=== PATIENT | female | born 1980 | race Caucasian/White ===

== ENCOUNTER 2020-04-13 10:08 | Emergency (ER) | payer OTHER, SELFPAY ==
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
--- NOTE | ~2020-04-13 | XR_ITS ---
EXAMINATION: XR knee LT min 4V DATE: 04/13/2020 11:52 INDICATION: Left knee pain TECHNIQUE: Four views of the left knee were obtained. COMPARISON: None. FINDINGS: Alignment is normal. No fracture or osteochondral lesion. Joint spaces are normal with no e rosions. No joint effusion/synovitis. Soft tissues are unremarkable. IMPRESSION: 1. No acute osseous abnormality. Reviewed, dictated and finalized at location A.
--- NOTE | ~2020-04-13 | XR_ITS ---
EXAMINATION: XR ankle RT min 3V INDICATION: Right ankle pain TECHNIQUE: Four views of the right ankle are obtained. COMPARISON: None available FINDINGS: There is no fracture, dislocation, or subluxation. The bones, soft tissues, and joint space s are normal. IMPRESSION: 1. No acute osseous abnormality. Reviewed, dictated and finalized at location A.
[2020-04-13 09:53] VITALS: BP 124/87; PULSE 96; RESP 20; TEMP 36.9; O2SAT 99
[2020-04-13 10:18] VITALS: PULSE 91; RESP 20; O2SAT 100
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
[2020-04-13 11:12] LABS: Hematocrit 44.1 % (37.0-47.0); Hemoglobin 14.1 g/dL (12.0-15.0); Mean Corpuscular Hemoglobin 28.3 pg (26-34); Mean Corpuscular Volume 88.6 fl (80-100); Mean Platelet Volume 9.4 fl (7.4-10.4); Platelet Count Result 418 k/mm3 (150-375); Red Blood Count 4.98 M/mm3 (4.2-5.4); Red Cell Distribution Width 14.6 % (11.5-14.5); White Blood Count 33.5 K/mm3 (4.5-10.0)
[2020-04-13 11:22] VITALS: TEMP 36.9
[2020-04-13 11:23] LABS: Blood Urea Nitrogen 8 mg/dL (7-17); Calcium 8.8 mg/dL (8.4-10.2); Carbon Dioxide 18 mmol/L (22-30); Chloride 110 mmol/L (98-107); Estimated CRCL calculation 71 ml/min; Estimated Glomerular Filt Rate > 60; Glucose 102 mg/dL (65-105); Sodium 139 mmol/L (137-145)
[2020-04-13 11:32] LABS: Partial Thromboplastin Time 21.3 SECONDS (22.3-36.8); Prothrombin Time 13.2 Seconds (11.1-14.7)
[2020-04-13 11:42] LABS: Lymphocytes Absolute Manual 2.34 K/mm3 (1.1-4.5); Monocytes Absolute Manual 2.01 K/mm3 (0.1-0.90); Monocytes Percent Manual 6 % (3-9); Neutrophils Percent Manual 87 % (46-73); Total Cells Counted 100
[2020-04-13] MEDS: KETOROLAC 30 MG/ML VIAL (*BKC) IV PUSH (12:09)
[2020-04-13 12:48] VITALS: TEMP 36.9
[2020-04-13 13:42] VITALS: BP 116/83; PULSE 85; RESP 18; O2SAT 99
== END 2020-04-13 13:44 | disposition home or self-care (01) ==
PROVIDERS: Physician Assistant; Emergency Provider General Practice; PCP Nurse Practitioner Family
DX: M25.571 Pain in right ankle and joints of right foot (principal); M25.562 Pain in left knee; R10.30 Lower abdominal pain, unspecified; F31.9 Bipolar disorder, unspecified; K76.0 Fatty (change of) liver, not elsewhere classified; I25.10 Atherosclerotic heart disease of native coronary artery without angina pectoris; V48.5XXA Car driver injured in noncollision transport accident in traffic accident, initial encounter
CPT/HCPCS: 36415; 71260; 73564; 73610; 74177; 80048; 81025; 85025; 85610; 85730; 96365; 96375; 99284; J0131; J1885; Q9967

== ENCOUNTER 2022-03-03 07:33 | Outpatient (CLI) | payer OTHER, SELFPAY ==
--- NOTE | 2022-03-03 07:55 | ECG_ITS ---
Measurements Intervals [place] Rate: 58 P: 61 ID: 165 QRS: 64 QRSD: 100 T: 40 QT: 453 QTc: 446 Interpretive Statements SINUS BRADYCARDIA NO PREVIOUS ECG AVAILABLE FOR COMPARISON Electronically Signed On 03-03-2022 22:09:58 CDT by Christina Mehta M.D.
[2022-03-03 09:05] LABS: Lithium 1.1 mmol/L (0.6-1.2)
== END 2022-03-03 07:34 | disposition home or self-care (01) ==
LOC: ANHSURGERY 07:39
PROVIDERS: Anesthesiology; PCP Nurse Practitioner Family; Visit Provider Obstetrics & Gynecology
DX: N92.1 Excessive and frequent menstruation with irregular cycle (principal); Z01.818 Encounter for other preprocedural examination
CPT/HCPCS: 36415; 80178; 93005

== ENCOUNTER 2022-03-05 01:58 | Day surgery (SDC) | payer OTHER, SELFPAY ==
[2022-03-01 17:42] VITALS: BMI 33.6
--- NOTE | 2022-03-01 17:46 | SUR.PREOP ---
Report to the Outpatient Waiting Room, entrance under the green pavilion located off [facility], at time ___1000____ on date _03/05/22 . OR Time: _1200 . - You and your visitor will be asked a series of questions to screen for COVID 19 for your protection. - Only one visitor is allowed at this time. - The patient visitor is requested to leave or wait in car when not with patient. - A mask is required within the hospital. Patients may have clear liquids (water, carbonated beverages, clear teas, apple juice) until 3 hours prior to surgery with a maximum of 20 ounces. - No food from midnight until time of surgery BEFORE 0900 AM - Infants may have breast milk until 4 hours before surgery, infant formula 6 hours prior to surgery. - Children will be allowed to drink immediately following surgery. If applicable, please bring a bottle or sippy cup to assist with drinking. Juice, water, soda, and popsicles are readily available. For infants on formula, please bring formula the day of surgery. Pacifiers are allowed. Take the following medications with a SIP of water the morning of surgery: LEVOTHYROXINE, LITHIUM, METOPROLOL, PAROXETINE Medications to discontinue per physician Date to take last dose Please no make-up, nail frisian, hairspray, perfume, deodorant, or body powder the day of surgery. No jewelry (including any body piercings) or valuables the day of surgery, leave them at home. Please take a shower or bath the night before, or the morning of, surgery with an antibacterial soap. Wear comfortable, loose fitting clothing. Children are encouraged to wear pajamas. - Jewelry must be removed prior to entering the operating room. Rings and piercings that are not removed may be cut off. - The hospital will not accept responsibility for valuables. - Please leave all valuables, including medications, at home the day of surgery. If you are going home after surgery, a licensed laundry route driver must drive you home. - NO public transportation without another adult. - We recommend that an adult stay with you for 24 hours following discharge. - We also recommend that you do not drive, make important decision, drink alcoholic beverages, or take any drugs that were not prescribed by your health care provider for at least 24 hours after your discharge time. For Pediatric surgeries, we recommend two adults accompany the child home (only one inside the building at this time). Follow any additional instructions given to you from your surgeon. If you or anyone in your household have experienced Covid symptoms in the past week, please notify your surgeon or the nurse liaison at the phone number below for possible testing. Telephone instructions given to _PATIENT and asked if any additional questions and then verbalized understanding. Patient advised to call surgeon office or pre surgery nurse liaison [phone] if any additional questions.
--- NOTE | 2022-03-04 12:04 | WPDANESEPPF ---
Anes - Initial Pre Proc Eval Procedure: Operation Date: 03/05/22 12:00 Proposed Procedures p Hysteroscopy Dilation and Curettage, Kalpana Endometrial Ablation, Bilateral Laparoscopic Salpingectomy, Excision of Left Vulvar Lesion - Soy Sales MD Date/Time: 03/04/22 12:04 Surgeon: Soy Sales MD Pre Op Diagnosis: Menorrhagia, Vulvar Lesion Patient Data Age: 41 Gender: F Height: 1.6 m Weight: 86.18 kg Allergies Allergy/AdvReac Type Severity Reaction Status Date / Time vancomycin Allergy Severe Anaphylaxis Verified 03/05/22 10:06 codeine Allergy Intermediate Rash Verified 03/05/22 10:06 Penicillins Allergy Intermediate Rash Verified 03/05/22 10:06 phenazopyridine Allergy Intermediate Nausea and Verified 03/05/22 10:06 Vomiting Home Medications Medication Instructions Recorded Confirmed Type lithium carbonate 600 mg capsule 900 mg PO DAILY 04/13/20 03/01/22 History lorazepam 1 mg tablet (Ativan) 0.25 mg PO DAILY 04/13/20 03/01/22 History levothyroxine 50 mcg capsule 50 mcg PO DAILY 12/28/21 03/01/22 History metoprolol succinate 25 mg 25 mg PO BID 12/28/21 03/01/22 History tablet,extended release 24 hr paroxetine HCl 40 mg tablet (Paxil) 40 mg PO DAILY 12/28/21 03/01/22 History Patient hx anesthesia problems: none Family hx anesthesia problems: none Results Review: All pre-operative results and documents have been reviewed as part of the pre-operative evaluation. [facility], [facility] Past Medical History Medical History Abnormal Pap smear of cervix 01-14-2020 Ascus hpv negative rpt pap in 1 year @ [facility] History of bipolar disorder History of breast implant removal 2018 Hypertension Hypothyroidism Menometrorrhagia Obesity Pilonidal abscess 1998 excision, has recurred, painful at times Sleep disorder Water retention Surgical History Surgical History H/O LEEP 2011 2017 x3 done in [place] H/O sinus surgery (~11/24/20) History of arthroscopy left hip History of breast augmentation 2013 History of breast lift 2018 History of laparoscopy 2015 endometriosis/7 cm on rt side History of sinus surgery 2000 cysts Family History Family History Father Depression Hypertension Family history of diabetes mellitus in first degree relative Family history of heart disease in male family member before age 55 Acute myocardial infarction Mother Depression Hypertension Family history of diabetes mellitus in first degree relative Family history of heart disease in male family member before age 55 Acute myocardial infarction Social History Social History Smoking status: Never smoker Alcohol intake: never Substance use: never Substance use type: does not use Living arrangements: alone Additional living arrangements comments: 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 Gender identity (if verbalized by the patient): Female Sexual Orientation (if Verbalized by the Patient): Straight or Heterosexual Anes - Eval Final PreProcedure Day of Procedure 03/04/22 12:04 Patient weight: obese Heart: regular rate and rhythm Lungs: clear to auscultation and normal air movement Airway: Mallampati scale class II Neurological: alert and oriented Last oral intake: >/= 8 hours ASA classification: III Emergent: no Anesthetic plan: proceed Anesthesia type and monitoring: general ETT Results Review: All pre-operative results and documents have been reviewed as part of the pre-operative evaluation. Informed Consent: The patient's anesthetic plan and its attendant risks and benefits were discussed with the patient/family/POA. Questions were solicited and answers provided to the satisfaction of the patient/family/POA.
[2022-03-05] VITALS (10 sets, daily range): BP systolic 117–155; BP diastolic 59–102; PULSE 59–113; RESP 14–20; TEMP 36.4–36.9; O2SAT 98–100
--- NOTE | 2022-03-05 08:27 | PM.IMHP ---
H&P: HPI History of Present Illness Date/Time: 03/05/22 08:27 41-year-old female 1 para 0010 presents for definitive therapy of irregular vaginal bleeding and heavy bleeding with clots. She has had multiple hormonal regimens to attempt to help with the bleeding but these have not helped in the past and currently is having 2-3 cycles per month each lasting 5-7 days with 3 days heavy clotting cramping and significant amount of discomfort and these problems are obviously affecting her activities of daily living. We have discussed multiple options and she desires to proceed with endometrial ablation. Also desires permanent sterilization in the form of bilateral salpingectomy and will proceed with this as well. 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 This has been itching burning and she desires removal. Chief Complaint: Menometrorrhagia Review of Systems Review of Systems: All systems reviewed & are unremarkable except as noted in HPI and below PMFSH Past Medical History Medical History Abnormal Pap smear of cervix 01-14-2020 Ascus hpv negative rpt pap in 1 year @ [facility] History of bipolar disorder History of breast implant removal 2018 Hypertension Hypothyroidism Menometrorrhagia Obesity Pilonidal abscess 1998 excision, has recurred, painful at times Sleep disorder Water retention Surgical History Surgical History H/O LEEP 2011 2017 x3 done in [place] H/O sinus surgery (~11/24/20) History of arthroscopy left hip History of breast augmentation 2014 History of breast lift 2018 History of laparoscopy 2015 endometriosis/7 cm on rt side History of sinus surgery 2000 cysts Family History Family History Father Depression Hypertension Family history of diabetes mellitus in first degree relative Family history of heart disease in male family member before age 55 Acute myocardial infarction Mother Depression Hypertension Family history of diabetes mellitus in first degree relative Family history of heart disease in male family member before age 55 Acute myocardial infarction Social History Social History Smoking status: Never smoker Alcohol intake: never Substance use: never Substance use type: does not use Living arrangements: alone Additional living arrangements comments: 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 Gender identity (if verbalized by the patient): Female Sexual Orientation (if Verbalized by the Patient): Straight or Heterosexual Meds Home Medications and Allergies Home Medications Medication Instructions Recorded Confirmed Type lithium carbonate 600 mg capsule 900 mg PO DAILY 04/13/20 03/01/22 History lorazepam 1 mg tablet (Ativan) 0.25 mg PO DAILY 04/13/20 03/01/22 History levothyroxine 50 mcg capsule 50 mcg PO DAILY 12/28/21 03/01/22 History metoprolol succinate 25 mg 25 mg PO BID 12/28/21 03/01/22 History tablet,extended release 24 hr paroxetine HCl 40 mg tablet (Paxil) 40 mg PO DAILY 12/28/21 03/01/22 History Allergies Allergy/AdvReac Type Severity Reaction Status Date / Time vancomycin Allergy Severe Anaphylaxis Verified 02/09/22 09:28 codeine Allergy Intermediate Rash Verified 02/09/22 09:28 Penicillins Allergy Intermediate Rash Verified 02/09/22 09:28 phenazopyridine Allergy Intermediate Nausea and Verified 02/18/22 14:49 Vomiting Exam Const: General: cooperative, healthy appearing and comfortable Resp: Effort & Inspection: normal respiratory effort Auscultation: clear to auscultation bilaterally Cardio: Rate: regular rate Rhythm: regular rhythm GI: Inspection: normal to inspection Auscultation: no
[2022-03-05] MEDS: LACTATED RINGERS 1,000 ML 30 ML IV CONT ×2 (10:30→13:03)
[2022-03-05] MEDS: KETOROLAC 15 MG/ML VIAL (*BKC) IV PUSH (10:37)
--- NOTE | 2022-03-05 11:14 | WPDHPUPDATE1 ---
History and Physical Update Update Date/Time: 03/05/22 11:14 History and Physical has been reviewed, including an updated exam of the patient. There are NO changes in the patient's condition. Risks, benefits, and alternatives have been discussed and questions answered. Patient agrees to proceed with procedure.
[2022-03-05] MEDS: ceFAZolin SODIUM 1 GM VIAL 2 GM IV PUSH (12:21)
--- NOTE | 2022-03-05 12:53 | P.OP_ITS ---
Procedure Note - Detailed Date of Procedure 03/05/22 Pre-op Diagnosis Menorrhagia, Vulvar Lesion, Undesired fertility Post-op Diagnosis Same Procedure Performed 1. Hysteroscopy with uterine curettings 2. Endometrial ablation 3. laparoscopic salpingectomy (bilateral) 4. Left vulvar lesion removal Surgeon Soy Sales MD Anesthesia General Findings 1. Endometrial cavity without abnormality 2. Laparoscopic exam revealed enlarged bulbous uterus with tubes ovaries without abnormality 3. 1cm left vulvar condyloma Description of Procedure Patient prepped and draped in usual manner for this procedure. Cervical cancer placed for uterine mobility. Abdominal trocar sites were marked and placed under direct visualization with findings as noted above. Using the Harmonic scalpel the mesial salpinx bilaterally was cauterized and cut and both tubes wer e removed. Gas was allowed to escape incisions are approximated using 0 Monocryl suture. Cervix was then dilated to allow the hysteroscope to place which revealed findings as noted above curettings were obtained Kalpana instrument was placed in the instrument was activated. The end of the procedure destruction of the cavity was noted. Left vulvar condylomas noted and incised around the edges and removed without difficulty. A deep suture of 2-0 chromic was used to approximate the deep tissue and a subcuticular layer as well to approximate the skin edges. Patient are procedure well sent recovery room in stable condition. Estimated Blood Loss 25 Drains No Packing No Pathology Yes Complications No immediate complications Condition Stable Disposition PACU [facility] Billing Surgery - Charge Forward: Surgery Billing
[2022-03-05] MEDS: ONDANSETRON INJ 4 MG/2 ML VIAL IV PUSH (13:18)
[2022-03-05] MEDS: SCOPOLAMINE 1.5 MG PATCH TRANSDERM (13:25)
[2022-03-05] MEDS: LORazepam (*CRX) 1 MG TABLET PO (13:50)
[2022-03-05] MEDS: fentaNYL CITRATE INJ (*CRX) 100 MCG/2 ML VIAL 25 MCG IV PUSH (14:17)
[2022-03-05] MEDS: oxyCODONE HCL (*CRX) 5 MG TAB IR PO (15:26)
== END 2022-03-05 15:30 | disposition home or self-care (01) ==
PROVIDERS: PCP Nurse Practitioner Family; Visit Provider Obstetrics & Gynecology
PROC: 0UDB8ZZ Extraction of Endometrium, Via Natural or Artificial Opening Endoscopic (ICD-10-PCS; CPT 58558; principal; 2022-03-05 12:00)
DX: Z30.2 Encounter for sterilization (principal); N90.89 Other specified noninflammatory disorders of vulva and perineum; E03.9 Hypothyroidism, unspecified; I10 Essential (primary) hypertension; G47.9 Sleep disorder, unspecified; E66.9 Obesity, unspecified; Z68.36 Body mass index [BMI] 36.0-36.9, adult; F31.9 Bipolar disorder, unspecified
CPT/HCPCS: 58661; 58563; 11200; 36415; 80178; 88302; 88305; 93005; A9270; J0690; J1100; J1885; J2250; J2405; J2704; J2710; J3010; J7120

== ENCOUNTER → 2022-06-03 08:55 | Outpatient (CLI) | payer OTHER, SELFPAY ==
--- NOTE | ~2022-06-03 | XR_ITS ---
EXAMINATION: XR chest 2V DATE: 06/03/2022 09:12 INDICATION: Chest pain TECHNIQUE: PA and lateral views of the chest are obtained. COMPARISON: None available FINDINGS: The lungs are free of acute opacities. No pleural effusion or pneumothorax. The cardiomedia stinal silhouette is normal. There is mild thoracic spondylosis. IMPRESSION: 1. No acute cardiopulmonary abnormality. Reviewed, dictated and finalized at location B.
== END ==
PROVIDERS: PCP Nurse Practitioner Family; Visit Provider Nurse Practitioner Family
DX: R07.89 Other chest pain (principal)
CPT/HCPCS: 71046

== ENCOUNTER 2022-06-24 07:53 | Emergency (ER) | payer OTHER, SELFPAY ==
[2022-06-24] VITALS (9 sets, daily range): BP systolic 154–171; BP diastolic 78–96; PULSE 57–66; RESP 17–22; TEMP 37.1; O2SAT 98–100
--- NOTE | ~2022-06-24 | XR_ITS ---
EXAMINATION: XR chest 2V DATE: 06/24/2022 09:03 INDICATION: Chest pressure. TECHNIQUE: Frontal and lateral views of the chest were obtained. COMPARISON: Chest 2 views 06/03/2022 FINDINGS: There is no pneumonia, pleural effusion, or pneumothorax. The heart size is normal. IMPRESSION: 1. No acute cardiopulmonary disease. Reviewed, dictated and finalized at location A.
--- NOTE | 2022-06-24 08:00 | ECG_ITS ---
Measurements Intervals [place] Rate: 0 P: NM: 0 QRS: QRSD: 0 T: QT: 0 QTc: 0 Interpretive Statements SINUS RHYTHM WITH SINUS ARRHYTHMIA BASELINE ARTIFACT- I, II, III, AVR, AVL, AVF BORDERLINE ECG COMPARED TO ECG 03/03/2022 08:09:36 HEART RATE HAS INCREASED Electronically Signed On 06-24-2022 13:26:57 CDT by Levi Reyes D.O.
--- NOTE | 2022-06-24 08:05 | ECG_ITS ---
Measurements Intervals [place] Rate: 57 P: 62 NM: 161 QRS: 66 QRSD: 100 T: 48 QT: 454 QTc: 446 Interpretive Statements SINUS BRADYCARDIA BASELINE ARTIFACT- I, III, AVR, AVL, AVF BORDERLINE ECG COMPARED TO ECG 03/03/2022 08:09:36 NO SIGNIFICANT CHANGES Electronically Signed On 06-24-2022 9:50:50 CDT by Levi Reyes D.O.
[2022-06-24 08:16] LABS: Basophils Absolute Auto 0.1 K/mm3 (0.0-0.1); Basophils Percent Auto 0.7 % (0.2-1.2); Eosinophils Absolute Auto 0.4 K/mm3 (0-0.3); Eosinophils Percent Auto 2.1 % (0-4.4); Hematocrit 40.2 % (37.0-47.0); Hemoglobin 13.2 g/dL (12.0-15.0); Immature Granulocyte Absolute 0.05 K/mm3 (0.00-0.031); Immature Granulocyte Percent A 0.3 % (0-0.5); Lymphocytes Absolute Auto 4.91 K/mm3 (0.9-3.2); Mean Corpuscular HGB Conc 32.8 g/dl (32-36); Mean Corpuscular Hemoglobin 29.3 pg (26-34); Mean Corpuscular Volume 89.1 fl (80-100); Monocytes Absolute Auto 1.1 K/mm3 (0.1-0.6); Monocytes Percent Auto 6.8 % (2.6-8.5); Neutrophils Absolute Auto 9.8 K/mm3 (1.3-6.7); Neutrophils Percent Auto 60.1 % (45.5-73.1); Platelet Count Result 435 k/mm3 (150-375); Red Blood Count 4.51 M/mm3 (4.2-5.4); White Blood Count 16.4 K/mm3 (4.5-10.0)
--- NOTE | 2022-06-24 08:18 | ED.CHESTPAIN ---
HPI - Chest Pain General Chief Complaint: Chest Pain Stated Complaint: [id number] Time Seen by Provider: 06/24/22 08:17 Source: patient Mode of arrival: ambulatory Limitations: no limitations History of Present Illness HPI narrative: 42 years old white female drove herself to the emergency room complaining of constant chest pressure, intermittent palpitation for the last 3 weeks. The pressure is constant like a band around the chest, was seen at family physician who told her that he have prolonged QT, referred to a chief lock tender operator who had extensive work-up including Holter monitor, blood work-up, and stress test. Patient does not have the results of the above tests yet. 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 Patient been on 1 mg of Ativan 3 times daily for years, did not take her Ativan this morning and declined to take Ativan in the emergency room. Related Data Home Medications Medication Instructions Recorded Confirmed lithium carbonate 600 mg capsule 900 mg PO DAILY 04/13/20 03/23/22 lorazepam 1 mg tablet (Ativan) 0.25 mg PO DAILY 04/13/20 03/23/22 levothyroxine 50 mcg capsule 50 mcg PO DAILY 12/28/21 03/23/22 metoprolol succinate 25 mg 25 mg PO BID 12/28/21 03/23/22 tablet,extended release 24 hr paroxetine HCl 40 mg tablet (Paxil) 40 mg PO DAILY 12/28/21 03/23/22 Allergies Allergy/AdvReac Type Severity Reaction Status Date / Time vancomycin Allergy Severe Anaphylaxis Verified 03/30/22 08:12 codeine Allergy Intermediate Rash Verified 03/30/22 08:12 Penicillins Allergy Intermediate Rash Verified 03/30/22 08:12 phenazopyridine Allergy Intermediate Nausea and Verified 03/30/22 08:12 Vomiting Review of Systems Review of Systems: All systems reviewed & are unremarkable except as noted in HPI and below PMFSH Past Medical History Medical History Abnormal Pap smear of cervix 01-14-2020 [facility] hpv negative rpt pap in 1 year @ [facility] History of bipolar disorder History of breast implant removal 2017 Hypertension Hypothyroidism Menometrorrhagia Obesity Pilonidal abscess 1998 excision, has recurred, painful at times Sleep disorder Water retention Surgical History Surgical History H/O LEEP 2012 2017 x3 done in [place] H/O sinus surgery (~11/24/20) H/O tubal ligation History of arthroscopy left hip History of breast augmentation 2014 History of breast lift 2018 History of hysteroscopy (03/05/22) Hscope D&C / Endometrial Ablation/ bilateral Laparoscopic salpingectomy / excision of vulvar lesion History of laparoscopy 2014 endometriosis/7 cm on rt side History of sinus surgery 2000 cysts Family History Family History Father Depression Hypertension Family history of diabetes mellitus in first degree relative Family history of heart disease in male family member before age 55 Acute myocardial infarction Mother Depression Hypertension Family history of diabetes mellitus in first degree relative Family history of heart disease in male family member before age 55 Acute myocardial infarction Social History Social History Smoking status: Never smoker Alcohol intake: never Substance use: never Substance use type: does not use Additional living arrangements comments: 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
[2022-06-24 08:27] LABS: Alanine Aminotransferase 31 U/L (6-35); Albumin Level 4.7 g/dL (3.5-5.1); Alkaline Phosphatase 51 U/L (38-126); Anion Gap 14 mmol/L (8-16); Aspartate Amino Transferase 32 U/L (14-36); Bilirubin,Total 0.7 mg/dL (0.2-1.3); Blood Urea Nitrogen 16 mg/dL (7-17); Carbon Dioxide 20 mmol/L (22-30); Chloride 104 mmol/L (98-107); Estimated CRCL calculation 68 ml/min; Estimated Glomerular Filt Rate > 60; Glucose 100 mg/dL (65-110); Lipase 242 U/L (23-300); Potassium 3.5 mmol/L (3.4-5.0); Sodium 138 mmol/L (137-145)
[2022-06-24 08:32] LABS: Prothrombin Time 13.1 Seconds (11.1-14.7)
[2022-06-24 08:41] LABS: Troponin I < 0.012 ng/mL (0.000-0.034)
[2022-06-24 08:46] LABS: Lithium 0.7 mmol/L (0.6-1.2)
[2022-06-24] MEDS: BELLADONNA ALK/PHENOB ELIX 10 ML, MAG HYDROX/ALUMINUM HYD/SIMETH 30 ML, LIDOCAINE HCL 2... PO (08:52)
[2022-06-24 08:56] LABS: D Dimer 0.32 ug/mL (<0.48)
--- NOTE | 2022-06-24 08:58 | PC.NURSE ---
Per KEIRA Hollingsworth, no aspirin needed.
[2022-06-24 09:00] LABS: NT Pro B Type Natriuretic Pept 90 pg/mL (5-100)
== END 2022-06-24 10:19 | disposition home or self-care (01) ==
PROVIDERS: Emergency Provider Emergency Medicine; PCP Nurse Practitioner Family
DX: R07.89 Other chest pain (principal); I10 Essential (primary) hypertension; E03.9 Hypothyroidism, unspecified; E66.9 Obesity, unspecified; Z68.35 Body mass index [BMI] 35.0-35.9, adult; F31.9 Bipolar disorder, unspecified; G47.9 Sleep disorder, unspecified; Z90.79 Acquired absence of other genital organ(s); R00.1 Bradycardia, unspecified
CPT/HCPCS: 36415; 71046; 80053; 80178; 83690; 83880; 84484; 85025; 85380; 85610; 85730; 93005; 99284; A9270

== ENCOUNTER 2022-12-10 07:43 | Outpatient (CLI) | payer OTHER, SELFPAY ==
[2022-12-10 08:39] LABS: Lithium 0.6 mmol/L (0.6-1.2)
== END 2022-12-10 07:44 | disposition home or self-care (01) ==
LOC: ANHSURGERY 07:47
PROVIDERS: Anesthesiology; PCP Nurse Practitioner Family; Visit Provider Obstetrics & Gynecology
DX: N92.1 Excessive and frequent menstruation with irregular cycle (principal); Z79.899 Other long term (current) drug therapy; Z01.818 Encounter for other preprocedural examination
CPT/HCPCS: 36415; 80178; 86850; 86900; 86901

== ENCOUNTER 2022-12-17 00:33 | Day surgery (SDC) | payer OTHER, SELFPAY ==
[2022-12-02 16:59] VITALS: BMI 37.0
--- NOTE | 2022-12-02 17:14 | PC.NURSE ---
Report to the Outpatient Waiting Room, entrance under the green pavilion located off [facility], at time 1000_ on date 12/17/22. Planned Procedure Time: 1300_. Time changes happen often and if your time is changed the preop area will call you the afternoon before. - You and your visitor will be asked to self-screen and do not enter if you have any COVID symptoms. - Only one visitor is requested with a max of two and NO children visitors are allowed at this time. - The patient visitor may be requested to leave or wait in car when not with patient due to distancing restrictions. - A mask is optional within the hospital at this time. Patients may have clear liquids (water, carbonated beverages, clear teas, apple juice) until 3 hours prior to surgery with a maximum of 20 ounces. - No food from midnight until time of surgery - Infants may have breast milk until 4 hours before surgery, infant formula 6 hours prior to surgery. - Children will be allowed to drink immediately following surgery. If applicable, please bring a bottle or sippy cup to assist with drinking. Juice, water, soda, and popsicles are readily available. For infants on formula, please bring formula the day of surgery. Pacifiers are allowed. Take the following medications with a SIP of water the morning of surgery: _levothyroxine, metoprolol, lorazepam, paxil_ DO NOT STOP ANY OF YOUR OTHER PRESCRIPTION MEDICATIONS PRIOR TO SURGERY ?EXCEPT THE FOLLOWING Medications to discontinue per physician _lisinopril(don't take morning of surgery) Date to take last dose Please no make-up, nail icelandic, hairspray, perfume, deodorant, or body powder the day of surgery. No jewelry (including any body piercings) or valuables the day of surgery, leave them at home. Please take a shower or bath the night before, or the morning of, surgery with an antibacterial soap. Wear comfortable, loose fitting clothing. Children are encouraged to wear pajamas. - Jewelry must be removed prior to entering the operating room. Rings and piercings that are not removed may be cut off. - The hospital will not accept responsibility for valuables. - Please leave all valuables, including medications, at home the day of surgery. If you are going home after surgery, a licensed truck driver rubbish collector must drive you home. - NO public transportation without another adult if you receive anesthesia. - We recommend that an adult stay with you for 24 hours following discharge. - We also recommend that you do not drive, make important decision, drink alcoholic beverages, or take any drugs that were not prescribed by your health care provider for at least 24 hours after your discharge time. For Pediatric surgeries, we recommend two adults accompany the child home. Follow any additional instructions given to you from your surgeon. If you or anyone in your household have experienced Covid symptoms in the past week, please notify your surgeon or the nurse liaison at the phone number below for possible testing. Telephone instructions given to Hattie Alamo and asked if any additional questions and then verbalized understanding. Patient advised to call surgeon office or pre surgery nurse liaison [phone] if any additional questions.
[2022-12-17] VITALS (11 sets, daily range): BP systolic 100–142; BP diastolic 54–84; PULSE 58–91; RESP 16–20; TEMP 36.5–37.3; O2SAT 97–100
[2022-12-17] MEDS: ACETAMINOPHEN 500 MG TABLET 1000 MG PO (11:43)
[2022-12-17] MEDS: LACTATED RINGERS 1,000 ML 30 ML IV CONT ×2 (12:00→14:44)
--- NOTE | 2022-12-17 12:02 | PM.IMHP ---
H&P: HPI History of Present Illness Date/Time: 12/17/22 12:02 Chief Complaint: Heavy bleeding Narrative: 42 y/o with heavy, unpredictable, irregular, painful menses. She had an endometrial ablation and laparoscopic salpingectomies, but her menses have continued to worsen nonetheless. She desires definitive management with hysterectomy. She does not desire future childbearing. Review of Systems Review of Systems: All systems reviewed & are unremarkable except as noted in HPI and below PMFSH Past Medical History Medical History Abnormal Pap smear of cervix 01-14-2020 [facility] hpv negative rpt pap in 1 year @ [facility] History of bipolar disorder History of breast implant removal 2018 Hypertension Hypothyroidism Menometrorrhagia Obesity Pilonidal abscess 1998 excision, has recurred, painful at times Sleep disorder Water retention Surgical History Surgical History H/O LEEP 2011 2017 x3 done in [place] H/O sinus surgery (~11/24/20) H/O tubal ligation History of arthroscopy left hip History of breast augmentation 2014 History of breast lift 2018 History of hysteroscopy (03/05/22) Hscope D&C / Endometrial Ablation/ bilateral Laparoscopic salpingectomy / excision of vulvar lesion History of laparoscopy 2014 endometriosis/7 cm on rt side History of sinus surgery 2000 cysts Family History Family History Father Depression Hypertension Family history of diabetes mellitus in first degree relative Family history of heart disease in male family member before age 55 Acute myocardial infarction Mother Depression Hypertension Family history of diabetes mellitus in first degree relative Family history of heart disease in male family member before age 55 Acute myocardial infarction Social History Social History Smoking status: Never smoker Alcohol intake: never Substance use: never Substance use type: does not use Living arrangements: alone Additional living arrangements comments: 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 Gender identity (if verbalized by the patient): Female Sexual Orientation (if Verbalized by the Patient): Straight or Heterosexual Spiritual care concerns: No Meds Home Medications and Allergies Home Medications Medication Instructions Recorded Confirmed Type lithium carbonate 600 mg capsule 900 mg PO DAILY 04/13/20 12/17/22 History lorazepam 1 mg tablet (Ativan) 0.25 mg PO DAILY 04/13/20 12/17/22 History levothyroxine 50 mcg capsule 50 mcg PO DAILY 12/28/21 12/17/22 History metoprolol succinate 25 mg 25 mg PO BID 12/28/21 12/17/22 History tablet,extended release 24 hr paroxetine HCl 40 mg tablet (Paxil) 40 mg PO DAILY 12/28/21 12/17/22 History ibuprofen 800 mg tablet 800 mg PO TID PRN pain #30 tabs 03/05/22 12/17/22 Rx lisinopril 10 mg tablet 10 mg PO DAILY 12/02/22 12/17/22 History Allergies Allergy/AdvReac Type Severity Reaction Status Date / Time vancomycin Allergy Severe Anaphylaxis Verified 12/17/22 11:24 codeine Allergy Intermediate Rash Verified 12/17/22 11:24 Penicillins Allergy Intermediate Rash Verified 12/17/22 11:24 phenazopyridine Allergy Intermediate Nausea and Verified 12/17/22 11:24 Vomiting Vital Signs Vital Signs - 24 hr 12/17/22 11:37 Temperature 36.6 C Pulse Rate 58 L Respiratory Rate 16 Blood Pressure 116/72 Pulse Oximetry 100 Oxygen Delivery Room Air Exam Const: Orientation/consciousness: patient oriented x3 Other: Well-developed, well-nourished female in no acute distress. Neck: Thyroid: thyroid normal Lymphatic: no lymphadenopathy noted (in neck, axilla or inguinal nodes) Resp: Effort & Inspection: normal respiratory effo
[2022-12-17] MEDS: KETOROLAC 15 MG/ML VIAL (*BKC) IV PUSH (12:03)
--- NOTE | 2022-12-17 12:07 | WPDHPUPDATE1 ---
History and Physical Update Update Date/Time: 12/17/22 12:07 History and Physical has been reviewed, including an updated exam of the patient. There are NO changes in the patient's condition. Risks, benefits, and alternatives have been discussed and questions answered. Patient agrees to proceed with procedure.
--- NOTE | 2022-12-17 12:46 | WPDANESEPPF ---
Anes - Initial Pre Proc Eval Procedure: Operation Date: 12/17/22 13:00 Proposed Procedures p Robotic Assisted Total Vaginal Hysterectomy - Hiren Zarate MD Date/Time: 12/17/22 12:46 Surgeon: Hiren Zarate MD Pre Op Diagnosis: heavy irreg bleeding,failed ablation,pain Patient Data Age: 42 Gender: F Height: 1.6 m Weight: 89.7 kg Last Vital Signs Temp 36.6 C 12/17/22 11:37 Pulse 58 L 12/17/22 11:37 Resp 16 12/17/22 11:37 BP 116/72 12/17/22 11:37 Pulse Ox 100 12/17/22 11:37 O2 Del Method Room Air 12/17/22 11:37 Allergies Allergy/AdvReac Type Severity Reaction Status Date / Time vancomycin Allergy Severe Anaphylaxis Verified 12/17/22 11:24 codeine Allergy Intermediate Rash Verified 12/17/22 11:24 Penicillins Allergy Intermediate Rash Verified 12/17/22 11:24 phenazopyridine Allergy Intermediate Nausea and Verified 12/17/22 11:24 Vomiting Home Medications Medication Instructions Recorded Confirmed Type lithium carbonate 600 mg capsule 900 mg PO DAILY 04/13/20 12/17/22 History lorazepam 1 mg tablet (Ativan) 0.25 mg PO DAILY 04/13/20 12/17/22 History levothyroxine 50 mcg capsule 50 mcg PO DAILY 12/28/21 12/17/22 History metoprolol succinate 25 mg 25 mg PO BID 12/28/21 12/17/22 History tablet,extended release 24 hr paroxetine HCl 40 mg tablet (Paxil) 40 mg PO DAILY 12/28/21 12/17/22 History ibuprofen 800 mg tablet 800 mg PO TID PRN pain #30 tabs 03/05/22 12/17/22 Rx lisinopril 10 mg tablet 10 mg PO DAILY 12/02/22 12/17/22 History Patient hx anesthesia problems: none Family hx anesthesia problems: none Results Review: All pre-operative results and documents have been reviewed as part of the pre-operative evaluation. [facility] Past Medical History Medical History Abnormal Pap smear of cervix 01-14-2020 [facility] hpv negative rpt pap in 1 year @ [facility] History of bipolar disorder History of breast implant removal 2018 Hypertension Hypothyroidism Menometrorrhagia Obesity Pilonidal abscess 1998 excision, has recurred, painful at times Sleep disorder Water retention Surgical History Surgical History H/O LEEP 2012 2017 x3 done in [place] H/O sinus surgery (~11/24/20) H/O tubal ligation History of arthroscopy left hip History of breast augmentation 2014 History of breast lift 2018 History of hysteroscopy (03/05/22) Hscope D&C / Endometrial Ablation/ bilateral Laparoscopic salpingectomy / excision of vulvar lesion History of laparoscopy 2014 endometriosis/7 cm on rt side History of sinus surgery 1999 cysts Family History Family History Father Depression Hypertension Family history of diabetes mellitus in first degree relative Family history of heart disease in male family member before age 55 Acute myocardial infarction Mother Depression Hypertension Family history of diabetes mellitus in first degree relative Family history of heart disease in male family member before age 55 Acute myocardial infarction Social History Social History Smoking status: Never smoker Alcohol intake: never Substance use: never Substance use type: does not use Living arrangements: alone Additional living arrangements comments: 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
[2022-12-17] MEDS: ceFAZolin 2 GM/D5W 50 ML 2 GM/50 ML BAG IVPB (12:57)
--- NOTE | 2022-12-17 14:45 | W.PM.PROC2 ---
Procedure Note - Detailed Date of Procedure 12/17/22 Pre-op Diagnosis Menometrorrhagia Dysmenorrhea Post-op Diagnosis Same Procedure Performed Robotic assisted total vaginal hysterectomy Surgeon Hiren Zarate MD Anesthesia General Findings Adhesions in posterior cul-de-sac. Distal left Fallopian tube remnant noted. Right Fallopian tube surgically absent. Left ovary adherent to posterior cul-de-sac. Otherwise, the bilateral ovaries were unremarkable. Anterior cul-de-sac, bilateral round ligaments, and uterosacral ligaments wereunremarkable. Description of Procedure The patient was taken to the operating room where general endotracheal anesthesia was administered. She was prepared and draped in the usual sterile fashion in the dorsal lithotomy position. The bladder was drained with Nash catheter. The cervix was visualized and the anterior lip was grasped using a single-tooth tenaculum. The cervix was gently dilated using Hegar dilators. The DOMINGO 2 uterine manipulator was then placed and the tenaculum was removed. Gloves were changed and attention was turned to the abdomen. A supraumbilical skin incision was made with the scalpel. The Veress needle was advanced and pneumoperitoneum was administered using carbon dioxide gas. The bladeless trocar was then advanced. Intraperitoneal placement was confirmed using the laparoscope. Lateral ports and an assistant floor covering printer port were all placed using bladeless trocars under direct laparoscopic visualization. She was placed in Trendelenburg position and the patient cart was docked. I assumed the console. The ureters were visualized bilaterally. The round ligament on the right was divided. The uteroovarian ligament was divided. The broad ligament was divided, skeletonizing the uterine artery on the right. The bladder was reflected away. The left side was similarly dissected. The posterior cul-de-sac adhesions were able to be lysed via gentle blunt dissection, also freeing the left ovary. A remnant of the distal left Fallopian tube, including the fimbriated end, was excised and passed off the field. Colpotomy was performed circumferentially. The specimen was removed and passed off to be sent to pathology. The vaginal cuff was reapproximated using 0 Vicryl in interrupted [id number] fashion. The pelvis was irrigated copiously using warmed normal saline. Rigorous hemostasis was assured. HemaDerm was applied to the vaginal cuff. The pedicles were inspected once again. The ports were then withdrawn and the gas was allowed to escape. The skin incisions were reapproximated using 4 0 Monocryl in interrupted subcuticular fashion. Dermaflex was applied externally. Sponge, lap, needle and instrument counts were correct. The patient was awakened and taken to the recovery room in stable condition. I was present and scrubbed through the entire procedure. Implants None Estimated Blood Loss 50 Drains Yes (Nash) Packing No Pathology Yes (Uterus and cervix, distal left Fallopian tube remnant) Complications None Condition Stable Disposition PACU
--- NOTE | 2022-12-17 14:54 | PM.DS ---
DS: Admitting Diagnosis Discharge Date 12/18/22 Admitting Diagnosis Menometrorrhagia Dysmenorrhea DS: Discharge Diagnosis Discharge Diagnosis (1) Dysmenorrhea: Code(s): N94.6 - Dysmenorrhea, unspecified Status: Acute (2) Menometrorrhagia: Code(s): N92.1 - Excessive and frequent menstruation with irregular cycle Status: Acute DS: Summary Hospital Course Hospital Course: She was admitted on the date of scheduled surgery. She underwent robotic assisted TVH. Please see the operative note for details. Postoperatively, she did well and was able to go home on POD#1. DS: Data Data Completed and Pending Pending studies at discharge: Pending at discharge 12/17/22 14:21 Surgical [PTH] Routine Discharge Plan Discharge Patient Disposition: Home, Self-Care Discharge Instructions: Call or return if temperature above 100.4? F, increased abdominal pain, increased vaginal bleeding or any new problems. Nothing in vagina for 6 weeks. Stand Alone Forms: General Discharge Instructions Follow-up/Referrals: Hiren Zarate MD [Physician] - 2 Weeks Discharge Medications: New hydrocodone-acetaminophen 5-325 mg tablet 1 - 2 tablet PO Q6H PRN (Reason: pain) Qty: 30 0RF Continued paroxetine HCl [Paxil] 40 mg tablet 40 mg PO DAILY levothyroxine 50 mcg capsule 50 mcg PO DAILY metoprolol succinate 25 mg tablet extended release 24 hr 25 mg PO BID lithium carbonate 600 mg Capsule 900 mg PO DAILY lorazepam [Ativan] 1 mg Tablet 0.25 mg PO DAILY lisinopril 10 mg Tablet 10 mg PO DAILY ibuprofen 800 mg tablet 800 mg PO TID PRN (Reason: pain) Qty: 30 0RF
[2022-12-17] MEDS: fentaNYL CITRATE INJ (*CRX) 100 MCG/2 ML VIAL 25 MCG IV PUSH ×8 (14:56→15:57)
[2022-12-17] MEDS: DEXTROSE 5%/0.45% SOD CHL 1,000 ML 125 ML IV CONT (16:46)
[2022-12-17] MEDS: KETOROLAC 30 MG/ML VIAL (*BKC) IV PUSH ×2 (16:46→22:20)
[2022-12-17] MEDS: oxyCODONE/ACETAMINOPHEN (*CRX) 5-325 MG TABLET 1 TABLET PO ×2 (18:20→22:20)
[2022-12-17] MEDS: DOCUSATE SODIUM 100 MG CAPSULE PO (18:20)
[2022-12-17] MEDS: ENOXAPARIN 40 MG/0.4 ML SYRINGE SUB-Q (20:30)
[2022-12-18] MEDS: oxyCODONE/ACETAMINOPHEN (*CRX) 5-325 MG TABLET 1 TABLET PO ×2 (02:20→11:39)
[2022-12-18] MEDS: KETOROLAC 30 MG/ML VIAL (*BKC) IV PUSH (04:20)
[2022-12-18 04:25] VITALS: BP 106/64; PULSE 62; RESP 18; TEMP 36.9; O2SAT 97
[2022-12-18 05:05] LABS: Basophils Absolute Auto 0.1 K/mm3 (0.0-0.1); Basophils Percent Auto 0.3 % (0.2-1.2); Eosinophils Percent Auto 0.1 % (0-4.4); Hematocrit 34.8 % (37.0-47.0); Hemoglobin 11.4 g/dL (12.0-15.0); Immature Granulocyte Absolute 0.09 K/mm3 (0.00-0.031); Immature Granulocyte Percent A 0.5 % (0-0.5); Lymphocytes Absolute Auto 2.39 K/mm3 (0.9-3.2); Lymphocytes Percent Auto 13.8 % (18.3-44.2); Mean Corpuscular HGB Conc 32.8 g/dl (32-36); Mean Corpuscular Hemoglobin 29.1 pg (26-34); Mean Corpuscular Volume 88.8 fl (80-100); Mean Platelet Volume 10.1 fl (7.4-10.4); Monocytes Absolute Auto 1.3 K/mm3 (0.1-0.6); Monocytes Percent Auto 7.5 % (2.6-8.5); Neutrophils Absolute Auto 13.5 K/mm3 (1.3-6.7); Neutrophils Percent Auto 77.8 % (45.5-73.1); Platelet Count Result 347 k/mm3 (150-375); Red Blood Count 3.92 M/mm3 (4.2-5.4); Red Cell Distribution Width 14.1 % (11.5-14.5); White Blood Count 17.4 K/mm3 (4.5-10.0)
[2022-12-18 07:10] VITALS: BP 107/60; PULSE 60; RESP 16; TEMP 36.7; O2SAT 100
[2022-12-18] MEDS: DOCUSATE SODIUM 100 MG CAPSULE PO (09:56)
--- NOTE | 2022-12-18 10:41 | PM.GYNPNOP ---
IMAGERY [employer]TELL[employer] - A/P Assessment and plan (1) Dysmenorrhea: Code(s): N94.6 - Dysmenorrhea, unspecified Status: Acute Assessment and Plan: A: POD#1, s/p robotic assisted TVH, doing well. P: Home to f/u 2 weeks in office. (2) Menometrorrhagia: Code(s): N92.1 - Excessive and frequent menstruation with irregular cycle Status: Acute Postoperative Procedures: Procedures Operation Date: 12/17/22 13:00 Actual Procedure Side Surgeon p Robotic Assisted Total Vaginal Hysterectomy Not Applicable Hiren Zarate MD Postoperative day: 1 Time Spent With Patient Time with patient: less than 15 minutes [employer] [employer]LL[employer]- PN:Subj Post-Op Subjective Date/time seen: 12/18/22 10:41 Interval history: Pain OK. Tolerating diet. Voiding. Would like to go home. Exam Narrative: AVSS I/O OK ABD soft, nontender. Incisions c/d/i. EXT nontender [employer]TELL[employer] - PN: Obj Data Vital Signs Vital Signs: Vital Signs - 24 hr 12/17/22 11:37 12/17/22 14:44 12/17/22 15:00 Temperature 36.6 C 37.3 C Pulse Rate 58 L 79 90 Respiratory Rate 16 16 20 Blood Pressure 116/72 113/56 L 142/80 H Pulse Oximetry 100 98 100 Oxygen Delivery Room Air Simple Face Mask Simple Face Mask Oxygen Flow Rate 8 8 12/17/22 15:15 12/17/22 15:30 12/17/22 15:45 Temperature Pulse Rate 91 78 83 Respiratory Rate 20 16 16 Blood Pressure 123/63 106/67 108/84 Pulse Oximetry 97 100 100 Oxygen Delivery Room Air Nasal Cannula Nasal Cannula Oxygen Flow Rate 2 2 12/17/22 15:56 12/17/22 16:15 12/17/22 16:15 Temperature 36.5 C Pulse Rate 89 77 Respiratory Rate 18 16 16 Blood Pressure 102/65 100/54 L Pulse Oximetry 100 100 100 Oxygen Delivery Nasal Cannula Nasal Cannula Oxygen Flow Rate 2 2 12/17/22 16:50 12/17/22 19:10 12/17/22 20:30 Temperature Pulse Rate 71 Respiratory Rate Blood Pressure Pulse Oximetry 99 Oxygen Delivery Room Air Room Air Oxygen Flow Rate 12/17/22 20:30 12/17/22 23:30 12/17/22 23:30 Temperature 37.1 C 36.6 C Pulse Rate 71 70 Respiratory Rate 18 18 Blood Pressure 117/59 L 104/60 Pulse Oximetry 99 98 Oxygen Delivery Room Air Oxygen Flow Rate 12/18/22 04:25 12/18/22 04:25 12/18/22 07:10 Temperature 36.9 C Pulse Rate 62 Respiratory Rate 18 Blood Pressure 106/64 Pulse Oximetry 97 Oxygen Delivery Room Air Room Air Oxygen Flow Rate 12/18/22 07:10 Temperature 36.7 C Pulse Rate 60 Respiratory Rate 16 Blood Pressure 107/60 Pulse Oximetry 100 Oxygen Delivery Oxygen Flow Rate Intake/Output Intake/Output: Intake & Output 12/15/22 12/16/22 12/17/22 12/18/22 23:59 23:59 23:59 23:59 Intake Total 2050 2550 Output Total 950 1850 Balance 1100 700 Meds/Results Medications: Active Medications Generic Name Dose Route Start Last Admin Trade Name Freq PRN Reason Stop Dose Admin Docusate Sodium 100 mg 12/17/22 17:00 12/18/22 09:56 Docusate Sodium 100 Mg Capsule PO 100 mg BID SHALONDA Administration Enoxaparin Sodium 40 mg 12/17/22 21:00 12/17/22 20:30 Enoxaparin 40 Mg/0.4 Ml Syringe SUB-Q 40 mg DAILY@1700 [facility] Administration Dextrose/Sodium Chloride 1,000 mls @ 125 mls/hr 12/17/22 15:58 12/18/22 08:41 Dextrose 5% Sodium Chloride 0.45% IV CONT Not Given .Q8H SHALONDA Ibuprofen 600 mg 12/17/22 15:58 Ibuprofen 600 Mg Tablet PO Q6H PRN Cramping Ketorolac Tromethamine 30 mg 12/17/22 15:58 12/18/22 04:20 Ketorolac 30 Mg/Ml Vial (*Bkc) IV PUSH 12/22/22 15:57 30 mg Q6H PRN Administration Pain Rated 4-6 Levothyroxine Sodium 50 mcg 12/18/22 06:30 12/18/22 08:41 Levothyroxine Sodium 50 Mcg Tablet PO Not Given DAILY@0630 [facility] Lisinopril 10 mg 12/18/22 09:00 12/18/22 08:41 Lisinopril 10 Mg Tablet PO Not Given DAILY [facility] [place] Carbonate 900 mg 12/18/22 09:00 12/18/22 08:41 [place] Carbonate 300 Mg Capsule PO Not Given DAILY SHALONDA Lorazepam 0.25 mg 12/18/22
--- NOTE | 2022-12-18 11:41 | WPDANESPN ---
Anes - Prog Note Post-Op Date/Time: 12/18/22 11:41 Cardiovascular status: normal Respiratory status: normal Airway patency: baseline Mental status: baseline Post-Op hydration status: normal Vital Signs: Last Vital Signs Temp 98.1 F 12/18/22 07:10 Pulse 60 12/18/22 07:10 Resp 16 12/18/22 07:10 BP 107/60 12/18/22 07:10 Pulse Ox 100 12/18/22 07:10 O2 Del Method Room Air 12/18/22 07:10 O2 Flow Rate 2 12/17/22 16:15 Pain Score (VAS): 0 I/O: Intake & Output 12/17/22 12/18/22 12/18/22 23:59 07:59 15:59 Intake Total 1100 2400 150 Output Total 850 1600 250 Balance 250 800 -100 Laboratory Tests 12/18/22 04:23 12/18/22 04:23 WBC 17.4 H RBC 3.92 L Hgb 11.4 L Hct 34.8 L MCV 88.8 MCH 29.1 MCHC 32.8 RDW 14.1 Plt Count 347 MPV 10.1 Immature Gran % (Auto) 0.5 Neut % (Auto) 77.8 H Lymph % (Auto) 13.8 L [place] % (Auto) 7.5 Eos % (Auto) 0.1 Baso % (Auto) 0.3 Lymph # (Auto) 2.39 [place] # (Auto) 1.3 H Eos # (Auto) 0.0 Baso # (Auto) 0.1 Abs Immat Gran (auto) 0.09 H Absolute Neuts (auto) 13.5 H Absolute Nucleated RBC 0.0 Nucleated RBC % 0.0 Post-procedural complaints: none Patient Feedback: Patient satisfied with anesthetic care.
== END 2022-12-18 11:40 | disposition home or self-care (01) ==
LOC: ANHSURGERY 14:56 → ANHOB2 16:26
PROVIDERS: PCP Nurse Practitioner Family; Visit Provider Obstetrics & Gynecology
PROC: (CPT 58550; principal; 2022-12-17 13:00)
DX: N92.1 Excessive and frequent menstruation with irregular cycle (principal); N94.6 Dysmenorrhea, unspecified; N73.6 Female pelvic peritoneal adhesions (postinfective); N80.00 Endometriosis of the uterus, unspecified; D25.9 Leiomyoma of uterus, unspecified; N99.85 Post endometrial ablation syndrome; I10 Essential (primary) hypertension; E03.9 Hypothyroidism, unspecified; F31.9 Bipolar disorder, unspecified
CPT/HCPCS: 58550; S2900; 36415; 80178; 85025; 86850; 86900; 86901; 88307; 99199; A9270; J0690; J1100; J1170; J1650; J1885; J2250; J2405; J2704; J2710; J3010; J7030; J7120

== ENCOUNTER 2023-03-08 10:35 | Emergency (ER) | payer OTHER, SELFPAY ==
[2023-03-08 10:35] VITALS: BP 146/96; PULSE 77; RESP 14; TEMP 36.5; O2SAT 100
[2023-03-08 11:21] VITALS: O2SAT 100
[2023-03-08 11:22] VITALS: BP 138/100; O2SAT 100
[2023-03-08 11:34] LABS: Basophils Absolute Auto 0.1 K/mm3 (0.0-0.1); Eosinophils Absolute Auto 0.4 K/mm3 (0-0.3); Eosinophils Percent Auto 3.5 % (0-4.4); Hemoglobin 13.9 g/dL (12.0-15.0); Immature Granulocyte Absolute 0.03 K/mm3 (0.00-0.031); Immature Granulocyte Percent A 0.3 % (0-0.5); Lymphocytes Percent Auto 19.5 % (18.3-44.2); Mean Corpuscular HGB Conc 33.1 g/dl (32-36); Mean Corpuscular Hemoglobin 29.3 pg (26-34); Mean Corpuscular Volume 88.4 fl (80-100); Mean Platelet Volume 9.2 fl (7.4-10.4); Monocytes Absolute Auto 0.7 K/mm3 (0.1-0.6); Neutrophils Absolute Auto 7.9 K/mm3 (1.3-6.7); Neutrophils Percent Auto 69.7 % (45.5-73.1); Platelet Count Result 384 k/mm3 (150-375); Red Blood Count 4.75 M/mm3 (4.2-5.4); Red Cell Distribution Width 14.9 % (11.5-14.5); White Blood Count 11.3 K/mm3 (4.5-10.0)
[2023-03-08 11:46] LABS: Alanine Aminotransferase 51 U/L (6-35); Albumin Level 4.4 g/dL (3.5-5.1); Alkaline Phosphatase 54 U/L (38-126); Anion Gap 8 mmol/L (8-16); Aspartate Amino Transferase 59 U/L (14-36); Blood Urea Nitrogen 10 mg/dL (7-17); Calcium 9.1 mg/dL (8.4-10.2); Carbon Dioxide 24 mmol/L (22-30); Chloride 106 mmol/L (98-107); Estimated CRCL calculation 78 ml/min; Estimated Glomerular Filt Rate > 60; Glucose 90 mg/dL (65-110); Lipase 205 U/L (23-300); Potassium 4.6 mmol/L (3.4-5.0); Sodium 138 mmol/L (137-145)
[2023-03-08 11:47] LABS: Lactic Acid Reflex 1.6 mmol/L (0.7-2.0)
[2023-03-08 12:01] LABS: Appearance Urine Clear (Clear); Bilirubin Urine Negative (Negative); Blood Urine Negative (Negative); Color Urine Yellow (Yellow); Glucose Urine UA Negative (Negative); Ketones Urine Negative (Negative); Leukocyte Esterase Ur Negative LEU/UL (Negative); Nitrate Urine Negative (Negative); Protein Urine Negative (Negative); Specific Grav Ur 1.006 (1.001-1.035); Urobilinogen Urine 0.2 mg/dL (<2.0); pH Urine 7.5 (5.0-9.0)
[2023-03-08 12:11] LABS: Add Urine Microscopic? NO
--- NOTE | 2023-03-08 12:29 | ED.GENADULT ---
HPI - General Adult General Chief complaint: Fever Stated complaint: fever for 10 days, nausea Time Seen by Provider: 03/08/23 11:09 History of Present Illness HPI narrative: 42-year-old female presenting with nonspecific symptoms over the last week, including runny nose, sore throat, dry cough, nausea and vomiting. Tried some dgle-neh-stipwwj medications without much improvement. Had negative COVID test at urgent care yesterday. Related Data Home Medications Medication Instructions Recorded Confirmed lithium carbonate 600 mg capsule 900 mg PO DAILY 04/13/20 12/17/22 lorazepam 1 mg tablet (Ativan) 0.25 mg PO DAILY 04/13/20 12/17/22 levothyroxine 50 mcg capsule 50 mcg PO DAILY 12/28/21 12/17/22 metoprolol succinate 25 mg 25 mg PO BID 12/28/21 12/17/22 tablet,extended release 24 hr paroxetine HCl 40 mg tablet (Paxil) 40 mg PO DAILY 12/28/21 12/17/22 lisinopril 10 mg tablet 10 mg PO DAILY 12/02/22 12/17/22 Allergies Allergy/AdvReac Type Severity Reaction Status Date / Time vancomycin Allergy Severe Anaphylaxis Verified 03/08/23 11:43 acetaminophen [From [place]] Allergy Intermediate Rash Verified 03/08/23 11:43 codeine Allergy Intermediate Rash Verified 03/08/23 11:43 hydrocodone [From [place]] Allergy Intermediate Rash Verified 03/08/23 11:43 morphine Allergy Intermediate Rash Verified 03/08/23 11:43 Penicillins Allergy Intermediate Rash Verified 03/08/23 11:43 phenazopyridine Allergy Intermediate Nausea and Verified 03/08/23 11:43 Vomiting Review of Systems Review of Systems: CONST: Malaise HEENT: sore throat C/V: No chest pain RESP: Dry cough without shortness of breath GI: Reports nausea, vomiting : No dysuria. M/S: No joint pain. SKIN: No rash. NEURO: [No headache or focal numbness or weakness] PSYCH: [No depression] [facility] Past Medical History Medical History Abnormal Pap smear of cervix 01-14-2020 Ascus hpv negative rpt pap in 1 year @ [facility] History of bipolar disorder History of breast implant removal 2017 Hypertension Hypothyroidism Menometrorrhagia Obesity Pilonidal abscess 1998 excision, has recurred, painful at times Sleep disorder Water retention Surgical History Surgical History H/O LEEP 2011 2017 x3 done in [place] H/O sinus surgery (~11/24/20) H/O tubal ligation History of arthroscopy left hip History of breast augmentation 2014 History of breast lift 2018 History of hysteroscopy (03/05/22) Hscope D&C / Endometrial Ablation/ bilateral Laparoscopic salpingectomy / excision of vulvar lesion History of laparoscopy 2014 endometriosis/7 cm on rt side History of robot-assisted laparoscopic hysterectomy (12/17/22) Robotic assisted total vaginal hysterectomy / done by Dr. Zarate History of sinus surgery 1999 cysts Family History Family History Father Depression Hypertension Family history of diabetes mellitus in first degree relative Family history of heart disease in male family member before age 55 Acute myocardial infarction Mother Depression Hypertension Family history of diabetes mellitus in first degree relative Family history of heart disease in male family member before age 55 Acute myocardial infarction Social History Social History Smoking status: Never smoker Alcohol intake: never Substance use: never Substance use type: does not use Living arrangements: alone Additional living arrangements comments: 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
[2023-03-08] MEDS: FAMOTIDINE 20 MG/2 ML VIAL IV PUSH (12:39)
[2023-03-08] MEDS: ONDANSETRON INJ 4 MG/2 ML VIAL IV PUSH (12:39)
== END 2023-03-08 12:45 | disposition home or self-care (01) ==
PROVIDERS: Physician Assistant; Emergency Provider Emergency Medicine; PCP Nurse Practitioner Family
DX: B34.9 Viral infection, unspecified (principal); F31.9 Bipolar disorder, unspecified; I10 Essential (primary) hypertension; E03.9 Hypothyroidism, unspecified; E66.9 Obesity, unspecified; Z68.37 Body mass index [BMI] 37.0-37.9, adult; G47.9 Sleep disorder, unspecified; Z90.710 Acquired absence of both cervix and uterus
CPT/HCPCS: 36415; 80053; 81003; 83605; 83690; 85025; 96374; 96375; 99284; J2405

== ENCOUNTER 2023-03-24 08:48 | Outpatient (CLI) | payer OTHER, SELFPAY ==
--- NOTE | ~2023-03-24 | US_ITS ---
EXAMINATION: US abdomen limited DATE: 03/24/2023 09:52 INDICATION: Abnormal liver enzymes TECHNIQUE: Multiple grayscale and Doppler ultrasound images of the abdomen were obtained. COMPARISON: None available FINDINGS: Bowel gas obscures visualization of the pancreas. The visualized portions of the pancreas a re unremarkable. The liver demonstrates increased echogenicity, heterogenous echotexture, and decreas ed through transmission. No surface nodularity. Normal hepatopetal flow in the main portal vein. The gallbladder is normal with no abnormal wall thickening, pericholecystic fluid or stones. The normal c ommon bile duct measures 4 mm. There was no sonographic Tang sign. IMPRESSION: 1. Diffuse hepatic steatosis. Reviewed, dictated and finalized at location L.
== END 2023-03-24 08:49 | disposition home or self-care (01) ==
PROVIDERS: PCP Internal Medicine; Visit Provider Internal Medicine
DX: R74.01 Elevation of levels of liver transaminase levels (principal); K76.0 Fatty (change of) liver, not elsewhere classified
CPT/HCPCS: 76705

== ENCOUNTER 2023-04-25 00:55 | Day surgery (SDC) | payer BC, SELFPAY ==
[2023-04-14 15:34] VITALS: BMI 36.3
[2023-04-25 09:37] VITALS: BP 114/82; PULSE 77; RESP 18; TEMP 36.3; O2SAT 100; BMI 36.1
[2023-04-25] MEDS: LACTATED RINGERS 1,000 ML 150 ML IV CONT (09:58)
--- NOTE | 2023-04-25 10:30 | PM.HPGS ---
History of Present Illness History of Present Illness Consent: Risks, benefits, and alternatives have been discussed and questions answered. Patient agrees to proceed with procedure. Chief complaint: GERD Narrative: Natalie Alamo is a 42 year old female Referred for EGD. Patient states that she has had daytime heartburn that has persisted for several years. She also complains of nocturnal regurgitation. She has been on omeprazole 40mg p.o. daily for 2 years. This does not eliminate her daytime heartburn nor does it eliminate nocturnal regurgitation. Patient denies dysphagia or bleeding. Family history noncontributory. Patient referred for further evaluation by EGD. Review of Systems Review of Systems: Review of systems noncontributory. [facility] Past Medical History Medical History Abnormal Pap smear of cervix 01-14-2020 Ascus hpv negative rpt pap in 1 year @ [facility] History of bipolar disorder History of breast implant removal 2018 Hypertension Hypothyroidism Menometrorrhagia Obesity Pilonidal abscess 1998 excision, has recurred, painful at times Sleep disorder Water retention Surgical History Surgical History H/O LEEP 2012 2017 x3 done in [place] H/O sinus surgery (~11/24/20) H/O tubal ligation History of arthroscopy left hip History of breast augmentation 2014 History of breast lift 2018 History of hysteroscopy (03/05/22) Hscope D&C / Endometrial Ablation/ bilateral Laparoscopic salpingectomy / excision of vulvar lesion History of laparoscopy 2015 endometriosis/7 cm on rt side History of robot-assisted laparoscopic hysterectomy (12/17/22) Robotic assisted total vaginal hysterectomy / done by Dr. Zarate History of sinus surgery 1999 cysts Family History Family History Father Depression Hypertension Family history of diabetes mellitus in first degree relative Family history of heart disease in male family member before age 55 Acute myocardial infarction Mother Depression Hypertension Family history of diabetes mellitus in first degree relative Family history of heart disease in male family member before age 55 Acute myocardial infarction Social History Social History Smoking status: Never smoker Alcohol intake: never Substance use: never Substance use type: does not use Living arrangements: alone Additional living arrangements comments: 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 Gender identity (if verbalized by the patient): Female Sexual Orientation (if Verbalized by the Patient): Straight or Heterosexual Spiritual care concerns: No Meds Home Medications and Allergies Home Medications Medication Instructions Recorded Confirmed Type lithium carbonate 600 mg capsule 900 mg PO DAILY 04/13/20 04/14/23 History paroxetine HCl 40 mg tablet (Paxil) 40 mg PO DAILY 12/28/21 04/14/23 History lisinopril 10 mg tablet 10 mg PO DAILY 12/02/22 04/14/23 History famotidine 20 mg tablet 20 mg PO DAILY #30 tabs 03/08/23 04/14/23 Rx levothyroxine 75 mcg tablet 75 mcg PO DAILY 04/14/23 04/14/23 History lorazepam 0.5 mg tablet 0.5 mg PO TID PRN Anxiety 04/14/23 04/14/23 History Allergies Allergy/AdvReac Type Severity Reaction Status Date / Time vancomycin Allergy Severe Anaphylaxis Verified 03/08/23 11:43 acetaminophen [From [place]] Allergy Intermediate Rash Verified 03/08/23 11:43 codeine Allergy Intermediate Rash Verified 03/08/23 11:43 hydrocodone [From [place]] Allergy Intermediate Rash Verified 03/08/23 11:43 morphine Allergy Intermediate Rash Verified 03/08/23 11:43 Penicillins Allergy Intermediate Rash Verified 03/08/23 11:43 phenazopyridine Allergy Intermediate Nausea and Verified 03/08/23 11:43 Vomiting
--- NOTE | 2023-04-25 10:33 | WPDANESEPPF ---
Anes - Initial Pre Proc Eval Procedure: Operation Date: 04/25/23 11:00 Proposed Procedures p Esophagogastroduodenoscopy - Rm Wynn MD Date/Time: 04/25/23 10:33 Surgeon: Rm Wynn MD Pre Op Diagnosis: GERD Patient Data Age: 42 Gender: F Height: 1.6 m Weight: 92.5 kg Last Vital Signs Temp 97.3 F L 04/25/23 09:37 Pulse 77 04/25/23 09:37 Resp 18 04/25/23 09:37 BP 114/82 04/25/23 09:37 Pulse Ox 100 04/25/23 09:37 O2 Del Method Room Air 04/25/23 09:37 Allergies Allergy/AdvReac Type Severity Reaction Status Date / Time vancomycin Allergy Severe Anaphylaxis Verified 03/08/23 11:43 acetaminophen [From [place]] Allergy Intermediate Rash Verified 03/08/23 11:43 codeine Allergy Intermediate Rash Verified 03/08/23 11:43 hydrocodone [From [place]] Allergy Intermediate Rash Verified 03/08/23 11:43 morphine Allergy Intermediate Rash Verified 03/08/23 11:43 Penicillins Allergy Intermediate Rash Verified 03/08/23 11:43 phenazopyridine Allergy Intermediate Nausea and Verified 03/08/23 11:43 Vomiting Home Medications Medication Instructions Recorded Confirmed Type lithium carbonate 600 mg capsule 900 mg PO DAILY 04/13/20 04/14/23 History paroxetine HCl 40 mg tablet (Paxil) 40 mg PO DAILY 12/28/21 04/14/23 History lisinopril 10 mg tablet 10 mg PO DAILY 12/02/22 04/14/23 History famotidine 20 mg tablet 20 mg PO DAILY #30 tabs 03/08/23 04/14/23 Rx levothyroxine 75 mcg tablet 75 mcg PO DAILY 04/14/23 04/14/23 History lorazepam 0.5 mg tablet 0.5 mg PO TID PRN Anxiety 04/14/23 04/14/23 History Patient hx anesthesia problems: none Family hx anesthesia problems: none Results Review: All pre-operative results and documents have been reviewed as part of the pre-operative evaluation. [facility] Past Medical History Medical History Abnormal Pap smear of cervix 01-14-2020 Ascus hpv negative rpt pap in 1 year @ [facility] History of bipolar disorder History of breast implant removal 2018 Hypertension Hypothyroidism Menometrorrhagia Obesity Pilonidal abscess 1998 excision, has recurred, painful at times Sleep disorder Water retention Surgical History Surgical History H/O LEEP 2011 2017 x3 done in [place] H/O sinus surgery (~11/24/20) H/O tubal ligation History of arthroscopy left hip History of breast augmentation 2014 History of breast lift 2018 History of hysteroscopy (03/05/22) Hscope D&C / Endometrial Ablation/ bilateral Laparoscopic salpingectomy / excision of vulvar lesion History of laparoscopy 2014 endometriosis/7 cm on rt side History of robot-assisted laparoscopic hysterectomy (12/17/22) Robotic assisted total vaginal hysterectomy / done by Dr. Zarate History of sinus surgery 1999 cysts Family History Family History Father Depression Hypertension Family history of diabetes mellitus in first degree relative Family history of heart disease in male family member before age 55 Acute myocardial infarction Mother Depression Hypertension Family history of diabetes mellitus in first degree relative Family history of heart disease in male family member before age 55 Acute myocardial infarction Social History Social History Smoking status: Never smoker Alcohol intake: never Substance use: never Substance use type: does not use Living arrangements: alone Additional living arrangements comments: 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
[2023-04-25 11:30] VITALS: BP 152/99; PULSE 74; RESP 19; O2SAT 100
[2023-04-25 11:40] VITALS: BP 128/94; PULSE 74; RESP 21; O2SAT 99
[2023-04-25 11:50] VITALS: BP 153/94; PULSE 72; RESP 15; O2SAT 100
== END 2023-04-25 12:00 | disposition home or self-care (01) ==
PROVIDERS: PCP Nurse Practitioner Family; Visit Provider Internal Medicine Gastroenterology
PROC: 0DJ08ZZ Inspection of Upper Intestinal Tract, Via Natural or Artificial Opening Endoscopic (ICD-10-PCS; CPT 43235; principal; 2023-04-25 11:00)
DX: K21.9 Gastro-esophageal reflux disease without esophagitis (principal); I10 Essential (primary) hypertension; E03.9 Hypothyroidism, unspecified; F31.9 Bipolar disorder, unspecified; E66.9 Obesity, unspecified; Z68.36 Body mass index [BMI] 36.0-36.9, adult
CPT/HCPCS: 43239; 87081; J2704; J7120

== ENCOUNTER 2024-01-09 16:17 | Outpatient (CLI) | payer OTHER, SELFPAY ==
[2024-01-09 17:00] LABS: Basophils Absolute Auto 0.1 K/mm3 (0.0-0.1); Basophils Percent Auto 0.6 % (0.2-1.2); Eosinophils Absolute Auto 0.2 K/mm3 (0-0.3); Hematocrit 40.6 % (37.0-47.0); Hemoglobin 13.5 g/dL (12.0-15.0); Immature Granulocyte Absolute 0.04 K/mm3 (0.00-0.031); Immature Granulocyte Percent A 0.3 % (0-0.5); Lymphocytes Absolute Auto 4.09 K/mm3 (0.9-3.2); Lymphocytes Percent Auto 27.9 % (18.3-44.2); Mean Corpuscular HGB Conc 33.3 g/dl (32-36); Mean Corpuscular Hemoglobin 29.6 pg (26-34); Mean Platelet Volume 9.9 fl (7.4-10.4); Monocytes Absolute Auto 0.7 K/mm3 (0.1-0.6); Monocytes Percent Auto 4.4 % (2.6-8.5); Neutrophils Absolute Auto 9.6 K/mm3 (1.3-6.7); Neutrophils Percent Auto 65.8 % (45.5-73.1); Platelet Count Result 328 k/mm3 (150-375); Red Blood Count 4.56 M/mm3 (4.2-5.4); Red Cell Distribution Width 14.9 % (11.5-14.5); White Blood Count 14.7 K/mm3 (4.5-10.0)
[2024-01-09 17:14] LABS: Alanine Aminotransferase 18 U/L (6-35); Alkaline Phosphatase 45 U/L (38-126); Anion Gap 8 mmol/L (4-12); Aspartate Amino Transferase 16 U/L (14-36); Bilirubin,Total 0.9 mg/dL (0.2-1.3); Blood Urea Nitrogen 14 mg/dL (7-17); CRP < 0.5 mg/dL (<1.0); Calcium 9.2 mg/dL (8.4-10.2); Carbon Dioxide 21 mmol/L (22-30); Chloride 106 mmol/L (98-107); Estimated Glomerular Filt Rate > 60; Glucose 90 mg/dL (65-110); Potassium 3.7 mmol/L (3.4-5.0); Sodium 135 mmol/L (137-145)
[2024-01-09 18:42] LABS: Erythrocyte Sedimentation Rate 12 mm/hr (0-20)
[2024-01-10 21:59] LABS: HLA B27 NEGATIVE (NEGATIVE)
== END 2024-01-09 16:18 | disposition home or self-care (01) ==
PROVIDERS: PCP Nurse Practitioner Family
DX: L40.50 Arthropathic psoriasis, unspecified (principal)
CPT/HCPCS: 36415; 80053; 85025; 85652; 86140; 86480; 86812

== ENCOUNTER 2024-01-24 06:39 | Outpatient (CLI) | payer OTHER, SELFPAY ==
--- NOTE | ~2024-01-24 | MR_ITS ---
MRI of the left hip Clinical history: Pain Technique: Coronal T1-weighted, T2-weighted, and proton-density fat-sat images, and axial T1-weighted and proton-density fat-sat images were acquired through the pelvis. Coronal T2-weighted images and c oronal, axial, and sagittal proton-density fat-sat images were acquired through the left hip. Findings: There is no fracture or avascular necrosis of either hip. Bone marrow signals the proximal femora and pelvic bones are unremarkable. Bilateral hip joint spaces are preserved. There is mild spu rring at the superolateral acetabular regions bilaterally. Minimal left hip joint effusion present. N o significant right hip joint effusion. No definite left acetabular labral tear identified. Visualized musculature about the pelvis and left hip is unremarkable. No muscle atrophy or edema. The re is minimal left greater trochanteric bursitis. No other fluid collection or mass lesion seen. IMPRESSION: Minimal left greater trochanteric bursitis. Mild spurring at the superolateral acetabular margins bilaterally. Reviewed, dictated and finalized at location .
== END 2024-01-24 06:40 | disposition home or self-care (01) ==
PROVIDERS: PCP Nurse Practitioner Family; Visit Provider Nurse Practitioner Family
DX: M25.552 Pain in left hip (principal)
CPT/HCPCS: 73721

== ENCOUNTER 2024-02-28 08:02 | Emergency (ER) | payer OTHER, SELFPAY ==
[2024-02-28 08:08] VITALS: BP 159/101; PULSE 96; RESP 16; TEMP 36.8; O2SAT 100
[2024-02-28 09:03] LABS: Basophils Absolute Auto 0.1 K/mm3 (0.0-0.1); Basophils Percent Auto 1.4 % (0.2-1.2); Eosinophils Absolute Auto 0.1 K/mm3 (0-0.3); Hematocrit 47.3 % (37.0-47.0); Hemoglobin 15.8 g/dL (12.0-15.0); Immature Granulocyte Absolute 0.01 K/mm3 (0.00-0.031); Immature Granulocyte Percent A 0.2 % (0-0.5); Lymphocytes Absolute Auto 1.83 K/mm3 (0.9-3.2); Lymphocytes Percent Auto 28.5 % (18.3-44.2); Mean Corpuscular HGB Conc 33.4 g/dl (32-36); Mean Corpuscular Hemoglobin 29.9 pg (26-34); Mean Corpuscular Volume 89.6 fl (80-100); Mean Platelet Volume 9.6 fl (7.4-10.4); Monocytes Absolute Auto 0.5 K/mm3 (0.1-0.6); Monocytes Percent Auto 7.6 % (2.6-8.5); Neutrophils Absolute Auto 3.9 K/mm3 (1.3-6.7); Neutrophils Percent Auto 60.3 % (45.5-73.1); Platelet Count Result 356 k/mm3 (150-375); Red Blood Count 5.28 M/mm3 (4.2-5.4); Red Cell Distribution Width 14.4 % (11.5-14.5); White Blood Count 6.4 K/mm3 (4.5-10.0)
[2024-02-28 09:18] LABS: Alanine Aminotransferase 25 U/L (6-35); Albumin Level 4.6 g/dL (3.5-5.1); Alkaline Phosphatase 40 U/L (38-126); Anion Gap 8 mmol/L (4-12); Aspartate Amino Transferase 25 U/L (14-36); Bilirubin,Total 1.3 mg/dL (0.2-1.3); Blood Urea Nitrogen 15 mg/dL (7-17); CRP < 0.5 mg/dL (<1.0); Calcium 9.2 mg/dL (8.4-10.2); Carbon Dioxide 22 mmol/L (22-30); Chloride 108 mmol/L (98-107); Estimated CRCL calculation 78 ml/min; Estimated Glomerular Filt Rate > 60; Glucose 92 mg/dL (65-110); Potassium 4.3 mmol/L (3.4-5.0); Sodium 138 mmol/L (137-145)
[2024-02-28 09:32] LABS: Erythrocyte Sedimentation Rate 1 mm/hr (0-20)
--- NOTE | 2024-02-28 09:43 | ED.GENADULT ---
HPI - General Adult General Chief complaint: Unspecified Stated complaint: RA flare up Time Seen by Provider: 02/28/24 08:10 Source: patient Mode of arrival: ambulatory Limitations: no limitations History of Present Illness HPI narrative: 43-year-old with a history of rheumatoid arthritis, hypertension, anxiety and depression here with a complaint of facial rash for past 2 days and also has a rash on her upper extremities for past year or so. Patient states that she has seen a high frequency mill operator for the same and was advised to follow with the keyboarding clerk. She denies any exposure to sun. No history of fever or chills. She states that she feels terrible. Onset (ago): day(s) (2 ) Location: face Severity: moderate Quality: burning Pain Consistency: constant Relieving factors: none Exacerbating factors: none Associated symptoms: denies other symptoms Treatments prior to arrival: none Related Data Home Medications Medication Instructions Recorded Confirmed paroxetine HCl 40 mg tablet (Paxil) 40 mg PO DAILY 12/28/21 01/11/24 adalimumab 40 mg/0.8 mL See Rx Instructions subcut .COMPLEX 01/11/24 01/11/24 subcutaneous pen kit (Humira Pen) methotrexate (PF) 12.5 mg/0.25 mL 12.5 mg subcut WEEKLY 01/11/24 01/11/24 subcutaneous auto-injector trazodone 100 mg tablet 100 mg PO QHS PRN 01/11/24 01/11/24 folic acid 1 mg tablet 1 mg PO DAILY 02/03/24 gabapentin 400 mg capsule 300 mg PO BID 02/03/24 lorazepam 0.5 mg tablet 0.5 mg PO TID PRN 02/03/24 Allergies Allergy/AdvReac Type Severity Reaction Status Date / Time vancomycin Allergy Severe Anaphylaxis Verified 02/28/24 08:07 codeine Allergy Intermediate Rash Verified 02/28/24 08:07 hydrocodone [From [place]] Allergy Intermediate Rash Verified 02/28/24 08:07 morphine Allergy Intermediate Rash Verified 02/28/24 08:07 Penicillins Allergy Intermediate Rash Verified 02/28/24 08:07 phenazopyridine Allergy Intermediate Nausea and Verified 02/28/24 08:07 Vomiting Review of Systems Review of Systems: All systems reviewed & are unremarkable except as noted in HPI and below Constitutional: Constitutional: Reports no additional constitutional complaints Eyes: Eyes: Reports no additional eye complaints ENT: Reports system reviewed and no additional complaints, except as documented Cardiovascular: Cardiovascular: Reports no additional cardiovascular complaints Respiratory: Respiratory: Reports no additional respiratory complaints Genitourinary: Genitourinary: Reports no additional female genitourinary complaints COUNTS INCLUDE 234 BEDS AT [facility] Past Medical History Medical History Abnormal Pap smear of cervix 01-14-2020 Ascus hpv negative rpt pap in 1 year @ [facility] Anxiety Dry eye syndrome of both eyes History of bipolar disorder History of breast implant removal 2018 Hypertension Hypothyroidism Left hip pain Menometrorrhagia Obesity Pilonidal abscess 1998 excision, has recurred, painful at times Psoriatic arthritis Rheumatoid arthritis Sleep disorder Water retention Surgical History Surgical History H/O LEEP 2011 2017 x3 done in [place] H/O sinus surgery (~11/24/20) H/O tubal ligation History of arthroscopy (~2014) left hip History of breast augmentation 2014 History of breast lift 2018 History of hysteroscopy (03/05/22) Hscope D&C / Endometrial Ablation/ bilateral Laparoscopic salpingectomy / excision of vulvar lesion History of laparoscopy 2015 endometriosis/7 cm on rt side History of robot-assisted laparoscopic hysterectomy (12/17/22) Robotic assisted total vaginal hysterectomy / done by Dr. Zarate History of sinus surgery 1999 cysts Family History Family History Father Depression Hypertension Family history of diabetes mellitus in first degree relative Family history of heart disease in male family member be
== END 2024-02-28 10:09 | disposition home or self-care (01) ==
PROVIDERS: Emergency Provider Family Medicine; PCP Nurse Practitioner Family
DX: R21 Rash and other nonspecific skin eruption (principal); I10 Essential (primary) hypertension; E03.9 Hypothyroidism, unspecified; E66.9 Obesity, unspecified; Z68.38 Body mass index [BMI] 38.0-38.9, adult; M06.9 Rheumatoid arthritis, unspecified; L40.50 Arthropathic psoriasis, unspecified; G47.9 Sleep disorder, unspecified; F41.9 Anxiety disorder, unspecified; F31.9 Bipolar disorder, unspecified; Z90.710 Acquired absence of both cervix and uterus; Z79.899 Other long term (current) drug therapy
CPT/HCPCS: 36415; 80053; 85025; 85652; 86140; 99283

== ENCOUNTER 2024-03-02 09:49 | Outpatient (CLI) | payer OTHER, SELFPAY ==
[2024-03-02 11:29] LABS: Cholesterol 186 mg/dL (0-200); HDL Direct 45 mg/dL; Triglycerides 252 mg/dL (<150)
[2024-03-02 11:43] LABS: LDL Cholesterol Direct 104 mg/dL
[2024-03-02 12:12] LABS: Thyroid Stimulating Hormone 0.497 uIU/mL (0.465-4.680)
== END 2024-03-02 09:50 | disposition home or self-care (01) ==
PROVIDERS: PCP Nurse Practitioner Family; Visit Provider Nurse Practitioner Family
DX: Z13.220 Encounter for screening for lipoid disorders (principal); M25.552 Pain in left hip; F41.9 Anxiety disorder, unspecified
CPT/HCPCS: 36415; 80061; 84443

== ENCOUNTER 2024-03-13 03:24 | Observation (INO) | payer OTHER, SELFPAY ==
--- NOTE | ~2024-03-13 | MR_ITS ---
EXAMINATION: MR brain/brain stem wo/w con DATE: 03/13/2024 13:03 INDICATION: Headache. Unsteady gait. TECHNIQUE: Magnetic resonance imaging (MRI) of the brain and brainstem was performed without and with 20 mL MultiHance intravenous contrast. COMPARISON: Head CT 03/13/2024 FINDINGS: There is no intracranial hemorrhage, acute infarction, or abnormal intracranial mass lesion . The ventricles are normal in size. There is mild mucosal thickening in the paranasal sinuses. The o rbits are normal. The mastoid air cells are normal. IMPRESSION: 1. Normal brain. Reviewed, dictated and finalized at location E. IMPRESSION: 1. Normal brain.
--- NOTE | ~2024-03-13 | MR_ITS ---
EXAMINATION: MR thoracic spine wo/w con DATE: 03/13/2024 13:03 INDICATION: Bowel and bladder incontinence. Unsteady gait. TECHNIQUE: Magnetic resonance imaging (MRI) of the thoracic spine was performed without and with 20 m L MultiHance intravenous contrast. COMPARISON: None FINDINGS: There is 7 degrees levocurvature of thoracic spine. There is mild chronic anterior wedging of T7 and T8 vertebral bodies. There is mildly decreased disc height at T3-T4, T4-T5, T5-T6, and T8-T 9. At T8-T9, there is a left central extrusion with mild central canal stenosis. There is multilevel zieq-eq-mglqqhrv facet joint osteoarthritis. On the right, there is mild neural foraminal stenosis at T3-T4 and T4-T5. On the left, there is mild neural foraminal stenosis at T2-T3 and T4-T5. The spinal cord signal intensity is normal. The conus medullaris is at L1. IMPRESSION: 1. Mild thoracic spondylosis. Reviewed, dictated and finalized at location E.
--- NOTE | ~2024-03-13 | MR_ITS ---
EXAMINATION: MR cervical spine wo/w con DATE: 03/13/2024 13:03 INDICATION: Loss of bladder and bowel. Unsteady gait. TECHNIQUE: Magnetic resonance imaging (MRI) of the cervical spine was performed without and with 20 m L MultiHance intravenous contrast. COMPARISON: None FINDINGS: There is 9 degrees dextrocurvature of cervical spine. Vertebral body heights are normal. In tervertebral disc heights are normal. The spinal cord signal intensity is normal. The following disc levels are specifically discussed: C2-C3: The disc does not extend beyond the endplate margin. There is no uncovertebral joint osteoarth ritis. There is mild left facet joint osteoarthritis. There is no neural foraminal stenosis. There is no central canal stenosis. C3-C4: The disc does not extend beyond the endplate margin. There is no uncovertebral joint osteoarth ritis. There is moderate left facet joint osteoarthritis. There is mild left neural foraminal stenosi s. There is no central canal stenosis. C4-C5: The disc does not extend beyond the endplate margin. There is no uncovertebral joint osteoarth ritis. There is mild right and moderate left facet joint osteoarthritis. There is mild left neural fo raminal stenosis. There is no central canal stenosis. C5-C6: There is a central extrusion. There is no uncovertebral joint osteoarthritis. There is mild ri ght and severe left facet joint osteoarthritis. There is mild left neural foraminal stenosis. There i s mild central canal stenosis. C6-C7: There is a central protrusion. There is mild bilateral uncovertebral joint osteoarthritis. The re is mild bilateral facet joint osteoarthritis. There is no neural foraminal stenosis. There is no c entral canal stenosis. C7-T1: The disc does not extend beyond the endplate margin. There is no uncovertebral joint osteoarth ritis. There is mild right and severe left facet joint osteoarthritis. There is mild left neural fora clementine stenosis. There is no central canal stenosis. IMPRESSION: 1. Mild cervical spondylosis. Reviewed, dictated and finalized at location E.
--- NOTE | ~2024-03-13 | XR_ITS ---
EXAMINATION: XR chest 1V portable DATE: 03/13/2024 04:05 INDICATION: Chest pain. TECHNIQUE: A single frontal view of the chest was obtained. COMPARISON: Chest single views 11/17/2023 FINDINGS: There is no pneumonia, pleural effusion, or pneumothorax. The heart size is normal. IMPRESSION: 1. No acute cardiopulmonary disease. Reviewed, dictated and finalized at location E.
--- NOTE | ~2024-03-13 | CT_ITS ---
EXAMINATION: CT brain wo con DATE: 03/13/2024 04:23 INDICATION: Headache. TECHNIQUE: Computed tomography (CT) of the head was performed without intravenous contrast. The mA wa s adjusted according to patient size. Iterative reconstruction technique was employed. The dose-lengt h product was 605.33 mGy-cm. COMPARISON: Head CT 04/26/2016 FINDINGS: There is no intracranial hemorrhage, acute infarction, or abnormal intracranial mass lesion . The ventricles are normal in size. The orbits are normal. There is mild mucosal thickening in the p aranasal sinuses. There is thickening of the [place] of left maxillary sinus, consistent with chronic s inusitis. The mastoid air cells are normal. IMPRESSION: 1. Normal brain. 2. Chronic sinusitis. Reviewed, dictated and finalized at location E.
[2024-03-13 03:34] VITALS: BP 150/96; PULSE 92; RESP 18; TEMP 36.6; O2SAT 99
--- NOTE | 2024-03-13 03:39 | ECG_ITS ---
Test Date: 2024-03-13 03:55:56 Measurements Intervals [place] Rate: 83 P: 66 CA: 158 QRS: 54 QRSD: 100 T: 44 QT: 384 QTc: 451 Interpretive Statements SINUS RHYTHM POSSIBLE LEFT ATRIAL ENLARGEMENT [-0.1mV P WAVE IN V1/V2] INCOMPLETE RIGHT BUNDLE BRANCH BLOCK [90+ ms QRS DURATION, TERMINAL R IN V1/V2, 40+ ms S IN I/aVL/V4/V5/V6] No previous ECG available for comparison Electronically Signed On 03-13-2024 12:09:06 CDT by Antoinette Carbajal M.D.
[2024-03-13 03:42] VITALS: RESP 18; O2SAT 100
[2024-03-13] MEDS: SODIUM CHLORIDE 0.9% IV 1,000 ML 999 ML IV CONT (03:55)
[2024-03-13] MEDS: methylPREDNISolone SOD SUCC 125 MG VIAL IV PUSH (03:56)
[2024-03-13 04:02] LABS: Basophils Absolute Auto 0.2 K/mm3 (0.0-0.1); Basophils Percent Auto 0.7 % (0.2-1.2); Eosinophils Absolute Auto 0.4 K/mm3 (0-0.3); Eosinophils Percent Auto 1.8 % (0-4.4); Hematocrit 43.9 % (37.0-47.0); Hemoglobin 14.7 g/dL (12.0-15.0); Immature Granulocyte Absolute 0.14 K/mm3 (0.00-0.031); Immature Granulocyte Percent A 0.7 % (0-0.5); Lymphocytes Absolute Auto 5.41 K/mm3 (0.9-3.2); Lymphocytes Percent Auto 25.5 % (18.3-44.2); Mean Corpuscular HGB Conc 33.5 g/dl (32-36); Mean Corpuscular Hemoglobin 29.9 pg (26-34); Mean Corpuscular Volume 89.2 fl (80-100); Mean Platelet Volume 9.5 fl (7.4-10.4); Monocytes Absolute Auto 1.1 K/mm3 (0.1-0.6); Neutrophils Absolute Auto 14.1 K/mm3 (1.3-6.7); Neutrophils Percent Auto 66.3 % (45.5-73.1); Platelet Count Result 331 k/mm3 (150-375); Red Blood Count 4.92 M/mm3 (4.2-5.4); Red Cell Distribution Width 14.2 % (11.5-14.5); White Blood Count 21.2 K/mm3 (4.5-10.0)
[2024-03-13 04:12] LABS: Lactic Acid Reflex 1.7 mmol/L (0.7-2.0)
[2024-03-13 04:21] LABS: Hypochromasia 1+; Platelet Estimate Adequate (Adequate); Schistocytes None Seen; Stomatocytes 2+
[2024-03-13 04:24] LABS: Alanine Aminotransferase 25 U/L (6-35); Albumin Level 4.5 g/dL (3.5-5.1); Alkaline Phosphatase 41 U/L (38-126); Anion Gap 11 mmol/L (4-12); Aspartate Amino Transferase 20 U/L (14-36); Bilirubin,Total 1.2 mg/dL (0.2-1.3); Blood Urea Nitrogen 21 mg/dL (7-17); CRP < 0.5 mg/dL (<1.0); Calcium 9.1 mg/dL (8.4-10.2); Carbon Dioxide 24 mmol/L (22-30); Chloride 103 mmol/L (98-107); Estimated CRCL calculation 60 ml/min; Estimated Glomerular Filt Rate 49; Glucose 112 mg/dL (65-110); Magnesium 2.2 mg/dL (1.6-2.3); Potassium 3.4 mmol/L (3.4-5.0); Sodium 138 mmol/L (137-145); Troponin I < 0.012 ng/mL (0.000-0.034)
[2024-03-13 04:34] LABS: Erythrocyte Sedimentation Rate 6 mm/hr (0-20)
[2024-03-13] MEDS: HYDROmorphone HCL INJ (*CRX) 1 MG/ML SYR IV PUSH (04:55)
--- NOTE | 2024-03-13 05:19 | ED.GENADULT ---
HPI - General Adult General Chief complaint: Unspecified Stated complaint: photosensitivity, eye pain, nerve pain in neck Time Seen by Provider: 03/13/24 03:32 History of Present Illness HPI narrative: patient is a 43-year-old female who presents emergency department with chief complaint of not feeling well. Patient reports that she has small fiber neuropathy and reports that she has been having headache and progressive symptoms over the last several months patient states that she has noticed that she has been more unsteady in her gait reported that she has had pain in her right eye reports that she has seen Ophthalmology and has been on a prednisone taper and also is on gabapentin the patient reports that she has a bandlike tightness around her chest patient reports she has seen Dermatology because she has been developing a rash the patient reports she has been seen by dermatology and had a biopsy of the rash Related Data Home Medications Medication Instructions Recorded Confirmed paroxetine HCl 40 mg tablet (Paxil) 40 mg PO DAILY 12/28/21 01/11/24 adalimumab 40 mg/0.8 mL See Rx Instructions subcut .COMPLEX 01/11/24 01/11/24 subcutaneous pen kit (Humira Pen) methotrexate (PF) 12.5 mg/0.25 mL 12.5 mg subcut WEEKLY 01/11/24 01/11/24 subcutaneous auto-injector trazodone 100 mg tablet 100 mg PO QHS PRN 01/11/24 01/11/24 folic acid 1 mg tablet 1 mg PO DAILY 02/03/24 gabapentin 400 mg capsule 300 mg PO BID 02/03/24 lorazepam 0.5 mg tablet 0.5 mg PO TID PRN 02/03/24 Allergies Allergy/AdvReac Type Severity Reaction Status Date / Time vancomycin Allergy Severe Anaphylaxis Verified 03/13/24 03:46 codeine Allergy Intermediate Rash Verified 03/13/24 03:46 hydrocodone [From Spring] Allergy Intermediate Rash Verified 03/13/24 03:46 morphine Allergy Intermediate Rash Verified 03/13/24 03:46 Penicillins Allergy Intermediate Rash Verified 03/13/24 03:46 phenazopyridine Allergy Intermediate Nausea and Verified 03/13/24 03:46 Vomiting Review of Systems Review of Systems: A 10 system review of systems was completed on the patient and is negative except for what is stated in the HPI. Nursing and ancillary documentation was reviewed. [facility] Past Medical History Medical History Abnormal Pap smear of cervix 01-14-2020 Ascus hpv negative rpt pap in 1 year @ A/E Anxiety Dry eye syndrome of both eyes History of bipolar disorder History of breast implant removal 2018 Hypertension Hypothyroidism Left hip pain Menometrorrhagia Obesity Pilonidal abscess 1998 excision, has recurred, painful at times Psoriatic arthritis Rheumatoid arthritis Sleep disorder Water retention Surgical History Surgical History H/O LEEP 2012 2017 x3 done in [place] H/O sinus surgery (~11/24/20) H/O tubal ligation History of arthroscopy (~2014) left hip History of breast augmentation 2013 History of breast lift 2018 History of hysteroscopy (03/05/22) Hscope D&C / Endometrial Ablation/ bilateral Laparoscopic salpingectomy / excision of vulvar lesion History of laparoscopy 2014 endometriosis/7 cm on rt side History of robot-assisted laparoscopic hysterectomy (12/17/22) Robotic assisted total vaginal hysterectomy / done by Dr. Zarate History of sinus surgery 1999 cysts Family History Family History Father Depression Hypertension Family history of diabetes mellitus in first degree relative Family history of heart disease in male family member before age 55 Acute myocardial infarction Mother Depression Hypertension Family history of diabetes mellitus in first degree relative Family history of heart disease in male family member before age 55 Acute myocardial infarction Social History Social History Smoking st
[2024-03-13 05:33] LABS: Appearance Urine Cloudy (Clear); Bacteria Urine 3+ /hpf; Bilirubin Urine Negative (Negative); Blood Urine Negative (Negative); Color Urine Yellow (Yellow); Glucose Urine UA Negative (Negative); Ketones Urine Negative (Negative); Leukocyte Esterase Ur Negative LEU/UL (Negative); Need Manual Microscopic Reviewed; Nitrate Urine Negative (Negative); Non Pathogenic Casts 0-2; Protein Urine Negative (Negative); RBC Urine 21-50 /hpf (0-2); Specific Grav Ur 1.015 (1.001-1.035); Squamous Epithelial Cell Urine Many /hpf (Few); Urobilinogen Urine 0.2 mg/dL (<2.0)
[2024-03-13 05:42] LABS: Add Urine Microscopic? YES
[2024-03-13 08:26] VITALS: O2SAT 99
[2024-03-13 10:13] LABS: Troponin I < 0.012 ng/mL (0.000-0.034)
--- NOTE | 2024-03-13 10:48 | WPDNEURCNPN ---
Assessment and Plan Assessment and plan (1) Anxiety: Code(s): F41.9 - Anxiety disorder, unspecified Status: Acute Plan 1. History of neuropathy 2. Chronic arthritic pain and 3. Possibility of autoimmune disorder. Patient has been receiving multiple medications as outlined. MRI of the brain will be obtained and will discuss with her About the adjustment of the medication as at present she is on polypharmacy, she will benefit from the EMG and nerve conduction study which can be scheduled as an outpatient. at present she will need the edge just mint of the medication. Consult date: 03/13/24 HPI: Natalie Alamo is a 43 year old female admitted to the hospital through the emergency room for the complaints of not feeling well, In addition to the complaints of headache over the last several months along with the un steadiness on ambulation and pain in her right eye. She has been evaluated by the gasateria attendant and has been on prednisone tapering dosage along with the gabapentin. She complains of bandlike tightness around her chest. She has seen the professor of geography also for the developing rash for which she has undergone the biopsy as well. Her medications include paroxetine 40mg daily, methotrexate 12.5mg subQ weekly, trazodone 100mg HS p.r.n., gabapentin 3 400mg p.o. b.i.d., and lorazepam 0.5mg p.o. t.i.d. p.r.n. she is reportedly allergic to multiple medications including vancomycin codeine hydrocodone morphine penicillin. she carries the ongoing diagnosis of anxiety, dry eye syndrome, bipolar disorder, hypertension, hypothyroidism, rheumatoid arthritis, so writing arthritis, in addition to the bipolar disorder. she does not drink alcohol, she does not smoke, and on initial evaluation in the emergency room her vital signs were normal except blood pressure 150/96. CBC was Abnormal, the basic metabolic panel and routine lab studies were negative. initial chest x-ray was negative she had an MRI of the hip in December of this year which was with minimal left greater trochanteric bursitis and mild spurring at the superolateral acetabular margin bilaterally and she has undergone surgery for that problem. [facility] Past Medical History Medical History Abnormal Pap smear of cervix 01-14-2020 Ascus hpv negative rpt pap in 1 year @ A/E Anxiety Dry eye syndrome of both eyes History of bipolar disorder History of breast implant removal 2018 Hypertension Hypothyroidism Left hip pain Menometrorrhagia Obesity Pilonidal abscess 1998 excision, has recurred, painful at times Psoriatic arthritis Rheumatoid arthritis Sleep disorder Water retention Surgical History Surgical History H/O LEEP 2012 2017 x3 done in [place] H/O sinus surgery (~11/24/20) H/O tubal ligation History of arthroscopy (~2014) left hip History of breast augmentation 2014 History of breast lift 2018 History of hysteroscopy (03/05/22) Hscope D&C / Endometrial Ablation/ bilateral Laparoscopic salpingectomy / excision of vulvar lesion History of laparoscopy 2014 endometriosis/7 cm on rt side History of robot-assisted laparoscopic hysterectomy (12/17/22) Robotic assisted total vaginal hysterectomy / done by Dr. Zarate History of sinus surgery 1999 cysts Family History Family History Father Depression Hypertension Family history of diabetes mellitus in first degree relative Family history of heart disease in male family member before age 55 Acute myocardial infarction Mother Depression Hypertension Family history of diabetes mellitus in first degree relative Family history of heart disease in male family member before age 55 Acute myocardial infarction Social History Social History Smoking status: Never smoker Alcohol intake: n
[2024-03-13 11:02] VITALS: BMI 38.5
--- NOTE | 2024-03-13 12:06 | ADMGEN ---
This patient, Natalie Alamo, was admitted to 3 [facility] Surg Room 329-01. Patient oriented to hospital policies and general routines including ID bracelet, bed and alarms, visiting hours, pain management, procedures, bathroom and other care routines, personal items, smoking policy, room service/diet, and visiting hours. Information on how to activate the Rapid Response Team has been discussed. Patient is encouraged to report perceived risks to care and to ask questions if they do not understand what they are told or what they should do. Patient informed about MRI schedule and length of time probable due to multiple areas being scanned.
[2024-03-13 14:00] VITALS: BP 178/104; PULSE 103; RESP 18; TEMP 36.5; O2SAT 98
[2024-03-13] MEDS: methylPREDNISolone SOD SUCC 125 MG VIAL 80 MG IM (16:07)
--- NOTE | 2024-03-16 16:26 | PM.DS ---
DS: Admitting Diagnosis Discharge Date 03/13/24 Admitting Diagnosis unsteady gait, back pain DS: Discharge Diagnosis Discharge Diagnosis (1) Unsteady gait: Code(s): R26.81 - Unsteadiness on feet Status: Acute (2) Rheumatoid arthritis: Qualifiers: Rheumatoid arthritis location: multiple sites Rheumatoid factor presence: with rheumatoid factor Qualified Code(s): M05.79 - Rheumatoid arthritis with rheumatoid factor of multiple sites without organ or systems involvement Code(s): M06.9 - Rheumatoid arthritis, unspecified Status: Acute (3) Dry eye syndrome of both eyes: Code(s): H04.123 - Dry eye syndrome of bilateral lacrimal glands Status: Acute (4) Small fiber neuropathy: Code(s): G62.9 - Polyneuropathy, unspecified Status: Acute DS: Summary Hospital Course Hospital Course: 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 She reports a history of small fiber neuropathy, RA (off of biologics) for many months due to rash, rash over her arms which dermatology biopsied and results are pending and taking prednisone for, eye pain and dryness. ER visit noted hemodynamics stable, WBC 21.2 with no bands, EKG without acute ischemia, trop neg x2. slightly elevated creatinine at 1.2, ESR 6, contaminated UA. Pt admitted for further workup and seen by neurology. MRI brain demonstrated normal findings, MRI C and T spine demonstrated mild spondylosis. Pt seen in room 329 at which point she was agitated but alert and oriented x4. She refused further workup and wanted to leave, and reporting feeling much better after receiving solumedrol in the ED. Thus, she was quickly walked in the room and had no gait imbalance. An attempt to discuss risks were not successful, patient wanted to leave immediately and had good decision making capacity. She was amenable to neurology follow up, and one was provided with Dr. Caballero a local neurologist. Pt also advised to continue close follow up with PCP/derm/vest backer. Pt was full code. ----- MIPS. does not have heart failure. Time Spent with Patient Time attestation: Total time spent providing and/or coordinating discharge services: Exam Const: General: cooperative and no acute distress Resp: Effort & Inspection: normal respiratory effort Auscultation: clear to auscultation bilaterally Cardio: Rate: regular rate Rhythm: regular rhythm Heart sounds: S1 normal heart sound present and S2 normal heart sound present GI: GI Palp: No abdominal tenderness Auscultation: normal bowel sounds Discharge Plan Discharge Attending physician on discharge: Steff Alfaro Consulting providers: Leander Anderson; Antoinette Carbajal; Vickey Gracia V. Discharging Clinician: Steff Alfaro Patient Disposition: Home, Self-Care Activity: january show Diet: as tolerated Discharge Instructions: You were hospitalized for unsteady gait and pain. Your symptoms were relieved by solumedrol. Continue your home dose prednisone and follow up with your vest backer as we discussed. Vitamin b12 level is pending, follow up with PCP. Also, you have been referred to Dr. Caballero neurology for EMG and other evaluation of gait abnormality. Your MRI brain, and spine did not show acute findings. Patient Instructions: Antibiotic Form Stand Alone Forms: General Discharge Information Follow-up/Referrals: Lulu Pedersen APRN [Primary Care Provider] - Call for Appointment (follow up on autoimmune workup, vit b12 levels, and follow up with vest backer) Steph Caballero MD [Physician] - Call for Appointment (establish care for small fiber neuropathy, EMG, and other workup) Discharge Medications: Continued trazodone 100 mg tablet 100 mg PO QHS PRN (Reason: sleep) Patient Comments: Francesco
--- NOTE | 2024-04-09 07:41 | PM.SD2 ---
Same Day Admit/Disch: HPI History of Present Illness Chief complaint: unsteady gait,weakness,abnormal urinalysis Narrative: Ms. 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 She reports a history of small fiber neuropathy, RA (off of biologics) for many months due to rash, rash over her arms which dermatology biopsied and results are pending and taking prednisone for, eye pain and dryness. ER visit noted hemodynamics stable, WBC 21.2 with no bands, EKG without acute ischemia, trop neg x2. slightly elevated creatinine at 1.2, ESR 6, contaminated UA. Pt admitted for further workup and seen by neurology. MRI brain demonstrated normal findings, MRI C and T spine demonstrated mild spondylosis. Pt seen in room 329 at which point she was agitated but alert and oriented x4. She refused further workup and wanted to leave, and reporting feeling much better after receiving solumedrol in the ED. Thus, she was quickly walked in the room and had no gait imbalance. An attempt to discuss risks were not successful, patient wanted to leave immediately and had good decision making capacity. She was amenable to neurology follow up, and one was provided with Dr. Caballero a local neurologist. 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 Pt was full code. ON LICENSE OF [facility] Past Medical History Medical History Abnormal Pap smear of cervix 01-14-2020 Ascus hpv negative rpt pap in 1 year @ A/E Anxiety Dry eye syndrome of both eyes History of bipolar disorder History of breast implant removal 2017 Hypertension Hypothyroidism Left hip pain Menometrorrhagia Obesity Pilonidal abscess 1998 excision, has recurred, painful at times Psoriatic arthritis Rheumatoid arthritis Sleep disorder Water retention Surgical History Surgical History H/O LEEP 2011 2017 x3 done in [place] H/O sinus surgery (~11/24/20) H/O tubal ligation History of arthroscopy (~2014) left hip History of breast augmentation 2013 History of breast lift 2017 History of hysteroscopy (03/05/22) Hscope D&C / Endometrial Ablation/ bilateral Laparoscopic salpingectomy / excision of vulvar lesion History of laparoscopy 2014 endometriosis/7 cm on rt side History of robot-assisted laparoscopic hysterectomy (12/17/22) Robotic assisted total vaginal hysterectomy / done by Dr. Zarate History of sinus surgery 1999 cysts Family History Family History Father Depression Hypertension Family history of diabetes mellitus in first degree relative Family history of heart disease in male family member before age 55 Acute myocardial infarction Mother Depression Hypertension Family history of diabetes mellitus in first degree relative Family history of heart disease in male family member before age 55 Acute myocardial infarction Social History Social History Smoking status: Never smoker Alcohol intake: never Substance use: never Substance use type: does not use Do You Feel Safe in your Home?: Yes Lack of Transportation: No Lack of Food: Never True Current Housing: I Have Housing Concerned About Future Housing: No Difficulty Paying Gas/Electric Bills: No Difficulty Paying for Meds: No Currently Unemployed: No Education: Bachelor's Degree Difficulty w/ Childcare or Family Care: No Living arrangements: alone Additional living arrangements comments: 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
== END 2024-03-13 16:10 | disposition home or self-care (01) ==
LOC: ANHED 05:56 → ANH3MEDSUR 15:40
PROVIDERS: Admitting Provider Internal Medicine; Emergency Provider Emergency Medicine; PCP Nurse Practitioner Family; Visit Provider General Practice
DX: R26.81 Unsteadiness on feet (principal); R51.9 Headache, unspecified; R07.9 Chest pain, unspecified; M06.9 Rheumatoid arthritis, unspecified; H04.123 Dry eye syndrome of bilateral lacrimal glands; F41.9 Anxiety disorder, unspecified; I10 Essential (primary) hypertension; E03.9 Hypothyroidism, unspecified; E66.9 Obesity, unspecified; Z68.38 Body mass index [BMI] 38.0-38.9, adult; Z90.710 Acquired absence of both cervix and uterus; M54.9 Dorsalgia, unspecified
CPT/HCPCS: 36415; 70450; 70553; 71045; 72156; 72157; 80053; 81001; 82607; 83605; 83735; 84145; 84484; 85025; 85652; 86140; 87086; 87088; 93005; 96361; 96372; 96374; 96375; 97161; 97165; 99285; A9577; G0378; J1170; J2919; J7030

== ENCOUNTER 2024-04-10 11:25 | Outpatient (CLI) | payer OTHER, SELFPAY ==
[2024-04-10 13:15] LABS: Cholesterol 202 mg/dL (0-200); HDL Direct 41 mg/dL; Triglycerides 138 mg/dL (<150)
[2024-04-10 13:26] LABS: LDL Cholesterol Direct 128 mg/dL
[2024-04-10 16:55] LABS: Free T4 Free Thyroxine Reflex 1.32 ng/dL (0.78-2.19)
[2024-04-10 22:19] LABS: Total Triiodothyronine (T3) 1.12 NG/ML (0.97-1.69)
[2024-04-11 21:04] LABS: FSH 24.5 mIU/mL
[2024-04-12 05:58] LABS: LH 11.9 mIU/mL
[2024-04-12 20:23] LABS: Testosterone Total 25 ng/dL (2-45)
[2024-04-16 02:44] LABS: Estradiol, Ultrasensitive 146 pg/mL
== END 2024-04-10 11:26 | disposition home or self-care (01) ==
LOC: ANHGOSHLAB 11:26
PROVIDERS: PCP Nurse Practitioner Family; Visit Provider Nurse Practitioner Family
DX: E03.9 Hypothyroidism, unspecified (principal); F41.9 Anxiety disorder, unspecified; R53.83 Other fatigue; Z13.220 Encounter for screening for lipoid disorders
CPT/HCPCS: 36415; 80061; 82670; 83001; 83002; 84403; 84439; 84443; 84480

== ENCOUNTER 2024-04-19 08:01 | Outpatient (CLI) | payer OTHER, SELFPAY ==
[2024-04-19 19:47] LABS: Basophils Absolute Auto 0.1 K/mm3 (0.0-0.1); Basophils Percent Auto 0.7 % (0.2-1.2); Eosinophils Absolute Auto 0.1 K/mm3 (0-0.3); Eosinophils Percent Auto 1.2 % (0-4.4); Hematocrit 45.2 % (37.0-47.0); Hemoglobin 14.9 g/dL (12.0-15.0); Immature Granulocyte Absolute 0.05 K/mm3 (0.00-0.031); Immature Granulocyte Percent A 0.4 % (0-0.5); Lymphocytes Absolute Auto 2.91 K/mm3 (0.9-3.2); Mean Corpuscular Hemoglobin 30.1 pg (26-34); Mean Corpuscular Volume 91.3 fl (80-100); Mean Platelet Volume 10.3 fl (7.4-10.4); Monocytes Absolute Auto 0.9 K/mm3 (0.1-0.6); Monocytes Percent Auto 7.5 % (2.6-8.5); Neutrophils Percent Auto 66.2 % (45.5-73.1); Platelet Count Result 331 k/mm3 (150-375); Red Blood Count 4.95 M/mm3 (4.2-5.4); Red Cell Distribution Width 13.8 % (11.5-14.5); White Blood Count 12.1 K/mm3 (4.5-10.0)
[2024-04-19 20:06] LABS: Alanine Aminotransferase 15 U/L (6-35); Alkaline Phosphatase 38 U/L (38-126); Anion Gap 13 mmol/L (4-12); Aspartate Amino Transferase 22 U/L (14-36); Bilirubin,Total 0.9 mg/dL (0.2-1.3); Blood Urea Nitrogen 16 mg/dL (7-17); Carbon Dioxide 21 mmol/L (22-30); Chloride 104 mmol/L (98-107); Estimated Glomerular Filt Rate > 60; Glucose 114 mg/dL (65-110); Potassium 3.8 mmol/L (3.4-5.0); Sodium 138 mmol/L (137-145)
[2024-04-19 21:11] LABS: Folic Acid 13.7 ng/mL (2.76->20)
[2024-04-19 21:48] LABS: Hemoglobin A1C 5.2 % (<5.7)
[2024-04-21 17:38] LABS: Zinc 71 mcg/dL (60-130)
[2024-04-23 07:38] LABS: Methylmalonic Acid 451 nmol/L (55-335)
[2024-04-23 07:59] LABS: Vitamin B6 12.9 ng/mL (2.1-21.7)
[2024-04-23 12:03] LABS: Homocysteine 8.2 umol/L (<10.4)
[2024-04-23 19:33] LABS: Immunofixation, Serum Normal pattern.
[2024-05-09 15:49] LABS: Arsenic,Urine Results Below (<36); Cadmium,Random Urine 0.6 (<1.3); Creatinine,Random Urine 94 mg/dL (20-275); Lead,Urine Results Below (<10); Mercury, Random Urine Results Below (<5); Thallium, Urine 0.2 (<0.5)
== END 2024-04-19 08:02 | disposition home or self-care (01) ==
LOC: ANHGOSHLAB 08:03
PROVIDERS: PCP Nurse Practitioner Family; Visit Provider Student in an Organized Health Care Education/Training Program
DX: G62.9 Polyneuropathy, unspecified (principal); Z13.220 Encounter for screening for lipoid disorders
CPT/HCPCS: 36415; 80053; 82525; 82607; 82746; 83036; 83090; 83921; 84207; 84630; 85025; 86334; 86335

== ENCOUNTER 2024-05-20 10:59 | Observation (INO) | payer OTHER, SELFPAY ==
[2024-05-20] VITALS (23 sets, daily range): BP systolic 101–141; BP diastolic 57–109; PULSE 76–184; RESP 16–21; TEMP 36.5–36.6; O2SAT 98–100
--- NOTE | ~2024-05-20 | XR_ITS ---
EXAMINATION: XR chest 1V portable DATE: 05/20/2024 11:47 INDICATION: Tachycardia. TECHNIQUE: A single frontal view of the chest was obtained. COMPARISON: Chest single view 03/13/2024 FINDINGS: There is no pneumonia, pleural effusion, or pneumothorax. The heart size is normal. IMPRESSION: 1. No acute cardiopulmonary disease. Reviewed, dictated and finalized at location A.
--- NOTE | ~2024-05-20 | US_ITS ---
EXAMINATION: US venous doppler LE RT DATE: 05/20/2024 17:11 INDICATION: calf pain, new onset A fib . TECHNIQUE: Grayscale images without and with compression and Doppler images of the right lower extrem ity veins were obtained. COMPARISON: None FINDINGS: The right common femoral vein, profunda (deep) femoral vein, proximal greater saphenous, and proximal and mid femoral vein are patent. IMPRESSION: No evidence of deep venous thrombosis to the level of the right mid femoral vein. Patient could not t olerate further examination. Reviewed, dictated and finalized at location K. IMPRESSION: No evidence of deep venous thrombosis to the level of the right mid femoral vei n. Patient could not tolerate further examination.
--- NOTE | 2024-05-20 10:53 | ECG_ITS ---
Test Date: 2024-05-20 10:53:51 Measurements Intervals [place] Rate: 167 P: 0 ME: 0 QRS: 37 QRSD: 99 T: 35 QT: 280 QTc: 467 Interpretive Statements ATRIAL FIBRILLATION WITH RAPID VENTRICULAR RESPONSE NONSPECIFIC ST AND T-WAVE ABNORMALITY ABNORMAL ECG Compared to ECG 03/13/2024 03:55:56 ATRIAL FIBRILLATION RATE, V RATEREPLACES SINUS RHYTHM Electronically Signed On 05-22-2024 07:06:53 CDT by Deshawn Santiago M.D.
--- NOTE | 2024-05-20 11:14 | ED.ARRPALP ---
HPI - Arrhythmia/Palpitations General Chief Complaint: Arrhythmia/Palpitations Stated Complaint: elevated HR Time Seen by Provider: 05/20/24 11:01 History of Present Illness HPI narrative: This is a 44-year-old female with a past medical history of hypertension, hypothyroidism, rheumatoid arthritis. Today she presents via EMS for rapid heart rate. 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 She went home and suddenly had a rapid heartbeat sensation that lasted several hours. She took an aspirin 325 at home. She presents today with appears to be in atrial fibrillation with rapid ventricular response within regular heartbeat going between 140-180 on the monitor. No discernible P waves. Patient has no history of atrial fibrillation in the past. She was recently started on chlorthalidone and losartan 3 days ago for a titration of blood pressure medications. She was previously on other antihypertensive but were stopped previously. She has been complaining of bilateral calf cramping sensations that her intermittent for last few weeks. No history of DVT or PE to her knowledge. She states she has history of thyroid problems but has not been titrated on her levothyroxine recently. Denies any chance of . She was otherwise in her normal state of health denies any fever, chills, chest pain, shortness a breath no abdominal pain, back pain. Related Data Home Medications Medication Instructions Recorded Confirmed paroxetine HCl 40 mg tablet (Paxil) 40 mg PO DAILY 12/28/21 04/10/24 trazodone 100 mg tablet 100 mg PO QHS PRN sleep 01/11/24 04/10/24 lorazepam 0.5 mg tablet 1 mg PO DAILY 02/03/24 04/10/24 cetirizine 10 mg tablet (Zyrtec) 10 mg PO DAILY 03/13/24 04/10/24 Allergies Allergy/AdvReac Type Severity Reaction Status Date / Time vancomycin Allergy Severe Anaphylaxis Verified 05/20/24 11:15 codeine Allergy Intermediate Rash Verified 05/20/24 11:15 hydrocodone [From [place]] Allergy Intermediate Rash Verified 05/20/24 11:15 morphine Allergy Intermediate Rash Verified 05/20/24 11:15 Penicillins Allergy Intermediate Rash Verified 05/20/24 11:15 phenazopyridine AdvReac Intermediate Nausea and Verified 05/20/24 11:50 Vomiting Review of Systems Review of Systems: As reviewed above in HPI [facility] Past Medical History Medical History Abnormal Pap smear of cervix 01-14-2020 Ascus hpv negative rpt pap in 1 year @ A/E Anxiety Dry eye syndrome of both eyes History of bipolar disorder History of breast implant removal 2017 Hypertension Hypothyroidism Left hip pain Menometrorrhagia Obesity Pilonidal abscess 1998 excision, has recurred, painful at times Psoriatic arthritis Rheumatoid arthritis Sleep disorder Water retention Surgical History Surgical History H/O LEEP 2011 2017 x3 done in [place] H/O sinus surgery (~11/24/20) H/O tubal ligation History of arthroscopy (~2014) left hip History of breast augmentation 2014 History of breast lift 2018 History of hysteroscopy (03/05/22) Hscope D&C / Endometrial Ablation/ bilateral Laparoscopic salpingectomy / excision of vulvar lesion History of laparoscopy 2014 endometriosis/7 cm on rt side History of robot-assisted laparoscopic hysterectomy (12/17/22) Robotic assisted total vaginal hysterectomy / done by Dr. Zarate History of sinus surgery 1999 cysts Family History Family History Father Depression Hypertension Family history of diabetes mellitus in first degree relative Family history of heart disease in male family member before age 55 Acute myocardial infarction Cerebrovascular accident Mother Depression Hypertension Family history of diabetes mellitus in first degree relative Family history of
[2024-05-20] MEDS: dilTIAZem 100 MG/100 ML 100 MG/100 ML BAG IV CONT ×2 (11:18→18:45)
[2024-05-20] MEDS: dilTIAZem HCl INJ 25 MG/5 ML VIAL IV PUSH (11:18)
[2024-05-20] MEDS: LACTATED RINGERS 1,000 ML 999 ML IV CONT (11:19)
[2024-05-20 11:24] LABS: Basophils Absolute Auto 0.1 K/mm3 (0.0-0.1); Basophils Percent Auto 0.6 % (0.2-1.2); Eosinophils Absolute Auto 0.1 K/mm3 (0-0.3); Eosinophils Percent Auto 0.9 % (0-4.4); Hematocrit 46.8 % (37.0-47.0); Hemoglobin 16.1 g/dL (12.0-15.0); Immature Granulocyte Absolute 0.05 K/mm3 (0.00-0.031); Immature Granulocyte Percent A 0.3 % (0-0.5); Lymphocytes Absolute Auto 4.15 K/mm3 (0.9-3.2); Lymphocytes Percent Auto 27.1 % (18.3-44.2); Mean Corpuscular HGB Conc 34.4 g/dl (32-36); Mean Corpuscular Hemoglobin 29.5 pg (26-34); Mean Corpuscular Volume 85.9 fl (80-100); Mean Platelet Volume 9.5 fl (7.4-10.4); Monocytes Absolute Auto 1.5 K/mm3 (0.1-0.6); Monocytes Percent Auto 9.8 % (2.6-8.5); Neutrophils Absolute Auto 9.4 K/mm3 (1.3-6.7); Neutrophils Percent Auto 61.3 % (45.5-73.1); Platelet Count Result 430 k/mm3 (150-375); Red Blood Count 5.45 M/mm3 (4.2-5.4); Red Cell Distribution Width 13.2 % (11.5-14.5); White Blood Count 15.3 K/mm3 (4.5-10.0)
[2024-05-20 11:35] LABS: INR 0.9; Prothrombin Time 12.7 Seconds (11.1-14.7)
[2024-05-20 11:42] LABS: D Dimer < 0.22 ug/mL (<0.48)
[2024-05-20 11:47] LABS: Alanine Aminotransferase 26 U/L (6-35); Albumin Level 4.5 g/dL (3.5-5.1); Alkaline Phosphatase 45 U/L (38-126); Anion Gap 13 mmol/L (4-12); Aspartate Amino Transferase 31 U/L (14-36); Bilirubin,Total 1.8 mg/dL (0.2-1.3); Blood Urea Nitrogen 19 mg/dL (7-17); Calcium 9.2 mg/dL (8.4-10.2); Carbon Dioxide 29 mmol/L (22-30); Chloride 93 mmol/L (98-107); Creatine Kinase 75 U/L (30-135); Estimated CRCL calculation 65 ml/min; Estimated Glomerular Filt Rate 49; Glucose 112 mg/dL (65-110); Magnesium 2.1 mg/dL (1.6-2.3); Potassium 2.8 mmol/L (3.4-5.0); Sodium 135 mmol/L (137-145)
[2024-05-20 11:50] LABS: NT Pro B Type Natriuretic Pept < 20 pg/mL (19.9-100); Troponin I < 0.012 ng/mL (0.000-0.034)
[2024-05-20 11:55] LABS: Beta HCG Quantitative < 2.39 mIU/ML
[2024-05-20] MEDS: POTASSIUM CHLORIDE 20 MEQ PACKET (FOR LIQUID) 40 MEQ PO (12:00)
[2024-05-20] MEDS: MAGNESIUM SULF 2 GM/WATER 50ML 2 GM/50 ML BAG IVPB (12:01)
[2024-05-20] MEDS: POTASSIUM CHLORIDE INJ 40 MEQ in SODIUM CHLORIDE 0.9% IV 500 ML 130 MEQ IVPB (12:19)
[2024-05-20 14:33] LABS: Troponin I < 0.012 ng/mL (0.000-0.034)
--- NOTE | 2024-05-20 16:05 | PM.IMHP ---
H&P: HPI History of Present Illness Date/Time: 05/20/24 16:05 Chief Complaint: rapid heart rate Narrative: This is a 44-year-old female with a past medical history of anxiety, bipolar disorder, hypertension, hypothyroidism, rheumatoid arthritis, psoriatic arthritis, obesity who presented to the hospital with palpitations. patient states that she has been working long hours at work and has noticed some leg cramping over the last couple weeks. She was just recently seen by her primary care doctor who placed her on losartan and chlorthalidone for blood pressure control. Prior to the chlorthalidone she was on hydrochlorothiazide. She states she was working when she noticed palpitations. She went home and tried vasovagal maneuver and took aspirin 325 mg without any relief. She denied any fever, chills, nausea, vomiting, diarrhea, abdominal pain, chest pain, shortness a breath, lightheadedness, dizziness, headache. She presented for further workup. Workup in the hospital included a chest x-ray which was negative. Initial labs showed a white blood cell count of 15.3, hemoglobin 16.1, platelet count 430, sodium 135, chloride 93, potassium 2.8, anion gap 13, creatinine 1.2, EGFR 49, total bili 1.8, troponin negative x2, TSH 2.680. While in the ED she was found to be in AFib with RVR with a rate between 140-180 with no discernible P waves. Patient denies history of AFib in the past. She was just started on losartan and chlorthalidone 3 days ago for titration of blood pressure medication. She was given a loading dose of Cardizem and started on Cardizem infusion along with 2 g of magnesium and 80 mEq of potassium while in the ED. She also received 1 L of LR. Prior to getting over into the IMU she converted while in the ED back to normal sinus rhythm in the 80s to 90s. Review of Systems Review of Systems: All systems reviewed & are unremarkable except as noted in HPI and below Constitutional: Constitutional: Reports as per HPI and Reports no additional constitutional complaints Eyes: Eyes: Reports as per HPI and Reports no additional eye complaints ENT: Reports system reviewed and no additional complaints, except as documented and Reports as per HPI Cardiovascular: Cardiovascular: Reports as per HPI and Reports no additional cardiovascular complaints Respiratory: Respiratory: Reports as per HPI and Reports no additional respiratory complaints Gastrointestinal: Gastrointestinal: Reports as per HPI and Reports no additional gastrointestinal complaints Genitourinary: Genitourinary: Reports no additional female genitourinary complaints and Reports as per HPI Musculoskeletal: Musculoskeletal: Reports no additional musculoskeletal complaints and Reports as per HPI Integumentary/Breasts: Skin/Breast: Reports system reviewed and no additional complaints, except as docu and Reports as per HPI Neurologic: Reports system reviewed and no additional complaints, except as documented and Reports as per HPI Psychiatric: Psychiatric: Reports no additional psychiatric complaints and Reports as per HPI [facility] Past Medical History Medical History Abnormal Pap smear of cervix 01-14-2020 Ascus hpv negative rpt pap in 1 year @ A/E Anxiety Dry eye syndrome of both eyes History of bipolar disorder History of breast implant removal 2018 Hypertension Hypothyroidism Left hip pain Menometrorrhagia Obesity Pilonidal abscess 1998 excision, has recurred, painful at times Psoriatic arthritis Rheumatoid arthritis Sleep disorder Water retention Surgical History Surgical History H/O LEEP 2012 2017 x3 done in [place] H/O sinus surgery (~11/24/20) H/O tubal ligation History of arthroscopy (~2014) left hip History of breast augmentation 2014 History of breast lift 2018 History of hysteroscopy (03/05/22) Hscope D&C / Endometrial Ablatio
[2024-05-20 16:59] LABS: Magnesium 2.5 mg/dL (1.6-2.3); Potassium 3.5 mmol/L (3.4-5.0)
[2024-05-20] MEDS: ACETAMINOPHEN 325 MG TABLET 650 MG PO (20:42)
[2024-05-20] MEDS: APIXABAN 5 MG TABLET PO (20:43)
[2024-05-20] MEDS: GABAPENTIN 300 MG CAPSULE 900 MG PO (22:37)
[2024-05-20] MEDS: POTASSIUM CHLORIDE 20 MEQ ER TABLET 40 MEQ PO (22:37)
[2024-05-20] MEDS: traZODone HCL 50 MG TABLET 100 MG PO (22:37)
[2024-05-20] MEDS: AMITRIPTYLINE HCL 25 MG TABLET PO (22:37)
[2024-05-21] VITALS (14 sets, daily range): BP systolic 101–132; BP diastolic 67–92; PULSE 73–96; RESP 18–20; TEMP 35.6–36.8; O2SAT 98–100
--- NOTE | 2024-05-21 | ECHO_ITS ---
Patient Info Name: Natalie Alamo Age: 44 years : 1980 Gender: Female Ht: 67 in Wt: 229 lbs BSA: 2.26 m2 HR: 91 bpm BP: 130 / 92 mmHg Heart Rhythm: Sinus Rhythm Technical Quality: Fair Exam Date: 05/21/2024 9:41 AM Exam Location: Echo Lab Patient Status: Inpatient Admit Date: 05/20/2024 Staff Ordering Physician: Evelyn Sawant APRN Stock Transfer Clerk: Isaías Sandoval RDCS Attending Provider: Jhoan Webber MD Referring Physician: Savana SYED; Exam Type: CA echo dop color flow w con Study Info Indications I48.1 - Persistent atrial fibrillation Complete two-dimensional, color flow and Doppler transthoracic echocardiogram is performed with contrast to opacify the left ventricle and to improve the deliniation of the left ventricle endocardial borders. Contrast/Agitated Saline Contrast/Ag. Saline: Definity Amount: 2.00 ml Existing IV Access: Yes IV Access Condition: patent with no signs of infiltration Summary 1. Mild concentric left ventricular hypertrophy with normal systolic and diastolic function. 2. Trivial amount of tricuspid regurgitation, PA pressures appear to be normal. 3. Normal sinus rhythm. Left Ventricle Left ventricular chamber dimension is normal. Left ventricular systolic function is normal, estimated at 65-70%. There is mild concentric increased left ventricular wall thickness. The left ventricular diastolic function is normal. Right Ventricle Right ventricular chamber dimension is normal. Left Atria Left atrial chamber dimension is normal. Right Atria Right atrial chamber dimension is normal. Aortic Valve The aortic valve is normal. Pulmonic Valve The pulmonic valve is not well visualized. Mitral Valve The mitral valve has normal leaflets. Tricuspid Valve The tricuspid valve leaflets are not well visualized. There is trace tricuspid valve regurgitation. No pulmonary hypertension, estimated pulmonary arterial systolic pressure is Empty. Pericardium/Pleural The pericardium appears normal. Aorta The aortic root size at the sinus of Valsalva is normal. Left Ventricular Outflow Tract Name Value Normal LVOT 2D LVOT Diameter 1.89 cm LVOT Doppler LVOT Peak Gradient 6 mmHg LVOT Mean Gradient 3 mmHg LVOT VTI 22.29 cm LVOT VTI/AV VTI Ratio 0.71 LVOT Stroke Volume 62.30 ml LVOT CO 4.74 l/min LVOT CI 2.10 L/min/m2 Pulmonic Valve Name Value Normal PV Doppler PV Peak Gradient 3 mmHg Mitral Valve Name Value Normal MV Doppler
[2024-05-21 05:39] LABS: Basophils Absolute Auto 0.1 K/mm3 (0.0-0.1); Basophils Percent Auto 0.8 % (0.2-1.2); Eosinophils Absolute Auto 0.1 K/mm3 (0-0.3); Eosinophils Percent Auto 1.3 % (0-4.4); Hematocrit 45.8 % (37.0-47.0); Hemoglobin 15.8 g/dL (12.0-15.0); Immature Granulocyte Absolute 0.02 K/mm3 (0.00-0.031); Immature Granulocyte Percent A 0.2 % (0-0.5); Lymphocytes Absolute Auto 3.22 K/mm3 (0.9-3.2); Lymphocytes Percent Auto 31.4 % (18.3-44.2); Mean Corpuscular HGB Conc 34.5 g/dl (32-36); Mean Corpuscular Hemoglobin 30.2 pg (26-34); Mean Corpuscular Volume 87.4 fl (80-100); Mean Platelet Volume 9.7 fl (7.4-10.4); Monocytes Absolute Auto 1.2 K/mm3 (0.1-0.6); Monocytes Percent Auto 11.3 % (2.6-8.5); Neutrophils Absolute Auto 5.6 K/mm3 (1.3-6.7); Platelet Count Result 369 k/mm3 (150-375); Red Blood Count 5.24 M/mm3 (4.2-5.4); Red Cell Distribution Width 13.4 % (11.5-14.5); White Blood Count 10.2 K/mm3 (4.5-10.0)
[2024-05-21] MEDS: LEVOTHYROXINE SODIUM 75 MCG TABLET PO (05:45)
[2024-05-21] MEDS: dilTIAZem 100 MG/100 ML 100 MG/100 ML BAG IV CONT (05:46)
[2024-05-21 06:03] LABS: Alanine Aminotransferase 27 U/L (6-35); Albumin Level 4.3 g/dL (3.5-5.1); Alkaline Phosphatase 38 U/L (38-126); Anion Gap 11 mmol/L (4-12); Aspartate Amino Transferase 27 U/L (14-36); Bilirubin,Total 1.8 mg/dL (0.2-1.3); Blood Urea Nitrogen 11 mg/dL (7-17); Calcium 9.3 mg/dL (8.4-10.2); Carbon Dioxide 30 mmol/L (22-30); Chloride 99 mmol/L (98-107); Estimated CRCL calculation 77 ml/min; Estimated Glomerular Filt Rate 60; Glucose 96 mg/dL (65-110); Potassium 3.6 mmol/L (3.4-5.0); Sodium 140 mmol/L (137-145)
--- NOTE | 2024-05-21 07:16 | ECG_ITS ---
Test Date: 2024-05-21 10:35:00 Measurements Intervals [place] Rate: 85 P: 48 NH: 148 QRS: 36 QRSD: 110 T: 24 QT: 411 QTc: 490 Interpretive Statements SINUS RHYTHM SINUS RHYTHM REPLACES ATRIAL FIBRILLATION NORMAL EKG Compared to ECG 05/20/2024 10:53:51 Atrial fibrillation no longer present Electronically Signed On 05-22-2024 07:20:27 CDT by Deshawn Santiago M.D.
--- NOTE | 2024-05-21 09:05 | PM.CNCAR ---
Assessment and Plan Assessment and plan (1) Atrial fibrillation with rapid ventricular response: Code(s): I48.91 - Unspecified atrial fibrillation Status: Acute Plan this is a 44-year-old lady with hypertension, obesity and rheumatoid arthritis presenting with an episode of symptomatic atrial fibrillation yesterday. She is now back in sinus rhythm and is feeling better. Echocardiogram has been ordered for this morning but is yet to be performed. At this point I am going to stop her intravenous diltiazem infusion and start her on metoprolol. I would hope to be able to treat her hypertension beta-gustavo in place of her ARB and diuretic at this time. Her echocardiogram will be reviewed after it is performed. It does not appear that she is hyperthyroid based on lab data. She is clinically not hyperthyroid. Her chads Vasc score is 2 so she does not require systemic anticoagulation Deshawn Kraus MD [facility] History of Present Illness History of Present Illness Consult date/time: 05/21/24 09:05 Reason For Visit: afib RVR,Hypokalemia Narrative: this is a very pleasant 44-year-old lady I am seeing at the request of the hospitalist because of atrial fibrillation which prompted ER evaluation and hospital admission. The patient states she has never had any trouble with her heart in the past and in the last week or 2 has not been feeling well. Her blood pressure was somewhat elevated she was started last week on combination of losartan and chlorthalidone by her PCP. She says she has a history of hypertension and has been off and on medical treatment for a few years. She noted yesterday that she was tachycardic and took her pulse and it was quite rapid she. 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 It was noted that she was in atrial fib with rapid ventricular response with a heart rate in the 180 range. She was started on intravenous diltiazem in the emergency room and apparently either right after it started or even before she converted into sinus rhythm. She was admitted to the IMU for further evaluation and management. Other than the sense of her heart beating somewhat rapidly she has no complaints at this time she is in sinus rhythm with a heart rate of about 100. She has no other complaints or concerns she does have a the above-described history of hypertension also has a history of rheumatoid arthritis. She has not had any cardiac manifestations of her RA that she can recall. 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 She is a lifelong nonsmoker does not drink alcohol excessively or use caffeinated beverages excessively. She does have treated hypothyroidism is taking Synthroid her TSH is normal at 2.6. Review of Systems Constitutional: Constitutional: Reports no additional constitutional complaints Eyes: Eyes: Reports no additional eye complaints ENT: Reports system reviewed and no additional complaints, except as documented Cardiovascular: Cardiovascular: Reports as per HPI Respiratory: Respiratory: Reports no additional respiratory complaints Gastrointestinal: Gastrointestinal: Reports no additional gastrointestinal complaints Musculoskeletal: Musculoskeletal: Reports no additional musculoskeletal complaints Integumentary/Breasts: Skin/Breast: Reports system reviewed and no additional complaints, except as docu Neurologic: Reports system reviewed and no additional complaints, except as documented Endocrine: Endocrine: Reports no additional endocrine complaints Hematologic/Lymphatic: Hematologic/Lymphatic: Reports no additional hematologic/lymphatic complaints Allergic/Immunologic: Allergic/Immunologic: Reports no additional allergic/immunologic complaints [facility] Past Medical History Medical History (Reviewed 05/20/24 @ 21:33
[2024-05-21] MEDS: APIXABAN 5 MG TABLET PO (09:31)
[2024-05-21] MEDS: PARoxetine 20 MG TABLET 40 MG PO (09:31)
[2024-05-21] MEDS: GABAPENTIN 300 MG CAPSULE 900 MG PO (09:31)
[2024-05-21] MEDS: LORazepam (*CRX) 1 MG TABLET PO (09:31)
[2024-05-21] MEDS: METOPROLOL SUCCINATE EXT REL 50 MG TABCR PO (10:22)
[2024-05-21] MEDS: PERFLUTREN LIPID MICROSPHERES 1.5 ML VIAL DILUTED TO 10 ML TOTAL VOLUME IV PUSH (11:46)
--- NOTE | 2024-05-21 11:47 | IVDEFINITY ---
Prior to administration of IV Definity the patient was educated on the risks and benefits of the imaging enhancing agent including potential adverse side effects. The patient verbalized understanding. Allergies were verified. No exclusion criteria were identified and at least one of the following inclusion criteria were met: 1) physician request, 2) patient technically difficult to image (per the [place] [employer]chocardi[employer] guidelines of two or more segments not discernable within the apical view), or 3) questionable left ventricular function. ?
--- NOTE | 2024-05-21 14:57 | PM.DS ---
DS: Admitting Diagnosis Discharge Date 05/21/24 Admitting Diagnosis AFib with RVR DS: Discharge Diagnosis Discharge Diagnosis (1) Atrial fibrillation with rapid ventricular response: Code(s): I48.91 - Unspecified atrial fibrillation Status: Acute (2) Acute hypokalemia: Code(s): E87.6 - Hypokalemia Status: Acute (3) Rheumatoid arthritis: Qualifiers: Rheumatoid arthritis location: multiple sites Rheumatoid factor presence: with rheumatoid factor Qualified Code(s): M05.79 - Rheumatoid arthritis with rheumatoid factor of multiple sites without organ or systems involvement Code(s): M06.9 - Rheumatoid arthritis, unspecified Status: Chronic (4) Hypertension: Code(s): I10 - Essential (primary) hypertension Status: Chronic (5) Hypothyroidism: Code(s): E03.9 - Hypothyroidism, unspecified Status: Chronic DS: Summary Hospital Course Hospital Course: This is a 44-year-old female with a past medical history of anxiety, bipolar disorder, hypertension, hypothyroidism, rheumatoid arthritis, psoriatic arthritis, obesity who presented to the hospital with palpitations. patient states that she has been working long hours at work and has noticed some leg cramping over the last couple weeks. She was just recently seen by her primary care doctor who placed her on losartan and chlorthalidone for blood pressure control. Prior to the chlorthalidone she was on hydrochlorothiazide. She states she was working when she noticed palpitations. She went home and tried vasovagal maneuver and took aspirin 325 mg without any relief. She denied any fever, chills, nausea, vomiting, diarrhea, abdominal pain, chest pain, shortness a breath, lightheadedness, dizziness, headache. She presented for further workup. Workup in the hospital included a chest x-ray which was negative. Initial labs showed a white blood cell count of 15.3, hemoglobin 16.1, platelet count 430, sodium 135, chloride 93, potassium 2.8, anion gap 13, creatinine 1.2, EGFR 49, total bili 1.8, troponin negative x2, TSH 2.680. While in the ED she was found to be in AFib with RVR with a rate between 140-180 with no discernible P waves. Patient denies history of AFib in the past. She was just started on losartan and chlorthalidone 3 days ago for titration of blood pressure medication. She was given a loading dose of Cardizem and started on Cardizem infusion along with 2 g of magnesium and 80 mEq of potassium while in the ED. She also received 1 L of LR. Prior to getting over into the IMU she converted while in the ED back to normal sinus rhythm in the 80s to 90s. His been tapered off of the diltiazem drip and was started on metoprolol. Blood pressure was adequate with metoprolol alone. Will stop chlorthalidone and losartan at discharge and follow-up she has. Chads Vasc score is low and did not require any anticoagulation. Echo was done which was unremarkable. Cardiology is outpatient basis Time Spent with Patient Time attestation: Total time spent providing and/or coordinating discharge services: 35 mins Exam Narrative: General: In no acute distress, well nourished Head: atraumatic, no encephalopathy Eyes: EOMI, PERRLA, sclera clear ENT: moist mucous membranes, nasal passages clear Neck: supple, no JVD, no adenopathy, trachea midline Cardiac: Normal S1 and S2. she is back in a normal sinus rhythm on the monitor. No murmur, gallops or friction rubs, peripheral pulses intact. Respiratory: Lungs clear to auscultation, no adventitious lung sounds , currently on room air Gastrointestinal: soft, non-distended, non-tender, normoactive bowel sounds. : voiding without difficulty. Extremities: moves all extremities well, no edema, good ROM, strength 5/5 Skin: clean, dry, intact. No wounds or lesions. Neuro: Alert and oriented x4, cranial nerves intact, no neuro deficits. Psych: normal mood, normal affect, interactive DS: Andrew
== END 2024-05-21 15:51 | disposition home or self-care (01) ==
LOC: ANHED 13:53 → ANHIMU 17:17
PROVIDERS: Nurse Practitioner Acute Care; Admitting Provider Internal Medicine; Emergency Provider Student in an Organized Health Care Education/Training Program; PCP Nurse Practitioner Family; Visit Provider Internal Medicine
DX: I48.91 Unspecified atrial fibrillation (principal); E87.6 Hypokalemia; M79.661 Pain in right lower leg; I10 Essential (primary) hypertension; E03.9 Hypothyroidism, unspecified; F41.9 Anxiety disorder, unspecified; E66.9 Obesity, unspecified; Z68.34 Body mass index [BMI] 34.0-34.9, adult; M05.79 Rheumatoid arthritis with rheumatoid factor of multiple sites without organ or systems involvement
CPT/HCPCS: 36415; 71045; 80053; 82550; 83735; 83880; 84132; 84443; 84484; 84702; 85025; 85380; 85610; 85730; 93005; 93306; 93971; 96365; 96366; 96368; 96375; 96376; 99285; A9270; C8929; G0378; J3475; J3480; J7040; J7120; Q9957

== ENCOUNTER 2024-08-02 16:16 | Outpatient (CLI) | payer OTHER, SELFPAY ==
[2024-08-02 16:55] LABS: Anion Gap 8 mmol/L (4-12); Blood Urea Nitrogen 14 mg/dL (7-17); Calcium 9.1 mg/dL (8.4-10.2); Carbon Dioxide 27 mmol/L (22-30); Chloride 103 mmol/L (98-107); Estimated Glomerular Filt Rate > 60; Glucose 94 mg/dL (65-110); Potassium 3.6 mmol/L (3.4-5.0); Sodium 138 mmol/L (137-145)
== END 2024-08-02 16:17 | disposition home or self-care (01) ==
LOC: ANHLAB 16:21
PROVIDERS: PCP Nurse Practitioner Family; Visit Provider Nurse Practitioner Adult Health
DX: I10 Essential (primary) hypertension (principal)
CPT/HCPCS: 36415; 80048

== ENCOUNTER 2024-09-03 06:39 | Outpatient (CLI) | payer OTHER, SELFPAY ==
[2024-09-03 08:01] LABS: Basophils Absolute Auto 0.1 K/mm3 (0.0-0.1); Basophils Percent Auto 0.5 % (0.2-1.2); Eosinophils Absolute Auto 0.2 K/mm3 (0-0.3); Eosinophils Percent Auto 2.1 % (0-4.4); Hematocrit 38.3 % (37.0-47.0); Hemoglobin 12.9 g/dL (12.0-15.0); Immature Granulocyte Absolute 0.03 K/mm3 (0.00-0.031); Immature Granulocyte Percent A 0.3 % (0-0.5); Lymphocytes Absolute Auto 3.19 K/mm3 (0.9-3.2); Lymphocytes Percent Auto 27.7 % (18.3-44.2); Mean Corpuscular HGB Conc 33.7 g/dl (32-36); Mean Corpuscular Hemoglobin 29.6 pg (26-34); Mean Corpuscular Volume 87.8 fl (80-100); Mean Platelet Volume 10.2 fl (7.4-10.4); Monocytes Percent Auto 8.8 % (2.6-8.5); Neutrophils Percent Auto 60.6 % (45.5-73.1); Platelet Count Result 276 k/mm3 (150-375); Red Blood Count 4.36 M/mm3 (4.2-5.4); Red Cell Distribution Width 13.7 % (11.5-14.5); White Blood Count 11.5 K/mm3 (4.5-10.0)
[2024-09-11 11:34] LABS: PRA 0.14 ng/mL/h (0.25-5.82)
== END 2024-09-03 06:40 | disposition home or self-care (01) ==
LOC: ANHLAB 06:41
PROVIDERS: PCP Nurse Practitioner Family; Visit Provider Nurse Practitioner Adult Health
DX: T14.8XXA Other injury of unspecified body region, initial encounter (principal); I10 Essential (primary) hypertension; X58.XXXA Exposure to other specified factors, initial encounter
CPT/HCPCS: 36415; 82088; 82384; 83835; 84244; 85025

== ENCOUNTER 2024-09-04 10:24 | Outpatient (CLI) | payer OTHER, SELFPAY ==
[2024-09-10 05:54] LABS: Metanephrine, Total Urine 359 mcg/24 h (182-739); Metanephrine, Urine 73 mcg/24 h (58-203); Normetanephrine, Urine 286 mcg/24 h (88-649)
[2024-09-14 08:39] LABS: Reference Lab Test Name Creatine 24 Hr Ur
== END 2024-09-04 10:25 | disposition home or self-care (01) ==
PROVIDERS: PCP Nurse Practitioner Family; Visit Provider Nurse Practitioner Adult Health
DX: I10 Essential (primary) hypertension (principal)
CPT/HCPCS: 36415; 82384; 82540; 82570; 83835

== ENCOUNTER 2024-09-11 07:30 | Outpatient (CLI) | payer OTHER, SELFPAY ==
--- NOTE | ~2024-09-11 | CT_ITS ---
CT of the Abdomen and Pelvis: Indication: Hypertension, adrenal mass Technique: 2.5 mm axial scans were obtained through the abdomen and pelvis prior to and following fo llowing intravenous administration of 100 cc of Omnipaque 350. Dose reduction technique was used on t his scan by utilizing automated exposure control and iterative reconstruction technique. The dose-harley gth product (DLP) was 1949.87 mGy-cm. Findings: Scans through the lung bases are unremarkable. The liver, spleen, pancreas, gallbladder, adrenals and right kidney are within normal limits. Punctat e nonobstructing left renal stone noted. No evidence of aortic aneurysm. No lymphadenopathy. No bowel obstruction or bowel wall thickening. There is no evidence to suggest acute appendicitis. Images through the pelvis were performed. Urinary bladder unremarkable. Status post hysterectomy. 4.5 cm simple left ovarian cyst present. No ascites. Impression: Punctate nonobstructing left renal stone. 4.5 cm simple left ovarian cyst. Reviewed, dictated and finalized at location . COORDINATOR Impression: Punctate nonobstructing left renal stone. 4.5 cm simple left ovarian cyst.
[2024-09-11 07:58] LABS: Estimated Glomerular Filt Rate 60
== END 2024-09-11 07:31 | disposition home or self-care (01) ==
PROVIDERS: PCP Nurse Practitioner Family; Visit Provider Nurse Practitioner Adult Health
DX: I10 Essential (primary) hypertension (principal); E27.9 Disorder of adrenal gland, unspecified; N20.0 Calculus of kidney; N83.292 Other ovarian cyst, left side
CPT/HCPCS: 74178; Q9967

== ENCOUNTER 2024-11-27 10:41 | Outpatient (CLI) | payer OTHER, SELFPAY ==
[2024-11-27 11:00] LABS: Hematocrit 44.6 % (37.0-47.0); Hemoglobin 14.8 g/dL (12.0-15.0); Mean Corpuscular HGB Conc 33.2 g/dl (32-36); Mean Corpuscular Hemoglobin 29.3 pg (26-34); Mean Corpuscular Volume 88.3 fl (80-100); Mean Platelet Volume 9.9 fl (7.4-10.4); Platelet Count Result 292 k/mm3 (150-375); Red Blood Count 5.05 M/mm3 (4.2-5.4); Red Cell Distribution Width 13.7 % (11.5-14.5); White Blood Count 8.5 K/mm3 (4.5-10.0)
[2024-11-27 11:28] LABS: Anion Gap 9 mmol/L (4-12); Blood Urea Nitrogen 14 mg/dL (7-17); Calcium 8.8 mg/dL (8.4-10.2); Carbon Dioxide 24 mmol/L (22-30); Chloride 106 mmol/L (98-107); Estimated Glomerular Filt Rate > 60; Glucose 96 mg/dL (65-110); Phosphorus 3.4 mg/dL (2.5-4.5); Potassium 4.4 mmol/L (3.4-5.0); Sodium 139 mmol/L (137-145)
[2024-11-27 11:34] LABS: Parathyroid Intact 46.1 pg/mL (14.5-75.2)
[2024-11-27 11:51] LABS: Creatinine Urine 179.4 mg/dL
[2024-11-27 11:53] LABS: Total Protein Urine Random < 5 mg/dL; Ur Ttl Prot Creatinine Ratio < 0.03 mg/mg (0-0.20)
== END 2024-11-27 10:42 | disposition home or self-care (01) ==
LOC: ANHLAB 10:43
PROVIDERS: PCP Nurse Practitioner Family; Visit Provider Internal Medicine Nephrology
DX: E87.6 Hypokalemia (principal); I10 Essential (primary) hypertension
CPT/HCPCS: 36415; 80069; 82570; 83970; 84156; 85027

== ENCOUNTER 2024-12-04 12:49 | Outpatient (CLI) | payer OTHER, SELFPAY ==
[2024-12-04 13:33] LABS: Hematocrit 44.5 % (37.0-47.0); Hemoglobin 14.5 g/dL (12.0-15.0); Mean Corpuscular HGB Conc 32.6 g/dl (32-36); Mean Corpuscular Hemoglobin 29.2 pg (26-34); Mean Corpuscular Volume 89.5 fl (80-100); Mean Platelet Volume 10.4 fl (7.4-10.4); Platelet Count Result 323 k/mm3 (150-375); Red Blood Count 4.97 M/mm3 (4.2-5.4); Red Cell Distribution Width 13.6 % (11.5-14.5); White Blood Count 13.1 K/mm3 (4.5-10.0)
[2024-12-04 13:47] LABS: Albumin Level 4.2 g/dL (3.5-5.1); Anion Gap 11 mmol/L (4-12); Blood Urea Nitrogen 17 mg/dL (7-17); Calcium 9.5 mg/dL (8.4-10.2); Carbon Dioxide 25 mmol/L (22-30); Chloride 101 mmol/L (98-107); Estimated Glomerular Filt Rate 53; Glucose 91 mg/dL (65-110); Phosphorus 3.7 mg/dL (2.5-4.5); Potassium 4.6 mmol/L (3.4-5.0); Sodium 137 mmol/L (137-145)
--- OUTSIDE RECORDS SUMMARY | 2024-12-04 14:03 | XMS_ITS | Patient Health Record ---
Author Organization [facility] Address [address] [place] [address] Care Team Providers Care Director Ehs Name Role Phone Miller Narvaezsey Unavailable [phone] Kiera Lucas Unavailable [phone] Reason For Referral No Information Problems Problem Type SNOMED Code ICD Code Onset Dates Problem Status W/U Status Risk Notes Problem Chronic allergic conjunctivitis (73907078) Other chronic allergic conjunctivitis (H10.45) Active confirmed Problem Allergic rhinitis caused by pollen (disorder) (10885866) Allergic rhinitis due to pollen (J30.1) Active confirmed Problem Allergic rhinitis (60549560) Other allergic rhinitis (J30.89) Active confirmed Problem Chronic rhinitis (98788280) Chronic rhinitis (J31.0) Active confirmed Problem Uncomplicated mild persistent asthma (874364447) Mild persistent asthma, uncomplicated (J45.30) Active confirmed Problem Uncomplicated moderate persistent asthma (945345398) Moderate persistent asthma, uncomplicated (J45.40) Active confirmed Problem Uncomplicated severe persistent asthma (478314281) Severe persistent asthma, uncomplicated (J45.50) Active confirmed Problem Allergic rhinitis caused by animal hair and dander (203849224772338) Allergic rhinitis due to animal (cat) (dog) hair and dander (J30.81) Active confirmed Encounters Encounter Location Date Provider Diagnosis [facility] [address] [place] [address] 04/16/2024 Kiera Lucas Plan Of Treatment No Information Insurance Providers Payer Name Payer Address Payer Phone Subscriber Number Group Number Insured Name Patient Relationship to Insured Coverage Start Date Coverage End Date [facility] [address] [address] [place], [place] [id number] Natalie Edwards ch Self - patient is the insured 4
--- OUTSIDE RECORDS SUMMARY | 2024-12-04 14:03 | XMS_ITS | Encounter Summary ---
Author Organization [facility] Address [address] [place] [address] Care Team Providers Care Service Engine Repairer Name Role Phone Lulu Pedersen Primary Care Provider [phone] Encounter Details Date Type Department Care Team (Late st Contact Info) Description 12/01/2024 External Device Data [facility]STRACTION Provider, Abstract NO ADDRESS ON FILE Social History Tobacco Use Types Packs/Day Years Used Date Smoking Tobacco: Never Smokeless Tobacco: Never Alcohol Use Standard Drinks/Week Comments Not Currently 0 (1 standard drink = 0.6 oz pur e alcohol) Comments No Sex and Gender Information Value Date Recorded Sex Assigned at Not on file 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 Gender Identity Not on file Sexual Orientation Not on file documented as of this encounter Plan of Treatment Upcoming Encounters Date Type Department Care Team (Late st Contact Info) Description 05/20/2025 11:15 AM CDT Video Visit [facility] Psychiatry [address] [place] [address] Rasheed Kramer MD [address] [place] [address] [place] [address] documented as of this encounter Visit Diagnoses Not on filedocumented in this encounter Care Teams Service Engine Repairer Relationship Specialty Start Date End Date Lulu Pedersen FNP [address] [facility] [address] [place] [address] PCP - General Nurse Practitioner Family 02/12/20 documented as of this encounter
--- OUTSIDE RECORDS SUMMARY | 2024-12-04 14:03 | XMS_ITS ---
Author Organization [facility] celena Address [address] [facility] [address] [address] Care Team Providers Care Candle Wrapping Machine Operator Name Role Phone Nuvia MILLAN, Lulu Primary Care Provider Unavail able Abbie Rubio [phone] REASON FOR VISIT pain Medications Medication SIG (Take, Route, Fr equency, Duration) Notes Start Date End Date Status Gabapentin 600 MG 1 tablet Orally 3 ti mes a day for 30 days 03/15/2024 Active Encounters Encounter Location Date Provider Diagnosis [facility] [address] [facility] [address] [place] [address] 03/15/2024 Abbie Rubio Plan Of Treatment Medication Medication Name Sig Start Date Stop Date Notes Gabapentin 600 MG 1 tablet Orally 3 ti mes a day for 30 days 03/15/2024 Progress Notes * MARQUEZBerenice NaylorCristhianOB:1979 (43 yo F)Acc No.[id number]:03/15/2024 Patient: Natalie JOHNSON :1980 A ge:43 Y S ex:Female Address:[address] [place], [address] * Refills Start Gabapentin Tablet, 600 MG, Orally, 90 Tablet, 1 tablet, 3 times a day, 30 days, Refills=2 * true * Date: Generated for Kentrelli herve/Bernardog/eTransmitting on: 0 12/04/2024 02:03 PM CDT
--- OUTSIDE RECORDS SUMMARY | 2024-12-04 14:03 | XMS_ITS | Clinical Summary ---
Author Organization [facility] Address [address] [place] [address] Care Team Providers Care Senior Editor Name Role Phone Colleen Pagan K [employer] Primary Care Provider [phone] Allergies Active Allergy Reactions Criticality Noted Date Comments Codeine Itching,Rash Reaction: Itching, Rash, Levofloxacin Rash Medium 04/09/2024 Lisinopril Cough Low 06/21/2024 Penicillins Itching,Rash Reaction: Itching, Rash, Phenazopyridine Nausea only Medium 04/09/2024 Vancomycin Hives,Itching,Rash High Reaction: Hives, Itching, Rash, Medications PARoxetine (PAXIL) 40 mg tablet 03/06/20 23 Active levothyroxine (SYNTHROID) 75 mcg tablet levothyroxine 75 mcg tablet TAKE 1 TABLET BY MOUTH EVERY DAY 09/26/18 70 Active LORazepam (ATIVAN) 0.5 mg tablet Take 1 tablet (0.5 mg total) by mouth 3 (three) times a day as needed 02/23/20 23 Active ergocalciferol (VITAMIN D) 50,000 unit capsule ergocalciferol (vitamin D2) 1,250 mcg (50,000 unit) capsule TAKE 1 CAPSULE BY MOUTH ONCE A WEEK 06/28/20 22 Active gabapentin (NEURONTIN) 300 mg capsule Take 1 capsule (300 mg total) by mouth 2 (two) times a day 09/21/20 23 Active traZODone (DESYREL) 100 mg tablet Take 1 tablet (100 mg total) by mouth nightly as needed 09/21/20 23 Active amitriptyline (ELAVIL) 25 mg tablet Take 1 tablet (25 mg total) by mouth nightly 06/05/20 24 Active Xiidra 5 % dropperette 06/12/20 24 Active Rinvoq 15 mg tablet extended release 24 hr 06/12/20 24 Active metoprolol XL (TOPROL-XL) 50 mg extended release tabletIndication s:Paroxysmal atrial fibrillation (HCC) Take 1 tablet (50 mg total) by mouth every morning 30 tablet 11 06/21/20 24 Active hydroCHLOROthiaz francis (HYDRODIURIL) 25 mg tablet Take 1 tablet (25 mg total) by mouth daily 30 tablet 11 07/02/20 24 025 Active losartan (COZAAR) 100 mg tabletIndication s:Essential hypertension Take 1 tablet (100 mg total) by mouth daily 30 tablet 11 09/17/20 24 025 Active Active Problems Problem Noted Date Diagnosed Date Primary osteoarthritis of left hip 08/21/2024 Severe obesity 06/21/2024 Sacroiliitis 11/04/2023 Neuropathy 03/16/2023 Bipolar disorder 11/30/2022 Essential hypertension 11/30/2022 Leukocytosis 11/03/2022 Gastroesophageal reflux disease without esophagi tis 03/01/2022 Hyperlipidemia 12/17/2021 Hypothyroidism 12/17/2021 Genital warts 11/24/2021 Obesity 03/04/2020 Bipolar I disorder, most rec ent episode depressed, severe without psychotic features 09/23/2019 Assessment & Plan (09/23/2019 10:42 PM PECAN SHELLER): Patient has an established diagnosis of bipolar affective disorder, characterized by periods of low mood, anhedonia, difficulty concentrating, low energy, poor sleep and suicidal ideation, as well as at least one manic episode with impulsivity, increased spending, decreased need for sleep, racing thoughts. She has an outpatient psychiatrist in [place], [place] Dr. Kramer and has been tried on multiple medications that were not effective or tolerated including olanzapine, Abilify, cymbalta, lamictal, depakote, trileptal, tegretol. Most recently she was started on Latuda which she felt made her worse. She started to feel more restless, depressed and have suicidal thoughts. Her first and only suicide attempt was recently in June 2019 when she took 60 klonopin and wine in an attempt to not wake up. She has never been on Rinard because she was scared of the side effects, but is now amenable to it. Plan is to start Rinard ER 600mg at bedtime. D/c latuda. Continue home meds celexa and klonopin. She has an appt with Dr. Kramer and a therapist both on 10/26 and she hopes to not have to stay in the hospital too long, so we will plan for discharge and close outpt followup to obtain lithium level. Will attempt to contact Dr. Kramer to coordinate care. Plantar fasciitis of left foot 09/13/2018 Small fiber neuropathy 02/05/2016 Encounters Date Type Department Care Team Description 12/03/2024 Documentation [facility] Orthopaedic Surgery [address] [facility] Medical Office Building [address] [place] [address] Marizol Hand 09/12/2024 Orders Only [facility] Cardiology [address] [place] [address] Nirmala Callahan NP Essential hypertension 09/11/2024 Orders Only [facility] Health Information Management [address] [place] [address] Nirmala Callahan NP from Last 3 Months Surgical History Surgery Date Site/Laterality Comments HYSTERECTOMY 09/26/2022 - 09/25/2023 HIP ARTHROSCOPY 09/26/2013 - 09/25/2014 Left BREAST IMPLANT REMOVAL 09/26/2017 - 09/25/2018 Bilateral BREAST SURGERY Bilateral 2013 breast augmentation FLUORO GUIDED ASPIRATION OR INJECTION LARGE JOINT LEFT 04/20/2024 Left Medical History Medical History Date Comments Depression Hypertension Anxiety Bipolar disorder (HCC) Rheumatoid arthritis (HCC) Psoriatic arthritis (HCC) Hypothyroidism Small fiber neuropathy Family History Medical History Relation Name Comments Diabetes Father Heart disease Father Hypertension Father Diabetes Mother Heart disease Mother Hypertension Mother Relation Name Status Comments Father Mother Social History Tobacco Use Types Packs/Day Years Used Date Smoking Tobacco: Never Tobacco Cessation:Counseling Given: Not Answered Humiliation, Afraid, Rape, and Kick questionnair e Answer Date Recorded Fear of Current or Ex-Partner No Emotionally Abused No 09/24/2019 Physically Abused No 09/24/2019 Sexually Abused No 09/24/2019 Social Connection and Isolat ion Panel [NHANES] Answer Date Recorded Frequency of Communication w ith Friends and Family More than three times a week 09/24/2019 Frequency of Social Gatherin gs with Friends and Family Twice a week 09/24/2019 Attends Ep[employer] Services Never 09/24 Active Member of Clubs or Organizations No 09/24/2019 Attends Club or Organization Meetings Never 09/24/2019 Marital Status 09/24/2019 Overall Financial Resource Strain (CARDIA) Answe r Date Recorded Difficulty of Paying Living Expenses Somewhat chance rd 09/24/2019 PHQ-2 Answer Date Recorded PHQ-2 Score 2 09/24/2019 Hunger Vital Sign Answer Date Recorded Worried About Running Out of Food in the Last Ye ar Sometimes true 09/24/2019 Ran Out of Food in the Last Year Sometimes true 09/24/2019 PRAPARE - Transportation Answer Date Re corded Lack of Transportation (Medical) No 09/24/2019 Lack of Transportation (Non-Medical) No 09/24/2019 Education Answer Date Recorded What is the highest level of school you have completed or the highest degree you have received? Bachelor's degree (e.g., BA, AB, BS) 09/24/2019 Comments No Sex and Gender Information Value Date Recorded Sex Assigned at Not on file Legal Sex Female 3:31 PM PECAN SHELLER Gender Identity Not on file Sexual Orientation Not on file Obstetrics History Last Filed Vital Signs Vital Sign Reading Time Taken Comments Blood Pressure 144/98 06/21/2024 1:53 PM CDT Pulse 67 06/21/2024 1:53 PM CDT Temperature 37 C (98.6 F) 04/20/2024 11:05 AM CDT Respiratory Rate 18 04/20/2024 11:05 AM CDT Oxygen Saturation 98% 06/21/2024 1:53 PM CDT Inhaled Oxygen Concentration - - Weight 99.8 kg (220 lb) 06/21/2024 1:53 PM CDT Height 160 cm (5' 3 ) 06/21/2024 1:53 PM CDT Body Mass Index 38.97 06/21/2024 1:53 PM CDT Plan of Treatment Upcoming Encounters Date Type Department Care Team (Latest Contact Info) Description 01/10/2025 3:45 PM CDT Hospital Encounter [facility] Operating Room [address] [place] [address] Gunnar Moss MD [address] [place] [address] 01/10/2025 3:45 PM CDT - 01/10/2025 5:50 PM CDT Surgery [facility] Room [address] [place] [address] Gunnar Moss MD [address] [place], [place] [id number] ARTHROPLASTY TOTAL HIP - DEPUY Scheduled Procedures Name Priority Associated Diagnoses Date/Ti me ARTHROPLASTY TOTAL HIP - DEPUY Primary osteoarthritis of left hip 01/10/2025 3:45 PM CDT Health Maintenance Due Date Last Done Comments Breast Cancer Screening-Mammogram 1980 Colon Cancer Screening-Colonoscopy 1980 Depression Screening 1980 Hepatitis C Screening 1979 Hepatitis B Screening 1997 Regular Well Visit/Exam 18-64 1997 Pneumococcal vaccine <65 (1 of 2 - PCV) 1998 Covid-19 Vaccine (3 - 2023-2 5 season) 2024 10/06/2020, 09/15/2020 Influenza Vaccine (#1) 2024 8, 05/31/2017, 06/19/2016 DTaP/Tdap/Td Vaccine (3 - Td or Tdap) 03/16/2033 03/16/2023, 06/15/2016 HPV Vaccines Aged Out No longer eligi ble based on patient's age to complete this topic Procedures Procedure Name Priority Date/Time Associated Diagnosis Comments CREATINE, 24-HOUR URINE Routine 09/11/2024 Essential hypertension SCAN - RADIOLOGY/IMAGING 09/11/2024 CT ABDOMEN PELVIS W WO CONTRAST Schedule Routine, Read Routine (OP Routine) 09/11/2024 Essential hypertension from Last 3 Months Results * SCAN - RADIOLOGY/IMAGING (09/11/2024) Anatomical Region Laterality Modality Other Nirmala Callahan K [employer] Final Res ult * Creatine, 24-Hour Urine (09/11/2024) Urine 09/11/2024 Nirmala Callahan NP LAB BLOOD ORDERABLES Hanna l Result EXTERNAL LAB * CT Abdomen Pelvis W WO Contrast (09/11/2024) Anatomical Region Laterality Modality Body N/A Computed Tomogra phy 09/11/[address]irmala Callahan NP IMG CT PROCEDURES Final R esult from Last 3 Months Insurance [facility] Address: [address] [address] [facility] Address: [address] [address] [facility] Address: [place] [address] Advance Directives For more information, please contact: [phone] * Full Code (Latest Code Status on File) Date Activated Date Inactivated Comments 09/22/2019 5:13 PM 09/25/2019 12:46 PM Care Teams Senior Editor Relationship Specialty Start Date End Date Colleen Pagan NP [address] [place] [address] PCP - General Family Medicine 06/21/24
--- OUTSIDE RECORDS SUMMARY | 2024-12-04 14:03 | XMS_ITS | Encounter Summary ---
Author Organization [facility] Address [address] [place] [address] Care Team Providers Care Dish Maker Name Role Phone Lulu Pedersen Primary Care Provider [phone] Encounter Details Date Type Department Care Team (Late st Contact Info) Description 12/04/2024 External Device Data [facility] ABSTRACTION Provider, Abstract NO ADDRESS ON FILE Social History Tobacco Use Types Packs/Day Years Used Date Smoking Tobacco: Never Smokeless Tobacco: Never Alcohol Use Standard Drinks/Week Comments Not Currently 0 (1 standard drink = 0.6 oz pur e alcohol) Comments No Sex and Gender Information Value Date Recorded Sex Assigned at Not on file 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 Gender Identity Not on file Sexual Orientation Not on file documented as of this encounter Plan of Treatment Upcoming Encounters Date Type Department Care Team (Late st Contact Info) Description 05/20/2025 11:15 AM CDT Video Visit [facility] Psychiatry [address] [place] [address] Rasheed Kramer MD [address] [place] [address] [place] [address] documented as of this encounter Visit Diagnoses Not on filedocumented in this encounter Care Teams Dish Maker Relationship Specialty Start Date End Date Lulu Pedersen FNP [address] [facility] [address] [place] [address] PCP - General Nurse Practitioner Family 02/12/20 documented as of this encounter
--- OUTSIDE RECORDS SUMMARY | 2024-12-04 14:03 | XMS_ITS | Clinical Summary ---
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 Gender Identity Not on file Sexual Orientation Not on file Plan of Treatment Health Maintenance Due Date Last Done Comments Hepatitis C Virus (HCV) Screening 1979 Hepatitis B Immunization (1 of 3 - 19+ 3-dose series) 1998 Pap Smear 2000 Cervical Cancer Screening (CCS) 2009 HPV/Cotest 2009 Discussion re Starting/Frequency of Mammograms 2019 Colonoscopy 2024 Colorectal Cancer Screening 2024 Influenza Immunization (#1) 05/27/202409/26, 05/31/2017, 06/19/2016 SARS-COV-2 Immunization ( season) 2024 10/06/2020, 09/15/2020 Respiratory Syncytial Virus (RSV) Immunization (Adult) (1 - 1-dose 75+ series) 2054 DTaP/Tdap/Td Immunization Discontinued 06/15/2016 TdaP Immunization Completed 06/15/2016 Meningococcal Immunization (ACWY) Aged Out No longer eligible based on patient's age to complete this topic Pneumococcal Immunization Combined Aged Out No longer eligible based on patient's age to complete this topic Rotavirus Immunization Aged Out No lo nger eligible based on patient's age to complete this topic Care Teams Truck Engine Technician Relationship Specialty [place] [address] [place] [address] PCP - General Internal Medicine 09/14/18
--- OUTSIDE RECORDS SUMMARY | 2024-12-04 14:03 | XMS_ITS | Referral Summary ---
Author Organization [facility] Address [address] [place] [address] Care Team Providers Care Heel Slicker Name Role Phone Colleen Pagan NP Primary Care Provider [phone] Encounters Date Type Department Care Team Description 12/03/2024 Documentation [facility] Orthopaedic Surgery [address] [address] [place] [address] Marizol Hand 09/12/2024 Orders Only [facility] Cardiology [address] [place] [address] Nirmala Callahan NP Essential hypertension 09/11/2024 Orders Only [facility] [address] [place] [address] Nirmala Callahan NP from Last 3 Months Allergies Active Allergy Reactions Criticality Noted Date [...] 09/23/2019 Assessment & Plan (09/23/2019 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 She has an outpatient psychiatrist in [place], [place] Dr. Kramer and has been tried [...] wake up. She has never been on Mio because she was scared of the side effects, but is now amenable to it. Plan is to start Mio ER 600mg at bedtime. D/c latuda. 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 Gender Identity Not on file Sexual Orientation Not on file Last Filed Vital Signs Vital Sign Reading [...] Description 01/10/2025 3:45 PM CDT Hospital Encounter [facility] Operating Room [address] [place] [address] Gunnar Moss MD [address] [place] [address] 01/10/2025 3:45 PM CDT - 01/10/2025 5:50 PM CDT Surgery [facility] Operating Room [address] [place] [address] Gunnar Moss MD [address] [place] [address] ARTHROPLASTY TOTAL HIP - DEPUY Scheduled Procedures Name Priority Associated Diagnoses Date/Ti me ARTHROPLASTY TOTAL HIP - DEPUY Primary osteoarthritis of left hip 01/10/2025 3:45 PM CDT Procedures Procedure Name Priority Date/Time Associated Diagnosis Comments CREATINE, 24-HOUR URINE Routine 09/11/2024 Essential hypertension SCAN - RADIOLOGY/IMAGING 09/11/2024 CT ABDOMEN PELVIS W WO CONTRAST Schedule Routine, Read Routine (OP Routine) 09/11/2024 Essential hypertension from Last 3 Months Results * SCAN - RADIOLOGY/IMAGING (09/11/2024) Anatomical Region Laterality Modality Other Nirmala Callahan NP Final Res ult * Creatine, 24-Hour Urine (09/11/2024) Urine 09/11/2024 Nirmala Callahan NP LAB BLOOD ORDERABLES Hanna l Result EXTERNAL LAB * CT Abdomen Pelvis W WO Contrast (09/11/2024) Anatomical Region Laterality Modality Body N/A Computed Tomogra phy 09/11/2024 Nirmala Callahan SQL DBA IMG CT PROCEDURES Final R esult from Last 3 Months Insurance [facility] Advance Directives For more information, please contact: [phone] * Full Code (Latest Code Status on File) Date Activated Date Inactivated Comments 09/22/2019 5:13 PM 09/25/2019 12:46 PM Care Teams Heel Slicker Relationship Specialty Start Date End Date Colleen Pagan NP [address] [place] [address] PCP - General Family Medicine 06/21/24
--- OUTSIDE RECORDS SUMMARY | 2024-12-04 14:03 | XMS_ITS | Data Portability ---
Author Organization [place] [employer], Main Office Address [address] [place] [address] Care Team Providers Care Date Puller Name Role Phone BILL, SCZEPANSKI Weathercaster [phone] BILL, SCZEPANSKI Weathercaster [phone] TOMAS, NADEEM Weathercaster BILL, SCZEPANSKI Weathercaster TOMAS, NADEEM Weathercaster TOMAS, NADEEM Weathercaster Assessment Encounter Date Assessment Date Assessment LastModified by Organization Details LastModified Time 03/16/2023 03/16/2023 Vineet ER 03/08/2023 CMP: AST/ALT 59/51 CBC: WBC 11.3, PLT 384 [email or web address] Not available 03/16/2023 15:39:40 Plan of Treatment Reminders Order Date Submit Date Provider Last Modified By Organization Details Last Modified Time Details Appointments None recorded. Lab erythrocyte sedimentati on rate, QN, blood 2022 023 [email or web address] [facility], [address], [address], 4 11:51:27 ccp (cyclic citrullinat ed peptide) igg, serum 2022 023 [email or web address] 6 [facility], [address], [address], 4 11:51:49 INGRID + rf (antinuclea r antibodies + rheumatoid factor), quantitativ e, serum 2022 023 [email or web address] 6 [facility], [address] [address], [place], [address], 4 11:52:28 C-reactive protein, quantitativ e, serum or plasma 2022 023 [email or web address] 6 [facility], [address] [address], [place], [address], 4 11:52:28 vitamin D, 25-hydroxy, total, serum 2022 023 [email or web address] 6 [facility], [address] [address], [place], [address], 4 11:50:30 CMP, serum or plasma 2022 023 [email or web address] 6 [facility], [address], [address], 4 11:48:48 CBC w/ auto diff 2022 023 [email or web address] 6 [facility], [address] [address], [place], [address], 4 11:49:08 lipid panel, serum 2022 023 [email or web address] 6 [facility], [address], [address], 4 11:49:45 TSH + free T4, serum 2022 023 [email or web address] 6 [facility], [address], [address], 4 09:11:05 vitamin B12 + folate, serum or blood 2022 023 [email or web address] 6 [facility], [address] [address], [place], [address], 4 11:52:29 hepatitis panel (A+B+C), acute, serum 2022 023 [email or web address] 6 [facility], [address] [address], [place], [address], 4 11:50:49 gamma-gluta myl transferase (ggt), serum 2022 023 [email or web address] 6 [facility], [address], [address], 4 11:51:10 lipid panel, serum [address], [address] [place], [address], 3 07:54:11 TSH, serum, reflex free T4 [address], [address] [place], [address], 3 07:54:11 CMP, serum or plasma 2022 023 [facility], [address] [place], [address], 3 09:02:33 HbA1c (hemoglobin A1c), blood [address], [address] [place], [address], 3 07:54:11 CBC w/ auto diff 2022 023 [facility], [address] [place], [address], 3 09:02:33 Referral cardiologis t referral 2022 023 [email or web address] Davie Velás[place], [address] , [facility] [address], [place], [address], 4 11:15:28 Procedures upper endoscopy procedure (EGD) (PROC) 2022 023 [email or web address] Rm Wynn MD, [address], [address], [place], [address], 4 11:15:07 Surgeries None recorded. Imaging US, liver 2022 023 [facility], [address], [place], [address], 3 15:54:26 Medication Orders clobetasol 0.05 % scalp solution 2022 023 [id number], [address] [facility] [address] [place] [address], [address], 3 15:17:06 lisinopril 10 mg tablet 2022 023 [email or web address] [id number], [address] [facility] [address] [place] [address], [address], 3 20:55:06 Patient TargetsNo targets recorded. Patient Instructions Encounter Date Encounter Id Patient Instructions Last Modified By Organization Details Last Modified Time 12/01/2022 [id number] INFLUENZA VACCIN E TD/TDAP PNEUMONIA VACCINE SHINGLES Not indicated MAMMOGRAM: Last Mammogram __ DEXA SCAN Recommended today, but patient declined Ordered No screening indicated CERVICAL SCREENING/PELVIC EXAMINATION COLORECTAL SCREENING: Last Colonoscopy Recommended today, but patient declined Ordered Colonoscopy declined. Cologuard ordered No screening necessary until age 45 DEPRESSION SCREENING BMI NUTRITION Heart Healthy Diet Recommendati on of a 1500 caloric intake for weight loss is advised PHYSICAL ACTIVITY Need more exercise/physical activity minimum of 10-20 minutes of activity that causes mild breathlessness/da y minimum of 20-30 minutes activity that causes mild breathlessness/da y VISION ALCOHOL USE TOBACCO USE LUNG CANCER SCREENING SEXUALLY ACTIVE HEPATITIS C SCREENING Not indicated GLUCOSE SCREENING Ordered LIPID SCREENING Ordered Not available 12/01/2022 09:21:22 Fu in 1 year for wellness after 12/02/23 6 mo fu thyroid, htn, scalp Not available 12/01/2022 09:22:19 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 8 normal Not Available [address], [address], 12/17/2021 04:24:25 12/17/19 22 12/17/2021 TSH W/REF TRINIDAD TO FT4 TSH w/reflex to FT4 8.58 mIU/L high Refer ence Range > or = 20 Years 0.40- 4.50 Pregn lebron Range s First trime ster 0.26- 2.66 Secon d trime ster 0.55- 2.73 Third trime ster 0.43- 2.91 Not Available [address], [address], 12/17/2021 04:24:24 12/17/19 22 12/17/2021 CBC (INCL UDES DIFF/ PLT) white blood cell count 11.8 thous and/u L 3.8-10 .8 high Not Available [facility] [address], [address], 12/17/2021 04:24:24 12/17/19 22 12/17/2021 CBC (INCL UDES DIFF/ PLT) red blood cell count 4.64 joni on/uL 3.80-5 .10 normal Not Available [facility] [address], [address], 12/17/2021 04:24:24 12/17/19 22 12/17/2021 CBC (INCL UDES DIFF/ PLT) hemoglobin 13.2 g/dL 11.7-1 5.5 normal Not Available [address], [address], 12/17/2021 04:24:24 12/17/19 22 12/17/2021 CBC (INCL UDES DIFF/ PLT) hematocrit 39.9 % 35.0-4 5.0 normal Not Available [address], [address], 12/17/2021 04:24:24 12/17/19 22 12/17/2021 CBC (INCL UDES DIFF/ PLT) MCV 86.0 fL 80.0-1 00.0 normal Not Available [address], [address], 12/17/2021 04:24:24 12/17/19 22 12/17/2021 CBC (INCL UDES DIFF/ PLT) MCH 28.4 pg 27.0-3 3.0 normal Not Available [address], [address], 12/17/2021 04:24:24 12/17/19 22 12/17/2021 CBC (INCL UDES DIFF/ PLT) MCHC 33.1 g/dL 32.0-3 6.0 normal Not Available [address], [address], 12/17/2021 04:24:24 12/17/19 22 12/17/2021 CBC (INCL UDES DIFF/ PLT) RDW 13.8 % 11.0-1 5.0 normal Not Available [address], [address], 12/17/2021 04:24:24 12/17/19 22 12/17/2021 CBC (INCL UDES DIFF/ PLT) platelet count 394 thous and/u L 140-40 0 normal Not Available [address], [address], 12/17/2021 04:24:24 12/17/19 22 12/17/2021 CBC (INCL UDES DIFF/ PLT) MPV 10.6 fL 7.5-12 .5 normal Not Available [address], [address], 12/17/2021 04:24:24 12/17/19 22 12/17/2021 CBC (INCL UDES DIFF/ PLT) absolute neutrophils 6691 cells /uL 1500-7 800 normal Not Available [address], [address], 12/17/2021 04:24:24 12/17/19 22 12/17/2021 CBC (INCL UDES DIFF/ PLT) absolute lymphocytes 3859 cells /uL 850-39 00 normal Not Available [address], [address], 12/17/2021 04:24:24 12/17/19 22 12/17/2021 CBC (INCL UDES DIFF/ PLT) absolute monocytes 814 cells /uL 200-95 0 normal Not Available [address], [address], 12/17/2021 04:24:24 12/17/19 22 12/17/2021 CBC (INCL UDES DIFF/ PLT) absolute eosinophils 342 cells /uL 15-500 normal Not Available [address], [address], 12/17/2021 04:24:24 12/17/19 22 12/17/2021 CBC (INCL UDES DIFF/ PLT) absolute basophils 94 cells /uL 0-200 normal Not Available [address], [address], 12/17/2021 04:24:24 12/17/19 22 12/17/2021 CBC (INCL UDES DIFF/ PLT) neutrophils 56.7 % normal Not Available [address], [address], 12/17/2021 04:24:24 12/17/19 22 12/17/2021 CBC (INCL UDES DIFF/ PLT) lymphocytes 32.7 % normal Not Available [address], [address], 12/17/2021 04:24:24 12/17/19 22 12/17/2021 CBC (INCL UDES DIFF/ PLT) monocytes 6.9 % normal Not Available [address], [address], 12/17/2021 04:24:24 12/17/19 22 12/17/2021 CBC (INCL UDES DIFF/ PLT) eosinophils 2.9 % normal Not Available [address], [address], 12/17/2021 04:24:24 12/17/19 22 12/17/2021 CBC (INCL UDES DIFF/ PLT) basophils 0.8 % normal Not Available [address], [address], 12/17/2021 04:24:24 12/17/19 22 12/17/2021 COMPR EHENS MADINA METAB OLIC PANEL glucose 89 mg/dL 65-99 normal Fasti ng refer ence inter fior Not Available [address], [address], 12/17/2021 04:24:23 12/17/19 22 12/17/2021 COMPR EHENS MADINA METAB OLIC PANEL urea nitrogen (BUN) 8 mg/dL 7-25 normal Not Available [address], [address], 12/17/2021 04:24:23 12/17/19 22 12/17/2021 COMPR EHENS MADINA METAB OLIC PANEL creatinine 0.95 mg/dL 0.50-1 .10 normal Not Available [address], [address], 12/17/2021 04:24:23 12/17/19 22 12/17/2021 COMPR EHENS MADINA METAB OLIC PANEL eGFR non-afr. fijian 74 mL/mi n/1.7 3m2 > or = 60 normal Not Available [address], [address], 12/17/2021 04:24:23 12/17/19 22 12/17/2021 COMPR EHENS MADINA METAB OLIC PANEL eGFR 86 mL/mi n/1.7 3m2 > or = 60 normal Not Available [address], [address], 12/17/2021 04:24:23 12/17/19 22 12/17/2021 COMPR EHENS MADINA METAB OLIC PANEL BUN/creatini ne ratio not applic able (calc ) 6-22 Not Available [address], [address], 12/17/2021 04:24:23 12/17/19 22 12/17/2021 COMPR EHENS MADINA METAB OLIC PANEL sodium 141 mmol/ L 135-14 6 normal Not Available [address], [address], 12/17/2021 04:24:23 12/17/19 22 12/17/2021 COMPR EHENS MADINA METAB OLIC PANEL potassium 4.4 mmol/ L 3.5-5. 3 normal Not Available [address], [address], 12/17/2021 04:24:23 12/17/19 22 12/17/2021 COMPR EHENS MADINA METAB OLIC PANEL chloride 107 mmol/ L 98-110 normal Not Available [address], [address], 12/17/2021 04:24:23 12/17/19 22 12/17/2021 COMPR EHENS MADINA METAB OLIC PANEL carbon dioxide 25 mmol/ L 20-32 normal Not Available [address], [address], 12/17/2021 04:24:23 12/17/19 22 12/17/2021 COMPR EHENS MADINA METAB OLIC PANEL calcium 9.3 mg/dL 8.6-10 .2 normal Not Available [address], [address], 12/17/2021 04:24:23 12/17/19 22 12/17/2021 COMPR EHENS MADINA METAB OLIC PANEL protein, total 6.7 g/dL 6.1-8. 1 normal Not Available [address], [address], 12/17/2021 04:24:23 12/17/19 22 12/17/2021 COMPR EHENS MADINA METAB OLIC PANEL albumin 4.1 g/dL 3.6-5. 1 normal Not Available [address], [address], 12/17/2021 04:24:23 12/17/19 22 12/17/2021 COMPR EHENS MADINA METAB OLIC PANEL globulin 2.6 g/dL_ (calc ) 1.9-3. 7 normal Not Available [address], [address], 12/17/2021 04:24:23 12/17/19 22 12/17/2021 COMPR EHENS MADINA METAB OLIC PANEL albumin/glob ulin ratio 1.6 (calc ) 1.0-2. 5 normal Not Available [address] [place], [address], 12/17/2021 04:24:23 12/17/19 22 12/17/2021 COMPR EHENS MADINA METAB OLIC PANEL bilirubin, total 0.7 mg/dL 0.2-1. 2 normal Not Available [address] [address] [place], [address], 12/17/2021 04:24:23 12/17/19 22 12/17/2021 COMPR EHENS MADINA METAB OLIC PANEL alkaline phosphatase 43 U/L 31-125 normal Not Available [address] [address] [place], [address], 12/17/2021 04:24:23 12/17/19 22 12/17/2021 COMPR EHENS MADINA METAB OLIC PANEL AST 13 U/L 10-30 normal Not Available [address] [address] [place], [address], 12/17/2021 04:24:23 12/17/19 22 12/17/2021 COMPR EHENS MADINA METAB OLIC PANEL ALT 13 U/L 6-29 normal Not Available [address] [address] [place], [address], 12/17/2021 04:24:23 12/17/19 22 12/17/2021 LIPID PANEL , STAND HERMES non HDL cholesterol 151 mg/dL _(florentino c) <130 high For patie nts with diabe cecelia plus 1 major ASCVD risk facto r, treat ing to a non-H DL-C goal of <100 mg/dL (LDL- C of <70 mg/dL ) is consnaa mcmillano n. Not Available [address] [address] [place], [address], 12/17/2021 04:24:23 12/17/19 22 12/17/2021 LIPID PANEL , STAND HERMES cholesterol, total 185 mg/dL <200 normal Not Available [address] [address] [place], [address], 12/17/2021 04:24:23 12/17/19 22 12/17/2021 LIPID PANEL , STAND HERMES HDL cholesterol 34 mg/dL > or = 50 low Not Available [address] [address] [place], [address], 12/17/2021 04:24:23 12/17/19 22 12/17/2021 LIPID PANEL , STAND HERMES triglyceride s 243 mg/dL <150 high If a non-f astin g speci men was colle cted, consi raheel repea t trigl yceri de testi ng on a fasti ng speci men if clini kenia indic ated. Zheng parry et al. J. of Clin. Lipid ol. 2015; 9:129 -169. Not Available [facility] [address] [address] [facility] [place], [address], 12/17/2021 04:24:23 12/17/19 22 12/17/2021 LIPID PANEL , STAND HERMES LDL-choleste rol 114 mg/dL _(florentino c) high Refer ence range : <100 Jalyn able range <100 mg/dL for prima ry preve ntion ; <70 mg/dL for patie nts with CHD or diabe tic patie nts with > or = 2 CHD risk facto rs. LDL-C is now calcu lated using the Yaneli n-Hop kins mandyu renan n, which is a valid ated novel arlene armendariz accur acy than the Fried shayla equat ion in the estim ation of LDL-C . Yaneli soto SS et al. SETH. 2013; 310(1 9): 2061- 2068 (http ://ed ucati on.Qu [employer]. com/f aq/FA Q164) Not Available [facility] [address] [address] [place], [address], 12/17/2021 04:24:23 12/17/19 22 12/17/2021 LIPID PANEL , STAND HERMES chol/HDLC ratio 5.4 (calc ) <5.0 high Not Available [facility] [address] [address], [place], [address], 12/17/2021 04:24:23 01/11/20 21 01/10/2021 XR, chest , 1 view No observ ation record ed. MIGRATION. [facility] (Lab) [address] [place], [address], 11/24/2022 13:31:23 01/11/20 21 01/10/2021 CT, abdom en + pelvi s, w/ contr ast No observ ation record ed. MIGRATION. [facility] (Lab) [address] [place], [address], 11/24/2022 13:31:23 02/26/20 22 02/25/2022 US, pelvi s, trans abdom inal + trans vagin al No observ ation record ed. MIGRATION. [facility] [address] [facility], [place], [address], 11/24/2022 13:31:23 06/02/20 22 elect kell diogr am No observ ation record ed. MIGRATION. [facility] [address], [place], [address], 11/24/2022 13:31:23 06/03/20 22 06/03/2022 XR, chest , 2 view No observ ation record ed. MIGRATION. [address], [place], [address], 11/24/2022 13:31:23 06/15/20 22 06/15/2022 US, doppl er echoc ardio gram No observ ation record ed. MIGRATION. [facility] [address], [place], [address], 11/24/2022 13:31:23 06/15/20 22 06/15/2022 exerc ise stres s test No observ ation record ed. [id number] [facility] [address], [place], [address], 11/24/2022 13:31:23 06/21/20 22 06/21/2022 qing r monit or No observ ation record ed. [id number] [facility] [address], [place], [address], 11/24/2022 13:31:23 06/24/20 22 06/24/2022 XR, chest , 2 view No observ ation record ed. [id number].[id number], [place], [address], 11/24/2022 13:31:23 03/24/20 23 03/24/2023 US, liver No observ ation record ed. [email or web address] [address], [place], [address], 03/31/2023 13:00:50 Result Notes None recorded. Problems Name Problem SNOMED Code Status Onset Date Resolution Date Notes Provider Name and Address Organization Details Recorded Time Leukocytos is 165233807 Active 2021 Not Available [facility] 3 13:27:58 Prolonged QT interval 407650673 Active 2021 Not Available [facility] 3 13:27:58 C-reactive protein above reference range 7409831910175 04 Active 2021 Not Available [facility] 3 13:27:58 Plantar fasciitis of left foot 6177142791135 9101 Active 2017 Not Available [facility] 3 13:27:58 Injury of ankle 842630869 Active 2019 Not Available [facility] 3 13:27:58 Insomnia 775046496 Active 2018 Not Available [facility] 3 13:27:59 Tibialis posterior tendinitis 248008440 Active 2017 Not Available [facility] 3 13:27:59 Mixed anxiety and depressive disorder 153878613 Active 2018 Not Available [facility] 3 13:27:59 Gastroesop hageal reflux disease 533545573 Active 2021 Not Available [facility] 3 13:27:59 Ankle pain 434521157 Active 2019 Not Available [facility] 3 13:27:59 Genital warts 496443453 Active 2021 Not Available [facility] 3 13:27:59 Pain of left hip joint 2113814935328 00 Active 2018 Not Available [facility] 3 13:27:59 Vitamin D deficiency 45918331 Active 2021 Not Available [facility] 3 13:27:59 Hypothyroi dism 53208066 Active 2021 Not Available [facility] 3 13:27:59 Obese 824623092 Active 2019 Not Available [facility] 3 13:28:00 Genital herpes simplex type 2 720448886 Active 2018 Not Available [facility] 3 13:28:00 Hip pain 08541779 Active Not Available [facility] 3 13:28:00 Talipes planus 77270596 Active 2017 Not Available [facility] 3 13:28:00 Hyperlipid emia 08564573 Active 2021 Not Available [facility] 3 13:28:00 Verruca plantaris 19879344 Active 2017 Not Available [facility] 3 13:28:00 Psoriasis of scalp 510943180 Active 2022 Lulu Pedersen NP [address] [facility], [facility] [address], [place], [address] , [facility] 3 09:10:04 Essential hypertensi on 01924875 Active 2022 Lulu Pedersen NP [address], [place], [address] , [place] [facility] 3 09:10:52 Excessive cerumen in ear canal 058549027 Active 2022 Lulu Pedersen NP [address], [place], [address] , [place] [facility] 3 09:14:38 Bipolar disorder 71932567 Active 2022 Lulu Pedersen NP [address], [place], [address] , [place] [facility] 3 09:15:23 Low back strain 617890639 Active 2022 Flakito Carbajal MD [address], [address], [place], [address] , [place] [facility] 3 09:28:40 Gastroesop hageal reflux disease without esophagiti s 795464027 Active 2022 Dhara carmona MD [address], [address], [place], [address] , [place] [facility] 3 15:33:51 Neuropathy 038372844 Active 2022 Dhara carmona MD [address], [address], [place], [address] , [place] [facility] 3 15:34:21 Liver enzymes level above reference range 431733976 Active 2022 Dhara carmona MD [address], [address], [place], [address] , [place] [facility] 3 15:40:34 Viral gastroente ritis 634342958 Active 2022 Dhara carmona MD [address], [address], [place], [address] , [place] [facility] 3 15:41:12 Serum vitamin B12 below reference range 840718078 Active 2022 Dhara carmona MD [address], [address], [place], [address] , [employer] [facility] [employer] [facility] 3 16:07:50 Obesity 100143384 Active 2022 Dhara carmona MD [address], [address], [place], [address] , [employer] [facility] [employer] [facility] 3 16:13:57 Heart murmur 56223541 Active 2022 Dhara carmona MD [address], [address], [place], [address] , [employer] [facility] [employer] [facility] 3 16:14:55 Nausea 119783638 Active 2022 Stacey morales, [employer] [facility] [employer] [facility] 3 14:22:33 Anti-nucle ar factor detected 475768160 Active 2022 Stacey morales, [employer] [facility] 3 12:51:00 Steatosis of liver 617235318 Active 2022 Stacey morales, [employer] [facility] [employer] 3 12:51:13 Acute urinary tract infection 585975969 Active 2022 Lulu Pedersen NP [address], [place], [address] , [employer] [facility] [employer] [facility] 3 12:24:38 Dry eyes 468014791 Active 2022 Lulu Pedersen NP [address], [place], [address] , [employer] [facility] [employer] [facility] 3 12:26:01 Problem Notes None recorded. Procedures Surgical History Date Name Laterality Status Provider Name and Address Organization Details Recorded Time Cerumen Removal completed Lulu Pedersen NP [address], [place], [address], [employer] [facility] [employer] [facility] 12/01/2022 09:27:45 1 Unlisted px accessory sinus completed Not Available [facility] 11/24/2022 13:27:22 0 Date of Last Pap Smear completed Not Available [facility] 11/24/2022 13:27:21 DRY CELL TESTER Surgery completed Not Available [facility] 11/24/2022 13:27:22 DRY CELL TESTER Surgery completed Not Available [facility] 11/24/2022 13:27:22 Imaging Results Imaging Date Name Status LastModified by Organization Details LastModified Time 01/10/2021 XR, chest, 1 view completed MIGRATION. [id number] [facility] (Lab) [address] [place], [address], 11/24/2022 13:31:23 01/10/2021 CT, abdomen + pelvis, w/ contrast completed [id number] [facility] (Lab) [address] [place], [address], 11/24/2022 13:31:23 06/15/2022 US, doppler echocardiogram completed [address]ATION.[id number] [facility] [address], [place], [address], 11/24/2022 13:31:23 06/21/2022 holter monitor completed MIGRATION.[id number] [facility] [address], [place], [address], 11/24/2022 13:31:23 06/15/2022 exercise stress test [place].[id number] [facility] [address], [place], [address], 11/24/2022 13:31:23 06/02/2022 electrocardiogram completed MIGRATION. [id number] [facility] [address] [facility], [place], [address], 11/24/2022 13:31:23 06/03/2022 XR, chest, 2 view completed MIGRATION. [id number], [place], [address], 11/24/2022 13:31:23 06/24/2022 XR, chest, 2 view completed MIGRATION. [id number] [facility] [address] [facility] [address], [place], [address], 11/24/2022 13:31:23 02/25/2022 US, pelvis, transabdominal + transvaginal completed [id number] [facility] [address], [place], [address], 11/24/2022 13:31:23 03/24/2023 US, liver completed [email or web address] [facility] [address] [facility] [address], [place], [address], 03/31/2023 13:00:50 Procedure Notes None recorded. Medical Equipment None Reported. Allergies Allergen ID Allergen Name Allergen Category Reaction Reaction Severity Criticality Documentation Date Start Date Code Code System Note Provider Name and Address Organization Details Recorded Time 69675 vancomyci n medicatio n anaphylax is severe Not available 11/24/2022 38558 RxNorm Not Available [facility] 3 13:31:20 65701 Pyridium medicatio n nausea moderate Not available 11/24/2022 8998 RxNorm Not Available [facility] 3 13:31:21 07038 Product containin g penicilli n (product) medicatio n Not available Not available Not available 11/24/2022 65080 8001 SNOMED Not Available [facility] 3 13:31:21 21044 Levaquin medicatio n rash moderate Not available 11/24/2022 10188 2 RxNorm Not Available [facility] 3 13:31:21 38480 codeine medicatio n rash mild Not available 11/24/2022 2670 RxNorm Not Available [facility] 3 13:31:21 Medications Name Sig Start Date Stop Date Status Note LastModified by Organization Details LastModified Time celecoxib 200 mg capsule TAKE 1 CAPSULE BY MOUTH TWICE DAILY NEEDED active Not Available Not Available No t Available cyclobenz aprine 10 mg tablet TAKE 1 TABLET BY MOUTH EVERY 12 HOURS NEEDED FOR 15 DAYS 03/16 completed Not Available Not Available Not Available methocarb delphine 500 mg tablet TAKE 1 TABLET BY MOUTH EVERY 6 HOURS NEEDED 01/30 completed Not Available Not Available Not Available metformin 500 mg tablet TAKE 1 TABLET BY MOUTH TWICE DAILY WITH MEALS active Not Available Not Available No t Available terconazo le 0.4 % vaginal cream 01/15 completed Not Available Not Available Not Available oxcarbaze pine 150 mg tablet TAKE 1 TABLET BY MOUTH DAILY AT BEDTIME FOR 1 WEEK, THEN 1 TABLET TWICE A DAY 01/30 completed Not Available Not Available Not Available paroxetin e 10 mg tablet TAKE 1 TABLET (10 MG) BY MOUTH DAILY. active Not Available Not Available No t Available clindamyc in HCl 300 mg capsule TAKE 1 CAPSULE BY MOUTH EVERY 8 HOURS 06/02 completed Not Available Not Available Not Available citalopra m 40 mg tablet TAKE 1 TABLET BY MOUTH ONCE DAILY active Not Available Not Available No t Available trazodone 50 mg tablet TAKE 1 TABLET BY MOUTH EVERYDAY AT BEDTIME active Not Available Not Available No t Available azithromy laurel 250 mg tablet TAKE 2 TABLETS BY MOUTH ON DAY 1 AND THEN TAKE 1 TABLET BY MOUTH ONCE A DAY ON DAY 2 THROUGH DAY 5 active Not Available Not Available No t Available ibuprofen 800 mg tablet TAKE 1 TABLET BY MOUTH THREE TIMES DAILY NEEDED FOR PAIN 06/02 completed Not Available Not Available Not Available fluconazo le 150 mg tablet TAKE 1 TABLET NOW, THEN REPEAT IN 1 WEEK 04/10 completed Not Available Not Available Not Available benzonata te 200 mg capsule TAKE ONE CAPSULE BY MOUTH 3 TIMES A DAY FOR 10 DAYS NEEDED FOR COUGH 01/30 completed Not Available Not Available Not Available phenazopy ridine 200 mg tablet Take 1 tablet 3 times a day by oral route for 2 days. 2022 active Not Available Not Available Not Avai lable ondansetr on HCl 4 mg tablet Take 2 tablets twice a day by oral route as needed. 2022 active Not Available Not Available Not Avai lable prednison e 20 mg tablet 2 tab po daily for 5 days 11/25 completed Not Available Not Available Not Available clonazepa m 0.5 mg tablet TAKE 1 TABLET BY MOUTH ONCE DAILY NEEDED FOR ANXIETY 03/04 completed Not Available Not Available Not Available dexametha sone 6 mg tablet Take 1 tablet every day by oral route for 7 days. active Not Available Not Available No t Available prednison e 5 mg tablet active Not Available Not Available Not Available olanzapin e 5 mg tablet TAKE 1 2 TO 1 (ONE HALF TO ONE) TABLET BY MOUTH ONCE DAILY NEEDED AND 2 EVERY DAY AT BEDTIME 11/25 completed Not Available Not Available Not Available sulfasala zine 500 mg tablet,de layed release TAKE 1 TO 3 TABLETS BY MOUTH TWICE DAILY active Not Available Not Available No t Available clonazepa m 1 mg tablet TAKE 1 TABLET BY MOUTH DAILY AT BEDTIME 01/30 completed Not Available Not Available Not Available methylpre dnisolone 4 mg tablet 11/25 completed Not Available Not Available Not Available Neurontin 600 mg tablet Take 1 tablet 3 times a day by oral route. 05/08 completed Not Available Not Available Not Available olanzapin e 10 mg tablet TAKE 1 TABLET BY MOUTH ONCE DAILY AT BEDTIME active Not Available Not Available No t Available lithium carbonate ER 300 mg tablet,ex tended release TAKE 2 TABLETS BY MOUTH IN THE MORNING AND 3 EVERY DAY AT BEDTIME 01/15 completed Not Available Not Available Not Available topiramat e 25 mg tablet TAKE 1 TABLET BY MOUTH 2 TIMES DAILY FOR 14 DAYS, THEN 2 TABLETS 2 TIMES DAILY FOR 14 DAYS. 03/16 completed appetite suppress ion. Not Available Not Available Not Available triamcino lone acetonide 0.5 % topical ointment 03/16 completed Not Available Not Available Not Available metronida zole 500 mg tablet Take 1 tablet by mouth twice daily for 10 days 06/02 completed Not Available Not Available Not Available azathiopr ine 50 mg tablet TAKE 3 TABLETS BY MOUTH ONCE DAILY active Not Available Not Available No t Available phentermi ne 37.5 mg tablet 04/10 completed Not Available Not Available Not Available olanzapin e 2.5 mg tablet TAKE 2 TABLETS BY MOUTH ONCE DAILY AT BEDTIME 06/02 completed Not Available Not Available Not Available omeprazol e 40 mg capsule,d elayed release 1 cap po daily active Not Available Not Available No t Available doxycycli ne monohydra te 100 mg tablet TK 1 T PO BID 05/08 completed Not Available Not Available Not Available tramadol 50 mg tablet 04/10 completed Not Available Not Available Not Available triamtere ne 37.5 mg-hydroc hlorothia zide 25 mg capsule active Not Available Not Available Not Available triamcino lone acetonide 0.1 % topical cream MIX TOGETHER WITH NYSTATIN CREAM AND APPLY TOPICALL Y TWICE DAILY 12/01 completed Not Available Not Available Not Available lithium carbonate ER 450 mg tablet,ex tended release TAKE 2 TABLETS BY MOUTH ONCE DAILY AT BEDTIME 11/25 completed Not Available Not Available Not Available levothyro xine 75 mcg tablet active Not Available Not Available Not Available Miconazol e-7 2 % vaginal cream INSERT 1 APPLICAT ORFUL BY VAGINAL ROUTE ONCE DAILY AT BEDTIME FOR 7 DAYS 01/30 completed Not Available Not Available Not Available meloxicam 7.5 mg tablet TAKE 1 TABLET BY MOUTH EVERY 12 HOURS 01/30 completed Not Available Not Available Not Available carbamaze pine 200 mg tablet TAKE 1 TABLET BY MOUTH EVERY 12 HOURS 01/30 completed Not Available Not Available Not Available oxycodone -acetamin ophen 5 mg-325 mg tablet TAKE 1 - 2 TABLETS BY MOUTH EVERY 6 HOURS NEEDED FOR PAIN 03/16 completed Not Available Not Available Not Available famotidin e 20 mg tablet TAKE 1 TABLET BY MOUTH EVERY DAY 2022 active Not Available Not Available Not Avai lable lorazepam 0.5 mg tablet TAKE 1 TABLET BY MOUTH 3 TIMES DAILY NEEDED FOR ANXIETY. active Not Available Not Available No t Available trazodone 100 mg tablet TAKE 1 TABLET BY MOUTH EVERY EVENING NEEDED FOR INSOMNIA active Not Available Not Available No t Available cephalexi n 500 mg capsule TAKE ONE CAPSULE BY MOUTH TWICE A DAY UNTIL FINISHED 01/30 completed Not Available Not Available Not Available paroxetin e 20 mg tablet TAKE 2 TABLETS BY MOUTH ONCE DAILY active Not Available Not Available No t Available triamcino lone acetonide 0.1 % topical ointment APPLY TO AFFECTED AREA TWICE DAILY NEEDED 03/16 completed Not Available Not Available Not Available nystatin 100,000 unit/gram topical cream MIX TOGETHER WITH TRIAMCIN OLONE CREAM AND APPLY TO AFFECTED AREA TWICE A DAY 03/16 completed Not Available Not Available Not Available clotrimaz ole-betam ethasone 1 %-0.05 % topical cream APPLY TO AFFECTED AREA 2 TIMES A DAY NEEDED FOR ITCH 03/16 completed Not Available Not Available Not Available lisinopri l 10 mg tablet TAKE 1 TABLET BY MOUTH EVERY DAY active Not Available Not Available No t Available polymyxin B sulfate 10,000 unit-trim ethoprim 1 mg/mL eye drops active Not Available Not Available No t Available gabapenti n 300 mg capsule TAKE 1 CAPSULE BY MOUTH 2 TIMES A DAY active Not Available Not Available No t Available triamtere ne 37.5 mg-hydroc hlorothia zide 25 mg tablet TAKE 1 TABLET BY MOUTH EVERY DAY 10/22 completed Not Available Not Available Not Available diclofena c sodium 75 mg tablet,de layed release active Not Available Not Available Not Available Euthyrox 50 mcg tablet TAKE 1 TABLET BY MOUTH ONCE DAILY 06/02 completed Not Available Not Available Not Available hydroxyzi ne HCl 25 mg tablet TK 09/27 T PO 1 TO 2 TIMES PER DAY PRN 05/08 completed Not Available Not Available Not Available zolpidem 5 mg tablet Take 1 tablet every day by oral route as needed. active Not Available Not Available No t Available ergocalci ferol (vitamin D2) 1,250 mcg (50,000 unit) capsule TAKE 1 CAPSULE BY MOUTH ONCE A WEEK 03/16 completed Not Available Not Available Not Available zaleplon 5 mg capsule 1 cap po nightly 03/16 completed Not Available Not Available Not Available azelastin e 137 mcg (0.1 %) nasal spray [place] 2 sprays twice a day by intranas al route. 03/16 completed Not Available Not Available Not Available methylpre dnisolone 4 mg tablets in a dose pack TAKE BY MOUTH DIRECTED ON INSIDE OF PACKAGE 06/02 completed Not Available Not Available Not Available paroxetin e 40 mg tablet TAKE 1 TABLET BY MOUTH EVERY DAY active Not Available Not Available No t Available clobetaso l 0.05 % scalp solution APPLY TO THE AFFECTED SCALP AREA BY TOPICAL ROUTE 2 TIMES PER DAY IN THE MORNING AND EVENING 03/16 completed Not Available Not Available Not Available ondansetr on 4 mg disintegr ating tablet TAKE 1 TABLET BY MOUTH EVERY 8 HOURS NEEDED FOR NAUSEA AND VOMITING active Not Available Not Available No t Available cefdinir 300 mg capsule Take 1 capsule every 12 hours by oral route for 10 days. active Not Available Not Available No t Available lithium carbonate 300 mg tablet TAKE 3 TABLETS BY MOUTH EVERY NIGHT AT BEDTIME active Not Available Not Available No t Available fluticaso ne propionat e 50 mcg/actua tion nasal spray,say pension ADMINIST ER 1 SPRAY INTO EACH NOSTRIL DAILY 2022 active Not Available Not Available Not Avai lable metformin ER 500 mg tablet,ex tended release 24 hr 11/25 completed Not Available Not Available Not Available amoxicill in 875 mg-potass ium clavulana te 125 mg tablet 11/25 completed Not Available Not Available Not Available Fish Oil Concentra te 1,000 mg capsule 1 cap po daily 01/15 completed Not Available Not Available Not Available NuvaRing 0.12 mg-0.015 mg/24 hr vaginal Insert 1 vaginal ring every month by vaginal route as directed . active Not Available Not Available No t Available Sprintec (28) 0.25 mg-35 mcg tablet Take 1 tablet every day by oral route. 12/01 completed Not Available Not Available Not Available rosuvasta tin 20 mg tablet 12/01 completed Not Available Not Available Not Available bupropion HCl XL 300 mg 24 hr tablet, extended release TAKE 1 TABLET BY MOUTH ONCE DAILY IN THE MORNING active Not Available Not Available No t Available bupropion HCl XL 150 mg 24 hr tablet, extended release TAKE 1 TABLET BY MOUTH ONCE DAILY IN THE MORNING FOR 7 DAYS active Not Available Not Available No t Available 10/15 (28) 1 mg-20 mcg (21)/75 mg (7) tablet active Not Available Not Available Not Available metoprolo l tartrate 25 mg tablet TAKE 1 TABLET BY MOUTH TWICE A DAY 03/16 completed Not Available Not Available Not Available topiramat e 50 mg tablet TAKE 1 TABLET BY MOUTH TWICE DAILY active Not Available Not Available No t Available clobetaso l 0.05 % shampoo APPLY A THIN LAYER TOPICALL Y ONCE DAILY TO DRY SCALP, LEAVE IN PLACE FOR 15 MINUTES, THEN LATHER AND RINSE active Not Available Not Available No t Available nitrofura ntoin monohydra te/macroc rystals 100 mg capsule TAKE ONE CAPSULE BY MOUTH EVERY 12 HOURS FOR 7 DAYS active Not Available Not Available No t Available tizanidin e 2 mg capsule TAKE 1 CAPSULE EVERY 12 HOURS BY ORAL ROUTE NEEDED FOR 15 DAYS. 03/16 completed Not Available Not Available Not Available zolpidem ER 6.25 mg tablet,ex tended release,m ultiphase TAKE 1 TABLET BY MOUTH EVERY DAY 01/13 completed Not Available Not Available Not Available Belsomra 10 mg tablet Take 1 tablet every day by oral route. 03/25 completed Not Available Not Available Not Available Ashlyna 0.15 mg-30 mcg (84)/10 mcg(7) tablets,3 month dose pack Take 1 tablet every day by oral route. active Not Available Not Available No t Available Vraylar 1.5 mg capsule 01/30 completed Not Available Not Available Not Available Vraylar 3 mg capsule 01/30 completed Not Available Not Available Not Available Flucelvax Quad [id number] (PF) 60 mcg (15 mcg x 4)/0.5 mL IM syringe ADM 0.5ML IM UTD active Not Available Not Available No t Available Paxlovid 300 mg (150 mg x 2)-100 mg tablets in a dose pack Take 1 dose pk twice a day by oral route for 5 days. 12/01 completed Not Available Not Available Not Available Vitals Date Recorded Body mass index (BMI) Heart rate Body height Oxygen saturation Oxygen saturation in Arterial blood by Pulse oximetry Heart rate Respiratory rate Body temperature Body weight Systolic blood pressure Diastolic blood pressure Provider Name and Address Organization Details Last Updated DateTime 1 40.2 kg/m2 88 /min 160.02 cm 98 % 98 % 88 /min 16 /min 97.5 [degF] 966190. 47 g 126 mm[Hg] 86 mm[Hg] Not Available [facility] 3 13:27:42 Date Recorded Body mass index (BMI) Body height Oxygen saturation Oxygen saturation in Arterial blood by Pulse oximetry Heart rate Body temperature Body weight Systolic blood pressure Diastolic blood pressure Provider Name and Address Organization Details Last Updated DateTime 2 37.2 kg/m2 160.02 cm 98 % 98 % 81 /min 98.2 [degF] 77242.4 g 142 mm[Hg] 86 mm[Hg] Not Available [facility] 3 13:27:42 Date Recorded Body mass index (BMI) Body height Oxygen saturation Oxygen saturation in Arterial blood by Pulse oximetry Heart rate Respiratory rate Body temperature Body weight Systolic blood pressure Diastolic blood pressure Provider Name and Address Organization Details Last Updated DateTime 2 36.5 kg/m2 160.02 cm 98 % 98 % 70 /min 16 /min 97.9 [degF] 71552.0 3 g 118 mm[Hg] 86 mm[Hg] Not Available [facility] 3 13:27:42 Date Recorded Body height Body mass index (BMI) Body weight Body temperature Heart rate Oxygen saturation Oxygen saturation in Arterial blood by Pulse oximetry Systolic blood pressure Diastolic blood pressure Provider Name and Address Organization Details Last Updated DateTime 3 160.02 cm 37.4 kg/m2 85093.9 9 g 97.4 [degF] 68 /min 99 % 99 % 152 mm[Hg] 100 mm[Hg] Yulissa velazco CMA [employer] 3 08:45:29 Date Recorded Body height Body mass index (BMI) Body weight Body temperature Heart rate Systolic blood pressure Diastolic blood pressure Provider Name and Address Organization Details Last Updated DateTime 3 160.02 cm 37.7 kg/m2 46799.1 7 g 97.7 [degF] 72 /min 108 mm[Hg] 76 mm[Hg] ZAK Guillory [employer] 3 15:26:34 Social History Question Answer Notes LastModified by Organizat ion Details LastModified Time Tobacco Smoking Status Never Smoker Yulissa Montero CMA [facility], [employer] 12/01/2022 08:46:52 Do You Have An Advance Directive? No Information n ot available 03/16/2023 What Is Your Level Of Alcohol Consumption? None [id number] Information not available 12/01/2022 What Is Your Level Of Caffeine Consumption? Heavy [email or web address] Information not available 12/01/2022 In The 14 Days Before Symptom Onset, Have You Had Close Contact With A Laboratory-confirm ed COVID-19 While That Case Was Ill? No Information n ot available 03/16/2023 In The 14 Days Before Symptom Onset, Have You Had Close Contact With A Person Who Is Under Investigation For COVID-19 While That Person Was Ill? No Information not available 03/16/2023 Are You Currently Employed? Yes Information not available 03/16/2023 What Type Of Diet Are You Following? REGULAR Information n ot available 03/16/2023 What Is The Highest Grade Or Level Of School You Have Completed Or The Highest Degree You Have Received? 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 Unknown Information not available 03/16/2023 Are There Any Guns Present In Your Home? No Information not available 03/16/2023 Where Do You Live? Apartment Inform ation not available 03/16/2023 Do You Have A Medical Power Of Heavy Equipment Plumbing Supervisor? No Information not available 03/16/2023 What Was The Date Of Your Most Recent Tobacco Screening? 03/16/2023 Information not available 03/16/2023 Do You Have Any Pets? No Information not available 03/16/2023 What Is Your Relationship Status? Single Information not available 03/16/2023 Do You Use Your Seat Belt Or Car Seat Routinely? Yes Information not available 03/16/2023 Do You Have Smoke And Carbon Monoxide Detectors In Your Home? Yes Information not available 03/16/2023 Are You Passively Exposed To Smoke? No Information no t available 03/16/2023 Are There Any Smokers In Your House? No Information not available 03/16/2023 Do You Feel Stressed (tense, Restless, Nervous, Or Anxious, Or Unable To Sleep At Night)? [id number] Information not available 03/16/2023 Do You Use Any Illicit Or Recreational Drugs? No Information not available 03/16/2023 Has Tobacco Cessation Counseling Been Provided? No N/a Information not available 03/16/2023 Have You Recently Traveled Abroad? No Information not available 03/16/2023 Do You Or Have You Ever Used Any Other Forms Of Tobacco Or Nicotine? No Information not available 03/16/2023 Sex: Female Functional Status Question Answer Note LastModified by Organizat ion Details LastModified Time What is your exercise level? None stays active Information not available 03/16/2023 Mental Status None recorded. Family History Relationship Description Onset Age of this Age Resolved Age Notes LastModified by Organization Details LastModified Time Father Hypertensive disorder Not available 2022 15:20:06 Father Heart disease Not available 2022 15:20:16 Father Diabetes mellitus Not available 2022 15:20:25 Mother Hypertensive disorder Not available 2022 15:20:06 Mother Heart disease Not available 2022 15:20:16 Mother Diabetes mellitus Not available 2022 15:20:25 Sister Multiple sclerosis matern al 1/2 sister Not available 03/16/2023 15:20:46 Medical History Condition Response OTHER # 1 Y ANXIETY DISORDER Y DEPRESSION (INCLUDING POST ) Y HYPERTENSION Y Gynecological History Statement/Question Response Abnormal Pap Y Date of Last Pap Smear 01/14/2020 Current Control Method None Age at Menarche 14 Obstetrics History GPAL:G 1 P 0 0 1 0 Type Value Induced 1 Total 1 Immunizations Vaccine Type Date Status Note Provider Nam e and Address Organization Details Recorded Time Tdap 03/16/2023 completed Dhara Ackerman MD [address] [place] [address], [place] [address], [place], [address], [place] [facility] 03/17/2023 13:55:51 Past Encounters Encounter ID Performer Location Encounter Start Date Encounter Closed Date Diagnosis/Indication Diagnosis SNOMED-CT Code Diagnosis ICD10 Code Diagnosis Note [id number] [facility] [address] [place] [address] 01/15/2021 00:00:00 01/15/2021 17:13:13 [id number] [facility] [address] [place] [address] 11/25/2021 00:00:00 11/25/2021 18:19:[id number] [address] 06/02/2022 00:00:00 06/02/2022 16:45:33 [id number] Lulu Pedersen NP [address] [address] 12/01/2022 08:36:21 12/01/2022 09:48:29 Adult health examination 561757710 Z00.00 Encouraged well balanced meals, active lifestyle, and routine vision and dental appts. Anemia screening 3517906 07 Z13.0 Diabetes m ellitus screening 557752169 Z13.1 Hypothyroidism 40020930 E03.9 Levothyrox ine 75 mcg po daily. Hyperlipid emia screening 614768966 Z13.220 Psoriasis of scalp 61460 8008 L40.9 clobetasol 0.05% scalp solution sent. Essential hypertension 17798722 I10 Lisinopril 10 mg po daily.Meto prolol 25 mg po bid. Insomnia 253793370 G47.0 0 zaleplon 5 mg po nightly. prn. 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 Excessive cerumen in ear canal 151435196 H61.21 ear wash 12/01/22 Bipolar disorder 4761913 [address] Kramer psych. [place], paxil 50 mg, lorazepam prn, Topiramate [id number] Dhara carmona MD [facility] Danisha dacosta [address] [facility] [place] [address] 03/16/2023 15:06:29 03/16/2023 16:16:06 Screening - NAD 774461745 Z13.9 Get yearly flu shotUTD tdap 03/16/23 PAP: Hx of LEEP, sees Dr Zarate, last 12/17/2022 , plan for hystrectom y RTC in 3 months, do labs, ER if worse, she did verbalize her understand ing of the above Hypothyroidism 45851904 E03.9 On levothyrox ine 75mcgs dailyGet labs Gastroesop hageal reflux disease without esophagitis 270912558 K21.9 On omeprazole 40mg daily, get EGD if not done Neuropathy 261875524 G62 .9 On gabapentin 300mg bid Essential hypertension 36679304 I10 On lisinopril 10mg dailyGet labs Mixed anxi ety and depressive disorder 926403518 F41.[address] Rasheed Kramer On paroxetine 40mg dailyOn lorazepam 0.5mg tidOn lithium 300mg 3 tabsOn trazodone 50mg daily Not suicidal or homicidal Vitamin D deficiency 347 71115 E55.9 Liver enzy mes level above reference range 327331189 R74.01 Get labs and US liver Viral gastroenteritis 11 8576243 A08.4 Seen in ER 03/08/2023 , does well now Psoriasis of scalp 41261 8008 L40.9 Cannot do the clobetasol , wants to do labs first Serum tono min B12 below reference range 797702430 R79.89 Obesity 059222331 E66.9 More diet and exercise is needed Heart murmur 33277407 R0 1.1 Get a referral to [facility] Dr Velásquez Administra tion of diphtheria, pertussis, and tetanus vaccine 633576674 Z23 Health Concerns Section Related Observation LastModified by Organization Detai ls LastModified Time None Recorded Concern Status LastModified by Organization Details LastModified Time None Recorded Advance Directives Directive N: Payers Encounter Date Sequence Insurance Name Policy Number Policy Peña Covered Member ID Peña Member ID Guarantor Name 12/01/2022 1 [employer] [id number] Nataile Alamo [id number] Natalie Alamo 03/16/2023 1 [employer] ([facility] ) Natalie Alamo [id number] Natalie Alamo Notes Date Note Type Note Provider Name and Address Organization Details Recorded Time 12/01/2022 text/html Here for troy s visit. BP has been high. Not exercising. No cp, sob, blurred vision, or headaches.Has a flakiness to scalp. Unsure cause. Used other shampoos and still issues. Picks it and it flakes. Having hysterectomy on 12/17/2022. Failed ablation. Had 4 periods in July 2022. Lulu Pedersen NP [address] [facility] [address], [place], [address], [employer] 12/01/2022 09:34:03 03/16/2023 text/html OV 03/16/2023:He re to establish care Past Hx:Anxiety/Depress ionGERDHypothyroid ismHTN Reviewed social family and surgical history Seen in the ER on 03/08/2023 for gastritis, now feels she has some fatigue, no labs since labs done in the ER Dhara Ackerman MD [address], [place], [address], [employer] 03/17/2023 13:56:12 OBGyn Episode No OBEpisode recorded.
--- OUTSIDE RECORDS SUMMARY | 2024-12-04 14:04 | XMS_ITS ---
Author Organization [facility] Address [address] [place] [address] Care Team Providers Care Produce Production Team Member Name Role Phone Nuvia MILLAN, Lulu Primary Care Provider Unavail Abbie Liu Unavailable [phone] REASON FOR VISIT 1 month f/u Encounters Encounter Location Date Provider Diagnosis [facility] [address] [place] [address] 09/27/2024 Abbie Gutierrez Plan Of Treatment No Information Progress Notes * Berenice NICKERSONhelDOB:1979 (44 yo F)Acc No.[id number]:09/27/2024 Progress Notes Patient: Natalie JOHNSON Provider: Bere GUTIERREZ MD :1980 A ge:44 Y S ex:Female Date:09/27/2024 Address:[address] [address] Pcp:Lulu Pedersen NP Subjective: * Chief Complaints: * 1 . 1 month f/u. * Medical History: Objective: * Vitals: Assessment: Plan: * Treatment: * Billing Information: * Visit Code: * Procedure Codes: * Electronic signature of Abbie Gutierrez MD on 12/04/2024 at 02:04 PM CDT Sign off status: Pending * Provider: Bere GUTIERREZ MD Date: 09/27/2024 Generated for Kentrelli ng/Farosaleeg/eTransmitting on: 0 12/04/2024 02:04 PM CDT
--- OUTSIDE RECORDS SUMMARY | 2024-12-04 14:04 | XMS_ITS | Referral Summary ---
Author Organization [facility] Address [address] [place] [address] Care Team Providers Care Carton Making Machinist Name Role Phone Rm Beverly MD Primary Care Provider [phone] Donato Wei MD Unavailable [phone] Source Comments [facility],non-owned Affiliates and Associated Physician Practices is amultiple site organization consisting of ambulatory clinics and hospital sitesin [place], [place], [place] and [place]. This disclosure is being madepursuant to the Care Everywhere program and may not contain all information available regarding this patient. Last updated 18.[facility] Allergies Active Allergy Reactions Criticality Noted Date Comments Codeine Itching,Other 07/14/2017 Vancomycin Anaphylaxis High 07/14/2017 Medications * Be aware that medications may not be up to date on this document. Alwaysverify current medications with the patient. Medication Sig Dispensed Refills Start Date End Date Status citalopram (CELEXA) 40 MG tablet Take 40 mg by mouth once daily Active CLONAZEPAM PO Active GABAPENTIN, ONCE-DAILY, PO Active Social History Tobacco Use Types Packs/Day Years Used Date Smoking Tobacco: Never Smokeless Tobacco: Never Sex and Gender Information Value Date Recorded Sex Assigned at Not on file Gender Identity Not on file Sexual Orientation Not on file Last Filed Vital Signs Vital Sign Reading Time Taken Comments Blood Pressure 126/84 07/14/2017 11:20 AM CDT Pulse 93 07/14/2017 11:20 AM CDT Temperature 37 C (98.6 F) 07/14/2017 11:20 AM CDT Respiratory Rate 16 07/14/2017 11:20 AM CDT Oxygen Saturation 98% 07/14/2017 11:20 AM CDT Inhaled Oxygen Concentration - - Weight 90.7 kg (200 lb) 07/14/2017 11:20 AM CDT Height 162.6 cm (5' 4 ) 07/14/2017 11:20 AM CDT Body Mass Index 34.33 07/14/2017 11:20 AM CDT Plan of Treatment Not on file Care Teams Carton Making Machinist Relationship Specialty Start Date End Date Rm Beverly MD [address] [address] PCP - General 11/11/20 Donato Wei MD [address] [place] [address] Internal Medicine 11/11/20
--- OUTSIDE RECORDS SUMMARY | 2024-12-04 14:04 | XMS_ITS | CONTINUITY OF CARE DOCUMENT ---
Author Name naeem hartley Address Unknown Organization [facility] Address [address] [place] [address] Phone [phone] Care Team Providers Care Mesh Cutter Name Role Phone Essence PEARCE, Pablo Unavailable [phone] Nuvia GOLD STAMPER-BC, Lulu L Unavailable Nuvia GOLD STAMPER-BC, Lulu L Unavailable PROBLEMS Condition Status Date Provider Notes Asymmetric septal hypertrophy active Pablo Lowry MD Tricuspid regurgitation, mild active Pablo Lowry MD B12 deficiency active Pablo Lowry MD Screening active Pablo Lowry MD Erythrocytosis;with iron def active Pablo Lowry MD Vitamin D deficiency active Pablo Hicks Thrombocytosis active Pablo Lowry MD Elevated white blood cell count active Pablo Lowry MD Elevated LFT's active Pablo Lowry MD Hyperlipidemia;with high crp active Pablo Lowry MD Chest pain, atypical active Pablo Hicks Bipolar 1 disorder active Yulissa Acosta NP Hypertension active Yulissa armendariz AMUSEMENT CENTRE MANAGER Hypothyroidism active Yulissa olmedo AMUSEMENT CENTRE MANAGER Hypertriglyceridemia active Keny Acosta NP Hx of mitral valve prolapse completed 2021 - Pablo Lowry MD Palpitations;NML TSH completed - Pablo Lowry MD Personal history of [id number] been vaccinated active Yulissa gerber AMUSEMENT CENTRE MANAGER covid 19;2020;HAD VACCINE active Pablo anthony MD FAMILY HISTORY OF HEART DISEASE active Pablo Lowry MD both parents Obesity active Pablo Lowry MD ENCOUNTERS Date Type Provider Location Encounter Diag nosis - In-person encounter Office Visit Pablo Lowry MD [facility] Office Chest pain, atypical Hx of mitral valve prolapsePalpitations;NM L TSHcovid ;HAD VACCINEFAMILY HISTORY OF HEART DISEASEObesity - In-person encounter Office Visit Pablo Lowry MD [facility] Office Chest pain, atypicalBipolar 1 disorderHypertensionHyp othyroidismHypertriglyc eridemiaPalpitations;NM L TSHPersonal history of [id number]-63-skt been vaccinated VITAL SIGNS Date Observation Value Provider Body Mass Index (Ratio) 35.42 kg/m2 Alvaro Lowry MD weight E&M 200 [lb_av] Pablo Hicks weight E&M 200 [lb_av] Law mas Body Mass Index (Ratio) 36.13 kg/m2 Alvaro Lowyr MD height E&M 63 [in_i] Elisa O'Mauricio blood pressure, diastolic 80 mm[Hg] Jeison mendozaha O'Mauricio blood pressure, systolic 140 mm[Hg] Carmela russ O'Mauricio oxygen saturation, oximetry 98 % Elisa O'Mauricio respiratory rate E&M 18 /min Elisa O'Mauricio pulse rate 83 /min Elisa O'Mauricio blood pressure, resting Yes Haroon chance O'Mauricio weight E&M 204 [lb_av] Elisa O'Mauricio ALLERGIES Allergy Name Onset Date Reaction Criticality Status VANCOMYCIN High Criticality active PENICILLIN Low Criticality active CODEINE Low Criticality active RESULTS Date Observation Value Provider Reference Range Interpretation Location hemoglobin A1C, blood, as % of total hemoglobin 4.9 % OF TOTAL HGB [facility] <5.7 Normal B-type natriuretic peptide 13 pg/mL [facility] <100 Normal B-12, serum 391 pg/mL [facility] 200-1100 Normal thyroid stimulating hormone, serum 1.65 u[IU]/mL [facility] Normal thyroxine, serum, free 1.3 ng/dL [facility] 0.8-1.8 Normal triiodothyronine (T3), serum 121 ng/dL [facility] 76-181 Normal ferritin, serum 37 ng/mL [facility] 16-232 Normal C-reactive protein, by highly sensitive test 5.7 mg/L [facility] High basophils as percent of blood leukocytes 0.9 % [facility] Normal eosinophils as percent of blood leukocytes 3.0 % [facility] Normal monocyte count, blood 6.1 % [facility] Normal lymphocyte count, blood 25.5 % [facility] Normal neutrophils as percent of blood leukocytes 64.5 % [facility] Normal basophils, absolute, manual 119 cells/mcL [facility] 0-200 Normal eosinophils, absolute, manual 396 cells/mcL [facility] 15-500 Normal monocytes, absolute, manual 805 cells/mcL [facility] 200-950 Normal lymphocytes, absolute 3366 CELLS/UL [facility] 850-3900 Normal Absolute Neutrophil count 8514 cells/mcL [facility] 6167-3831 High mean platelet volume 10.1 fL [facility] 7.5-12.5 Normal platelet count 481 THOUSAND/UL [facility] 140-400 High red blood cell distribution width 13.8 % [facility] 11.0-15.0 Normal mean corpuscular hemoglobin concentration, RBC 31.7 G/DL [facility] 32.0-36.0 Low mean corpuscular hemoglobin, RBC 28.7 pg [facility] 27.0-33.0 Normal mean corpuscular volume, RBC 90.7 fL [facility] 80.0-100.0 Normal hematocrit, blood 46.7 % [facility] 35.0-45.0 High hemoglobin electrophoresis, blood 14.8 [facility] 11.7-15.5 Normal erythrocyte (RBC) count 5.15 MILLION/UL [facility] 3.80-5.10 High leukocyte (white blood cells) count, blood 13.2 THOUSAND/UL [facility] 3.8-10.8 High alanine aminotransferase (SGPT), serum 30 1/L [facility] 6-29 High aspartate aminotransferase (SGOT), serum 28 1/L [facility] 10-30 Normal alkaline phosphatase, serum 55 1/L [facility] 31-125 Normal bilirubin, serum, total 1.1 mg/dL [facility] 0.2-1.2 Normal albumin/globulin ratio, serum 1.6 (calc) [facility] 1.0-2.5 Normal globulins, serum, total 2.8 G/DL (CALC) [facility] 1.9-3.7 Normal albumin, serum 4.4 g/dL [facility] 3.6-5.1 Normal protein, total, serum 7.2 g/dL [facility] 6.1-8.1 Normal calcium, serum 9.8 mg/dL [facility] 8.6-10.2 Normal carbon dioxide, venous blood 23 mmol/L [facility] 20-32 Normal chloride, serum 105 mmol/L [facility] 98-110 Normal potassium, serum 4.6 mmol/L [facility] 3.5-5.3 Normal sodium, serum 138 mmol/L [facility] 135-146 Normal urea nitrogen/creatinine ratio, serum NOT APPLICABLE (calc) [facility] 6-22 creatinine, serum 0.96 mg/dL [facility] 0.50-0.99 Normal urea nitrogen, blood 9 mg/dL [facility] 7-25 Normal blood glucose, random 71 mg/dL [facility] 65-99 Normal iron saturation percent, serum 20 % (CALC) [facility] 16-45 Normal iron binding capacity, total 484 MCG/DL (CALC) [facility] 250-450 High iron, serum 96 ug/dL [facility] 40-190 Normal cholesterol, non-HDL, total 196 MG/DL (CALC) [facility] <130 High cholesterol/HDL ratio, serum, percent 6.4 (calc) [facility] <5.0 High LDL cholesterol, serum 155 MG/DL (CALC) [facility] High triglyceride, serum, fasting 239 mg/dL [facility] <150 High HDL cholesterol, serum 36 mg/dL [facility] > OR = 50 Low cholesterol, serum 232 mg/dL [facility] <200 High HISTORY OF MEDICATION USE Medication Status Instructions Dates Provider Indications Com ments Vazalore 81 mg capsule active Take 1 capsule by mouth once a day 3 Pablo Lowry MD omeprazole 40 mg capsule,delayed release(DR/EC) active Pablo Lowry MD Crestor 20 mg tablet active Take 1 tablet by mouth once a day 3 Pablo Lowry MD cyanocobalamin (vitamin B-12) 1,000 mcg tablet active 1 tablet by mouth once a day 3 Pablo Lowry MD ergocalciferol (vitamin D2) 1,250 mcg (50,000 unit) capsule active TAKE 1 CAPSULE BY MOUTH ONE TIME PER WEEK 3 Pablo Lowry MD levothyroxine 75 mcg tablet active daily Yulissa Acosta NP metoprolol tartrate 25 mg tablet active Take 1 tablet by mouth twice a day Yulissa Acosta NP lorazepam 0.5 mg tablet active TID Yulissa Acosta NP lithium carbonate 300 mg tablet active TID Yulissa Acosta NP paroxetine HCl 40 mg tablet active daily Yulissa Acosta NP SOCIAL HISTORY Date Observation Value Provider smoking status Never smoker Elisa Jo'Mauricio FAMILY HISTORY Family Member Condition Father Family History of Co ronary Artery Disease: Mother Family History of Co ronary Artery Disease: INSURANCE PROVIDERS Payer name Policy type / Coverage type [place] red democrat ID Monitor My Meds [id number] ADVANCE DIRECTIVES Name Date DISCUSSED - NO DECISION MADE TREATMENT PLAN Date Name Performer [id number],Pablo Duron MD [id number],Pablo Duron MD [id number],Pablo Duron MD [id number],Pablo Duron MD [id number],Pablo Duron MD [id number],C,C HOL: 232 (06/11/2022) LDL: 155 MG/DL (CALC) (06/11/2022) HDL: 36 (06/11/2022) T (06/11/2022) C RP: 5.7 mg/L (06/11/2022) Pablo Lowry MD [id number],C,C HOL: 232 (06/11/2022) LDL: 155 MG/DL (CALC) (06/11/2022) HDL: 36 (06/11/2022) T (06/11/2022) C RP: 5.7 mg/L (06/11/2022) Pablo Lowry MD [id number],Pablo Duron MD [id number],S,neg stress Chance macy Lowry [id number],S,n eg tsh and hotler p ro 13, a1c 4.9 n eg hiv Pablo Lowry [id number],S, Pablo Serot a [id number],S, Pablo Serot a [id number],S, Pablo Serot a [id number],S, Pablo Serot a [id number],C,C HOL: 232 (06/11/2022) LDL: 155 MG/DL (CALC) (06/11/2022) HDL: 36 (06/11/2022) T (06/11/2022) C RP: 5.7 mg/L (06/11/2022) Pablo Lowry [id number],C,C HOL: 232 (06/11/2022) LDL: 155 MG/DL (CALC) (06/11/2022) HDL: 36 (06/11/2022) T (06/11/2022) C RP: 5.7 mg/L (06/11/2022) Pablo Lowry [id number],S, Pablo carmona [id number],S, Pablo Spicer a [id number],S,n eg tsh and hotler p ro 13, a1c 4.9 Pablo Spicerkristine PEARCE [id number],C,pro 13, a1c 4 .9 Pablo Serotkristine [id number],C,48hr monitor Yulissa Acosta NP [id number],C,f ollows psych. EKG 06/02/22 SR with prolonged QTc, 498. pt current meds include lithium, paroxetine and lorazepam, that have been at constant doses, without recent changes. LITHIUM CAN PROLONG QTc, recommend psych adjusting/changing to other drug. Yulissa Fergusonbrock MILLAN [id number],C,. Pt reports over the last 2-3 weeks, she has been experiencing constant, CP, substernal CP, described pressure/heaviness, 5/10, unchanged with inspiration or movement, that radiation into upper back, not associated with any specific activity, with mild postural dizziness, palpitations, nausea, intermittent BLE edema. pt states that over the 2-3 days pt reports chest pain has improved significantly, to the point of mild ache intermittently. pt denies any strenuous lifitng, turning, twisting or injury prior to onset of symptoms. Pt had EKG at PCP office, 06/02/22 SR with prolonged QTc, 498. will check routine stress test and ECHO. will check labs Yulissa Acosta NP [id number],C,will check li pid panel Yulissa Acosta NP [id number],C,on levothyrox ine. will check TSH Yulissa Acosta NP [id number],C, B P today: 140/80 Her updated medication list for this problem includes: Metoprolol Tartrate 25 Mg Tablet (Metoprolol tartrate) ..... Take 1 tablet by mouth twice a day Yulissa Acosta NP [id number],C,04/2022 Rhianna Acosta NP TeleHealth Pbalo Lowry MD TeleHealth Pablo Lowry MD TeleHealth Pablo Lowry MD TeleHealth Pablo Lowry MD TeleHealth Pablo Lowry MD TeleHealth:CHOL: 232 (06/11/2022) LDL: 155 MG/DL (CALC) (06/11/2022) HDL: 36 (06/11/2022) T (06/11/2022) C RP: 5.7 mg/L (06/11/2022) Pablo Lowry MD TeleHealth:CHOL: 232 (06/11/2022) LDL: 155 MG/DL (CALC) (06/11/2022) HDL: 36 (06/11/2022) T (06/11/2022) C RP: 5.7 mg/L (06/11/2022) Pablo Lowry MD TeleHealth Pablo Lowry MD TeleHealth:neg stress Pablo anthony MD TeleHealth:neg tsh a nd hotler p ro 13, a1c 4.9 n eg hiv Palbo Lowry MD TeleHealth Pablo Lowry MD TeleHealth Pablo Lowry MD TeleHealth Pablo Lowry MD TeleHealth Pablo Lowry MD TeleHealth:CHOL: 232 (06/11/2022) LDL: 155 MG/DL (CALC) (06/11/2022) HDL: 36 (06/11/2022) T (06/11/2022) C RP: 5.7 mg/L (06/11/2022) Pablo Lowry MD TeleHealth:CHOL: 232 (06/11/2022) LDL: 155 MG/DL (CALC) (06/11/2022) HDL: 36 (06/11/2022) T (06/11/2022) C RP: 5.7 mg/L (06/11/2022) Pablo Lowry MD TeleHealth Pablo Lowry MD TeleHealth Pablo Lowry MD TeleHealth:neg tsh a nd hotler p ro 13, a1c 4.9 Pablo Lowry MD explanation of lab results :pro 13, a1c 4.9 Pablo Lowry MD Cardiology:48hr monitor Yulissa Acosta NP Cardiology:follows p sych. EKG 06/02/22 SR with prolonged QTc, 498. pt current meds include lithium, paroxetine and lorazepam, that have been at constant doses, without recent changes. LITHIUM CAN PROLONG QTc, recommend psych adjusting/changing to other drug. Yulissa Acosta NP Cardiology:. Pt repo rts over the last 2-3 weeks, she has been experiencing constant, CP, substernal CP, described pressure/heaviness, 5/10, unchanged with inspiration or movement, that radiation into upper back, not associated with any specific activity, with mild postural dizziness, palpitations, nausea, intermittent BLE edema. pt states that over the 2-3 days pt reports chest pain has improved significantly, to the point of mild ache intermittently. pt denies any strenuous lifitng, turning, twisting or injury prior to onset of symptoms. Pt had EKG at PCP office, 06/02/22 SR with prolonged QTc, 498. will check routine stress test and ECHO. will check labs Yulissa Acosta NP Cardiology:will check lipid pane l Yulissa Acosta NP Cardiology:on levothyroxine. joey raymundo check TSH Yulissa Acosta NP Cardiology: B P today: 140/80 Her updated medication list for this problem includes: Metoprolol Tartrate 25 Mg Tablet (Metoprolol tartrate) ..... Take 1 tablet by mouth twice a day Yulissa Acosta NP Cardiology:04/2022 Yulissa barbosa AMUSEMENT CENTRE MANAGER Date Name RPM (remote patient monitoring) CT, Coronary Calcium Score CBC (INCLUDES DIFF/P LT) Abdominal US HEPATITIS PANEL Holter Monitor 48 hr VITAMIN B12 Vitamin D, 25-Hydrox y CT, Coronary Calcium Score IRON AND TOTAL IRON BINDING CAPACITY FERRITIN CBC (INCLUDES DIFF/P LT) HEMOGLOBIN A1c TSH, free T4, total T3 LIPID PANEL CRP, high sensitivit y PROBNP, N TERMINAL COMPREHENSIVE METABO LIC PANEL, W/EGFR Complete Echo Stress Routine
--- OUTSIDE RECORDS SUMMARY | 2024-12-04 14:04 | XMS_ITS | Clinical Summary ---
Author Organization [facility] Address [address] [place] [address] Phone Care Team Providers Care Vault Mechanic Name Role Phone Lulu Pedersen Ginger [facility] Primary Care Provider [phone] Allergies Active Allergy Reactions Criticality Noted Date Comments Codeine Hives High 10/25/2019 Penicillins Hives High 10/25/2019 Vancomycin Anaphylaxis High 10/25/2019 Medications metoprolol tartrate (LOPRESSOR) 25 mg tablet Take 25 mg by mouth 2 times daily. Metoprolol Succinate Active aspirin (Vazalore) 81 mg Capsule Take by mouth. 06/28/20 22 Active ergocalciferol (VITAMIN D2) 50,000 unit capsule Take 50,000 Units by mouth every 7 days. 07/09/20 22 Active cyanocobalamin 1,000 mcg Tablet Take by mouth. 06/28/20 22 Active levothyroxine 75 mcg tablet Take 1 Tablet (75 mcg) by mouth daily in the morning. 30 Tablet 09/07/20 23 Active upadacitinib (Rinvoq) 15 mg Tablet Sustained Release 24HR Take by mouth daily. Active PARoxetine HCl (PAXIL) 40 mg tabletIndicati ons:Panic disorder without agoraphobia Take 1 Tablet (40 mg) by mouth daily. 90 Tablet 1 11/21/19 25 Active traZODone (DESYREL) 100 mg tablet TAKE 1 TABLET(100 MG) BY MOUTH EVERY NIGHT NEEDED FOR INSOMNIA 90 Tablet 1 11/21/19 25 Active LORazepam (ATIVAN) 0.5 mg tabletIndicati ons:Panic disorder without agoraphobia,Bi polar affective disorder, currently depressed, mild (CMS/HCC) Place 1.5 Tablets (0.75 mg) under tongue 2 times daily. 45 Tablet 5 11/21/19 25 Active gabapentin (NEURONTIN) 300 mg capsuleIndicat ions:Panic disorder without agoraphobia Take 1 Capsule (300 mg) by mouth 2 times daily. 180 Capsule 1 11/21/19 25 Active losartan (COZAAR) 100 mg tablet Take 100 mg by mouth daily. Active gabapentin (NEURONTIN) 300 mg capsuleIndicat ions:Panic disorder without agoraphobia Take 1 Capsule (300 mg) by mouth 2 times daily. 60 Capsule 5 05/07/20 24 025 Discontinued(Re order) PARoxetine HCl (PAXIL) 40 mg tabletIndicati ons:Panic disorder without agoraphobia Take 1 Tablet (40 mg) by mouth daily. 90 Tablet 1 05/07/20 24 025 Discontinued(Re order) PARoxetine HCl (PAXIL) 10 mg tablet Take 1 Tablet (10 mg) by mouth daily. 90 Tablet 1 05/07/20 24 025 Discontinued traZODone (DESYREL) 100 mg tablet TAKE 1 TABLET(100 MG) BY MOUTH EVERY NIGHT NEEDED FOR INSOMNIA 30 Tablet 5 05/07/20 24 025 Discontinued(Re order) LORazepam (ATIVAN) 0.5 mg tabletIndicati ons:Panic disorder without agoraphobia,Bi polar affective disorder, currently depressed, mild (CMS/HCC) Take 1 Tablet (0.5 mg) by mouth 2 times daily. 60 Tablet 1 10/02/19 025 Discontinued(Re order) Active Problems No known active problems Encounters Date Type Department Care Team Description 12/04/2024 External Device Data [facility] ABSTRACTION Provider, Abstract 12/01/2024 External Device Data [facility] ABSTRACTION Provider, Abstract 11/30/2024 External Device Data [facility] ABSTRACTION Provider, Abstract 11/27/2024 External Device Data [facility] ABSTRACTION Provider, Abstract 11/21/2024 1:00 PM LAB AID Confidential [facility] Psychiatry [address] [place] [id number] Rasheed Kramer MD None 11/16/[address] [place] [address] Rasheed Kramer MD Panic disorder without agoraphobia 11/13/2024 External Device Data [facility] ABSTRACTION Provider, Abstract 11/06/2024 External Device Data [facility] ABSTRACTION Provider, Abstract 10/16/2024 External Device Data [facility] ABSTRACTION Provider, Abstract 10/01/[address] [place] [address] Rasheed Kramer MD Panic disorder without agoraphobia; Bipolar affective disorder, currently depressed, mild (CMS/HCC) from Last 3 Months Family History Medical History Relation Name Comments Depression Father Schizophrenia Mother Relation Name Status Comments Father Mother Social History Tobacco Use Types Packs/Day Years Used Date Smoking Tobacco: Never Smokeless Tobacco: Never Tobacco Cessation:Counseling Given: Not Answered Alcohol Use Standard Drinks/Week Comments Not Currently 0 (1 standard drink = 0.6 oz pur e alcohol) Comments No Sex and Gender Information Value Date Recorded Sex Assigned at Not on file Legal Sex Female 11:21 AM LAB AID Gender Identity Not on file Sexual Orientation Not on file Last Filed Vital Signs Vital Sign Reading Time Taken Comments Blood Pressure 138/84 11/21/2024 1:07 PM LAB AID Pulse 60 11/21/2024 1:07 PM LAB AID Temperature - - Respiratory Rate - - Oxygen Saturation 99% 11/21/2024 1:07 PM LAB AID Inhaled Oxygen Concentration - - Weight 96.5 kg (212 lb 12.8 oz) 11/21/2024 1:07 PM LAB AID Height 160 cm (5' 3 ) 11/21/2024 1:07 PM LAB AID Body Mass Index 37.7 11/21/2024 1:07 PM LAB AID Plan of Treatment Upcoming Encounters Date Type Department Care Team (Late st Contact Info) Description 05/20/2025 11:15 AM CDT Video Visit [address] [place] [address] Rasheed Kramer MD [address] [place] [address] [place] [address] Health Maintenance Due Date Last Done Comments HEPATITIS B VACCINES (1 of 3 - 19+ 3-dose series) 1998 CERVICAL CANCER SCREENING 2009 BREAST CANCER SCREENING 2019 Pre-Diabetes and Diabetes Screening 04/13/2024 04/13/2021 INFLUENZA VACCINE (#1) 2024 COLORECTAL SCREENING 2024 09/26/2007 Colorectal Cancer Screening 2024 FIT-DNA Q 3 years 2024 FIT/FOBT Q 1 year 2024 Flex Sig/CT Colonography Q 5 years 2024 COVID-19 Vaccine (3 - 2023-2 5 season) 2024 10/06/2020, 09/15/2020 DTAP/TDAP/TD VACCINES (2 - T d or Tdap) 03/16/2033 03/16/2023 HPV VACCINES Aged Out No longer eligi ble based on patient's age to complete this topic Procedures Procedure Name Priority Date/Time Associated Diagnosis Comments HEMOGLOBIN A1C Routine 04/13/2021 8:10 AM CDT from Last 3 Months or Most Recently Relevant to Health Maintenance Results * HEMOGLOBIN A1C (04/13/2021 8:10 AM CDT) HEMOGLOBIN A1C 5.4 4.8 - 5.6 % [facility] Comment: Prediabetes: 5.7 - 6.4 Diabetes: >6.4 Glycemic control for adults with diabetes: <7.0 04/13/2021 8:10 AM CDT 04/13/2021 Narrative [facility] - 04/14/2021 6:08 AM CDT Performed at: [address] [place] [id number] Mouthpiece Maker: Babar Glover PhD, Phone: [phone] us Rasheed Kramer MD CHEMISTRY ORDERABLES Final Res ult [facility] [phone] from Last 3 Months or Most Recently Relevant to Health Maintenance Insurance Care Teams Vault Mechanic Relationship Specialty Start Date End Date Lulu Pedersen FNP [address] [phone] PCP - General Nurse Practitioner Family 02/12/20
--- OUTSIDE RECORDS SUMMARY | 2024-12-04 14:04 | XMS_ITS | Continuity of Care Document ---
Author Organization [facility] Address [address] [facility] [address] [place] [address] Phone Care Team Providers Care Rotational Moulding Operator Name Role Phone Christiano OD, Donna Unavailable Unavailable Procedures Procedure Date Charge For A No Show Advance Directives Directive Yes / No Effective Date File Name No Information Encounters Encounter Description Practice Location Reason(s) For Visit Diagnoses Date Provider Providers Copied on Encounter [facility], [id number] [place] [address] [address], [place], [place], [id number], tel:[phone] [place] Professional No Information 4 Christiano OD Donna. [address] [place] [address] [address], [address], [place], [place], [id number], [place]. tel:[phone] Family History Family Member Type Diagnosis Age At Onset No Information Payers Payer name Insurance type Covered alliance party ID Authoriza tion(s) No Information Social [...]
--- OUTSIDE RECORDS SUMMARY | 2024-12-04 14:04 | XMS_ITS | Encounter Summary ---
Author Organization [facility] Address [facility] [place] [address] Care Team Providers Care Mobile Application Architect Name Role Phone Donato Wei MD Primary Care Provider U Lulu Ordonez [facility] Primary Care Provider + Encounter Details Date Type Department Care Team (Late st Contact Info) Description 02/07/2017 Abstract [facility] CONVERSION [address] [place] [address] , Generic Conversion, Social History Tobacco Use Types Packs/Day Years Used Date Smoking Tobacco: Never Assessed Comments Unknown Sex and Gender Information Value Date Recorded Sex Assigned at Not on file Legal Sex Female 7:26 PM CDT Gender Identity Not on file Sexual Orientation Not on file documented as of this encounter Plan of Treatment Not on file documented as of this encounter Visit Diagnoses Not on filedocumented in this encounter Care Teams Mobile Application Architect Relationship Specialty Start Date End Date Donato Wei MD PCP - General 12/23/16 07/17/19 Lulu Pedersen, [facility] [address] [place] [address] PCP - General NURSE PRACTITIONER 07/18/19 documented as of this encounter
--- OUTSIDE RECORDS SUMMARY | 2024-12-04 14:04 | XMS_ITS ---
Author Organization [facility] Address [address] [facility] [address] [place] [address] Care Team Providers Care Photocopy Operator Name Role Phone Nuvia MILLAN, Lulu Primary Care Provider Unavail Abbie Liu [phone] REASON FOR VISIT medication Medications Medication SIG (Take, Route, Fr equency, Duration) Notes Start Date End Date Status Amitriptyline HCl 25 MG 1 tablet at bedt bre Orally Once a day for 30 days 03/12/2024 Active Encounters Encounter Location Date Provider Diagnosis [facility] [address] [facility] [address] [place] [address] 03/12/2024 Abbie Rubio Plan Of Treatment Medication Medication Name Sig Start Date Stop Date Notes Amitriptyline HCl 25 MG 1 tablet at bedt bre Orally Once a day for 30 days 03/12/2024 Progress Notes * KRISHAN BereniceCristhianOB:1979 (43 yo F)Acc No.[id number]:03/12/2024 Patient: Berenice JOHNSONhel :1980 A ge:43 Y S ex:Female Address:[address] [place], [address] * Refills Start Amitriptyline HCl Tablet, 25 MG, Orally, 30, 1 tablet at bedtime, Once a day, 30 days, Refills=2 * true * Date: Generated for Printi ng/Faxing/eTransmitting on: 0 12/04/2024 02:04 PM CDT
--- OUTSIDE RECORDS SUMMARY | 2024-12-04 14:04 | XMS_ITS | Encounter Summary ---
Author Organization [facility] Address [facility] [place] [address] Care Team Providers Care Skilled Labor Name Role Phone Donato Wei MD Primary Care Provider U Lulu Ordonez [facility] Primary Care Provider + Encounter Details Date Type Department Care Team (Late st Contact Info) Description 01/31/2017 Abstract [facility] CONVERSION [address] [place] [address] , Generic Conversion, Social History Tobacco Use [...] on filedocumented in this encounter Care Teams Skilled Labor Relationship Specialty Start Date End Date Donato Wei MD PCP - General 12/23/16 07/17/19 Lulu Pedersen, [facility] [address] [place] [address] PCP - General NURSE PRACTITIONER 07/18/19 documented as of this encounter
--- OUTSIDE RECORDS SUMMARY | 2024-12-04 14:04 | XMS_ITS | Clinical Summary ---
Author Organization [facility] Address [address] [place] [address] Care Team Providers Care Assistant Property Manager Name Role Phone Lulu Pedersen [facility] Primary Care Provider + Allergies Active Allergy Reactions Criticality Noted Date Comments Codeine Rash,Hives,Itching,Other (see comment) Low 07/14/2017 Penicillins Rash,Hives,Unknown Low 12/29/2015 Vancomycin Anaphylaxis,Unknown High 12/29/2015 Medications TRIAMTERENE-HYDR OCHLOROTHIAZIDE 37.5-25 MG tabletIndication s:Leg edema TAKE 1 TABLET BY MOUTH EVERY DAY 90 tablet 12/11/2018 Active CITALOPRAM 40 MG tabletIndication s:Anxiety TAKE 1 TABLET BY MOUTH EVERY DAY 90 tablet 03/08/2019 Active clonazePAM 0.5 MG tablet Take 0.5 mg by mouth 2 (two) times daily as needed for Anxiety. Active lithium CR 300 MG tablet Take 600 mg by mouth 2 (two) times daily. 10/25/2019 Active OLANZapine 5 MG tablet Take 5 mg by mouth. 10/25/2019 Active Family History Medical History Relation Comments Diabetes Father Hypertension Father Diabetes Mother Hypertension Mother Relation Status Comments Father Mother Social History Tobacco Use Types Packs/Day Years Used Date Smoking Tobacco: Never Smokeless Tobacco: Never Alcohol Use Standard Drinks/Week Comments No 0 (1 standard drink = 0.6 oz pur e alcohol) Comments No Sex and Gender Information Value Date Recorded Sex Assigned at Not on file Legal Sex Female 7:26 PM CDT Gender Identity Not on file Sexual Orientation Not on file Last Filed Vital Signs Vital Sign Reading Time Taken Comments Blood Pressure 135/73 04/24/2021 9:01 AM CDT Pulse 58 04/24/2021 9:01 AM CDT Temperature 36.3 C (97.3 F) 04/24/2021 9:01 AM CDT Respiratory Rate 16 04/24/2021 9:01 AM CDT Oxygen Saturation 98% 04/24/2021 9:01 AM CDT Inhaled Oxygen Concentration - - Weight 90.7 kg (200 lb) 04/24/2021 9:01 AM CDT Height 160 cm (5' 3 ) 04/24/2021 9:01 AM CDT Body Mass Index 35.43 04/24/2021 9:01 AM CDT Plan of Treatment Health Maintenance Due Date Last Done Comments Cervical Cancer Screening Pa p Smear (Age 30 to 64) Every 3 Years 1979 Annual Physical 1982 DTaP, Tdap and Td Vaccines ( 1 - Tdap) 1998 Hepatitis B Vaccines (1 of 3 - 19+ 3-dose series) 1998 Cervical Cancer Screening Pa p with HPV Testing (Age 30 to 64) Every 5 Years 2009 Cervical Cancer Screening wi th HPV 2009 Colorectal Cancer Screening Colonoscopy (10 Years) 09/26/2017 09/26/2007 Mammogram Screening 2019 COVID-19 Vaccine (2023-2 5 season) 2024 10/06/2020, 09/15/2020 Influenza Adult (#1) 2024 10/12/2017, 05/31/2017, 06/18/2016 Hepatitis C Completed 06/05/2018, 06/05/2018 HPV Vaccines Aged Out No longer eligi ble based on patient's age to complete this topic Meningococcal B Vaccine Aged Out No l onger eligible based on patient's age to complete this topic Meningococcal Vaccine Aged Out No karie josefa eligible based on patient's age to complete this topic Pneumococcal Vaccine: Pediatrics (0 to 5 Years) and At-Risk Patients (6 to 64 Years) Aged Out No longer eligible b ased on patient's age to complete this topic RSV Immunizations Under 20 Months Aged Out No longer eligible b ased on patient's age to complete this topic Procedures Procedure Name Priority Date/Time Associated Diagnosis Comments HEPATITIS A,B,& C Routine 06/05/2018 4:0 0 PM CDT COLONOSCOPY Routine 09/26/2007 12:00 AM PLATER BARREL from Last 3 Months or Most Recently Relevant to Health Maintenance Results * HEPATITIS A,B,& C (06/05/2018 4:00 PM CDT) HEPATITIS B SURFACE AG NON-REACTIVE NON-REACT MADINA 06/06/2018 8:53 PM CDT [facility] HEP B CORE TOTAL AB NON-REACTIVE NON-REACT MADINA 06/06/2018 8:59 PM CDT [facility] HEP B SURFACE AB REACTIVE 06/06/2018 9:00 PM CDT [facility] HAV IGM NON-REACTIVE NON-REACT MADINA 06/06/2018 8:59 PM CDT [facility] HEPATITIS C AB NON-REACTIVE NON-REACT MADINA 06/06/2018 8:58 PM CDT [facility] 06/05/2018 4:00 PM CDT 06/05/2018 6:19 PM CDT us Generic Conversion [facility] Final R esult Performing Organization Address [facility]/ZIP Co de Phone Number [facility] [address] [place] [address], [place] [phone] * Colonoscopy (09/26/2007 12:00 AM PLATER BARREL) 09/26/2007 09/26/2007 Narrative [facility] TO EPIC CONVERSION - 09/26/2007 12:00 AM PLATER BARREL Documented hx of procedure Procedure Note Brad Pearce MD - 07/30/2018 Documented hx of procedure us Generic Conversion Md [facility] PROCEDURE ORDERABLES Final Result Performing Organization Address City/[facility]/ZIP Co de Phone Number [facility] TO EP[facility] CONVERSION from Last 3 Months or Most Recently Relevant to Health Maintenance Insurance [employer] Care Teams Assistant Property Manager Relationship Specialty Start Date End Date Lulu Pedersen, CHIEF CRUISER- [address] [place] [address] PCP - General NURSE PRACTITIONER 07/18/19
--- OUTSIDE RECORDS SUMMARY | 2024-12-04 14:04 | XMS_ITS | Encounter Summary ---
Author Organization [facility] Address [address] [place] [address] Phone Care Team Providers Care Brush Cleaner Name Role Phone Colleen Pagan NP Primary Care Provider [phone] Encounter Details Date Type Department Care Team (Late st Contact Info) Description 12/03/2024 Documentation [facility] Orthopaedic Surgery [address] [facility] [address] [place] [address] Marizol Hand Social History Tobacco Use Types Packs/Day Years Used Date Smoking Tobacco: Never Humiliation, Afraid, Rape, and Kick questionnair e [...] and Family Twice a week 09/24/2019 Attends [employer] Services Never 09/24 Active Member of Clubs [...] on file 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 Confirmation received, paperwork sent to [facility]. documented in this encounter Plan of Treatment Upcoming Encounters Date Type Department Care Team (Latest Contact Info) Description 01/10/2025 3:45 PM CDT Hospital Encounter [facility] [address] [place] [address] Gunnar Moss MD [address] [facility] [address] [place] [address] 01/10/2025 3:45 PM CDT - 01/10/2025 5:50 PM CDT Surgery [facility] Operating Room [address] [address] Gunnar Moss MD [address] [facility] [address] [place] [address] ARTHROPLASTY TOTAL HIP - DEPUY Scheduled Procedures Name Priority Associated Diagnoses Date/Ti me ARTHROPLASTY TOTAL HIP - DEPUY Primary osteoarthritis of left hip 01/10/2025 3:45 PM CDT documented as of this encounter Visit Diagnoses Not on filedocumented in this encounter Care Teams Brush Cleaner Relationship Specialty Start Date End Date Colleen Pagan, DOWEL PIN MAN [address] [place] [address] PCP - General Family Medicine 06/21/24 documented as of this encounter
--- OUTSIDE RECORDS SUMMARY | 2024-12-04 14:04 | XMS_ITS | Patient Health Summary ---
Author Organization [facility] Address [address] [facility] [place] [address] Care Team Providers Care River Guide Name Role Phone Rm Beverly MD Primary Care Provider [phone] Donato Wei MD Unavailable [phone] Note from [facility],non-owned Affiliates and Associated Physician Practices is amultiple site organization consisting of ambulatory clinics and hospital sitesin [place], [place], [place] and [place]. This disclosure is being madepursuant to the Care Everywhere program and may not contain all information available regarding this patient. Last updated 18.[facility] Allergies * Codeine(Itching,Other) * Vancomycin(Anaphylaxis) -High Criticality Medications * Be aware that medications may not be up to date on this document. Alwaysverify current medications with the patient. * citalopram (CELEXA) 40 MG tablet Take 40 mg by mouth once daily * CLONAZEPAM PO * GABAPENTIN, ONCE-DAILY, PO Social History Tobacco Use Types Packs/Day Years [...] Mass Index 34.33 07/14/2017 11:20 AM CDT Procedures * MUMPS ANTIBODY IGG(Performed 05/11/2011) * RUBEOLA ANTIBODY IGG(Performed 05/11/2011) * RUBELLA ANTIBODY IGG(Performed 05/11/2011) * HEPATITIS B SURFACE ANTIBODY(Performed 05/11/2011) * LAB HISTORICAL RESULTS-ONBASE(Performed 10/06/2004) * PATHOLOGY/GENETICS HISTORICAL-ONBASE(Performed 10/05/2004) Results * (ABNORMAL) RUBEOLA ANTIBODY IGG (05/11/2011 9:55 AM CDT) Measles (Rubeola) Antibody IgG 2.18(H) SEE BELOW IV [facility] Comment: <0.9 Negative presumed non-immune >=0.9 to <1.1 Equivocal >=1.1 Positive presumed immune Interpretation Rubeola [facility] Comment: When equivocal results are obtained, another specimen should be collected 10 to 14 days later, and tested in parallel with the initial specimen. If the second specimen is also equivocal, the patient is negative for primary or recent infection, and equivocal for antibody status. If the second sample is positive, the patient can be considered to have a primary infection. BLOOD SPECIMEN / Unknown 05/11/2011 9:55 AM CDT 05/11/2011 8:47 PM CDT Provider Unknown LAB - CHEMISTRY JANETT STROUD [facility] [address] [place] [address] * (ABNORMAL) MUMPS ANTIBODY IGG (05/11/2011 9:55 AM CDT) Mumps Virus Antibody IgG 2.21(H) SEE BELOW IV [facility] Comment: <0.9 Negative presumed non-immune >=0.9 to <1.1 Equivocal >=1.1 Positive presumed immune BLOOD SPECIMEN / Unknown 05/11/2011 9:55 AM CDT 05/11/2011 8:47 PM CDT Provider Unknown LAB - CHEMISTRY ORDE LUANNE Performing Organization Address [facility] Co de Phone Number [facility] [address] [place] [address] * RUBELLA ANTIBODY IGG (05/11/2011 9:55 AM CDT) Rubella Antibody 16.7 SEE BELOW IU/ml [facility] Comment: =>10.0 Positive-Immune 5.0-9.9 Suggest Repeat Testing <5.0 Negative-Nonimmune BLOOD SPECIMEN / Unknown 05/11/2011 9:55 AM CDT 05/11/2011 8:47 PM CDT Provider Unknown LAB - SEROLOGY ORDER JONATHAN Performing Organization Address [facility] Co de Phone Number [facility] [address] [place] [address] * HEPATITIS B SURFACE ANTIBODY (05/11/2011 9:55 AM CDT) Hepatitis B Virus Surface Antibody Reactive Nonreactive [facility] BLOOD SPECIMEN / Unknown 05/11/2011 9:55 AM CDT 05/11/2011 8:47 PM CDT Provider Unknown LAB - CHEMISTRY JANETT STROUD Performing Organization Address [facility] Co de Phone Number [facility] [address] [place] [address] * LAB HISTORICAL RESULTS-ONBASE (10/06/2004) 10/06/2004 Historical Provider LAB - CHEMISTRY O RDERABLES Performing Organization Address [facility] Co de Phone Number [facility] * PATHOLOGY/GENETICS HISTORICAL-ONBASE (10/05/2004) 10/05/2004 Historical Provider LAB - CHEMISTRY O RDERABLES Performing Organization Address [facility] Co de Phone Number [facility] Care Teams River Guide Relationship Specialty Start Date End Date Rm Beverly MD [address] [address] PCP - General 11/11/20 Donato Wei MD [address] [place] [address] Internal Medicine 11/11/20
--- OUTSIDE RECORDS SUMMARY | 2024-12-04 14:04 | XMS_ITS ---
Author Organization [facility] Address [address] [place] [address] Care Team Providers Care Jump Iron Machine Presser Name Role Phone Funmilayo Narvaez Unavailable [phone] Kiera Lucas Unavailable [phone] REASON FOR VISIT Patient billed $250.00 for missed new patient appointment Problems Problem Type SNOMED Code ICD Code Onset Dates Problem Status W/U Status Risk Notes Problem Allergic rhinitis caused by pollen (disorder) (69943659) Allergic rhinitis due to pollen (J30.1) Active confirmed Problem Allergic rhinitis caused by animal hair and dander (172153064995519) Allergic rhinitis due to animal (cat) (dog) hair and dander (J30.81) Active confirmed Problem Allergic rhinitis (49215023) Other allergic rhinitis (J30.89) Active confirmed Problem Chronic allergic conjunctivitis (43952617) Other chronic allergic conjunctivitis (H10.45) Active confirmed Problem Chronic rhinitis (04565080) Chronic rhinitis (J31.0) Active confirmed Problem Uncomplicated moderate persistent asthma (720485424) Moderate persistent asthma, uncomplicated (J45.40) Active confirmed Problem Uncomplicated mild persistent asthma (016271535) Mild persistent asthma, uncomplicated (J45.30) Active confirmed Problem Uncomplicated severe persistent asthma (334650375) Severe persistent asthma, uncomplicated (J45.50) Active confirmed Encounters Encounter Location Date Provider Diagnosis [facility] [address] [place] [address] 04/16/2024 Kiera Lucas Plan Of Treatment Next Appt Details Follow Up: prn, Reason: Progress Notes * Min NICKERSONOB:1979 (43 yo F)Acc No.[id number]:04/16/2024 Progress Notes Patient: Natalie JOHNSON Provider: BLANCA Smith :1980 A ge:43 Y S ex:Female Date:04/16/2024 Address:[address] [place] [address], [facility] Subjective: * Chief Complaints: * P atient billed $250.00 for missed new patient appointment * Medical History: * Surgical History: * Hospitalization/Major Diagno stic Procedure: * Medications: Objective: * Vitals: Assessment: Plan: * Treatment: * Procedure Codes: 0 0001 No Show - New Patient or Consult * Follow Up: p rn * Billing Information: * Visit Code: * Procedure Codes: 14307 No Show - New Patient or Consult. * Sign off status: Completed true * Provider: BLANCA Smith Date: 0 04/16/2024 Generated for Myra edgar/Lidia/eTransmitting on: 0 12/04/2024 02:03 PM CDT
--- OUTSIDE RECORDS SUMMARY | 2024-12-04 14:04 | XMS_ITS | Clinical Summary ---
Author Organization [facility] Address [address] [facility] [place] [address] Care Team Providers Care Spool Cleaner Name Role Phone Rm Beverly MD Primary Care Provider Donato Wei MD Unavailable [phone] Source Comments [facility],non-owned Affiliates and Associated Physician Practices is amultiple site organization consisting of ambulatory clinics and hospital sitesin [place], [place], [place] and [place]. This disclosure is being madepursuant to the Care Everywhere program and may not contain all information available regarding this patient. Last updated 18.[facility] Allergies Active Allergy Reactions Criticality Noted Date [...] 07/14/2017 11:20 AM CDT Plan of Treatment Health Maintenance Due Date Last Done Comments COLOGUARD (AGES 45-75) - COL ON CA SCREENING 1979 COLON MONITORING 1979 COLONOSCOPY - COLON CA SCREENING 1979 CT COLONOGRAPHY - COLON CA SCREENING 1979 Colorectal Cancer Screening 1979 FIT - COLON CA SCREENING 1979 FLEX SIG - COLON CA SCREENING 1979 LIPID TESTING 1979 MAMMOGRAM 1979 PAP SMEAR 1979 HIV SCREENING 1994 HEPATITIS C SCREENING 05/04/1997 DTAP/TDAP/TD VACCINES (1 - Tdap) 1998 HEPATITIS B VACCINE (1 of 3 - 19+ 3-dose series) 1998 COVID-19 VACCINE (2023-2 5 season) 2024 INFLUENZA VACCINE (#1) 2024 DEPRESSION SCREENING 09/26/2024 ZOSTER VACCINE (1 of 2) 2029 HIB VACCINE Aged Out No longer eligi ble based on patient's age to complete this topic HPV VACCINE Aged Out No longer eligi ble based on patient's age to complete this topic MENINGOCOCCAL (Group B) VACCINE Aged Out No longer eligible based on patient's age to complete this topic MENINGOCOCCAL VACCINE Aged Out No karie josefa eligible based on patient's age to complete this topic PNEUMOCOCCAL VACCINE Aged Out No long er eligible based on patient's age to complete this topic Care Teams Spool Cleaner Relationship Specialty Start Date End Date Rm Beverly MD [address] [address] PCP - General 11/11/20 Donato Wei MD [address] [place] [address] Internal Medicine 11/11/20
--- OUTSIDE RECORDS SUMMARY | 2024-12-04 14:04 | XMS_ITS ---
Author Organization [facility] Address [address] [place] [address] Care Team Providers Care Powder Blender Name Role Phone Funmilayo Narvaez Unavailable [phone] REASON FOR VISIT WARP COILER Allergies Encounters Encounter Location Date Provider Diagnosis [facility] [address] [place] [address] 03/21/2024 Funmilayo Narvaez Plan Of Treatment No Information Progress Notes * KRISHANBerenicehelDOB:1979 (44 yo F)Acc No.[id number]:03/21/2024 Progress Notes Patient: Natalie JOHNSON Provider: JOSE Bai :1980 A ge:43 Y S ex:Female Date:03/21/2024 Address[address] [facility] Subjective: * Chief Complaints: * 1 . WARP COILER Allergies. * Medical History: Objective: * Vitals: Assessment: Plan: * Treatment: * Billing Information: * Visit Code: * Procedure Codes: * Electronic signature of JOSE Harrell on 12/04/2024 at 02:04 PM CDT Sign off status: Pending * Provider: JOSE Bai Date: 0 03/21/2024 Generated for Myra edgar/Lidia/eTransmitting on: 0 12/04/2024 02:04 PM CDT
--- OUTSIDE RECORDS SUMMARY | 2024-12-04 14:04 | XMS_ITS | Patient Health Record ---
Author Organization [facility] Address [address] [place] [address] Care Team Providers Care Almond Pan Finisher Name Role Phone Nuvia MILLAN, Lulu Primary Care Provider Unavail able RamiroAbbie Unavailable [phone] Allergies Allergen (clinical drug ingredient) Drug/Non Drug Allergy documented on EMR Reaction Allergy Type Onset Date Status Codeine Phosphate Unknown Drug Allergy Active Levaquin Unknown Drug Allergy Active penicillin G Penicillin G Sodium Unknown Drug Allergy Active hydroxychloroquine Plaquenil rash Drug Allergy Active phenazopyridine Pyridium Unknown Drug Allergy A ctive vancomycin Vancomycin HCl Unknown Drug Allergy A ctive Reason For Referral No Information Medications Medication SIG (Take, Route, Frequency, Duration) Notes Start Date End Date Status Levothyroxine Sodium 75 MCG 1 tablet in the morning on an empty stomach Orally Once a day for 30 day(s) Active Gabapentin 600 MG 1 tablet Orally 3 ti mes a day for 30 days 03/15/2024 Active Gabapentin 600 MG 1 tablet Orally Once a day 10/11/2023 Active Cetirizine HCl 10 MG 1 tablet Orally Onc e a day for 30 days 03/05/2024 Active Paxil 40 MG 1 tablet in the morn ing Orally Once a day for 30 day(s) Active Amitriptyline HCl 25 MG 1 tablet at bedt bre Orally Once a day for 30 days 03/12/2024 Active Losartan Potassium 50 MG 1 tablet Orally Once a day for 30 day(s) Active Famotidine 20 MG 1 Orally Once a day for 90 days 03/05/2024 Active Gabapentin 300 MG 3 Orally 2 times a d ay for 30 days 03/08/2024 Active Ativan 1 MG 1 tablet at bedtime as needed Orally three times a day Active Methotrexate Sodium 2.5 MG 8 Orally week ly for 90 days Active Social History Tobacco Use: Social History Observation Description Date Details (start date - stop date) Never Smoker NA - NA Household Question Answer Notes Marital status: single Tobacco Control (Standard) Question Answer Notes Tobacco use: Nonsmoker Problems Problem Type SNOMED Code ICD Code Onset Dates Problem Status W/U Status Risk Notes Problem [id number] Osteoarthritis, unspecified osteoarthritis type, unspecified site (M19.90) Active confirmed Vital Signs Heart Rate 102 /min 03/05/2024 Temperature 97.4 degrees Fahrenheit 03/05/2024 Blood pressure diastolic 98 mm Hg 03/05/2024 Oximetry 96 % 03/05/2024 Height 63 in 03/05/2024 Blood pressure systolic 150 mm Hg 03/05/2024 Weight 216.0 lbs 03/05/2024 BMI 38.26 kg/m2 03/05/2024 Encounters Encounter Location Date Provider Diagnosis [facility] [address] [place] [id number] 01/09/2024 [facility] INGRID positive R76.8 ; Psoriatic arthritis L40.50 ; Psoriasis L40.9 ; Osteoarthritis, unspecified osteoarthritis type, unspecified site M19.90 ; Decreased GFR R94.4 ; SI (sacroiliac) pain M53.3 ; 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 ; Increased pressure in the eye, bilateral H40.053 and Secondary Sjogren's syndrome M35.00 [facility] [address] [facility] [address] [place] [address] 03/05/2024 [facility] INGRID positive R76.8 ; Psoriatic arthritis L40.50 ; Psoriasis L40.9 ; Osteoarthritis, unspecified osteoarthritis type, unspecified site M19.90 ; Decreased GFR R94.4 ; SI (sacroiliac) pain M53.3 ; 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 ; Increased pressure in the eye, bilateral H40.053 ; Secondary Sjogren's syndrome M35.00 and Rash R21 [facility] [address] [address] [place] [address] 12/21/2023 [facility] [address] [facility] [place] [address] 01/09/2024 Abbie Du [facility] [address] [place] [address] 01/09/2024 [facility] [address] [place] [address] 01/09/2024 [facility] [address] [place] [address] 01/23/2024 Abbie Du Psoriatic arthritis L40.50 [facility] [address] [place] [address] 01/31/2024 [facility] [address] [place] [address] 02/06/2024 [facility] [address] [place] [address] 02/06/2024 [facility] [address] [place] [address] 02/21/2024 [facility] [address] [place] [address] 02/21/2024 [facility] [address] [place] [address] 03/05/2024 Abbie Rubio Psoriatic arthritis L40.50 [facility] [address] [place] [address] 03/05/2024 [facility] [address] [place] [address] 03/12/2024 [facility] [address] [place] [address] 12/26/2023 [facility] [address] [place] [address] 01/11/2024 [facility] [address] [place] [address] 01/23/2024 Abbie Rubio Psoriatic arthritis L40.50 [facility] [address] [place] [address] 02/02/2024 [facility] [address] [place] [address] 02/24/2024 [facility] [address] [place] [address] 02/28/2024 [facility] [address] [place] [address] 02/28/2024 [facility] [address] [place] [address] 03/01/2024 [facility] [address] [place] [address] 03/07/2024 [facility] [address] [place] [address] 03/12/2024 [facility] [address] [place] [address] 03/15/2024 [facility] Assessments Encounter Date Diagnosis (ICD Code) Assessment Notes Treatment Notes Treatment Clinical Notes Section Notes 01/09/2024 INGRID positive (ICD-10 - R76.8) uncontrolled, increase MTX to 20mg/wk, start humira, first injection (sample) given in office today, refer to Dr. Mills, labs today, return in 1 month 01/23/2024 Psoriatic arthritis (ICD-10 - L40.50) 01/23/2024 Psoriatic arthritis (ICD-10 - L40.50) 03/05/2024 INGRID positive (ICD-10 - R76.8) on humira and MTX 20mg/wk, lab order given, allergic to plaquenil, instructed to stop, depomedrol 80mg given in office today, increase prednisone to 60mg/day, then taper, start pepcid and zyrtec, return in 1 month 03/05/2024 Psoriatic arthritis (ICD-10 - L40.50) 03/05/2024 Psoriatic arthritis (ICD-10 - L40.50) on humira and MTX 20mg/wk, lab order given, allergic to plaquenil, instructed to stop, depomedrol 80mg given in office today, increase prednisone to 60mg/day, then taper, start pepcid and zyrtec, return in 1 month 03/05/2024 Psoriasis (ICD-10 - L40.9) on humira and MTX 20mg/wk, lab order given, allergic to plaquenil, instructed to stop, depomedrol 80mg given in office today, increase prednisone to 60mg/day, then taper, start pepcid and zyrtec, return in 1 month 01/09/2024 Psoriatic arthritis (ICD-10 - L40.50) uncontrolled, increase MTX to 20mg/wk, start humira, first injection (sample) given in office today, refer to Dr. Mills, labs today, return in 1 month 01/09/2024 Psoriasis (ICD-10 - L40.9) uncontrolled, increase MTX to 20mg/wk, start humira, first injection (sample) given in office today, refer to Dr. Mills, labs today, return in 1 month 01/09/2024 Osteoarthritis, unspecified osteoarthritis type, unspecified site (ICD-10 - M19.90) uncontrolled, increase MTX to 20mg/wk, start humira, first injection (sample) given in office today, refer to Dr. Mills, labs today, return in 1 month 03/05/2024 Osteoarthritis, unspecified osteoarthritis type, unspecified site (ICD-10 - M19.90) on humira and MTX 20mg/wk, lab order given, allergic to plaquenil, instructed to stop, depomedrol 80mg given in office today, increase prednisone to 60mg/day, then taper, start pepcid and zyrtec, return in 1 month 03/05/2024 Decreased GFR (ICD-10 - R94.4) on humira and MTX 20mg/wk, lab order given, allergic to plaquenil, instructed to stop, depomedrol 80mg given in office today, increase prednisone to 60mg/day, then taper, start pepcid and zyrtec, return in 1 month 01/09/2024 Decreased GFR (ICD-10 - R94.4) uncontrolled, increase MTX to 20mg/wk, start humira, first injection (sample) given in office today, refer to Dr. Mills, labs today, return in 1 month 01/09/2024 SI (sacroiliac) pain (ICD-10 - M53.3) uncontrolled, increase MTX to 20mg/wk, start humira, first injection (sample) given in office today, refer to Dr. 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 Mills, labs today, return in 1 month 01/09/2024 Increased pressure in the eye, bilateral (ICD-10 - H40.053) uncontrolled, increase MTX to 20mg/wk, start humira, first injection (sample) given in office today, refer to Dr. Mills, labs today, return in 1 month 03/05/2024 Increased pressure in the eye, bilateral (ICD-10 - H40.053) on humira and MTX 20mg/wk, lab order given, allergic to plaquenil, instructed to stop, depomedrol 80mg given in office today, increase prednisone to 60mg/day, then taper, start pepcid and zyrtec, return in 1 month 01/09/2024 Secondary Sjogren's syndrome (ICD-10 - M35.00) uncontrolled, increase MTX to 20mg/wk, start humira, first injection (sample) given in office today, refer to Dr. Mills, labs today, return in 1 month 03/05/2024 Secondary Sjogren's syndrome (ICD-10 - M35.00) on humira and MTX 20mg/wk, lab order given, allergic to plaquenil, instructed to stop, depomedrol 80mg given in office today, increase prednisone to 60mg/day, then taper, start pepcid and zyrtec, return in 1 month 03/05/2024 Rash (ICD-10 - R21) on humira and MTX 20mg/wk, lab order given, allergic to plaquenil, instructed to stop, depomedrol 80mg given in office today, increase prednisone to 60mg/day, then taper, start pepcid and zyrtec, return in 1 month Plan Of Treatment Pending Test Test Name Order Date X ray : Hip, left 10/11/2023 X ray : Foot, left 10/11/2023 X ray : Foot, right 10/11/2023 X ray : Spines, cervical 2 views 024 Creatine Kinase,Total,Serum 10/11/2023 Complement C4, Serum 10/11/2023 CBC With Differential/Platelet CBC With Differential/Platelet 4 CBC With Differential/Platelet CBC With Differential/Platelet 4 Sedimentation Rate-Westergren 01/09/2024 Sedimentation Rate-Westergren 10/11/2023 Complement C3, Serum 10/11/2023 Rheumatoid Arthritis Factor 10/11/2023 C-Reactive Protein, Quant 10/11/2023 C-Reactive Protein, Quant 01/09/2024 HLA B 27 Disease Association 01/09/2024 HLA B 27 Disease Association 10/11/2023 Sjogren's Ab, Anti-SS-A/-SS-B 10/11/2023 CCP IgG Antibodies 10/11/2023 INGRID w/Reflex 10/11/2023 CMP - Comp. Metabolic Panel (14) 024 Chem-Comprehensive 01/09/2024 Chem-Comprehensive 10/11/2023 Chem-Comprehensive 11/17/2023 Quantiferon Gold 01/09/2024 CBC (INCLUDES DIFF/PLT) ([id number]) 4 Insurance Providers Payer Name Payer Address Payer Phone Subscriber Number Group Number Insured Name Patient Relationship to Insured Coverage Start Date Coverage End Date [facility] [employer] [address] [address] [place] [address] [id number] Natalie Edwards ch Self - patient is the insured [place] [address] [place] [address] [id number] Natalie Edwards ch Self - patient is the insured Medications Administered Medication Instructions Date of Administration Dosage Notes DEPO-Medrol 03/05/2024 80 mg Medical (General) History Medical History History ICD Code leukocytosis bipolar 1 small fiber neuropathy hypertension diabetes hypothyroidism psoriasis Surgical History Surgery Date(Month/Year) left hip surgery (labral taper) hysterectomy
[2024-12-04 19:45] LABS: Creatinine Urine 235.3 mg/dL
[2024-12-04 20:49] LABS: Total Protein Urine Random < 5 mg/dL; Ur Ttl Prot Creatinine Ratio < 0.02 mg/mg (0-0.20)
== END 2024-12-04 12:50 | disposition home or self-care (01) ==
PROVIDERS: PCP Nurse Practitioner Family; Visit Provider Internal Medicine Nephrology
DX: E87.6 Hypokalemia (principal); I10 Essential (primary) hypertension
CPT/HCPCS: 36415; 80069; 82570; 84156; 85027

== ENCOUNTER 2024-12-05 11:17 | Outpatient (NON) | payer OTHER, SELFPAY ==
--- OUTSIDE RECORDS SUMMARY | 2024-12-05 13:05 | XMS_ITS | CONTINUITY OF CARE DOCUMENT ---
Author Name naeem hartley Address Unknown Organization [facility] Address [address] [place] [address] Phone [phone] Care Team Providers Care Brass Cutter Name Role Phone Essence PEARCE, Pablo Unavailable Nuvia FLAG CAR DRIVER-BC, Lulu L Unavailable Nuvia FLAG CAR DRIVER-BC, Lulu L Unavailable PROBLEMS Condition Status Date Provider Notes Asymmetric septal hypertrophy active Pablo Lowry MD Tricuspid regurgitation, mild active Pablo Lowry MD B12 deficiency active Pablo Lowry MD Screening active Pablo Lowry MD Erythrocytosis;with iron def active Pabol Lowry MD Vitamin D deficiency active Pablo Hicks Thrombocytosis active Pablo Lowry MD Elevated white blood cell count active Pablo Lowry MD Elevated LFT's active Pablo Lowry MD Hyperlipidemia;with high crp active Pablo Lowry MD Chest pain, atypical active Pablo Hicks Bipolar 1 disorder active Yulissa Acosta NP Hypertension active Yulissa armendariz DIRECTOR OF SECURITIES AND REAL [employer]STATE Hypothyroidism active Yulissa olmedo DIRECTOR OF SECURITIES AND REAL ESTATE Hypertriglyceridemia active Keny Acosta NP Hx of mitral valve prolapse completed 2021 - Pablo Lowry MD Palpitations;NML TSH completed - Pablo Lowry MD Personal history of [id number] been vaccinated active Yulissa gerber DIRECTOR OF SECURITIES AND REAL ESTATE covid 19;2020;HAD VACCINE active Pablo anthony MD FAMILY HISTORY OF HEART DISEASE active Pablo Lowry MD both parents Obesity active Pablo Lowry MD ENCOUNTERS Date Type Provider Location Encounter Diag nosis - In-person encounter Office Visit Pablo Lowry MD [facility] Office Chest pain, atypical Hx of mitral valve prolapsePalpitations;NM L TSHcovid ;HAD VACCINEFAMILY HISTORY OF HEART DISEASEObesity - In-person encounter Office Visit Pablo Lowry MD [facility] Office Chest pain, atypicalBipolar 1 disorderHypertensionHyp othyroidismHypertriglyc eridemiaPalpitations;NM L TSHPersonal history of [id number] been vaccinated VITAL SIGNS Date Observation Value Provider Body Mass Index (Ratio) 35.42 kg/m2 Alvaro Lowry MD weight E&M 200 [lb_av] Pablo Hicks weight E&M 200 [lb_av] Law mas Body Mass Index (Ratio) 36.13 kg/m2 Alvaro Lowry MD height E&M 63 [in_i] Elisa O'Mauricio [...] Normal Absolute Neutrophil count 8514 cells/mcL [employer] [id number] High mean platelet volume 10.1 fL [employer] [...] Payer name Policy type / Coverage type [employer] ID [id number] ADVANCE DIRECTIVES Name Date DISCUSSED - NO DECISION MADE TREATMENT PLAN Date Name Performer [id number],Pablo Duron MD [id number],Pablo Duron MD [id number],Pablo Duron MD [id number],Pablo Duron MD [id number],Pablo Duron MD [id number],C,C HOL: 232 (06/11/2022) LDL: 155 MG/DL (CALC) (06/11/2022) HDL: 36 (06/11/2022) T (06/11/2022) C RP: 5.7 mg/L (06/11/2022) Pablo Lowry MD [id number],C,C HOL: 232 (06/11/2022) LDL: 155 MG/DL (CALC) (06/11/2022) HDL: 36 (06/11/2022) T (06/11/2022) C RP: 5.7 mg/L (06/11/2022) Pablo Lowry MD [id number],Pablo Duron MD [id number],S,neg stress Chance macy Lowry [id number],S,n eg tsh and hotler p ro 13, a1c 4.9 n eg hiv Pablo Lowry [id number],S, Pablo Serot a [id number],S, Pablo Serot a [id number],S, Pablo Serot a [id number],S, Pablo Serot a [id number],C,C HOL: 232 (06/11/2022) LDL: 155 MG/DL (CALC) (06/11/2022) HDL: 36 (06/11/2022) T (06/11/2022) C RP: 5.7 mg/L (06/11/2022) Pablo Lowry [id number],C,C HOL: 232 (06/11/2022) LDL: 155 MG/DL (CALC) (06/11/2022) HDL: 36 (06/11/2022) T (06/11/2022) C RP: 5.7 mg/L (06/11/2022) Pablo Lowry [id number],S, Pablo carmona [id number],S, Pablo Spicer a [id number],S,n eg tsh and hotler p ro 13, a1c 4.9 Pablo Spicerkristine PEARCE [id number],C,pro 13, a1c 4 .9 Pablo Serotkristine [id number],C,48hr monitor Yulissa Acosta NP [id number],C,f ollows psych. EKG 06/02/22 SR with prolonged QTc, 498. pt current meds include lithium, paroxetine and lorazepam, that have been at constant doses, without recent changes. LITHIUM CAN PROLONG QTc, recommend psych adjusting/changing to other drug. Yulissa Fergusonbrock MILLAN [id number],C,. Pt reports over the last 2-3 weeks, [...] ECHO. will check labs Yulissa Acosta NP [id number],C,will check li pid panel Yulissa Acosta NP [id number],C,on levothyrox ine. will check TSH Yulissa Acosta NP [id number],C, B P today: 140/80 Her updated medication list for this problem includes: Metoprolol Tartrate 25 Mg Tablet (Metoprolol tartrate) ..... Take 1 tablet by mouth twice a day Yulissa Acosta NP [id number],C,04/2022 Rhianna Acosta NP [facility] Pablo Lowry MD [facility] Pablo Lowry [...] a1c 4.9 n eg hiv Pablo Lowry MD [facility] Pablo Lowry MD [...] NP Cardiology:on levothyroxine. joey raymundo check TSH Yulsisa Acosta NP Cardiology: B P today: 140/80 Her updated medication list for this problem includes: Metoprolol Tartrate 25 Mg Tablet (Metoprolol tartrate) ..... Take 1 tablet by mouth twice a day Yulissa Acosta NP Cardiology:04/2022 Yulissa barbosa DIRECTOR OF SECURITIES AND REAL ESTATE Date Name RPM (remote patient monitoring) CT, [...]
--- OUTSIDE RECORDS SUMMARY | 2024-12-05 13:05 | XMS_ITS | Continuity of Care Document ---
Author Organization [facility] Address [address] [place] [address] Phone Care Team Providers Care Pest Controller Assistant Name Role Phone Christiano OD, Donna Unavailable Unavailable Procedures Procedure Date Charge For A No Show Advance Directives Directive Yes / No Effective Date File Name No Information Encounters Encounter Description Practice Location Reason(s) For Visit Diagnoses Date Provider Providers Copied on Encounter [facility], [id number] [place] [address] [address], [place], [place], [id number], tel:[phone] [place] [facility] No Information 4 Christiano OD Donna. [address] [place] [address] [address], [address], [place], [place], [id number], [place]. tel:[phone] Family History Family Member Type Diagnosis Age [...]
== END 2024-12-05 11:18 | disposition home or self-care (01) ==
PROVIDERS: PCP Nurse Practitioner Family; Visit Provider Internal Medicine Nephrology
DX: E87.6 Hypokalemia (principal); I10 Essential (primary) hypertension
CPT/HCPCS: 82530

== ENCOUNTER 2025-02-12 14:04 | Outpatient (CLI) | payer OTHER, SELFPAY ==
--- NOTE | ~2025-02-12 | XR_ITS ---
EXAMINATION: XR wrist RT 2V, XR hand LT 2V, XR hand RT 2V, XR wrist LT 2V DATE: 02/12/2025 14:25 INDICATION: Joint pain TECHNIQUE: 1. Posteroanterior and lateral views of the left wrist were obtained. 2. Dorsal palmar and lateral views of the left hand were obtained. 3. Posteroanterior and lateral views of the affected wrist were obtained. 2. Dorsal palmar and lateral views of the right hand were obtained. COMPARISON: None. FINDINGS: Left hand and wrist: Alignment of the hand and wrist is normal. No fracture identified. Joint spaces are normal. No eros ions to suggest inflammatory arthritis. No focal soft tissue swelling. Right hand and wrist: Alignment of the hand and wrist is normal. No fracture identified. Joint spaces are normal. No eros ions to suggest inflammatory arthritis. No focal soft tissue swelling. IMPRESSION: 1. Normal bilateral hand and wrist radiographs. Reviewed, dictated and finalized at location A. IMPRESSION: 1. Normal bilateral hand and wrist radiographs. IMPRESSION: 1. Normal bilateral hand and wrist radiographs. IMPRESSION: 1. Normal bilateral hand and wrist radiographs.
--- NOTE | ~2025-02-12 | XR_ITS ---
EXAMINATION: XR ankle LT 2V, XR foot LT 2V, XR foot RT 2V, XR ankle RT 2V DATE: 02/12/2025 14:25 INDICATION: Joint pain TECHNIQUE: 1. Anteroposterior and lateral view of the left ankle were obtained. 2. Dorsoplantar and lateral views of the left foot were obtained. 3. Anteroposterior and lateral view of the affected ankle were obtained. 4. Dorsoplantar and lateral views of the right foot were obtained. COMPARISON: None. FINDINGS: Left foot and ankle: Alignment of the left foot and ankle is normal. No fracture or osteochondral lesion. Joint spaces are well maintained. Small Achilles calcaneal spur. No ankle joint effusion. The soft tissues are unrema rkable. Right foot and ankle: Alignment of the right foot and ankle is normal. No fracture or osteochondral lesion. Joint spaces ar e well maintained. Tiny enthesopathic ossicle at the calcaneal insertion of the distal Achilles tendo n. No ankle joint effusion. The soft tissues are unremarkable. IMPRESSION: 1. Small left plantar calcaneal enthesophyte and tiny these pelvic ossicle at the distal right Achill es tendon. Otherwise unremarkable bilateral foot and ankle radiographs. Reviewed, dictated and finalized at location A. IMPRESSION: 1. Small left plantar calcaneal enthesophyte and tiny these pelvic ossicle at t he distal right Achilles tendon. Otherwise unremarkable bilateral foot and ankl e radiographs. IMPRESSION: 1. Small left plantar calcaneal enthesophyte and tiny these pelvic ossicle at t he distal right Achilles tendon. Otherwise unremarkable bilateral foot and ankl e radiographs. IMPRESSION: 1. Small left plantar calcaneal enthesophyte and tiny these pelvic ossicle at t he distal right Achilles tendon. Otherwise unremarkable bilateral foot and ankl e radiographs.
--- OUTSIDE RECORDS SUMMARY | 2025-02-12 14:10 | XMS_ITS | Referral Summary ---
Author Organization [facility] Address [address] [place] [address] Care Team Providers Care Expanded Function Dental Assistant Name Role Phone Colleen Pagan SEMIAUTOMATIC TAPER OPERATOR Primary Care Provider [phone] Encounters Date Type Department Care Team Description 01/17/2025 Orders Only [facility] Orthopaedic Surgery [address] [place] [address] [address] [place] [phone] Gunnar Moss MD Left hip pain (Primary Dx) 01/15/2025 Documentation [facility] Orthopaedic Surgery [address] [place] [address] 4 [address] [place] [phone] Gloria Kowalski CMA 01/10/2025 7:15 AM CDT - 01/10/2025 9:10 AM CDT Surgery [facility] Operating Room [address] [place] [address] Gunnar Moss MD ARTHROPLASTY TOTAL HIP - DEPUY 01/10/2025 7:05 AM CDT Anesthesia Event [facility] Operating Room [address] Arianna Mahmood[place] [address] Kevyn Bearden MD Thomas, Karen D., SEMIAUTOMATIC TAPER OPERATOR 01/10/2025 5:08 AM CDT - 01/10/2025 12:44 PM CDT Hospital Encounter [facility] Operating Room [address] [address] [address] Gunnar Moss MD Primary osteoarthritis of left hip (Primary Dx); Osteoarthritis of left hip, unspecified osteoarthritis type Discharge Disposition: Discharge to home or self care 12/26/2024 Orders Only [facility] Orthopaedic Surgery [address] [place] [address] 4 [address] [place] [address] Gunnar Moss MD Bilateral hip pain (Primary Dx) 12/19/2024 Orders Only [facility] Orthopaedic Surgery [address] [place] [address] [address] [place] [address] Gunnar Moss MD 12/19/2024 Documentation [facility] Orthopaedic Surgery [address] [place] [address] [place] [phone] Josie Thorpe RN 12/11/2024 Orders Only [facility] Surgery [address] [place] [address] [place] [phone] Gunnar Moss MD 12/11/2024 11:05 AM CDT Lab [facility] [address] [address] [address] Preoperative testing; Primary osteoarthritis of left hip 12/11/2024 11:30 AM CDT Pre-Admission Testing [facility] Pre-Anesthesia Testing [address] [address] [address] Preoperative testing (Primary Dx) 12/03/2024 Documentation [facility] Orthopaedic Surgery [address] [place] [address] [address] [place] [phone] Marizol Hand from Last 3 Months Allergies Active Allergy Reactions Criticality Noted Date Comments Codeine Itching,Rash Reaction: Itching, Rash, Levofloxacin Rash Medium 04/09/2024 Lisinopril Cough Low 06/21/2024 Morphine Hives Medium 12/11/2024 Penicillins Itching,Rash Reaction: Itching, Rash, Phenazopyridine Nausea only Medium 04/09/2024 Vancomycin Hives,Itching,Rash High Reaction: Hives, Itching, Rash, Medications PARoxetine (PAXIL) 40 mg tabletIndication s:Anxiety with Depression Take 1 tablet (40 mg total) by mouth every morning 03/06/20 23 Active levothyroxine (SYNTHROID) 75 mcg tabletIndication s:hypothyroidism Take 1 tablet (75 mcg total) by mouth aoc director intelligence officer before breakfast 09/26/18 70 Active LORazepam (ATIVAN) 0.5 mg tablet Take 1 tablet (0.5 mg total) by mouth 3 (three) times a day as needed for anxiety 02/23/20 23 Active gabapentin (NEURONTIN) 300 mg capsuleIndicatio ns:Neuropathic Pain Take 3 capsules (900 mg total) by mouth nightly 09/21/20 23 Active traZODone (DESYREL) 100 mg tablet Take 1 tablet (100 mg total) by mouth nightly as needed for sleep 09/21/20 23 Active Xiidra 5 % dropperette Administer 0.1 each (1 drop total) into both eyes as needed (dry eye) 06/12/20 24 Active Rinvoq 15 mg tablet extended release 24 hrIndications:Rh eumatoid Arthritis Take 1 tablet (15 mg total) by mouth every morning 06/12/20 24 Active metoprolol XL (TOPROL-XL) 50 mg extended release tabletIndication s:Paroxysmal atrial fibrillation (HCC) Take 1 tablet (50 mg total) by mouth every morning 30 tablet 11 06/21/20 24 Active Additional Information Patient taking differently:50 mg oral Every morning,Indications: hypertension, Informant: Self, Reported on 01/10/2025 losartan (COZAAR) 100 mg tabletIndication s:Essential hypertension Take 1 tablet (100 mg total) by mouth daily 30 tablet 11 09/17/20 24 025 Active Additional Information Patient taking differently:100 mg oralEvery morning, Indications: hypertension, Informant: Self, Reported on 12/11/2024 cyanocobalamin (Vitamin B-12) 1,000 mcg tablet Take 1 tablet (1,000 mcg total) by mouth every morning 06/28/20 22 Active psyllium 0.52 gram capsule Take 1 capsule (0.52 g total) by mouth every morning Active ergocalciferol (VITAMIN D) 50,000 unit capsule TAKE 1 CAP 2 X A WEEK FOR 8 WEEKS THEN FOLLOW UP WITH YOUR PCP. 16 capsule 12/13/19 25 Active traMADoL (ULTRAM) 50 mg tablet Take 1 tablet (50 mg total) by mouth every 8 (eight) hours as needed for pain 42 tablet 01/11/20 25 Active acetaminophen (TYLENOL) 500 mg tablet Take 2 tablets (1,000 mg total) by mouth every 8 (eight) hours 90 tablet 1 01/11/20 25 Active aspirin 81 mg enteric coated tabletIndication s:prevention of thrombosis Take 1 tablet (81 mg total) by mouth 2 (two) times a day 60 tablet 01/11/20 25 Active meloxicam (MOBIC) 15 mg tablet Take 1 tablet (15 mg total) by mouth daily 30 tablet 01/11/[address] (PROTONIX) 20 mg EC tablet Take 1 tablet (20 mg total) by mouth daily 30 tablet 01/11/20 25 Active senna-docusate (Senna-S) 8.6-50 mg Take 2 tablets by mouth 2 (two) times a day 80 tablet 1 01/11/20 25 Active HYDROmorphone (DILAUDID) 2 mg tabletIndication s:Pain Take 1-2 tablets (2-4 mg total) by mouth every 4 (four) hours as needed for pain 42 tablet 01/19/20 25 Active triamcinolone (KENALOG) 0.1 % creamIndications :Rash and other nonspecific skin eruption Apply topically 2 (two) times a day 30 g 01/22/20 25 Active cyclobenzaprine (FLEXERIL) 10 mg tablet Take 1 tablet (10 mg total) by mouth 3 (three) times a day as needed for muscle spasms 30 tablet 01/25/20 25 Active HYDROcodone-acet aminophen (NORCO) 5-325 mg per tabletIndication s:Pain Take 1 tablet by mouth every 6 (six) hours as needed for pain 40 tablet 02/05/20 25 Active HYDROcodone-acet aminophen (NORCO) 5-325 mg per tabletIndication s:Pain Take 1 tablet by mouth every 6 (six) hours as needed for pain 40 tablet 01/12/20 25 025 Discontin ued(Reord er) HYDROcodone-acet aminophen (NORCO) 5-325 mg per tabletIndication s:Pain Take 1 tablet by mouth every 6 (six) hours as needed for pain 40 tablet 01/18/20 25 025 Discontin ued(Reord er) Active Problems Problem Noted Date Diagnosed Date Osteoarthritis of left hip, unspecified osteoart hritis type 01/10/2025 Primary osteoarthritis of left hip 08/21/2024 Severe obesity 06/21/2024 Sacroiliitis 11/04/2023 Neuropathy 03/16/2023 Bipolar disorder 11/30/2022 Essential hypertension 11/30/2022 Leukocytosis 11/03/2022 Gastroesophageal reflux disease without esophagi tis 03/01/2022 Hyperlipidemia 12/17/2021 Hypothyroidism 12/17/2021 Genital warts 11/24/2021 Obesity 03/04/2020 Bipolar I disorder, most rec ent episode depressed, severe without psychotic features 09/23/2019 Assessment & Plan (09/23/2019 10:42 PM COAL SHOOTER): Patient has an established diagnosis of bipolar affective disorder, characterized by periods of low mood, anhedonia, difficulty concentrating, low energy, poor sleep and suicidal ideation, as well as at least one manic episode with impulsivity, increased spending, decreased need for sleep, racing thoughts. She has an outpatient psychiatrist in [place], [place] Dr. Kramer and has been tried [...] wake up. She has never been on [place] because she was scared of the side effects, but is now amenable to it. Plan is to start [place] ER 600mg at bedtime. D/c latuda. Continue [...] and Family Twice a week 09/24/2019 Attends [employer] Services Never 09/24 Active Member of Clubs or Organizations No 09/24/2019 Attends Club or Organization Meetings Never 09/24/2019 Marital Status 09/24/2019 AUDIT-C Answer Date Recorded Q1: How often do you have a drink containing alc ohol? Never 01/10/2025 Average Number of Drinks Not on file 025 Frequency of Binge Drinking Not on file 12/25 Overall Financial Resource Strain (CARDIA) Answe r [...] 09/24/2019 Lack of Transportation (Non-Medical) No 09/24/2019 Personal Safety Answer Date Recorded Have you ever been in or are you currently in a harmful physical or emotional relationship or is someone making you feel afraid or unsafe? Denies 01/10/2025 Education Answer Date Recorded What is the highest level of school you have completed or the highest degree you have received? Bachelor's degree (e.g., BA, AB, BS) 09/24/2019 Comments No Sex and Gender Information Value Date Recorded Sex Assigned at Not on file Legal Sex Female 3:31 PM COAL SHOOTER Gender Identity Not on file Sexual Orientation Not on file Last Filed Vital Signs Vital Sign Reading Time Taken Comments Blood Pressure 176/81 01/10/2025 11:25 AM CDT Pulse 66 01/10/2025 11:35 AM CDT Temperature 36.7 C (98.1 F) 01/10/2025 5:55 AM CDT Respiratory Rate 12 01/10/2025 11:35 AM CDT Oxygen Saturation 97% 01/10/2025 11:35 AM CDT Inhaled Oxygen Concentration - - Weight 95.3 kg (210 lb) 12/11/2024 11:20 AM CDT Height 160 cm (5' 3 ) 12/11/2024 11:20 AM CDT Body Mass Index 37.2 12/11/2024 11:20 AM CDT Plan of Treatment Not on file Medical Devices Implanted Type Area Regulatory Compliance Specialist Device Identifier Shelf Expiration Date Model / Serial / Lot [employer] Bi Mentum 47mm Press Fit Femoral Proximal Cup Acetabular [id number] - [id number] Implanted:Qty: 1 on 01/10/2025 at [facility] Left: Hip [employer] 05/26/2028 [id number] / / [id number] [employer] Liner Acetabular Hip Bi Mentum Altrx 47mm Polyethylene Size 28 [id number] - [id number] Implanted:Qty: 1 on 01/10/2025 at [facility] Left: Hip [employer] 09/25/2029 [id number] / / [id number] [employer] Articul/Eric 28mm Cementless Hip +1.5mm 09/08 Taper Head Femoral Latex Free [id number] - [id number] Implanted:Qty: 1 on 01/10/2025 at [facility] Left: Hip [employer] 11/23/2029 [id number] / / [id number] [employer] Actis 105mm Collar Hip 5 High Offset Stem Femoral [id number] - [id number] Implanted:Qty: 1 on 01/10/2025 at [facility] Left: Hip [employer] 10/26/2034 [id number] / / [id number] Procedures Procedure Name Priority Date/Time Associated Diagnosis Comments XR PELVIS ORTHO VIEW ED Urgent/IP Urgent 01/10/2025 8:37 AM CDT ARTHROPLASTY TOTAL HIP - DEPUY 01/10/2025 7:04 AM CDT Primary osteoarthritis of left hip GA AN PROCEDURE PLACEHOLDER Routine 01/10/2025 6:59 AM CDT EGFR Routine 12/11/2024 11:53 AM CDT Primary osteoarthritis of left hip COMPREHENSIVE METABOLIC PANEL Routine 12/11/2024 11:53 AM CDT Primary osteoarthritis of left hip VITAMIN D 25 HYDROXY Routine 12/11/2024 11:53 AM CDT Primary osteoarthritis of left hip CBC WITHOUT DIFFERENTIAL Routine 12/11/2024 11:53 AM CDT Preoperative testing from Last 3 Months Results * XR Pelvis Ortho View (01/10/2025 8:37 AM CDT) Anatomical Region Laterality Modality Body, Pelvis N/A Computed Radiogr aphy 01/10/2025 9:12 AM CDT Impressions 01/10/2025 9:52 AM CDT 1. Interval postsurgical changes of left hip total arthroplasty in expected position. Dictated by: Bert Otero M.D. The radiology attending physician has personally reviewed this study, and had reviewed and/or edited this written report and agrees with it. Electronically signed by: Oumar Williamson MD Narrative 01/10/2025 9:52 AM CDT EXAMINATION: XR PELVIS ORTHO VIEW HISTORY: Left hip orthoplasty. FINDINGS: 1 radiograph of the pelvis is submitted for interpretation with comparison made to 04/09/2024. Interval postsurgical changes of left hip total arthroplasty in expected position. The instrumentation appears intact. No periprosthetic osteolysis or fracture. The right femoral head overlies the right acetabulum. No acute displaced fracture. Small amount of expected postsurgical subcutaneous gas surrounding the left hip. Procedure Note Oumar Williamson MD - 01/10/2025 EXAMINATION: XR PELVIS ORTHO VIEW HISTORY: Left hip orthoplasty. FINDINGS: 1 radiograph of the pelvis is submitted for interpretation with comparison made to 04/09/2024. Interval postsurgical changes of left hip total arthroplasty in expected position. The instrumentation appears intact. No periprosthetic osteolysis or fracture. The right femoral head overlies the right acetabulum. No acute displaced fracture. Small amount of expected postsurgical subcutaneous gas surrounding the left hip. IMPRESSION: 1. Interval postsurgical changes of left hip total arthroplasty in expected position. Dictated by: Bert Otero M.D. The radiology attending physician has personally reviewed this study, and had reviewed and/or edited this written report and agrees with it. Electronically signed by: Oumar Williamson MD Peter Kim MD IMG XR PROCEDURES Final R esult * GA AN PROCEDURE PLACEHOLDER (01/10/2025 6:59 AM CDT) Narrative Kevyn Bearden MD - 01/10/2025 6:59 AM CDT Kevyn Bearden MD 01/10/2025 6:59 AM Spinal Block Patient location: pre-op holding Reason for block: primary anesthetic Procedure prep: Preprocedure checklist: patient identified, procedure contraindications assessed, site marked, procedure consent, surgical consent, IV checked, risks, benefits and alternatives discussed, monitors and equipment checked and timeout performed Patient position: sitting Procedure performed while patient: sedate with meaningful contact Monitoring: oximetry and blood pressure Supplemental O2: nasal cannula Prep solution: chlorhexadine/alcohol PPE: sterile gloves, provider hat/mask and sterile drape Skin infiltrated with lidocaine 1%: yes Spinal: Approach: midline Introducer used: yes Location: L3-4 Spinal injection: CSF demonstrated, no aspiration of heme and no paresthesias noted Number of attempts: 1 Spinal Needle: Needle type: Kathy Balaji (Kathy Balaji) Needle gauge: 24 G Needle length: 9 cm Assessment: Events: patient tolerated procedure well with no complications Kevyn Bearden MD ANESTHESIA ORDERABLES Hanna l Result * (ABNORMAL) eGFR (12/11/2024 11:53 AM CDT) eGFR 58(L) >=60 mL/min/1. 73 m2 Comment: Interpretive Data Reference Interval Normal >/= 90 mL/min/1.73m2 Mildly decreased* 60 - 89 mL/min/1.73m2 Mildly to moderately decreased 45 - 59 mL/min/1.73m2 Moderately to severely decreased 30 - 44 mL/min/1.73m2 Severely decreased 15 - 29 mL/min/1.73m2 Kidney Failure < 15 mL/min/1.73m2 *Relative to young adult level Estimated glomerular filtration rate is determined by the 2020 CKD-EPI equation recommended by the National Kidney Foundation (A Unifying Approach to GFR Estimation: Recommendations of the NKF-ASK Task Force on Reassessing the Inclusion of Race in Diagnosing Kidney Disease, JASN 2020). The CKD-EPI equation should not be used for patients with unstable renal function and has not been validated in children and those over 70. Current interpretive data was last reviewed 2021. Blood 12/11/2024 11:5 3 AM CDT 12/11/2024 12:24 PM CDT us Gunnar Moss MD LAB BLOOD ORDERABLES Hanna l Result Performing Organization Address [facility] Co de Phone Number [facility] [phone] [employer] [place], [place] [phone] * (ABNORMAL) Vitamin D 25 hydroxy (12/11/2024 11:53 AM CDT) Vitamin D 25-OH 29(L) 30 - 80 ng/mL Blood 12/11/2024 11:5 3 AM CDT 12/11/2024 12:24 PM CDT Gunnar Moss MD LAB BLOOD ORDERABLES Hanna l Result Performing Organization Address [facility] Co de Phone Number [facility] [phone] [place] [address] * (ABNORMAL) CBC without differential (12/11/2024 11:53 AM CDT) WBC 7.0 3.8 - 9.9 K/cumm Hgb 15.2 11.9 - 15.5 g/dL [facility] Hct 45.7(H) 35.6 - 45.5 % [facility] Plt 294 150 - 400 K/cumm [facility] MPV 10.3 9.1 - 12.[address] [facility] RBC 5.18 3.90 - 5.20 M/cumm [facility] MCV 88.2 81.3 - 96.[address] [facility] MCH 29.3 27.1 - 33.[address] [facility] MCHC 33.3 32.3 - 35.7 g/dL [facility] RDW CV 13.8 11.1 - 14.9 % [facility] RDW SD 44.7 35.7 - 48.[address] [facility] NRBC abs 0.00 0.00 - 0.01 K/cumm [facility] Blood 12/11/2024 11:5 3 AM CDT 12/11/2024 12:24 PM CDT Jessica Bryant NP LAB BLOOD ORDERABLES Final Result [facility] [address] [facility] Department [place] [address] * (ABNORMAL) Comprehensive metabolic panel (12/11/2024 11:53 AM CDT) Sodium 141 135 - 145 mmol/L Potassium, pl 4.4 3.3 - 4.9 mmol/L [facility] Chloride 106 97 - 110 mmol/L [facility] CO2 26 22 - 32 mmol/L [facility] Anion gap 10 2 - 15 mmol/L [facility] BUN 17 6 - 25 mg/dL [facility] Creatinine 1.18(H) 0.60 - 1.10 mg/dL [facility] Glucose 97 70 - 199 mg/dL [facility] Comment: Interpretive Data Fasting glucose >/= 126 mg/dl is diagnostic for diabetes. Fasting is defined as no caloric intake for at least 8 hours. Fasting glucose between 100 mg/dl to 125 mg/dl is diagnostic of prediabetes. In a patient with classic symptoms of hyperglycemia or hyperglycemic crisis, a random glucose >/= 200 mg/dl is diagnostic for diabetes. In the absence of unequivocal hyperglycemia, results should be confirmed by repeat testing. The classification and Diagnosis of Diabetes Diabetes Care 2021; 46: S19-S40. Current interpretive data was last revised 2022. Calcium 9.6 8.5 - 10.3 mg/dL [facility] Bilirubin, total 0.5 0.1 - 1.2 mg/dL [facility] Protein, pl 6.8 6.5 - 8.5 g/dL [facility] Albumin 3.9 3.5 - 5.0 g/dL [facility] Alk phos 33(L) 40 - 130 Units/L [facility] ALT 21 7 - 45 Units/L [facility] AST 16 10 - 45 Units/L [facility] Blood 12/11/2024 11:5 3 AM CDT 12/11/2024 12:24 PM CDT us Gunnar Moss MD LAB BLOOD ORDERABLES Hanna raymundo Result [facility] [address] [facility] Department [place] [address] from Last 3 Months Insurance [facility] Advance Directives For more information, please contact: [phone] * Full Code (Latest Code Status on File) Date Activated Date Inactivated Comments 01/10/2025 8:22 AM 01/10/2025 4:44 PM * Full Code Date Activated Date Inactivated Comments 09/22/2019 5:13 PM 09/25/2019 12:46 PM Care Teams Expanded Function Dental Assistant Relationship Specialty Start Date End Date Colleen Pagan NP [address] [place] [address] PCP - General Family Medicine 06/21/24
--- OUTSIDE RECORDS SUMMARY | 2025-02-12 14:10 | XMS_ITS | Patient Health Record ---
Author Organization [facility] [place] ([address]) Address [address] [place] [address] Care Team Providers Care Manager Rental Name Role Phone Funmilayo Narvaez Unavailable [phone] Kiera Lucas Unavailable [phone] Reason For Referral No Information Problems Problem Type SNOMED Code ICD Code Onset Dates Problem Status W/U Status Risk Notes Problem Chronic allergic conjunctivitis (47808473) Other chronic allergic conjunctivitis (H10.45) Active confirmed Problem Allergic rhinitis caused by pollen (disorder) (78683736) Allergic rhinitis due to pollen (J30.1) Active confirmed Problem Allergic rhinitis (51619856) Other allergic rhinitis (J30.89) Active confirmed Problem Chronic rhinitis (85216531) Chronic rhinitis (J31.0) Active confirmed Problem Uncomplicated mild persistent asthma (186705854) Mild persistent asthma, uncomplicated (J45.30) Active confirmed Problem Uncomplicated moderate persistent asthma (958332872) Moderate persistent asthma, uncomplicated (J45.40) Active confirmed Problem Uncomplicated severe persistent asthma (519978826) Severe persistent asthma, uncomplicated (J45.50) Active confirmed Problem Allergic rhinitis caused by animal hair and dander (634796649473007) Allergic rhinitis due to animal (cat) (dog) hair and dander (J30.81) Active confirmed Encounters Encounter Location Date Provider Diagnosis [facility] [place] [address] [place] [address] 04/16/2024 Kiera Lucas Plan Of Treatment No Information Insurance Providers Payer Name Payer Address Payer Phone Subscriber Number Group Number Insured Name Patient Relationship to Insured Coverage Start Date Coverage End Date R [address] [address] [place], [place] [id number] Natalie Edwards ch Self - patient is the insured 4
--- OUTSIDE RECORDS SUMMARY | 2025-02-12 14:10 | XMS_ITS ---
Author Organization [facility] Address [address], [place] [address] Care Team Providers Care Actuarial Internship Name Role Phone Nuvia MILLAN, Lulu Primary Care Provider Unavail able Abbie Rubio [phone] REASON FOR VISIT pain Medications Medication SIG (Take, Route, Fr equency, Duration) Notes Start Date End Date Status Gabapentin 600 MG 1 tablet Orally 3 ti mes a day for 30 days 03/15/2024 Active Encounters Encounter Location Date Provider Diagnosis [facility] [address] [address] [place] [address] 03/15/2024 Abbie Rubio Plan Of Treatment Medication Medication Name Sig Start Date Stop Date Notes Gabapentin 600 MG 1 tablet Orally 3 ti mes a day for 30 days 03/15/2024 Progress Notes * TATEBerenice NaylorCristhianOB:1979 (43 yo F)Acc No.[id number]:03/15/2024 Patient: Natalie JOHNSON :1980 A ge:43 Y S ex:Female Address:[address] [place], [address] * Refills Start Gabapentin Tablet, 600 MG, Orally, 90 Tablet, 1 tablet, 3 times a day, 30 days, Refills=2 * true * Date: Generated for Kentrelli ng/Farosaleeg/eTransmitting on: 0 02/12/2025 02:10 PM CDT
--- OUTSIDE RECORDS SUMMARY | 2025-02-12 14:10 | XMS_ITS | Clinical Summary ---
Author Organization [facility] Address [address] [place] [address] Care Team Providers Care Mash Tub Cooker Name Role Phone Colleen Pagan SPECIALTY MANUFACTURING SUPERVISOR Primary Care Provider [phone] Allergies Active Allergy Reactions Criticality Noted Date [...] 1 tablet (75 mcg total) by mouth nuclear weapons custodian before breakfast 09/26/18 70 Active LORazepam (ATIVAN) [...] 09/23/2019 Assessment & Plan (09/23/2019 10:42 PM STONE AND CONCRETE WASHER): Patient has an established diagnosis of bipolar affective disorder, characterized by periods of low mood, anhedonia, difficulty concentrating, low energy, poor sleep and suicidal ideation, as well as at least one manic episode with impulsivity, increased spending, decreased need for sleep, racing thoughts. She has an outpatient psychiatrist in [place], [place] Dr. Kramer and has been tried [...] wake up. She has never been on Babbie because she was scared of the side effects, but is now amenable to it. Plan is to start Babbie ER 600mg at bedtime. D/c latuda. Continue [...] Department Care Team Description 01/17/2025 Orders Only [facility] Orthopaedic Surgery [address] [place] [address] 4 [address] [place] [address] Gunnar Moss MD Left hip pain (Primary Dx) 01/15/2025 Documentation [facility]opa[facility] Surgery [address] [place] [address] 4 [address] [place] [address] Gloria Kowalski CMA 01/10/2025 7:15 AM CDT - 01/10/2025 9:10 AM CDT Surgery [facility] Operating Room [id number] [address] [address] Gunnar Moss MD ARTHROPLASTY TOTAL HIP - DEPUY 01/10/2025 7:05 AM CDT Anesthesia Event [facility] Operating Room [address] [address], [place] [address] Kevyn Bearden MD Thomas, Karen D., SPECIALTY MANUFACTURING SUPERVISOR 01/10/2025 5:08 AM CDT - 01/10/2025 12:44 PM CDT Hospital Encounter [facility] Operating Room [address] [address] [address] Gunnar Moss MD Primary osteoarthritis of left hip (Primary Dx); Osteoarthritis of left hip, unspecified osteoarthritis type Discharge Disposition: Discharge to home or self care 12/26/2024 Orders Only [facility]opa[facility] Surgery [address] [place] [address] [address] [place] [address] Gunnar Moss MD Bilateral hip pain (Primary Dx) 12/19/2024 Orders Only [facility] Surgery [address] [place] [address] 4 [address] [place] [address] Gunnar Moss MD 12/19/2024 Documentation [facility] [address] [place] [address] 4 [address] [place] [address] Josie Thorpe RN 12/11/2024 11:30 AM CDT Pre-Admission Testing [facility] Pre-Anesthesia Testing [address] [place] [address] Preoperative testing (Primary Dx) 12/11/2024 11:05 AM CDT Lab [facility] [address] [place] [address] Preoperative testing; Primary osteoarthritis of left hip 12/11/2024 Orders Only [facility] Surgery [address] [place] [address] [address] [place] [address] Gunnar Moss MD 12/03/2024 Documentation [facility] [address] [place] [address] [address] [place] [address] Marizol Hand from Last 3 Months Surgical History Surgery Date Site/Laterality Comments HYSTERECTOMY 09/26/2022 - 09/25/2023 HIP ARTHROSCOPY 09/26/2013 - 09/25/2014 Left BREAST IMPLANT REMOVAL 09/26/2017 - 09/25/2018 Bilateral BREAST SURGERY Bilateral 2014 breast augmentation FLUORO GUIDED ASPIRATION OR INJECTION LARGE JOINT LEFT 04/20/2024 Left SINUS SURGERY 09/26/1997 - 09/25/1998 Medical History Medical History Date Comments Depression Hypertension Anxiety Bipolar disorder (HCC) Rheumatoid arthritis (HCC) Psoriatic arthritis (HCC) Hypothyroidism Small fiber neuropathy Family History Medical History Relation Name Comments Diabetes Father Heart disease Father Hypertension Father Diabetes Mother Heart disease Mother Hypertension Mother Anesthesia problems Neg Hx Relation Name Status Comments Father Mother Social [...] and Family Twice a week 09/24/2019 Attends [employer] Never 09/24 Active Member of Clubs [...] on file Legal Sex Female 3:31 PM STONE AND CONCRETE WASHER Gender Identity Not on file Sexual Orientation [...] 12/11/2024 11:20 AM CDT Plan of Treatment Health Maintenance Due Date Last Done Comments Breast Cancer Screening-Mammogram 1979 Colon Cancer Screening-Colonoscopy 1979 Depression Screening 1979 Hepatitis C Screening 1979 Hepatitis B Screening 1997 Regular Well Visit/Exam 18-64 1997 Pneumococcal vaccine <65 (1 of 2 - PCV) 1998 Covid-19 Vaccine (3 - 2023-2 5 season) 2024 10/06/2020, 09/15/2020 Influenza Vaccine (Season Ended) 2025 10/12/2017, 05/31/2017, 06/19/2016 DTaP/Tdap/Td Vaccine (3 - Td or Tdap) 03/16/2033 03/16/2023, 06/15/2016 HPV Vaccines Aged Out No longer eligi ble based on patient's age to complete this topic Medical Devices Implanted Type Area Pododermatologist Device Identifier Shelf Expiration Date Model / Serial / Lot [employer] Bi Mentum 47mm Press Fit Femoral Proximal Cup Acetabular [id number] - [id number] Implanted:Qty: 1 on 01/10/2025 at [facility] Left: Hip [employer] 05/26/2028 [id number] / / [id number] [employer] Liner Acetabular Hip Bi Mentum Altrx 47mm Polyethylene Size 28 [id number] - [id number] Implanted:Qty: 1 on 01/10/2025 at [facility] Left: Hip [employer] 09/25/2029 [id number] / / [id number] [employer] Articul/Eric 28mm Cementless Hip +1.5mm 09/08 T[employer] Head Femoral Latex Free [id number] - [id number] Implanted:Qty: 1 on 01/10/2025 at [facility] Left: Hip [employer] 11/23/2029 [id number] / / [id number] [employer] Actis 105mm Collar Hip 5 High Offset Stem Femoral [id number] - [id number] Implanted:Qty: 1 on 01/10/2025 at [facility] Left: Hip [employer] 10/26/2034 [id number] / / [id number] Procedures Procedure Name Priority Date/Time Associated Diagnosis Comments XR PELVIS ORTHO VIEW ED Urgent/IP Urgent 01/10/2025 8:37 AM CDT ARTHROPLASTY TOTAL HIP - DEPUY 01/10/2025 7:04 AM CDT Primary osteoarthritis of left hip CT AN PROCEDURE PLACEHOLDER Routine 01/10/2025 6:59 AM [...] IMG XR PROCEDURES Final R esult * CT AN PROCEDURE PLACEHOLDER (01/10/2025 6:59 AM CDT) Kevyn Tirado MD - 01/10/2025 6:59 AM CDT Kevyn [...] ORDERABLES Hanna l Result Performing Organization Address City/[facility]/ZIP Co de Phone Number EMMA MOYACH [id number] [address] [facility] [place], [place] [id number] * (ABNORMAL) Vitamin D 25 hydroxy (12/11/2024 11:53 AM CDT) Pathologist [facility] [place] Vitamin D 25-OH 29(L) 30 - 80 ng/mL Blood 12/11/2024 11:5 3 AM CDT 12/11/2024 12:24 PM CDT Gunnar Moss MD LAB BLOOD ORDERABLES Hanna l Result Performing Organization Address [facility] Co de Phone Number EMMA MOCTEZUMACH [address] [facility] [place] [facility] [place], [place] [phone] * (ABNORMAL) CBC without differential (12/11/2024 11:53 AM CDT) [facility] WBC 7.0 3.8 - 9.9 K/cumm Hgb 15.2 11.9 - 15.5 g/dL [facility] Hct 45.7(H) 35.6 - 45.5 % [facility] Plt 294 150 - 400 K/cumm [facility] MPV 10.3 9.1 - 12.3 fL [facility] RBC 5.18 3.90 - 5.20 M/cumm [facility] MCV 88.2 81.3 - 96.4 fL [facility] MCH 29.3 27.1 - 33.3 pg [facility] MCHC 33.3 32.3 - 35.7 g/dL [facility] RDW CV 13.8 11.1 - 14.9 % [facility] RDW SD 44.7 35.7 - 48.1 fL [facility] NRBC abs 0.00 0.00 - 0.01 K/cumm [facility] Blood 12/11/2024 11:5 3 AM CDT 12/11/2024 12:24 PM CDT Jessica Bryant NP LAB BLOOD ORDERABLES Final Result EMMA MOYA [address] [facility]. [place] [address] * (ABNORMAL) Comprehensive metabolic panel (12/11/2024 11:53 AM CDT) Sodium 141 135 - 145 mmol/L Potassium, pl 4.4 3.3 - 4.9 mmol/L [facility] Chloride 106 97 - 110 mmol/L [facility] CO2 26 22 - 32 mmol/L [facility] Anion gap 10 2 - 15 mmol/L [facility] BUN 17 6 - 25 mg/dL [facility] Creatinine 1.18(H) 0.60 - 1.10 mg/dL [facility] Glucose 97 70 - 199 mg/dL [facility] Comment: Interpretive Data Fasting glucose >/= 126 [...] MD LAB BLOOD ORDERABLES Hanna l Result EMMA MOYACH [address] [facility]. [place] [address] from Last 3 Months Insurance [facility] [employer]/PPO Address: [address] [address] [facility]/PPO Address: [address] [address] [place] [address] [facility]/PPO Address: [phone] [place] [phone] [facility] Advance Directives For more information, please contact: [phone] * Full Code (Latest Code Status on File) Date Activated Date Inactivated Comments 01/10/2025 8:22 AM 01/10/2025 4:44 PM * Full Code Date Activated Date Inactivated Comments 09/22/2019 5:13 PM 09/25/2019 12:46 PM Care Teams Mash Tub Cooker Relationship Specialty Start Date End Date Colleen Pagan NP [address] [place] [address] PCP - General Family Medicine 06/21/24
--- OUTSIDE RECORDS SUMMARY | 2025-02-12 14:10 | XMS_ITS | Data Portability ---
Author Organization [place] [facility], Main Office Address [address] [place] [address] Care Team Providers Care Corporate Event Planner Name Role Phone BILL, SCZEPANSKI Medical Artist [phone] BILL, SCZEPANSKI Medical Artist TOMAS, NADEEM Medical Artist [phone] BILL, SCZEPANSKI Medical Artist TOMAS, NADEEM Medical Artist TOMAS, NADEEM Medical Artist Assessment Encounter Date Assessment Date Assessment LastModified by Organization Details LastModified Time 03/16/2023 03/16/2023 [facility] 03/08/2023 CMP: AST/ALT 59/51 CBC: WBC 11.3, PLT 384 [email or web address] Not available 03/16/2023 15:39:40 Plan of Treatment Reminders Order Date Submit Date Provider Last Modified By Organization Details Last Modified Time Details Appointments None recorded. Lab erythrocyte sedimentati on rate, QN, blood 2022 023 [email or web address] [employer] [facility], [address], [address], 4 11:51:27 ccp (cyclic citrullinat ed peptide) igg, serum 2022 023 [email or web address] [employer] [facility], [address], [address], 4 11:51:49 INGRID + rf (antinuclea r antibodies + rheumatoid factor), quantitativ e, serum 2022 023 [email or web address] 6 [facility], [address] [address], [place], [address], 4 11:52:28 C-reactive protein, quantitativ e, serum or plasma 2022 023 [email or web address] 6 [facility], [address] [address], [place], [address], 4 11:52:28 vitamin D, 25-hydroxy, total, serum 2022 023 [email or web address] 6 [facility], [address] [address], [place], [address], 4 11:50:30 CMP, serum or plasma 2022 023 [email or web address] 6 [facility], [address], [address], 4 11:48:48 CBC w/ auto diff 2022 023 [email or web address] 6 [facility], [address] [address], [place], [address], 4 11:49:08 lipid panel, serum 2022 023 [email or web address] 6 [facility], [address], [address], 4 11:49:45 TSH + free T4, serum 2022 023 [email or web address] 6 [facility], [address], [address], 4 09:11:05 vitamin B12 + folate, serum or blood 2022 023 [email or web address] [facility], [address] [address], [place], [address], 4 11:52:29 hepatitis panel (A+B+C), acute, serum 2022 023 [email or web address] 6 [facility], [address] [address], [place], [address], 4 11:50:49 gamma-gluta myl transferase (ggt), serum 2022 023 [email or web address] 6 [facility], [address], [address], 4 11:51:10 lipid panel, serum [address], [address] [place], [address], 3 07:54:11 TSH, serum, reflex free T4 [address], [address] [place], [address], 3 07:54:11 CMP, serum or plasma 2022 023 [facility], [address] [place], [address], 3 09:02:33 HbA1c (hemoglobin A1c), blood [address], [address] [place], [address], 3 07:54:11 CBC w/ auto diff 2022 023 [facility], [address] [place], [address], 3 09:02:33 Referral cardiologis t referral 2022 023 [email or web address] Davie Velás[place], [address] [address] , [facility] [address], [place], [address], 4 11:15:28 Procedures upper endoscopy procedure (EGD) (PROC) 2022 023 [email or web address] Rm Wynn MD, [address], [address], [place], [address], 4 11:15:07 Surgeries None recorded. Imaging US, liver 2022 023 [facility], [address], [place], [address], 3 15:54:26 Medication Orders clobetasol 0.05 % scalp solution 2022 023 [id number], [address] [facility] [address] [place] [address], [address], 3 15:17:06 lisinopril 10 mg tablet 2022 023 [email or web address] [id number], [address] [facility] [address] [place] [address], [address], 3 20:55:06 Patient TargetsNo targets recorded. Patient Instructions Encounter Date Encounter Id Patient Instructions Last Modified By Organization Details Last Modified Time 12/01/2022 [id number] INFLUENZA VACCIN E TD/TDAP PNEUMONIA VACCINE SHINGLES [...] Not available 12/01/2022 09:22:19 Reason for Referral Reference Test Clerk Referral for He art murmur Referring Physician: Dhara Ackerman, Internal Medicine, Encounter Date: 03/16/2023 Results Created Date Observation Date Name Description Value Unit Range Abnormal Flag Note LastModifiedBy Organization Detail LastModifiedTime 12/17/19 22 12/17/2021 T4, FREE T4, free 1.0 NG/dL 0.8-1. 8 normal Not Available [address], [address], 12/17/2021 04:24:25 12/17/19 22 12/17/2021 TSH W/REF TRINIDDA TO FT4 TSH w/reflex to FT4 8.58 mIU/L high Refer ence Range > or = 20 Years 0.40- 4.50 Pregn lebron Range s First trime ster 0.26- 2.66 Secon d trime ster 0.55- 2.73 Third trime ster 0.43- 2.91 Not Available [address], [address], 12/17/2021 04:24:24 12/17/19 22 12/17/2021 CBC (INCL UDES DIFF/ PLT) white blood cell count 11.8 thous and/u L 3.8-10 .8 high Not Available [facility] [address], [address], 12/17/2021 04:24:24 12/17/19 22 12/17/2021 CBC (INCL UDES DIFF/ PLT) red blood cell count 4.64 joni on/uL 3.80-5 .10 normal Not Available [facility] [address], [address], 12/17/2021 04:24:24 12/17/19 22 12/17/2021 CBC (INCL UDES DIFF/ PLT) hemoglobin 13.2 g/dL 11.7-1 5.5 normal Not Available [address], [address], 12/17/2021 04:24:24 12/17/19 22 12/17/2021 CBC (INCL UDES DIFF/ PLT) hematocrit 39.9 % 35.0-4 5.0 normal Not Available [address], [address], 12/17/2021 04:24:24 12/17/19 22 12/17/2021 CBC (INCL UDES DIFF/ PLT) MCV 86.0 fL 80.0-1 00.0 normal Not Available [address], [address], 12/17/2021 04:24:24 12/17/19 22 12/17/2021 CBC (INCL UDES DIFF/ PLT) MCH 28.4 pg 27.0-3 3.0 normal Not Available [address], [address], 12/17/2021 04:24:24 12/17/19 22 12/17/2021 CBC (INCL UDES DIFF/ PLT) MCHC 33.1 g/dL 32.0-3 6.0 normal Not Available [address], [address], 12/17/2021 04:24:24 12/17/19 22 12/17/2021 CBC (INCL UDES DIFF/ PLT) RDW 13.8 % 11.0-1 5.0 normal Not Available [address], [address], 12/17/2021 04:24:24 12/17/19 22 12/17/2021 CBC (INCL UDES DIFF/ PLT) platelet count 394 thous and/u L 140-40 0 normal Not Available [address], [address], 12/17/2021 04:24:24 12/17/19 22 12/17/2021 CBC (INCL UDES DIFF/ PLT) MPV 10.6 fL 7.5-12 .5 normal Not Available [address], [address], 12/17/2021 04:24:24 12/17/19 22 12/17/2021 CBC (INCL UDES DIFF/ PLT) absolute neutrophils 6691 cells /uL 1500-7 800 normal Not Available [address], [address], 12/17/2021 04:24:24 12/17/19 22 12/17/2021 CBC (INCL UDES DIFF/ PLT) absolute lymphocytes 3859 cells /uL 850-39 00 normal Not Available [address], [address], 12/17/2021 04:24:24 12/17/19 22 12/17/2021 CBC (INCL UDES DIFF/ PLT) absolute monocytes 814 cells /uL 200-95 0 normal Not Available [address], [address], 12/17/2021 04:24:24 12/17/19 22 12/17/2021 CBC (INCL UDES DIFF/ PLT) absolute eosinophils 342 cells /uL 15-500 normal Not Available [address], [address], 12/17/2021 04:24:24 12/17/19 22 12/17/2021 CBC (INCL UDES DIFF/ PLT) absolute basophils 94 cells /uL 0-200 normal Not Available [address], [address], 12/17/2021 04:24:24 12/17/19 22 12/17/2021 CBC (INCL UDES DIFF/ PLT) neutrophils 56.7 % normal Not Available [address], [address], 12/17/2021 04:24:24 12/17/19 22 12/17/2021 CBC (INCL UDES DIFF/ PLT) lymphocytes 32.7 % normal Not Available [address], [address], 12/17/2021 04:24:24 12/17/19 22 12/17/2021 CBC (INCL UDES DIFF/ PLT) monocytes 6.9 % normal Not Available [address], [address], 12/17/2021 04:24:24 12/17/19 22 12/17/2021 CBC (INCL UDES DIFF/ PLT) eosinophils 2.9 % normal Not Available [address], [address], 12/17/2021 04:24:24 12/17/19 22 12/17/2021 CBC (INCL UDES DIFF/ PLT) basophils 0.8 % normal Not Available [address], [address], 12/17/2021 04:24:24 12/17/19 22 12/17/2021 COMPR EHENS MADINA METAB OLIC PANEL glucose 89 mg/dL 65-99 normal Fasti ng refer ence inter fior Not Available [address], [address], 12/17/2021 04:24:23 12/17/19 22 12/17/2021 COMPR EHENS MADINA METAB OLIC PANEL urea nitrogen (BUN) 8 mg/dL 7-25 normal Not Available [address], [address], 12/17/2021 04:24:23 12/17/19 22 12/17/2021 COMPR EHENS MADINA METAB OLIC PANEL creatinine 0.95 mg/dL 0.50-1 .10 normal Not Available [address], [address], 12/17/2021 04:24:23 12/17/19 22 12/17/2021 COMPR EHENS MADINA METAB OLIC PANEL eGFR non-afr. citizen of [place] 74 mL/mi n/1.7 3m2 > or = 60 normal Not Available [address], [address], 12/17/2021 04:24:23 12/17/19 22 12/17/2021 COMPR EHENS MADINA METAB OLIC PANEL eGFR 86 mL/mi n/1.7 3m2 > or = 60 normal Not Available [address], [address], 12/17/2021 04:24:23 12/17/19 22 12/17/2021 COMPR EHENS MADINA METAB OLIC PANEL BUN/creatini ne ratio not applic able (calc ) 6-22 Not Available [address], [address], 12/17/2021 04:24:23 12/17/19 22 12/17/2021 COMPR EHENS MADINA METAB OLIC PANEL sodium 141 mmol/ L 135-14 6 normal Not Available [address], [address], 12/17/2021 04:24:23 12/17/19 22 12/17/2021 COMPR EHENS MADINA METAB OLIC PANEL potassium 4.4 mmol/ L 3.5-5. 3 normal Not Available [address], [address], 12/17/2021 04:24:23 12/17/19 22 12/17/2021 COMPR EHENS MADINA METAB OLIC PANEL chloride 107 mmol/ L 98-110 normal Not Available [address], [address], 12/17/2021 04:24:23 12/17/19 22 12/17/2021 COMPR EHENS MADINA METAB OLIC PANEL carbon dioxide 25 mmol/ L 20-32 normal Not Available [address], [address], 12/17/2021 04:24:23 12/17/19 22 12/17/2021 COMPR EHENS MADINA METAB OLIC PANEL calcium 9.3 mg/dL 8.6-10 .2 normal Not Available [address], [address], 12/17/2021 04:24:23 12/17/19 22 12/17/2021 COMPR EHENS MADINA METAB OLIC PANEL protein, total 6.7 g/dL 6.1-8. 1 normal Not Available [address], [address], 12/17/2021 04:24:23 12/17/19 22 12/17/2021 COMPR EHENS MADINA METAB OLIC PANEL albumin 4.1 g/dL 3.6-5. 1 normal Not Available [address], [address], 12/17/2021 04:24:23 12/17/19 22 12/17/2021 COMPR EHENS MADINA METAB OLIC PANEL globulin 2.6 g/dL_ (calc ) 1.9-3. 7 normal Not Available [address], [address], 12/17/2021 04:24:23 12/17/19 22 12/17/2021 COMPR EHENS MADINA METAB OLIC PANEL albumin/glob ulin ratio 1.6 (calc ) 1.0-2. 5 normal Not Available [address] [place], [address], 12/17/2021 04:24:23 12/17/19 22 12/17/2021 COMPR EHENS MADINA METAB OLIC PANEL bilirubin, total 0.7 mg/dL 0.2-1. 2 normal Not Available [address] [address] [place], [address], 12/17/2021 04:24:23 12/17/19 22 12/17/2021 COMPR EHENS MADINA METAB OLIC PANEL alkaline phosphatase 43 U/L 31-125 normal Not Available [address] [address] [place], [address], 12/17/2021 04:24:23 12/17/19 22 12/17/2021 COMPR EHENS MADINA METAB OLIC PANEL AST 13 U/L 10-30 normal Not Available [address] [address] [place], [address], 12/17/2021 04:24:23 12/17/19 22 12/17/2021 COMPR EHENS MADINA METAB OLIC PANEL ALT 13 U/L 6-29 normal Not Available [address] [address] [place], [address], 12/17/2021 04:24:23 12/17/19 22 12/17/2021 LIPID PANEL , STAND HERMES non HDL cholesterol 151 mg/dL _(florentino c) <130 high For patie nts with diabe cecelia plus 1 major ASCVD risk facto r, treat ing to a non-H DL-C goal of <100 mg/dL (LDL- C of <70 mg/dL ) is consnaa mcmillano n. Not Available [address] [address] [place], [address], 12/17/2021 04:24:23 12/17/19 22 12/17/2021 LIPID PANEL , STAND HERMES cholesterol, total 185 mg/dL <200 normal Not Available [address] [address] [place], [address], 12/17/2021 04:24:23 12/17/19 22 12/17/2021 LIPID PANEL , STAND HERMES HDL cholesterol 34 mg/dL > or = 50 low Not Available [address] [address] [place], [address], 12/17/2021 04:24:23 12/17/19 22 12/17/2021 LIPID PANEL , ST[place]MES triglyceride s 243 mg/dL <150 high If a non-f astin g speci men was colle cted, consi raheel repea t trigl yceri de testi ng on a fasti ng speci men if clini kenia indic ated. Zheng parry et al. J. of Clin. Lipid ol. 2015; 9:129 -169. Not Available [facility] [address] [address] [facility], [address], 12/17/2021 04:24:23 12/17/19 22 12/17/2021 LIPID PANEL [...] 2061- 2068 (http ://ed ucati on.Qu Theresa Mobeons. com/f aq/FA Q164) Not Available [facility] [address] [address] [place], [address], 12/17/2021 04:24:23 12/17/19 22 12/17/2021 LIPID PANEL , STAND HERMES chol/HDLC ratio 5.4 (calc ) <5.0 high Not Available [facility] [address] [address], [place], [address], 12/17/2021 04:24:23 01/11/20 21 01/10/2021 XR, chest , 1 view No observ ation record ed. MIGRATION. [facility] (Lab) [address] [place], [address], 11/24/2022 13:31:23 01/11/20 21 01/10/2021 CT, abdom en + pelvi s, w/ contr ast No observ ation record ed. MIGRATION. [facility] (Lab) [address] [place], [address], 11/24/2022 13:31:23 02/26/20 22 02/25/2022 US, pelvi s, trans abdom inal + trans vagin al No observ ation record ed. MIGRATION. [facility] Orders [address] [facility], [place], [address], 11/24/2022 13:31:23 06/02/20 22 elect kell diogr am No observ ation record ed. MIGRATION. [facility] [address], [place], [address], 11/24/2022 13:31:23 06/03/20 22 06/03/2022 XR, chest , 2 view No observ ation record ed. MIGRATION. [address], [place], [address], 11/24/2022 13:31:23 06/15/20 22 06/15/2022 US, doppl er echoc ardio gram No observ ation record ed. MIGRATION. [facility] [address], [place], [address], 11/24/2022 13:31:23 06/15/20 22 06/15/2022 exerc ise stres s test No observ ation record ed. [id number] [facility] [address], [place], [address], 11/24/2022 13:31:23 06/21/20 22 06/21/2022 qing r monit or No observ ation record ed. [email or web address].[id number] [facility] [address], [place], [address], 11/24/2022 13:31:23 06/24/20 22 06/24/2022 XR, chest , 2 view No observ ation record ed. [id number], [place], [address], 11/24/2022 13:31:23 03/24/20 23 03/24/2023 US, liver No observ ation record ed. [email or web address] [address], [place], [address], 03/31/2023 13:00:50 Result Notes None recorded. Problems Name Problem SNOMED Code Status Onset Date Resolution Date Notes Provider Name and Address Organization Details Recorded Time Leukocytos is 339747447 Active 2021 Not Available [facility] 3 13:27:58 Prolonged QT interval 467210841 Active 2021 Not Available [facility] 3 13:27:58 C-reactive protein above reference range 5494029906100 04 Active 2021 Not Available [facility] 3 13:27:58 Plantar fasciitis of left foot 2294903803977 9101 Active 2017 Not Available [facility] 3 13:27:58 Injury of ankle 776660133 Active 2019 Not Available [facility] 3 13:27:58 Insomnia 944149556 Active 2018 Not Available [facility] 3 13:27:59 Tibialis posterior tendinitis 510492435 Active 2017 Not Available [facility] 3 13:27:59 Mixed anxiety and depressive disorder 324235660 Active 2018 Not Available [facility] 3 13:27:59 Gastroesop hageal reflux disease 930903233 Active 2021 Not Available [facility] 3 13:27:59 Ankle pain 962843927 Active 2019 Not Available [facility] 3 13:27:59 Genital warts 327012748 Active 2021 Not Available [facility] 3 13:27:59 Pain of left hip joint 9498453394111 00 Active 2018 Not Available [facility] 3 13:27:59 Vitamin D deficiency 21878179 Active 2021 Not Available [facility] 3 13:27:59 Hypothyroi dism 72186383 Active 2021 Not Available [facility] 3 13:27:59 Obese 908247752 Active 2019 Not Available [facility] 3 13:28:00 Genital herpes simplex type 2 619650461 Active 2018 Not Available [facility] 3 13:28:00 Pain of hip region 00960916 Active Not Available [facility] 3 13:28:00 Talipes planus 99514743 Active 2017 Not Available [facility] 3 13:28:00 Hyperlipid emia 81165900 Active 2021 Not Available [facility] 3 13:28:00 Verruca plantaris 40086769 Active 2017 Not Available [facility] 3 13:28:00 Psoriasis of scalp 682976824 Active 2022 Lulu Pedersen NP [address] [facility], [address] [address], [place], [address] , [facility] 3 09:10:04 Essential hypertensi on 06150156 Active 2022 Lulu Pedersen NP [address], [place], [address] , [place] [facility] 3 09:10:52 Excessive cerumen in ear canal 145736306 Active 2022 Lulu Pedersen NP [address], [address], [place], [address] , [place] [facility] 3 09:14:38 Bipolar disorder 84668622 Active 2022 Lulu Pedersen NP [address], [address], [place], [address] , [place] [facility] 3 09:15:23 Low back strain 581953135 Active 2022 Flakito Carbajal MD [address], [address], [place], [address] , [place] [facility] 3 09:28:40 Gastroesop hageal reflux disease without esophagiti s 619178781 Active 2022 Dhara carmona MD [address], [address], [place], [address] , [place] [facility] 3 15:33:51 Neuropathy 838386606 Active 2022 Dhara carmona MD [address], [address], [place], [address] , [place] [facility] 3 15:34:21 Liver enzymes level above reference range 105091894 Active 2022 Dhara carmona MD [address], [address], [place], [address] , [place] [facility] 3 15:40:34 Viral gastroente ritis 692852822 Active 2022 Dhara carmona MD [address], [address], [place], [address] , [place] [facility] 3 15:41:12 Serum vitamin B12 below reference range 011478601 Active 2022 Dhara carmona MD [address], [address], [place], [address] , [facility] [employer] [facility] [employer] [facility] 3 16:07:50 Obesity 042885426 Active 2022 Dhara carmona MD [address], [address], [place], [address] , [employer] [facility] [employer] [facility] 3 16:13:57 Heart murmur 42783740 Active 2022 Dhara carmona MD [address], [address], [place], [address] , [employer] [facility] [employer] [facility] 3 16:14:55 Nausea 571860647 Active 2022 Stacey morales, [place] [employer] [facility] [employer] [facility] 3 14:22:33 Anti-nucle ar factor detected 812548144 Active 2022 Stacey morales, [employer] [facility] [employer] [facility] 3 12:51:00 Steatotic liver disease 718425701 Active 2022 Stacey [place]ales, [place] [employer] [facility] [employer] [facility] 3 12:51:13 Acute urinary tract infection 461264997 Active 2022 Lulu Pedersen NP [address], [address], [place], [address] , [employer] [facility] [employer] [facility] 3 12:24:38 Dry eyes 280724581 Active 2022 Lulu Pedersen NP [address], [place], [address] , [facility] [employer] [facility] [employer] [facility] 3 12:26:01 Problem Notes None recorded. Procedures Surgical History Date Name Laterality Status Provider Name and Address Organization Details Recorded Time 3 Cerumen Removal completed Lulu Pedersen NP [address], [address], [place], [address], [facility] [employer] [facility] [employer] [facility] 12/01/2022 09:27:45 1 Unlisted px accessory sinus completed Not Available [facility] 11/24/2022 13:27:22 0 Date of Last Pap Smear completed Not Available [facility] 11/24/2022 13:27:21 [employer] SERVICES SPECIALIST Surgery completed Not Available [facility] 11/24/2022 13:27:22 [employer] SERVICES SPECIALIST Surgery completed Not Available [facility] 11/24/2022 13:27:22 Imaging Results Imaging Date Name Status LastModified by Organization Details LastModified Time 01/10/2021 XR, chest, 1 view completed MIGRATION. [id number] [facility] (Lab) [address] [place], [address], 11/24/2022 13:31:23 01/10/2021 CT, abdomen + pelvis, w/ contrast completed [id number] [facility] (Lab) [address] [place], [address], 11/24/2022 13:31:23 06/15/2022 US, doppler echocardiogram completed [email or web address].[id number] [facility] [address] , [place], [address], 11/24/2022 13:31:23 06/21/2022 holter monitor completed [id number].[id number] 12 [id number] [facility] [address], [place], [address], 11/24/2022 13:31:23 06/15/2022 exercise stress test completed MIGRATI ON.[id number] [facility] [address], [place], [address], 11/24/2022 13:31:23 06/02/2022 electrocardiogram completed MIGRATION. [id number] [facility] [address], [address], 11/24/2022 13:31:23 06/03/2022 XR, chest, 2 view completed MIGRATION. [id number], [place], [address], 11/24/2022 13:31:23 06/24/2022 XR, chest, 2 view completed MIGRATION. [id number], [place], [address], 11/24/2022 13:31:23 02/25/2022 US, pelvis, transabdominal + transvaginal completed [id number].[id number] [facility] On Lab Orders [address] [facility], [place], [address], 11/24/2022 13:31:23 03/24/2023 US, liver completed [email or web address] [address], [place], [address], 03/31/2023 13:00:50 Procedure Notes None recorded. Medical Equipment None Reported. Allergies Allergen ID Allergen Name Allergen Category Reaction Reaction Severity Criticality Documentation Date Start Date Code Code System Note Provider Name and Address Organization Details Recorded Time 10231 vancomyci n medicatio n anaphylax is severe Not available 11/24/2022 70073 RxNorm Not Available [facility] 3 13:31:20 94143 Pyridium medicatio n nausea moderate Not available 11/24/2022 8998 RxNorm Not Available [facility] 3 13:31:21 72348 Product containin g penicilli n (product) medicatio n Not available Not available Not available 11/24/2022 32273 8001 SNOMED Not Available [facility] 3 13:31:21 77154 Levaquin medicatio n rash moderate Not available 11/24/2022 98547 2 RxNorm Not Available [facility] 3 13:31:21 28383 codeine medicatio n rash mild Not available 11/24/2022 2670 RxNorm Not Available [facility] 3 13:31:21 Medications Name Sig Start Date [...] e 137 mcg (0.1 %) nasal spray [place] 2 sprays twice a day by intranas [...] Available No t Available Sprintec (28) 0.25 mg-0.035 mg tablet Take 1 tablet every day [...] Available Not Available Not Available Flucelvax Quad 6577-8470 (PF) 60 mcg (15 mcg x 4)/0.5 [...] % 88 /min 16 /min 97.5 [degF] 224845. 47 g 126 mm[Hg] 86 mm[Hg] Not Available [facility] 3 13:27:42 Date Recorded Body mass index (BMI) Body height Oxygen saturation Oxygen saturation in Arterial blood by Pulse oximetry Heart rate Body temperature Body weight Systolic blood pressure Diastolic blood pressure Provider Name and Address Organization Details Last Updated DateTime 2 37.2 kg/m2 160.02 cm 98 % 98 % 81 /min 98.2 [degF] 03539.4 g 142 mm[Hg] 86 mm[Hg] Not Available [facility] 3 13:27:42 Date Recorded Body mass index (BMI) Body height Oxygen saturation Oxygen saturation in Arterial blood by Pulse oximetry Heart rate Respiratory rate Body temperature Body weight Systolic blood pressure Diastolic blood pressure Provider Name and Address Organization Details Last Updated DateTime 2 36.5 kg/m2 160.02 cm 98 % 98 % 70 /min 16 /min 97.9 [degF] 65418.0 3 g 118 mm[Hg] 86 mm[Hg] Not Available [facility] 3 13:27:42 Date Recorded Body height Body mass index (BMI) Body weight Body temperature Heart rate Oxygen saturation Oxygen saturation in Arterial blood by Pulse oximetry Systolic blood pressure Diastolic blood pressure Provider Name and Address Organization Details Last Updated DateTime 3 160.02 cm 37.4 kg/m2 19022.9 9 g 97.4 [degF] 68 /min 99 % 99 % 152 mm[Hg] 100 mm[Hg] Yulissa velazco CMA [facility] 3 08:45:29 Date Recorded Body height Body mass index (BMI) Body weight Body temperature Heart rate Systolic blood pressure Diastolic blood pressure Provider Name and Address Organization Details Last Updated DateTime 3 160.02 cm 37.7 kg/m2 02408.1 7 g 97.7 [degF] 72 /min 108 mm[Hg] 76 mm[Hg] ZAK Guillory [facility] 3 15:26:34 Social History Question Answer Notes LastModified by Organizat ion Details LastModified Time Tobacco Smoking Status Never Smoker Yulissa Montero CMA [facility], [facility] 12/01/2022 08:46:52 Do You Have An Advance Directive? No Information n ot available 03/16/2023 What Is Your Level Of Caffeine Consumption? Heavy [id number] Information not available 12/01/2022 In The 14 Days Before Symptom Onset, Have You Had Close Contact With A Laboratory-confirm ed COVID-19 While That Case Was Ill? No Information n ot available 03/16/2023 In The 14 Days Before Symptom Onset, Have You Had Close Contact With A Person Who Is Under Investigation For COVID-19 While That Person Was Ill? No Information not available 03/16/2023 What Type Of Diet Are You Following? REGULAR Information n ot available 03/16/2023 What Is The Highest Grade Or Level Of School You Have Completed Or The Highest Degree You Have Received? [id number] Information not available 03/16/2023 What Is The Fluoride Status Of Your Home? Unknown Information not available 03/16/2023 Are There Any Guns Present In Your Home? No Information not available 03/16/2023 Where Do You Live? Apartment Inform ation not available 03/16/2023 Do You Have A Medical Power Of Pharmacy Informatics Manager? No Information not available 03/16/2023 What Was [...] Your House? No Information not available 03/16/2023 Has Tobacco Cessation Counseling Been Provided? No N/a Information not available 03/16/2023 Have You Recently Traveled Abroad? No Information not available 03/16/2023 Sex: Female Functional Status Question Answer Note LastModified by Organizat ion Details LastModified Time Do you use any illicit or recreational drugs? No Information not available 03/16/2023 Do you or have you ever used any other forms of tobacco or nicotine? No Information not available 03/16/2023 What is your level of alcohol consumption? None [email or web address] Information not available 12/01/2022 Are you currently employed? 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 None stays active Information not available 03/16/2023 Mental Status Question Answer Note LastModified by Organization D etails LastModified Time Do you feel stressed (tense, restless, nervous, or anxious, or unable to sleep at night)? [id number] Information not available 03/16/2023 Family History Relationship Description Onset Age of [...] Time Tdap 03/16/2023 completed Dhara Ackerman MD [address], [address], [facility] [employer] [facility] 03/17/2023 13:55:51 Past Encounters Encounter ID Performer Location Encounter Start Date Encounter Closed Date Diagnosis/Indication Diagnosis SNOMED-CT Code Diagnosis ICD10 Code Diagnosis Note [id number] Flakito Carbajal MD [facility] [address] [address] 01/15/2021 00:00:00 01/15/2021 17:13:13 [id number] Flakito Carbajal MD [address] [address] 11/25/2021 00:00:00 11/25/2021 18:19:00 [id number] Lulu Pedersen NP [address] [address] 06/02/2022 00:00:00 06/02/2022 16:45:33 [id number] Lulu Pedersen NP [address] [address] 12/01/2022 08:36:21 12/01/2022 09:48:29 Adult health examination 750740697 Z00.00 Encouraged well balanced meals, active lifestyle, and routine vision and dental appts. Anemia screening 6635204 07 Z13.0 Diabetes m ellitus screening 438503067 Z13.1 Hypothyroidism 45216550 E03.9 Levothyrox ine 75 mcg po daily. Hyperlipid emia screening 803606359 Z13.220 Psoriasis of scalp 20469 8008 L40.9 clobetasol 0.05% scalp solution sent. Essential hypertension 37734267 I10 Lisinopril 10 mg po daily.Meto prolol 25 mg po bid. Insomnia 359927634 G47.0 0 zaleplon 5 mg po nightly. prn. Shift work. Excessive cerumen in ear canal 942459194 H61.21 ear wash 12/01/22 Bipolar disorder 9935847 [address] Kramer psych. [place], paxil 50 mg, lorazepam prn, Topiramate [id number] Dhara carmona MD [facility] Danisha dacosta [address] [facility] [place] [facility] [place] [address] 03/16/2023 15:06:29 03/16/2023 16:16:06 Screening - NAD 608029090 Z13.9 Get yearly flu shotUTD tdap 03/16/23 PAP: Hx of LEEP, sees Dr Zarate, last 12/17/2022 , plan for hystrectom y RTC in 3 months, do labs, ER if worse, she did verbalize her understand ing of the above Hypothyroidism 23804044 E03.9 On levothyrox ine 75mcgs dailyGet labs Gastroesop hageal reflux disease without esophagitis 734222504 K21.9 On omeprazole 40mg daily, get EGD if not done Neuropathy 096180409 G62 .9 On gabapentin 300mg bid Essential hypertension 72523282 I10 On lisinopril 10mg dailyGet labs Mixed anxi ety and depressive disorder 448967265 F41.[address] Rasheed Kramer On paroxetine 40mg dailyOn lorazepam 0.5mg tidOn lithium 300mg 3 tabsOn trazodone 50mg daily Not suicidal or homicidal Vitamin D deficiency 347 68410 E55.9 Liver enzy mes level above reference range 391747727 R74.01 Get labs and liver Viral gastroenteritis 11 3840678 A08.4 Seen in ER 03/08/2023 , does well now Psoriasis of scalp 78113 8008 L40.9 Cannot do the clobetasol , wants to do labs first Serum tono min B12 below reference range 217266386 R79.89 Obesity 961651717 E66.9 More diet and exercise is needed Heart murmur 89758461 R0 1.1 Get a referral to [facility] Dr Velásquez Administra tion of diphtheria, pertussis, and tetanus vaccine 678459677 Z23 Health Concerns Section Related Observation LastModified by Organization Detai ls LastModified Time None Recorded Concern Status LastModified by Organization Details LastModified Time None Recorded Advance Directives Directive N: Payers Encounter Date Sequence Insurance Name Policy Number Policy Peña Covered Member ID Peña Member ID Guarantor Name 12/01/2022 1 [employer] [id number] Natalie Alamo [id number] Natalie Alamo 03/16/2023 1 [employer] (INDEMNITY ) Natalie Alamo [id number] Natalie Alamo Notes Date Note Type Note [...] in July 2022. Lulu Pedersen NP [address], [facility] [address], [place], [address], [employer] 12/01/2022 09:34:03 03/16/2023 text/html OV 03/16/2023:He re to establish care Past Hx:Anxiety/Depress ionGERDHypothyroid ismHTN Reviewed social family and surgical history Seen in the ER on 03/08/2023 for gastritis, now feels she has some fatigue, no labs since labs done in the ER Dhara Ackerman MD [address], [facility] [address], [place], [address], [employer] 03/17/2023 13:56:12 OBGyn Episode No OBEpisode recorded.
--- OUTSIDE RECORDS SUMMARY | 2025-02-12 14:10 | XMS_ITS | Clinical Summary ---
Author Organization [facility] Address [address] [place] [address] Phone Care Team Providers Care Damper Worker Name Role Phone Donato Wei MD Primary Care Provider U navailable Immunizations Immunization Administration Dates Next Due Covid-19, Mrna, Lnp-s, Pf, 30 Mcg/0.3 Ml Dose (P fizer) 10/06/2020,09/15/2020 Social History Tobacco Use Types Packs/Day Years Used Date Smoking Tobacco: Never Assessed Comments Unknown Sex and Gender Information Value Date Recorded Sex Assigned at Not on file Legal Sex Female 9:54 AM PATROL MAN Gender Identity Not on file Sexual Orientation Not on file Plan of Treatment Health Maintenance Due Date Last Done Comments Hepatitis C Virus (HCV) Screening 1979 Hepatitis B Immunization (1 of 3 - 19+ 3-dose series) 1998 Colonoscopy 2024 Colorectal Cancer Screening 2024 Influenza [...] age to complete this topic Care Teams Damper Worker Relationship Specialty Start Date End Date Donato Wei MD PCP - General Internal Medicine 09/14/18
--- OUTSIDE RECORDS SUMMARY | 2025-02-12 14:11 | XMS_ITS | Clinical Summary ---
Author Organization [facility] Address [address] [place] [address] Phone Care Team Providers Care Regulatory Intern Name Role Phone Lulu Pedersen Ginger [facility] Primary Care Provider [phone] Allergies Active Allergy Reactions Criticality Noted Date Comments Codeine Hives High 10/25/2019 Penicillins Hives High 10/25/2019 Vancomycin Anaphylaxis High 10/25/2019 Medications metoprolol tartrate (LOPRESSOR) 25 mg tablet Take 25 mg by mouth 2 times daily. Metoprolol Succinate Active aspirin (Vazalore) 81 mg Capsule Take by mouth. 2 Active ergocalciferol (VITAMIN D2) 50,000 unit capsule Take 50,000 Units by mouth every 7 days. 2 Active cyanocobalamin 1,000 mcg Tablet Take by mouth. 2 Active levothyroxine 75 mcg tablet Take 1 Tablet (75 mcg) by mouth daily in the morning. 30 Tablet 3 Active upadacitinib (Rinvoq) 15 mg Tablet Sustained Release 24HR Take by mouth daily. Active PARoxetine HCl (PAXIL) 40 mg tabletIndication s:Panic disorder without agoraphobia Take 1 Tablet (40 mg) by mouth daily. 90 Tablet 1 5 Active traZODone (DESYREL) 100 mg tablet TAKE 1 TABLET(100 MG) BY MOUTH EVERY NIGHT NEEDED FOR INSOMNIA 90 Tablet 1 5 Active LORazepam (ATIVAN) 0.5 mg tabletIndication s:Panic disorder without agoraphobia,Bipo lar affective disorder, currently depressed, mild (CMS/HCC) Place 1.5 Tablets (0.75 mg) under tongue 2 times daily. 45 Tablet 5 5 Active gabapentin (NEURONTIN) 300 mg capsuleIndicatio ns:Panic disorder without agoraphobia Take 1 Capsule (300 mg) by mouth 2 times daily. 180 Capsule 1 5 Active losartan (COZAAR) 100 mg tablet Take 100 mg by mouth daily. Active Active Problems No known active problems Encounters Date Type Department Care Team Description 01/04/[address] [place] [address] Hiren Spicer, Panic disorder without agoraphobia; Bipolar affective disorder, currently depressed, mild ([facility]) 12/12/2024 External Device Data STL ABSTRACTION Provider, Abstract 12/04/2024 External Device Data [facility] ABSTRACTION Provider, Abstract 12/04/2024 External Device Data [facility] ABSTRACTION Provider, Abstract 12/01/2024 External Device Data [facility] ABSTRACTION Provider, Abstract 11/30/2024 External Device Data [facility] ABSTRACTION Provider, Abstract 11/27/2024 External Device Data [facility] ABSTRACTION Provider, Abstract 11/21/2024 1:00 PM SOFA COVER INSPECTOR Confidential [address] [place] [address] Rasheed Kramer MD None 11/16/[address] [place] [address] Rasheed Kramer MD Panic disorder without agoraphobia from Last 3 Months Family History Medical [...] on file Legal Sex Female 11:21 AM SOFA COVER INSPECTOR Gender Identity Not on file Sexual Orientation Not on file Last Filed Vital Signs Vital Sign Reading Time Taken Comments Blood Pressure 138/84 11/21/2024 1:07 PM SOFA COVER INSPECTOR Pulse 60 11/21/2024 1:07 PM SOFA COVER INSPECTOR Temperature - - Respiratory Rate - - Oxygen Saturation 99% 11/21/2024 1:07 PM SOFA COVER INSPECTOR Inhaled Oxygen Concentration - - Weight 96.5 kg (212 lb 12.8 oz) 11/21/2024 1:07 PM SOFA COVER INSPECTOR Height 160 cm (5' 3 ) 11/21/2024 1:07 PM SOFA COVER INSPECTOR Body Mass Index 37.7 11/21/2024 1:07 PM SOFA COVER INSPECTOR Plan of Treatment Upcoming Encounters Date Type Department Care Team (Late st Contact Info) Description 05/20/2025 11:15 AM CDT Video Visit [facility] Psychiatry [facility] [address] [facility] [place] [address] Rasheed Kramer MD [address] [facility] [place] [address] Health Maintenance Due Date Last Done Comments HEPATITIS B VACCINES (1 of 3 - 19+ 3-dose series) 1998 HPV/Cotest (21-29) 2000 CERVICAL CANCER SCREENING 2009 HPV/Cotest (30-65) 2009 PAP SMEAR 2009 BREAST CANCER SCREENING 2019 Pre-Diabetes and Diabetes Screening 04/13/2024 04/13/2021 INFLUENZA VACCINE (#1) 2024 COLORECTAL SCREENING 2024 09/26/2007 Colorectal Cancer Screening 2024 FIT-DNA Q 3 years 2024 FIT/FOBT Q 1 year 2024 Flex Sig/CT Colonography Q 5 years 2024 COVID-19 Vaccine ( - 2023-2 5 season) 2024 10/06/2020, 09/15/2020 [...] HEMOGLOBIN A1C 5.4 4.8 - 5.6 % [facility] Comment: Prediabetes: 5.7 - 6.4 Diabetes: >6.4 Glycemic control for adults with diabetes: <7.0 04/13/2021 8:10 AM CDT 04/13/2021 Narrative [facility] - 04/14/2021 6:08 AM CDT Performed at: - [address] [id number] Veterinary Pharmacologist: Babar Glover PhD, Phone: [phone] us Rasheed Kramer MD CHEMISTRY ORDERABLES Final Res ult [facility] [phone] from Last 3 Months or Most Recently Relevant to Health Maintenance Insurance Care Teams Regulatory Intern Relationship Specialty Start Date End Date Lulu Pedersen FNP [address] [address] PCP - General Nurse Practitioner Family 02/12/20
--- OUTSIDE RECORDS SUMMARY | 2025-02-12 14:11 | XMS_ITS ---
Author Organization [facility] Address [address] [facility] [address] [place] [address] Care Team Providers Care Business Manager Name Role Phone Nuvia MILLAN, Lulu Primary Care Provider Unavail Abbie Liu Unavailable [phone] REASON FOR VISIT 1 month f/u Encounters Encounter Location Date Provider Diagnosis [facility] [address] [facility] [address] [place] [address] 09/27/2024 Abbie Gutierrez Plan Of Treatment No Information Progress Notes * Berenice NICKERSONhelDOB:1979 (44 yo F)Acc No.[id number]:09/27/2024 Progress Notes Patient: Natalie JOHNSON Provider: Bere GUTIERREZ MD :1980 A ge:44 Y S ex:Female Date:09/27/2024 Address:[address] [address] Pcp:Lulu Pedersen NP Subjective: * Chief Complaints: * 1 . 1 month f/u. * Medical History: Objective: * Vitals: Assessment: Plan: * Treatment: * Billing Information: * Visit Code: * Procedure Codes: * Electronic signature of Abbie Gutierrez MD on 02/12/2025 at 02:10 PM CDT Sign off status: Pending * Provider: Bere GUTIERREZ MD Date: 09/27/2024 Generated for Kentrelli ng/Farosaleeg/eTransmitting on: 0 02/12/2025 02:10 PM CDT
--- OUTSIDE RECORDS SUMMARY | 2025-02-12 14:11 | XMS_ITS | Patient Health Record ---
Author Organization [facility] Address [address] [facility] [address] [place] [address] Care Team Providers Care Sap Data Analyst Name Role Phone Nuvia MILLAN, Lulu Primary Care Provider Unavail able RamiroAbbie Unavailable [phone] Allergies Allergen (clinical drug ingredient) Drug/Non Drug [...] Problem Status W/U Status Risk Notes Problem [id number] Osteoarthritis, unspecified osteoarthritis type, unspecified site (M19.90) Active confirmed Vital Signs Heart Rate 102 /min 03/05/2024 Temperature 97.4 degrees Fahrenheit 03/05/2024 Blood pressure diastolic 98 mm Hg 03/05/2024 Oximetry 96 % 03/05/2024 Height 63 in 03/05/2024 Blood pressure systolic 150 mm Hg 03/05/2024 Weight 216.0 lbs 03/05/2024 BMI 38.26 kg/m2 03/05/2024 Encounters Encounter Location Date Provider Diagnosis [facility] [address] [place] [address] 03/05/2024 Abbie Ramiro INGRID positive R76.8 ; Psoriatic arthritis L40.50 ; Psoriasis L40.9 ; Osteoarthritis, unspecified osteoarthritis type, unspecified site M19.90 ; Decreased GFR R94.4 ; SI (sacroiliac) pain M53.3 ; 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 ; Increased pressure in the eye, bilateral H40.053 ; Secondary Sjogren's syndrome M35.00 and Rash R21 [facility] [address] [place] [address] 02/21/2024 [facility] [address] [place] [address] 02/21/2024 [facility] [address] [place] [address] 03/05/2024 Abbie Rubio Psoriatic arthritis L40.50 [facility] [address] [place] [address] 03/05/2024 [facility] [address] [place] [address] 03/12/2024 [facility] [address] [place] [address] 02/24/2024 [facility] [address] [place] [address] 02/28/2024 [facility] [address] [place] [address] 02/28/2024 [facility] [address] [place] [address] 03/01/2024 [facility] [address] [place] [address] 03/07/2024 [facility] [address] [place] [address] 03/12/2024 [facility] [address] [place] [address] 03/15/2024 Abbie Du Assessments Encounter Date Diagnosis (ICD Code) Assessment Notes Treatment Notes Treatment Clinical Notes Section Notes 03/05/2024 INGRID positive (ICD-10 - R76.8) on [...] and zyrtec, return in 1 month 03/05/2024 Osteoarthritis, unspecified [...] and zyrtec, return in 1 month 03/05/2024 SI (sacroiliac) [...] and zyrtec, return in 1 month 03/05/2024 Increased pressure in the eye, bilateral (ICD-10 - H40.053) on humira and MTX 20mg/wk, lab order given, allergic to plaquenil, instructed to stop, depomedrol 80mg given in office today, increase prednisone to 60mg/day, then taper, start pepcid and zyrtec, return in 1 month 03/05/2024 Secondary Sjogren's [...] 10/11/2023 CBC With Differential/Platelet CBC With Differential/Platelet CBC With Differential/Platelet CBC With Differential/Platelet 4 [...] Insured Coverage Start Date Coverage End Date [facility] [employer] [address] [address] [place] [address] [id number] Natalie Edwards ch Self - patient is the insured [place] [address] [place] [address] [id number] Natalie Edwards ch Self - patient is the insured Medications Administered Medication Instructions Date of Administration Dosage Notes DEPO-Medrol 03/05/2024 80 mg Medical (General) History Medical History History ICD Code leukocytosis bipolar 1 small fiber neuropathy hypertension diabetes hypothyroidism psoriasis Surgical History Surgery Date(Month/Year) left hip surgery (labral taper) hysterectomy
--- OUTSIDE RECORDS SUMMARY | 2025-02-12 14:11 | XMS_ITS | Continuity of Care Document ---
Author Organization [facility] Address [address] [facility] [address] [place] [address] Phone Care Team Providers Care Strip Cutter Name Role Phone Christiano OD, Donna Unavailable Unavailable Procedures Procedure Date Charge For A No Show Advance Directives Directive Yes / No Effective Date File Name No Information Encounters Encounter Description Practice Location Reason(s) For Visit Diagnoses Date Provider Providers Copied on Encounter [facility], [id number] [place] [address] [address], [place], [place], [id number], tel:[phone] Professional No Information 4 Christiano OD Donna. [address] [place] [address] [address], [address], [place], [place], [id number], [place]. tel:[phone] Family History Family Member Type Diagnosis Age At Onset No Information Payers Payer name Insurance type Covered republican ID Authoriza tion(s) No Information Social History [...]
--- OUTSIDE RECORDS SUMMARY | 2025-02-12 14:11 | XMS_ITS ---
Author Organization [facility] ([address]) Address [address] [place] [address] Care Team Providers Care Vocational Horticulture Instructor Name Role Phone Funmilayo Narvaez Unavailable [phone] REASON FOR VISIT FOREST ENGINEER Allergies Encounters Encounter Location Date Provider Diagnosis [facility] [address] [place] [address] 03/21/2024 Funmilayo Narvaez Plan Of Treatment No Information Progress Notes * MARQUEZBerenice NaylorCristhianOB:1979 (44 yo F)Acc No.[id number]:03/21/2024 Progress Notes Patient: Natalie JOHNSON Provider: JOSE Bai :1980 A ge:43 Y S ex:Female Date:03/21/2024 Address:[address] [place] [address] Subjective: * Chief Complaints: * 1 . FOREST ENGINEER Allergies. * Medical History: Objective: * Vitals: Assessment: Plan: * Treatment: * Billing Information: * Visit Code: * Procedure Codes: * Electronic signature of JOSE Harrell on 02/12/2025 at 02:10 PM CDT Sign off status: Pending * Provider: JOSE Bai Date: 03/21/2024 Generated for Printi ng/Faxing/eTransmitting on: 02/12/2025 02:10 PM CDT
--- OUTSIDE RECORDS SUMMARY | 2025-02-12 14:11 | XMS_ITS ---
Author Organization [facility] Address [address] [facility] [address] [place] [address] Care Team Providers Care Note Teller Name Role Phone Nuvia MILLAN, Lulu Primary Care Provider Unavail Abbie Liu [phone] REASON FOR VISIT medication Medications Medication SIG (Take, Route, Fr equency, Duration) Notes Start Date End Date Status Amitriptyline HCl 25 MG 1 tablet at bedt bre Orally Once a day for 30 days 03/12/2024 Active Encounters Encounter Location Date Provider Diagnosis [facility] [address] [facility] [address] [place] [address] 03/12/2024 Abbie Rubio Plan Of Treatment Medication Medication Name Sig Start Date Stop Date Notes Amitriptyline HCl 25 MG 1 tablet at bedt bre Orally Once a day for 30 days 03/12/2024 Progress Notes * KRISHAN BereniceCristhianOB:1979 (43 yo F)Acc No.[id number]:03/12/2024 Patient: Berenice JOHNSONhel :1980 A ge:43 Y S ex:Female Address:[address] [place], [address] * Refills Start Amitriptyline HCl Tablet, 25 MG, Orally, 30, 1 tablet at bedtime, Once a day, 30 days, Refills=2 * true * Date: Generated for Printi ng/Faxing/eTransmitting on: 0 02/12/2025 02:11 PM CDT
--- OUTSIDE RECORDS SUMMARY | 2025-02-12 14:11 | XMS_ITS | CONTINUITY OF CARE DOCUMENT ---
Author Name naeem hartley Address Unknown Organization [facility] Address [address] [facility] [address] [place] [address] Phone [phone] Care Team Providers Care Cake Icer And Packer Name Role Phone Essence PEARCE, Pablo Unavailable Nuvia DIRECTOR OF COMMUNICATIONS-BC, Lulu L Unavailable [phone] Nuvia DIRECTOR OF COMMUNICATIONS-BC, Lulu L Unavailable [phone] PROBLEMS Condition Status Date Provider Notes Asymmetric [...] Hyperlipidemia;with high crp active Pablo Lowry MD Obesity active Pablo Lowry MD FAMILY HISTORY OF HEART DISEASE active Pablo Lowry MD both parents covid 19;2020;HAD VACCINE active Pablo anthony MD Personal history of GBMAO-41-eiy been vaccinated active Yulissa gerber MANAGER OPERATIONS Palpitations;NML TSH completed - Pablo Lowry MD Hx of mitral valve prolapse completed 2021 - Pablo Lowry MD Hypertriglyceridemia active Keny Acosta NP Hypothyroidism active Yulissa olmedo NP Hypertension active Yulissa armendariz MANAGER OPERATIONS Bipolar 1 disorder active Yulissa Acosta MANAGER OPERATIONS Chest pain, atypical active Pablo Hicks ENCOUNTERS Date Type Provider Location Encounter Diag nosis - In-person encounter Office Visit Pablo [facility] Office Chest pain, atypical Hx of mitral valve prolapsePalpitations;NM L TSHcovid ;2020;HAD VACCINEFAMILY HISTORY OF HEART DISEASEObesity - In-person encounter Office Visit Pablo Lowry MD [facility] Office Chest pain, atypicalBipolar 1 disorderHypertensionHyp othyroidismHypertriglyc eridemiaPalpitations;NM L TSHPersonal history of JTPTF-81-gba been vaccinated VITAL SIGNS Date Observation Value Provider Body Mass Index (Ratio) 35.42 kg/m2 Alvaro Lowry MD weight E&M 200 [lb_av] Pablo Hicks weight E&M 200 [lb_av] Law mas Body Mass Index (Ratio) 36.13 kg/m2 Alvaro Lowry MD height E&M 63 [in_i] Elisa O'Mauricio blood pressure, diastolic 80 mm[Hg] Ma rejiha O'Mauricio blood pressure, systolic 140 mm[Hg] Carmela russ O'Mauricio oxygen saturation, oximetry 98 % Elisa O'Mauricio respiratory rate E&M 18 /min Elisa O'Mauricio pulse rate 83 /min Elisa O'Mauricio blood pressure, resting Yes Jewett chance O'Mauricio weight E&M 204 [lb_av] Elisa [...] Normal Absolute Neutrophil count 8514 cells/mcL [employer] [id number] High mean platelet volume 10.1 fL [employer] [...] Payer name Policy type / Coverage type [place] red libertarian ID [id number] ADVANCE DIRECTIVES Name Date DISCUSSED - NO DECISION MADE TREATMENT PLAN Date Name Performer [id number],Pablo Duron MD [id number],Pablo Duron MD [id number],Pablo Duron MD [id number],Pablo Duron MD [id number],Pablo Duron MD [id number],C,C HOL: 232 (06/11/2022) LDL: 155 MG/DL (CALC) (06/11/2022) HDL: 36 (06/11/2022) T (06/11/2022) C RP: 5.7 mg/L (06/11/2022) Pablo Lowry MD [id number],C,C HOL: 232 (06/11/2022) LDL: 155 MG/DL (CALC) (06/11/2022) HDL: 36 (06/11/2022) T (06/11/2022) C RP: 5.7 mg/L (06/11/2022) Pablo Lowry MD [id number],Pablo Duron MD [id number],S,neg stress Chance macy Lowry [id number],S,n eg tsh and hotler p ro 13, a1c 4.9 n eg hiv Pablo Lowry [id number],S, Pablo Serot a [id number],S, Pablo Serot a [id number],S, Pablo Serot a [id number],S, Pablo Serot a [id number],C,C HOL: 232 (06/11/2022) LDL: 155 MG/DL (CALC) (06/11/2022) HDL: 36 (06/11/2022) T (06/11/2022) C RP: 5.7 mg/L (06/11/2022) Pablo Lowry [id number],C,C HOL: 232 (06/11/2022) LDL: 155 MG/DL (CALC) (06/11/2022) HDL: 36 (06/11/2022) T (06/11/2022) C RP: 5.7 mg/L (06/11/2022) Pablo Lowry [id number],S, Pablo carmona [id number],S, Pablo Spicer a [id number],S,n eg tsh and hotler p ro 13, a1c 4.9 Pablo Spicerkristine PEARCE [id number],C,pro 13, a1c 4 .9 Pablo Serotkristine [id number],C,48hr monitor Yulissa Acosta NP [id number],C,f ollows psych. EKG 06/02/22 SR with prolonged QTc, 498. pt current meds include lithium, paroxetine and lorazepam, that have been at constant doses, without recent changes. LITHIUM CAN PROLONG QTc, recommend psych adjusting/changing to other drug. Yulissa Fergusonbrock MILLAN [id number],C,. Pt reports over the last 2-3 weeks, [...] ECHO. will check labs Yulissa Acosta NP [id number],C,will check li pid panel Yulissa Acosta NP [id number],C,on levothyrox ine. will check TSH Yulissa Acosta NP [id number],C, B P today: 140/80 Her updated medication list for this problem includes: Metoprolol Tartrate 25 Mg Tablet (Metoprolol tartrate) ..... Take 1 tablet by mouth twice a day Yulissa Acosta NP [id number],C,04/2022 Rhianna Acosta NP TeleHealth Pablo Lowry MD [...] day Yulissa Acosta NP Cardiology:04/2022 Yulissa barbosa MANAGER OPERATIONS Date Name RPM (remote patient monitoring) CT, [...]
--- OUTSIDE RECORDS SUMMARY | 2025-02-12 14:11 | XMS_ITS | Clinical Summary ---
Author Organization [facility] [employer] Address [address] [place] [address] Care Team Providers Care Excellence Manager Name Role Phone Rm Beverly MD Primary Care Provider [phone] Donato Wei MD Unavailable [phone] Source Comments [facility] [employer],non-owned Affiliates and Associated Physician Practices is amultiple site organization consisting of ambulatory clinics and hospital sitesin [place], [place], [place] and [place]. This disclosure is being madepursuant to the Care Everywhere program and may not contain all information available regarding this patient. Last updated 18.[facility] [employer] Allergies Active Allergy Reactions Criticality Noted Date Comments Codeine Itching,Other 07/14/2017 Vancomycin Anaphylaxis High 07/14/2017 Medications * This document contains information received from the source organization and may not represent a complete record from that organization. * Be aware that medications may not be up to date on this document. Alwaysverify current medications with the patient. citalopram (CELEXA) 40 MG tablet Take 40 mg by mouth once daily Active CLONAZEPAM PO Active GABAPENTIN, ONCE-DAILY, PO Activ e Social History Tobacco Use Types Packs/Day Years Used Date Smoking Tobacco: Never Smokeless Tobacco: Never Comments Unknown Sex and Gender Information Value Date Recorded Sex Assigned at Not on file Legal Sex Female 12:09 PM HEMP FIBER TAKER OFF Gender Identity Not on file Sexual Orientation [...] - 19+ 3-dose series) 1998 COVID-19 VACCINE (3 - 2023-2 5 season) 2024 10/06/2020, 09/15/2020 DEPRESSION SCREENING 09/26/2024 INFLUENZA VACCINE (Season Ended) 2025 ZOSTER VACCINE (1 of 2) 2029 HIB VACCINE Aged Out No longer eligi ble based on patient's age to complete this topic HPV VACCINE Aged Out No longer eligi ble based on patient's age to complete this topic MENINGOCOCCAL (Group B) VACCINE SHARED DECISION-MAKING Aged Out No longer eligible based on patient's age to complete this topic MENINGOCOCCAL GROUPS A/C/Y/W VACCINE Aged Out No longer eligible b ased on patient's age to complete this topic PNEUMOCOCCAL VACCINE Aged Out No long er eligible based on patient's age to complete this topic Insurance [employer] Care Teams Excellence Manager Relationship Specialty Start Date End Date Rm Beverly MD [address] [place] [address] [phone] PCP - General 11/11/20 Donato Wie MD [address] [place] [phone] Internal Medicine 11/11/20
== END 2025-02-12 14:05 | disposition home or self-care (01) ==
LOC: ANHIMG 14:07
PROVIDERS: PCP Nurse Practitioner Family; Visit Provider Internal Medicine
DX: M25.50 Pain in unspecified joint (principal); R53.81 Other malaise; M79.10 Myalgia, unspecified site; M77.32 Calcaneal spur, left foot; M77.31 Calcaneal spur, right foot
CPT/HCPCS: 73100; 73120; 73600; 73620

== ENCOUNTER 2025-02-13 16:14 | Outpatient (CLI) | payer OTHER, SELFPAY ==
--- OUTSIDE RECORDS SUMMARY | 2025-02-13 16:18 | XMS_ITS | CONTINUITY OF CARE DOCUMENT ---
Author Name naeem hartley Address Unknown Organization [facility] Address [address] [facility] [address] [place] [address] Phone [phone] Care Team Providers Care Customs Brokerage Manager Name Role Phone Essence PEARCE, Pablo Unavailable Nuvia DEPUTY DIRECTOR OF PUBLIC WORKS-BC, Lulu L Unavailable [phone] Nuvia DEPUTY DIRECTOR OF PUBLIC WORKS-BC, Lulu L Unavailable PROBLEMS Condition Status Date [...] Yulissa Acosta NP Hypertension active Yulissa armendariz DATABASE ADMINISTRATION ASSOCIATE Hypothyroidism active Yulissa olmedo DATABASE ADMINISTRATION ASSOCIATE Hypertriglyceridemia active Keny Acosta NP Hx of mitral valve prolapse completed 2021 - Pablo Lowry MD Palpitations;NML TSH completed - Pablo Lowry MD Personal history of GHNUD-87-ggf been vaccinated active Yulissa gerber DATABASE ADMINISTRATION ASSOCIATE covid 19;2020;HAD VACCINE active Pablo anthony MD FAMILY HISTORY OF HEART DISEASE active Pablo Lowry MD both parents Obesity active Pablo Lowry MD ENCOUNTERS Date Type Provider Location Encounter Diag nosis - In-person encounter Office Visit Pablo Lowry MD [facility] Office Chest pain, atypical Hx of mitral valve prolapsePalpitations;NM L TSHcovid ;HAD VACCINEFAMILY HISTORY OF HEART DISEASEObesity - In-person encounter Office Visit Pablo Lowry MD [facility] Office Chest pain, atypicalBipolar 1 disorderHypertensionHyp othyroidismHypertriglyc eridemiaPalpitations;NM L TSHPersonal history of RHSNH-18-blx been vaccinated VITAL SIGNS Date Observation Value [...] Normal Absolute Neutrophil count 8514 cells/mcL [employer] [id number] High mean platelet volume 10.1 fL [employer] [...] Payer name Policy type / Coverage type [place] red democrat ID [employer] [id number] ADVANCE DIRECTIVES Name Date DISCUSSED - NO DECISION MADE TREATMENT PLAN Date Name Performer [id number],Pablo Duron MD [id number],Pablo Duron MD [id number],Pablo Duron MD [id number],Pablo Duron MD [id number],Pablo Duron MD [id number],C,C HOL: 232 (06/11/2022) LDL: 155 MG/DL (CALC) (06/11/2022) HDL: 36 (06/11/2022) T (06/11/2022) C RP: 5.7 mg/L (06/11/2022) Pablo Lowry MD [id number],C,C HOL: 232 (06/11/2022) LDL: 155 MG/DL (CALC) (06/11/2022) HDL: 36 (06/11/2022) T (06/11/2022) C RP: 5.7 mg/L (06/11/2022) Pablo Lowry MD [id number],Pablo Duron MD [id number],S,neg stress Chance macy Lowry [id number],S,n eg tsh and hotler p ro 13, a1c 4.9 n eg hiv Pablo Lowry [id number],S, Pablo Serot a [id number],S, Pablo Serot a [id number],S, Pablo Serot a [id number],S, Pablo Serot a [id number],C,C HOL: 232 (06/11/2022) LDL: 155 MG/DL (CALC) (06/11/2022) HDL: 36 (06/11/2022) T (06/11/2022) C RP: 5.7 mg/L (06/11/2022) Pablo Lowry [id number],C,C HOL: 232 (06/11/2022) LDL: 155 MG/DL (CALC) (06/11/2022) HDL: 36 (06/11/2022) T (06/11/2022) C RP: 5.7 mg/L (06/11/2022) Pablo Lowry [id number],S, Pablo carmona [id number],S, Pablo Spicer a [id number],S,n eg tsh and hotler p ro 13, a1c 4.9 Pablo Spicerkristine PEARCE [id number],C,pro 13, a1c 4 .9 Pablo Serotkristine [id number],C,48hr monitor Yulissa Acosta NP [id number],C,f ollows psych. EKG 06/02/22 SR with prolonged QTc, 498. pt current meds include lithium, paroxetine and lorazepam, that have been at constant doses, without recent changes. LITHIUM CAN PROLONG QTc, recommend psych adjusting/changing to other drug. Yulissa Fergusonbrock MILLAN [id number],C,. Pt reports over the last 2-3 weeks, [...] ECHO. will check labs Yulissa Acosta NP [id number],C,will check li pid panel Yulissa Acosta NP [id number],C,on levothyrox ine. will check TSH Yulissa Acosta NP [id number],C, B P today: 140/80 Her updated medication list for this problem includes: Metoprolol Tartrate 25 Mg Tablet (Metoprolol tartrate) ..... Take 1 tablet by mouth twice a day Yulissa Acosta NP [id number],C,04/2022 Rhianna Acosta NP TeleHealth Pablo Lowry MD [...] day Yulissa Acosta NP Cardiology:04/2022 Yulissa barbosa DATABASE ADMINISTRATION ASSOCIATE Date Name RPM (remote patient monitoring) CT, [...]
--- OUTSIDE RECORDS SUMMARY | 2025-02-13 16:18 | XMS_ITS | Patient Health Record ---
Author Organization [facility] [place] ([address]) Address [address] [place] [address] Care Team Providers Care Locomotive Engineer Electric Name Role Phone Funmilayo Narvaez Unavailable [phone] Kiera Lucas Unavailable [phone] Reason For Referral No Information Problems Problem Type SNOMED Code ICD Code Onset Dates Problem Status W/U Status Risk Notes Problem Chronic allergic conjunctivitis (62958437) Other chronic allergic conjunctivitis (H10.45) Active confirmed Problem Allergic rhinitis caused by pollen (disorder) (48314515) Allergic rhinitis due to pollen (J30.1) Active confirmed Problem Allergic rhinitis (85749896) Other allergic rhinitis (J30.89) Active confirmed Problem Chronic rhinitis (58000206) Chronic rhinitis (J31.0) Active confirmed Problem Uncomplicated mild persistent asthma (606260628) Mild persistent asthma, uncomplicated (J45.30) Active confirmed Problem Uncomplicated moderate persistent asthma (382016011) Moderate persistent asthma, uncomplicated (J45.40) Active confirmed Problem Uncomplicated severe persistent asthma (491889019) Severe persistent asthma, uncomplicated (J45.50) Active confirmed Problem Allergic rhinitis caused by animal hair and dander (413300535298208) Allergic rhinitis due to animal (cat) (dog) hair and dander (J30.81) Active confirmed Encounters Encounter Location Date Provider Diagnosis [facility] [place] [address] [place] [address] 04/16/2024 Kiera Lucas Plan Of Treatment No Information Insurance Providers Payer Name Payer Address Payer Phone Subscriber Number Group Number Insured Name Patient Relationship to Insured Coverage Start Date Coverage End Date R [address] [address] [place], [place] [id number] Natalie Edwards ch Self - patient is the insured 4
--- OUTSIDE RECORDS SUMMARY | 2025-02-13 16:19 | XMS_ITS | Patient Health Record ---
Author Organization [facility] Address [address] [place] [address] Care Team Providers Care Pbx Repairer Name Role Phone Nuvia MILLAN, Lulu Primary Care Provider Unavail able RamiroAbbie Unavailable [phone] Allergies Allergen (clinical drug ingredient) Drug/Non Drug [...] Problem Status W/U Status Risk Notes Problem 930115299 Osteoarthritis, unspecified osteoarthritis type, unspecified site (M19.90) Active confirmed Vital Signs Heart Rate 102 /min 03/05/2024 Temperature 97.4 degrees Fahrenheit 03/05/2024 Blood pressure diastolic 98 mm Hg 03/05/2024 Oximetry 96 % 03/05/2024 Height 63 in 03/05/2024 Blood pressure systolic 150 mm Hg 03/05/2024 Weight 216.0 lbs 03/05/2024 BMI 38.26 kg/m2 03/05/2024 Encounters Encounter Location Date Provider Diagnosis [facility] [address] [place] [address] 03/05/2024 Abbie Ramiro INGRID positive R76.8 ; Psoriatic arthritis L40.50 ; Psoriasis L40.9 ; Osteoarthritis, unspecified osteoarthritis type, unspecified site M19.90 ; Decreased GFR R94.4 ; SI (sacroiliac) pain M53.3 ; 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 ; Increased pressure in the eye, bilateral H40.053 ; Secondary Sjogren's syndrome M35.00 and Rash R21 [facility] [address] [place] [address] 02/21/2024 [facility] [address] [place] [address] 02/21/2024 [facility] [address] [place] [address] 03/05/2024 Abbie Rubio Psoriatic arthritis L40.50 [facility] [address] [place] [address] 03/05/2024 [facility] [address] [place] [address] 03/12/2024 [facility] [address] [place] [address] 02/24/2024 [facility] [address] [place] [address] 02/28/2024 [facility] [address] [place] [address] 02/28/2024 [facility] [address] [place] [address] 03/01/2024 [facility] [address] [place] [address] 03/07/2024 [facility] [address] [place] [address] 03/12/2024 [facility] [address] [place] [address] 03/15/2024 Abbie Du Assessments Encounter Date Diagnosis [...] Insured Coverage Start Date Coverage End Date [facility] [employer] [address] [address] [place] [address] [id number] Natalie Edwards ch Self - patient is the insured [place] [address] [place] [address] [id number] Natalie Edwards ch Self - patient is the insured Medications Administered Medication Instructions Date of Administration Dosage Notes DEPO-Medrol 03/05/2024 80 mg Medical (General) History Medical History History ICD Code leukocytosis bipolar 1 small fiber neuropathy hypertension diabetes hypothyroidism psoriasis Surgical History Surgery Date(Month/Year) left hip surgery (labral taper) hysterectomy
--- OUTSIDE RECORDS SUMMARY | 2025-02-13 16:19 | XMS_ITS ---
Author Organization [facility] Address [address] [place] [address] Care Team Providers Care Blood Collector Name Role Phone Nuvia MILLAN, Lulu Primary Care Provider Abbie Vasquez [phone] REASON FOR VISIT medication Medications Medication SIG (Take, Route, Fr equency, Duration) Notes Start Date End Date Status Amitriptyline HCl 25 MG 1 tablet at bedt bre Orally Once a day for 30 days 03/12/2024 Active Encounters Encounter Location Date Provider Diagnosis [facility] [address] [facility] [address] [place] [address] 03/12/2024 Abbie Rubio Plan Of Treatment Medication Medication Name Sig Start Date Stop Date Notes Amitriptyline HCl 25 MG 1 tablet at bedt bre Orally Once a day for 30 days 03/12/2024 Progress Notes * KRISHAN BereniceCristhianOB:1979 (43 yo F)Acc No.[id number]:03/12/2024 Patient: Berenice JOHNSONhel :1980 A ge:43 Y S ex:Female Address:[address] [place], [address] * Refills Start Amitriptyline HCl Tablet, 25 MG, Orally, 30, 1 tablet at bedtime, Once a day, 30 days, Refills=2 * true * Date: Generated for Printi ng/Faxing/eTransmitting on: 0 02/13/2025 03:07 PM CDT
--- OUTSIDE RECORDS SUMMARY | 2025-02-13 16:19 | XMS_ITS | Referral Summary ---
Author Organization [facility] Address [address] [place] [address] Care Team Providers Care Dry Starch Operator Name Role Phone Colleen Pagan HOSPICE OFFICE COORDINATOR Primary Care Provider [phone] Encounters Date Type Department Care Team Description 02/13/2025 2:45 PM CDT Ancillary Procedure [facility] Cardiology [address] [place] [phone] Palpitations 02/13/2025 3:30 PM CDT Office Visit [facility] Cardiology [address] [place] [phone] Janna Johnson NP Lipid screening (Primary Dx); POTS (postural orthostatic tachycardia syndrome); Palpitations; Fatigue, unspecified type; Syncope and collapse 01/17/2025 Orders Only [facility] Orthopaedic Surgery [address] [place] [address] Office [address] [place] [phone] Gunnar Moss MD Left hip pain (Primary Dx) 01/15/2025 Documentation [facility] Orthopaedic Surgery [address] [place] [address] Office Building [address] [place] [phone] Gloria Kowalski CMA 01/10/2025 7:15 AM CDT - 01/10/2025 9:10 AM CDT Surgery [facility] Operating Room 98520 Arianna RICE, [place] [address] Gunnar Moss MD ARTHROPLASTY TOTAL HIP - DEPUY 01/10/2025 7:05 AM CDT Anesthesia Event [facility] Operating Room 83730 Arianna RICE, [place] [address] Kevyn Bearden MD Thomas, Karen D., HOSPICE OFFICE COORDINATOR 01/10/2025 5:08 AM CDT - 01/10/2025 12:44 PM CDT Hospital Encounter [facility] Operating Room [address] [place] [address] Gunnar Moss MD Primary osteoarthritis of left hip (Primary Dx); Osteoarthritis of left hip, unspecified osteoarthritis type Discharge Disposition: Discharge to home or self care 12/26/2024 Orders Only [facility] Orthopaedic Surgery [address] [place] [address] [address] [place] [address] Gunnar Moss MD Bilateral hip pain (Primary Dx) 12/19/2024 Orders Only [facility] Orthopaedic Surgery [address] [place] [address] [place] [phone] Gunnar Moss MD 12/19/2024 Documentation [facility] Orthopaedic Surgery [address] [place] [address] 4 [address] [place] [address] Josie Thorpe RN 12/11/2024 Orders Only [facility] Orthopaedic Surgery [address] [place] [address] [place] [phone] Gunnar Moss MD 12/11/2024 11:05 AM CDT Lab [facility] [address] [place] [address] Preoperative testing; Primary osteoarthritis of left hip 12/11/2024 11:30 AM CDT Pre-Admission Testing [facility] Pre-Anesthesia Testing [address] [place] [address] Preoperative testing (Primary Dx) 12/03/2024 Documentation [facility] Orthopaedic Surgery [address] [place] [address] 4 [address] [place] [address] Yazan Marizol from Last 3 Months Allergies Active Allergy [...] 1 tablet (75 mcg total) 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 before 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 09/26/18 70 Active LORazepam (ATIVAN) [...] morning 30 tablet 11 06/21/20 24 Active losartan (COZAAR) 100 mg tabletIndication s:Essential hypertension Take 1 tablet (100 mg total) by mouth daily 30 tablet 11 09/17/20 24 025 Active cyanocobalamin (Vitamin B-12) 1,000 mcg tablet Take 1 tablet (1,000 mcg total) by mouth every morning 06/28/20 Active psyllium 0.52 gram capsule Take 1 [...] for pain 42 tablet 01/11/20 25 Active Additional Information Patient not taking.Reported on 02/13/2025 acetaminophen (TYLENOL) 500 mg tablet Take 2 [...] daily 30 tablet 01/11/20 25 026 Active Additional Information Patient not taking.Reported on 02/13/[address] (PROTONIX) 20 mg EC tablet Take 1 tablet (20 mg total) by mouth daily 30 tablet 01/11/20 25 Active Additional Information Patient not taking.Reported on 02/13/2025 senna-docusate (Senna-S) 8.6-50 mg Take 2 tablets by mouth 2 (two) times a day 80 tablet 1 01/11/20 25 Active Additional Information Patient not taking.Reported on 02/13/2025 HYDROmorphone (DILAUDID) 2 mg tabletIndication s:Pain Take 1-2 tablets (2-4 mg total) by mouth every 4 (four) hours as needed for pain 42 tablet 01/19/20 25 Active Additional Information Patient not taking.Reported on 02/13/2025 triamcinolone (KENALOG) 0.1 % creamIndications :Rash and other nonspecific skin eruption Apply topically 2 (two) times a day 30 g 01/22/20 25 Active Additional Information Patient not taking.Reported on 02/13/2025 cyclobenzaprine (FLEXERIL) 10 mg tablet Take 1 tablet (10 mg total) by mouth 3 (three) times a day as needed for muscle spasms 30 tablet 01/25/20 25 Active HYDROcodone-acet aminophen (NORCO) 5-325 mg per tabletIndication s:Pain Take 1 tablet by mouth every 6 (six) hours as needed for pain 40 tablet 02/05/20 25 Active chlorthalidone (HYGROTON) 25 mg tablet Take 1 tablet (25 mg total) by mouth daily 02/05/20 25 Active HYDROcodone-acet aminophen (NORCO) 5-325 [...] 09/23/2019 Assessment & Plan (09/23/2019 10:42 PM METAL BALER): Patient has an established diagnosis of bipolar affective disorder, characterized by periods of low mood, anhedonia, difficulty concentrating, low energy, poor sleep and suicidal ideation, as well as at least one manic episode with impulsivity, increased spending, decreased need for sleep, racing thoughts. She has an outpatient psychiatrist in [place], [place] Dr. Kramer and has been tried [...] wake up. She has never been on [place] because she was scared of the side effects, but is now amenable to it. Plan is to start [place] ER 600mg at bedtime. D/c latuda. Continue [...] and Family Twice a week 09/24/2019 Attends [employer] Never 09/24 Active Member of Clubs [...] on file Legal Sex Female 3:31 PM METAL BALER Gender Identity Not on file Sexual Orientation Not on file Last Filed Vital Signs Vital Sign Reading Time Taken Comments Blood Pressure 118/76 02/13/2025 3:22 PM CDT Pulse 86 02/13/2025 3:22 PM CDT Temperature 36.7 C (98.1 F) 01/10/2025 5:55 AM CDT Respiratory Rate 12 01/10/2025 11:35 AM CDT Oxygen Saturation 99% 02/13/2025 3:22 PM CDT Inhaled Oxygen Concentration - - Weight 94.8 kg (209 lb) 02/13/2025 3:22 PM CDT Height 160 cm (5' 3 ) 02/13/2025 3:22 PM CDT Body Mass Index 37.02 02/13/2025 3:22 PM CDT Plan of Treatment Not on file Medical Devices Implanted Type Area Carton Waxing Machine Operator Device Identifier Shelf Expiration Date Model / Serial / Lot [employer] Bi Mentum 47mm Press Fit Femoral Proximal Cup Acetabular [id number] - [id number] Implanted:Qty: 1 on 01/10/2025 at [facility] Left: Hip [employer] 05/26/2028 [id number] / / [id number] [employer] Liner Acetabular Hip Bi Mentum Altrx 47mm Polyethylene Size 28 [id number] - [id number] Implanted:Qty: 1 on 01/10/2025 at [facility] Left: Hip [employer] 09/25/2029 [id number] / / [id number] [employer] Articul/Eric 28mm Cementless Hip +1.5mm 09/08 Taper Head Femoral Latex Free [id number] - [id number] Implanted:Qty: 1 on 01/10/2025 at [facility] Left: Hip [employer] 11/23/2029 [id number] / / [id number] [employer] Actis 105mm Collar Hip 5 High Offset Stem Femoral [id number] - [id number] Implanted:Qty: 1 on 01/10/2025 at [facility] Left: Hip [employer] 10/26/2034 [id number] / / [id number] Procedures Procedure Name Priority Date/Time Associated Diagnosis Comments POCT LIPID PANEL Routine 02/13/2025 3:30 PM CDT Lipid screening XR PELVIS ORTHO VIEW ED Urgent/IP Urgent 01/10/2025 8:37 AM CDT ARTHROPLASTY TOTAL HIP - DEPUY 01/10/2025 7:04 AM CDT Primary osteoarthritis of left hip [place] AN PROCEDURE PLACEHOLDER Routine 01/10/2025 6:59 AM CDT EGFR Routine 12/11/2024 11:53 AM CDT Primary osteoarthritis of left hip COMPREHENSIVE METABOLIC PANEL Routine 12/11/2024 11:53 AM CDT Primary osteoarthritis of left hip VITAMIN D 25 HYDROXY Routine 12/11/2024 11:53 AM CDT Primary osteoarthritis of left hip CBC WITHOUT DIFFERENTIAL Routine 12/11/2024 11:53 AM CDT Preoperative testing from Last 3 Months Results * (ABNORMAL) POCT lipid panel (02/13/2025 3:30 PM CDT) Cholesterol, POC 193 <200 MG/DL HDL, POC 35(A) >=40 mg/dL Triglycerides, POC 330(A) <=149 mg/dL LDL Cholesterol POC 92 <=129 mg/dL Chol/HDL Ratio, POC 2.6 NONE Non-HDL Cholesterol, POC 158 NONE mg/dL Capillary blood 02/13/2025 3 :30 PM CDT Janna Anne Elizabeth MILLAN POINT OF CARE TEST ORDERABLE S Final Result * XR Pelvis Ortho View (01/10/2025 8:37 [...] arthroplasty in expected position. Dictated by: Bert Otero, M.D. The radiology attending physician has personally reviewed this study, and had reviewed and/or edited this written report and agrees with it. Electronically signed by: Oumar Williamson MD Peter Kim MD IMG XR PROCEDURES Final R esult * [place] AN PROCEDURE PLACEHOLDER (01/10/2025 6:59 AM CDT) [...] ORDERABLES Hanna l Result Performing Organization Address [facility] Co de Phone Number EMMA MOCTEZUMANYU [facility] [address] [employer]. [facility] [employer] [place], [place] [id number] * (ABNORMAL) Vitamin D 25 hydroxy (12/11/2024 11:53 AM CDT) Pathologist [facility] Vitamin D 25-OH 29(L) 30 - 80 ng/mL Blood 12/11/2024 11:5 3 AM CDT 12/11/2024 12:24 PM CDT Gunnar Moss MD LAB BLOOD ORDERABLES Hanna l Result Performing Organization Address [facility] de Phone Number EMMA MOCTEZUMACH [address] [employer]. [facility] Inside [place], [place] [id number] * (ABNORMAL) CBC without differential (12/11/2024 11:53 AM CDT) Pathologist [facility] WBC 7.0 3.8 - 9.9 K/cumm Hgb 15.2 11.9 - 15.5 g/dL [facility] Hct 45.7(H) 35.6 - 45.5 % [facility] Plt 294 150 - 400 K/cumm [facility] MPV 10.3 9.1 - 12.3 fL [facility] W RBC 5.18 3.90 - 5.20 M/cumm [facility] MCV 88.2 81.3 - 96.4 fL [facility] MCH 29.3 27.1 - 33.3 pg [facility] MCHC 33.3 32.3 - 35.7 g/dL [facility] RDW CV 13.8 11.1 - 14.9 % [facility] RDW SD 44.7 35.7 - 48.1 fL [facility] NRBC abs 0.00 0.00 - 0.01 K/cumm [facility] Blood 12/11/2024 11:5 3 AM CDT 12/11/2024 12:24 PM CDT us Jessica Bryant NP LAB BLOOD ORDERABLES Final Result EMMA MOCTEZUMANYU [facility] [address] [facility]. Department of [place] [address] * (ABNORMAL) Comprehensive metabolic panel (12/11/2024 11:53 AM CDT) Sodium 141 135 - 145 mmol/L Potassium, pl 4.4 3.3 - 4.9 mmol/L [facility] Chloride 106 97 - 110 mmol/L [facility] CO2 26 22 - 32 mmol/L [facility] Anion gap 10 2 - 15 mmol/L [facility] BUN 17 6 - 25 mg/dL [facility] Creatinine 1.18(H) 0.60 - 1.10 mg/dL [facility] Glucose 97 70 - 199 mg/dL [facility] Comment: Interpretive Data Fasting glucose >/= [...] [facility] AST 16 10 - 45 Units/L [facility] Blood 12/11/2024 11:5 3 AM CDT 12/11/2024 12:24 PM CDT us Gunnar Moss MD LAB BLOOD ORDERABLES Hanna raymundo Result EMMA GREEN [address] [facility]. [place] [address] from Last 3 Months Insurance [facility] Address: [address] [address] [facility] Address: [address] [address] [employer] [facility] [employer] Address: [address] [id number] [place] [address] Advance Directives For more information, please contact: [phone] * Full Code (Latest Code Status on File) Date Activated Date Inactivated Comments 01/10/2025 8:22 AM 01/10/2025 4:44 PM * Full Code Date Activated Date Inactivated Comments 09/22/2019 5:13 PM 09/25/2019 12:46 PM Care Teams Dry Starch Operator Relationship Specialty Start Date End Date Colleen Pagan NP [address] [place] [address] PCP - General Family Medicine 06/21/24
--- OUTSIDE RECORDS SUMMARY | 2025-02-13 16:19 | XMS_ITS | Clinical Summary ---
Author Organization [facility] Address [address] [place] [address] Phone Care Team Providers Care Finance Broker Name Role Phone Donato Wei MD Primary Care Provider U navailable Immunizations Immunization Administration Dates Next Due Covid-19, Mrna, Lnp-s, Pf, 30 Mcg/0.3 Ml Dose (P fizer) 10/06/2020,09/15/2020 Social History Tobacco Use Types Packs/Day Years Used Date Smoking Tobacco: Never Assessed Comments Unknown Sex and Gender Information Value Date Recorded Sex Assigned at Not on file Legal Sex Female 9:54 AM BIOCHEMIST Gender Identity Not on file Sexual Orientation [...] age to complete this topic Care Teams Finance Broker Relationship Specialty Start Date End Date Donato Wei MD PCP - General Internal Medicine 09/14/18
--- OUTSIDE RECORDS SUMMARY | 2025-02-13 16:19 | XMS_ITS | Encounter Summary ---
Author Organization [facility] Address [address] [place] [address] Care Team Providers Care Carpenter Assistant Name Role Phone Lulu Pedersen Primary Care Provider [phone] Encounter Details Date Type Department Care Team (Late st Contact Info) Description 02/12/2025 External Device Data [facility] ABSTRACTION Provider, Abstract NO ADDRESS ON FILE Social History Tobacco Use Types Packs/Day Years Used Date Smoking Tobacco: Never Smokeless Tobacco: Never Alcohol Use Standard Drinks/Week Comments Not Currently 0 (1 standard drink = 0.6 oz pur e alcohol) Comments No Sex and Gender Information Value Date Recorded Sex Assigned at Not on file Legal Sex Female 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 Gender Identity Not on file Sexual Orientation Not on file documented as of this encounter Plan of Treatment Upcoming Encounters Date Type Department Care Team (Late st Contact Info) Description 05/20/2025 11:15 AM CDT Video Visit [facility] Psychiatry [address] [place] [address] Rasheed Kramer MD [address] [place] [address] [place] [phone] documented as of this encounter Visit Diagnoses Not on filedocumented in this encounter Care Teams Carpenter Assistant Relationship Specialty Start Date End Date Lulu Pedersen FNP [address] [facility] [address] [place] [address] PCP - General Nurse Practitioner Family 02/12/20 documented as of this encounter
--- OUTSIDE RECORDS SUMMARY | 2025-02-13 16:19 | XMS_ITS | Encounter Summary ---
Author Organization [facility] Address [address] [place] [address] Care Team Providers Care Polishing Wheel Setter Name Role Phone Colleen Pagan NP Primary Care Provider [phone] Reason for Visit * Cardiology (Routine) - Closed Specialty Diagnoses / Procedures Referred By Lee t Referred To Contact Diagnoses Palpitations Procedures MCT Mobile Cardiac Telemetry Event Monitor Janna Johnson NP [address] [place] [address] [place] [address] Phone: tel: fax: [facility] Medical [facility] Cardiology [address] [address] Phone: tel: fax: Referral ID Status Reason Start Date Expiration Date Visits Re quested Visits Authorized [id number] Closed 02/13/2025 03/15/2026 1 1 Encounter Details Date Type Department Care Team (Late st Contact Info) Description 02/13/2025 2:45 PM CDT Ancillary Procedure [facility] Medical [facility] Cardiology [address] [facility] [address] [address] Palpitations Social History Tobacco Use Types Packs/Day Years Used Date Smoking Tobacco: Never Smokeless Tobacco: Never Humiliation, Afraid, Rape, and Kick [...] and Family Twice a week 09/24/2019 Attends [employer] Services Never 09/24 Active Member of Clubs [...] on file Legal 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 Female 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
--- OUTSIDE RECORDS SUMMARY | 2025-02-13 16:19 | XMS_ITS | Encounter Summary ---
Author Organization [facility] Healthcare Address [address] [place] [address] Care Team Providers Care Hadoop Infrastructure Architect Name Role Phone Colleen Pagan NP Primary Care Provider [phone] Reason for Referral * Consultation (Routine) - Pending Review Specialty Diagnoses / Procedures Referred By Lee jackson Referred To Contact Cardiology Diagnoses POTS (postural orthostatic tachycardia syndrome) Palpitations Janna Johnson NP [address] [place] [address] Phone: tel: fax: Leidy Day MD [address] [facility] [place] [address] [place] [address] Phone: tel: fax: Referral ID Status Reason Start Date Expiration Date Visits Requested Visits Authorized [id number] Pending Review Specialty Services Required 02/13/2025 03/15/2026 1 1 Question Answer Please select the performing region: [facility] (All Locations) [[id number]] Is this referral for the [facility]? No Is this referral for the [facility]? No To provider: LEIDY DAY [[id number]] # of visits: 1 Comments Tilt table test * Cardiology (Routine) - Closed Specialty Diagnoses / Procedures Referred By Lee t Referred To Contact Diagnoses Palpitations Procedures MCT Mobile Cardiac Telemetry Event Monitor Janna Johnson NP [address] [place] [id number] Phone: tel: fax: [facility] Cardiology [facility] [address] [address] Phone: tel: fax: Referral ID Status Reason Start Date Expiration Date Visits Re quested Visits Authorized [id number] Closed 02/13/2025 03/15/2026 1 1 * Cardiology (Routine) - Pending Review Specialty Diagnoses / Procedures Referred By Contmiki t Referred To Contact Diagnoses POTS (postural orthostatic tachycardia syndrome) Procedures Tilt Table Janna Johnson NP [address] [address] Phone: tel: fax: [address] [phone] Referral ID Status Reason Start Date Expiration Date V isits Requested Visits Authorized [id number] Pending Review 02/13/2025 03/15/2026 1 1 Reason for Visit * Reason Comments Follow-up 6 mo Encounter Details Date Type Department Care Team (Late st Contact Info) Description 02/13/2025 3:30 PM CDT Office Visit [facility] Cardiology [address] [place] [phone] Janna Johnson NP [address] [place] [address] Lipid screening (Primary Dx); POTS (postural orthostatic tachycardia syndrome); Palpitations; Fatigue, unspecified type; Syncope and collapse Social History Tobacco Use Types Packs/Day Years [...] and Family Twice a week 09/24/2019 Attends [employer] Services Never 09/24 Active Member of Clubs [...] on file 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 Gender Identity Not on file Sexual Orientation Not on file documented as of this encounter Last Filed Vital Signs Vital Sign Reading Time Taken Comments Blood Pressure 118/76 02/13/2025 3:22 PM CDT Pulse 86 02/13/2025 3:22 PM CDT Temperature - - Respiratory Rate - - Oxygen Saturation 99% 02/13/2025 3:22 PM CDT Inhaled Oxygen Concentration - - Weight 94.8 kg (209 lb) 02/13/2025 3:22 PM CDT Height 160 cm (5' 3 ) 02/13/2025 3:22 PM CDT Body Mass Index 37.02 02/13/2025 3:22 PM CDT documented in this encounter Progress Notes * Janna Johnson, YANA - 02/13/2025 3:30 PM CDT [facility] Cardiology [address] [place] [address] Date of Visit: 02/13/2025 Patient ID: Natalie Alamo [id number] Chief Complaint: Natalie Alamo is a 44 y.o. female who comes to the office for routine follow up for paroxysmal atrial fibrillation, hypertension History of Present Illness: Natalie Alamo is a 44 y.o. female with a past medical history of hypertension, hypothyroidism, rheumatoid arthritis. She presented to [facility] on 05/20/2024 when she was experiencing rapid palpitations at home. She was found to be in AFib with RVR, rate 140-180 bpm. She will be IV diltiazem. Dr. Santiago saw her in consultation. She was transitioned to oral metoprolol. Of note, prior to her hospitalization, PCP had been treating her blood pressure. Hydrochlorothiazide caused hypokalemia. Lisinopril caused a cough. At the time she presented to the hospital she was taking chlorthalidone and losartan. Both were stopped when she was discharged on metoprolol. 06/21/2024 Hospital follow-up with ENVIRONMENTAL INTERN: Natalie Alamo comes to the office today for a hospital follow up visit. She has not felt any recurrence of palpitations. Blood pressures have been running systolic 145-150s, diastolic 90s. She has not been successful with attempts to lose weight thus far. 02/13/2025 follow-up with ENVIRONMENTAL INTERN - Natalie Alamo comes to the office today for a follow up visit. Recently had left total hip replacement and is recovering well. She is complaining of labile blood pressure and palpitations. She also had a syncopal event that sounds like a result of orthostatic hypotension. She is also complaining of debilitating fatigue. Records that I personally reviewed on the day of this visit include: (the interpretation is outlined in the HPI above) I have also reviewed: allergies, current medications, past family history, past medical history, past social history, past surgical history and problem list Review of Systems Constitutional: Positive for decreased appetite and malaise/fatigue. Negative for fever, night sweats, weight gain and weight loss. HENT: Negative for hearing loss. Eyes: Negative for blurred vision and visual disturbance. Cardiovascular: Positive for syncope. Negative for chest pain, claudication, dyspnea on exertion, irregular heartbeat, leg swelling, near-syncope, orthopnea, palpitations and paroxysmal nocturnal dyspnea. Respiratory: Negative for shortness of breath, sleep disturbances due to breathing, snoring and wheezing. Hematologic/Lymphatic: Negative for bleeding problem. Musculoskeletal: Negative for muscle cramps and muscle weakness. Gastrointestinal: Negative for abdominal pain, change in bowel habit, diarrhea, nausea and vomiting. Genitourinary: Negative for hematuria. Neurological: Negative for dizziness and headaches. Vital Signs: BP 118/76 (BP Location: Right arm, Patient Position: Sitting) Pulse 86 Ht 160 cm (5' 3 ) Wt 94.8 kg (209 lb) SpO2 99% BMI 37.02 kg/m?? Body mass index is 37.02 kg/m??. Physical Exam Vitals reviewed. Constitutional: General: She is not in acute distress. HENT: Head: Normocephalic and atraumatic. Eyes: Extraocular Movements: Extraocular movements intact. Conjunctiva/sclera: Conjunctivae normal. Cardiovascular: Rate and Rhythm: Normal rate and regular rhythm. Heart sounds: Normal heart sounds. Pulmonary: Effort: Pulmonary effort is normal. No respiratory distress. Breath sounds: Normal breath sounds. Abdominal: General: Bowel sounds are normal. Palpations: Abdomen is soft. Musculoskeletal: General: Normal range of motion. Cervical back: Normal range of motion and neck supple. Skin: General: Skin is warm and dry. Neurological: Mental Status: She is alert and oriented to person, place, and time. Allergies Allergen Reactions Vancomycin Hives, Itching and Rash Reaction: Hives, Itching, Rash, Levofloxacin Rash Morphine Hives Phenazopyridine Nausea only Codeine Itching and Rash Reaction: Itching, Rash, Penicillins Itching and Rash Reaction: Itching, Rash, Lisinopril Cough Current Outpatient Medications: acetaminophen (TYLENOL) 500 mg tablet, Take 2 tablets (1,000 mg total) by mouth every 8 (eight) hours, Disp: 90 tablet, Rfl: 1 aspirin 81 mg enteric coated tablet, Take 1 tablet (81 mg total) by mouth 2 (two) times a day, Disp: 60 tablet, Rfl: 0 chlorthalidone (HYGROTON) 25 mg tablet, Take 1 tablet (25 mg total) by mouth daily, Disp: , Rfl: cyanocobalamin (Vitamin B-12) 1,000 mcg tablet, Take 1 tablet (1,000 mcg total) by mouth every morning, Disp: , Rfl: cyclobenzaprine (FLEXERIL) 10 mg tablet, Take 1 tablet (10 mg total) by mouth 3 (three) times a dayas needed for muscle spasms, Disp: 30 tablet, Rfl: 0 ergocalciferol (VITAMIN D) 50,000 unit capsule, TAKE 1 CAP 2 X A WEEK FOR 8 WEEKS THEN FOLLOW UP WITH YOUR PCP., Disp: 16 capsule, Rfl: 0 gabapentin (NEURONTIN) 300 mg capsule, Take 3 capsules (900 mg total) by mouth nightly, Disp: , Rfl: HYDROcodone-acetaminophen (NORCO) 5-325 mg per tablet, Take 1 tablet by mouth every 6 (six) hours as needed for pain, Disp: 40 tablet, Rfl: 0 levothyroxine (SYNTHROID) 75 mcg tablet, Take 1 tablet (75 mcg total) by mouth hollow ware maker beforebreakfast, Disp: , Rfl: LORazepam (ATIVAN) 0.5 mg tablet, Take 1 tablet (0.5 mg total) by mouth 3 (three) times a day as needed for anxiety, Disp: , Rfl: losartan (COZAAR) 100 mg tablet, Take 1 tablet (100 mg total) by mouth daily, Disp: 30 tablet, Rfl:11 metoprolol XL (TOPROL-XL) 50 mg extended release tablet, Take 1 tablet (50 mg total) by mouth everymorning, Disp: 30 tablet, Rfl: 11 PARoxetine (PAXIL) 40 mg tablet, Take 1 tablet (40 mg total) by mouth every morning, Disp: , Rfl: traZODone (DESYREL) 100 mg tablet, Take 1 tablet (100 mg total) by mouth nightly as needed for sleep, Disp: , Rfl: HYDROmorphone (DILAUDID) 2 mg tablet, Take 1-2 tablets (2-4 mg total) by mouth every 4 (four) hoursas needed for pain (Patient not taking: Reported on 02/13/2025), Disp: 42 tablet, Rfl: 0 meloxicam (MOBIC) 15 mg tablet, Take 1 tablet (15 mg total) by mouth daily (Patient not taking: Reported on 02/13/2025), Disp: 30 tablet, Rfl: [address] (PROTONIX) 20 mg EC tablet, Take 1 tablet (20 mg total) by mouth daily (Patient nottaking: Reported on 02/13/2025), Disp: 30 tablet, Rfl: 0 psyllium 0.52 gram capsule, Take 1 capsule (0.52 g total) by mouth every morning (Patient not taking: Reported on 02/13/2025), Disp: , Rfl: Rinvoq 15 mg tablet extended release 24 hr, Take 1 tablet (15 mg total) by mouth every morning, Disp: , Rfl: senna-docusate (Senna-S) 8.6-50 mg, Take 2 tablets by mouth 2 (two) times a day (Patient not taking: Reported on 02/13/2025), Disp: 80 tablet, Rfl: 1 traMADoL (ULTRAM) 50 mg tablet, Take 1 tablet (50 mg total) by mouth every 8 (eight) hours as needed for pain (Patient not taking: Reported on 02/13/2025), Disp: 42 tablet, Rfl: 0 triamcinolone (KENALOG) 0.1 % cream, Apply topically 2 (two) times a day (Patient not taking: Reported on 02/13/2025), Disp: 30 g, Rfl: 0 Xiidra 5 % dropperette, Administer 0.1 each (1 drop total) into both eyes as needed (dry eye) (Patient not taking: Reported on 02/13/2025), Disp: , Rfl: Lab Results Component Value Date POTASSIUM 4.4 12/11/2024 BUNSER 17 12/11/2024 CREATININE 1.18 (H) 12/11/2024 CHOL 183 09/22/2019 TRIG 205 (H) 09/22/2019 LDLCALC 97 09/22/2019 HDL 45 09/22/2019 Assessment: Diagnoses and all orders for this visit: Lipid screening (Primary) - POCT lipid panel POTS (postural orthostatic tachycardia syndrome) - Tilt Table; Future - Ambulatory referral to Cardiology; Future Palpitations - MCT Mobile Cardiac Telemetry Event Monitor; Future - Basic metabolic panel; Future - TSH; Future - Ambulatory referral to Cardiology; Future Fatigue, unspecified type - Basic metabolic panel; Future - CBC with auto differential; Future - TSH; Future Syncope and collapse I think her syncope is most likely related to orthostatic hypotension as it happened after getting out of bed in the morning, BP after syncope ws SBP in the 80's. Instructed her to increase fluid intake, slowly transition from lying/sitting to standing position. Will check a 7 day tele because of palpitations Since she has palpitations associated with positional changes and hypotension I am suspicious she may have POTS. Referral to EP for tilt table sent. In regards to her extreme fatigue will check BMP, CBC, TSH. She should return to the office to see Dr. Santiago in 4 weeks or earlier if needed. Janna PASCAL- Nurse Practitioner with [facility] Cardiology This note is dictated and transcribed using [employer] Direct Software. Chronic Care Nurse variancesmay occur. Despite proofreading, typographical errors may occur. documented in this encounter Plan of Treatment Pending Results Name Type Priority Associated Diagnoses Date /Time MCT Mobile Cardiac Telemetry Event Monitor Cardiac Services Routine Palpitations 02/13/2025 3:57 PM CDT Scheduled Orders Name Type Priority Associated Diagnoses Orde r Schedule Tilt Table Cardiac Services Routine POTS (postural orthostatic tachycardia syndrome) Expected: 02/13/2025, Expires: 02/13/2026 MCT Mobile Cardiac Telemetry Event Monitor Cardiac Services Routine Palpitations Expected: 02/20/2025, Expires: 02/13/2026 Basic metabolic panel Lab Routine Palpitations Fatigue, unspecified type Expected: 02/16/2025, Expires: 02/13/2026 CBC with auto differential Lab Routine Fatigue, unspecified type Expected: 02/16/2025, Expires: 02/13/2026 TSH Lab Routine Palpitations Fatigue, unspecified type Expected: 02/16/2025, Expires: 02/13/2026 Scheduled Referrals Name Type Priority Associated Diagnoses Order Schedule Ambulatory referral to Cardiology Outpatient Referral Routine POTS (postural orthostatic tachycardia syndrome) Palpitations 1 Occurrences starting 02/13/2025 until 02/13/2026 documented as of this encounter Procedures Procedure Name Priority Date/Time Associated Diagnosis Comments POCT LIPID PANEL Routine 02/13/2025 3:30 PM CDT Lipid screening documented in this encounter Results * (ABNORMAL) POCT lipid panel (02/13/2025 3:30 PM CDT) Cholesterol, POC 193 <200 MG/DL HDL, POC 35(A) >=40 mg/dL Triglycerides, POC 330(A) <=149 mg/dL LDL Cholesterol POC 92 <=129 mg/dL Chol/HDL Ratio, POC 2.6 NONE Non-HDL Cholesterol, POC 158 NONE mg/dL Capillary blood 02/13/2025 3 :30 PM CDT Janna Johnson NP POINT OF CARE TEST ORDERABLE S Final Result documented in this encounter Visit Diagnoses Diagnosis Lipid screening- Primary Screening for lipoid disorders POTS (postural orthostatic tachycardia syndrome) Unspecified tachycardia Palpitations Fatigue, unspecified type Syncope and collapse documented in this encounter Historical Medications * This list may reflect changes made after this encounter. chlorthalidone (HYGROTON) 25 mg tablet Take 1 tablet (25 mg total) by mouth daily 02/04/2025 added in this encounter Care Teams Hadoop Infrastructure Architect Relationship Specialty Start Date End Date Colleen Pagan NP [address] [place] [address] PCP - General Family Medicine 06/21/24 documented as of this encounter
--- OUTSIDE RECORDS SUMMARY | 2025-02-13 16:19 | XMS_ITS | Data Portability ---
Author Organization [place] [facility] [employer], Main Office Address [address] [place] [address] Care Team Providers Care Sociology Adjunct Instructor Name Role Phone BILL, SCZEPANSKI Vacuum Furnace Operator [phone] BILL, SCZEPANSKI Vacuum Furnace Operator TOMAS, NADEEM Vacuum Furnace Operator BILL, SCZEPANSKI Vacuum Furnace Operator [phone] TOMAS, NADEEM Vacuum Furnace Operator [phone] TOMAS, NADEEM Vacuum Furnace Operator Assessment Encounter Date Assessment Date Assessment LastModified by Organization Details LastModified Time 03/16/2023 03/16/2023 Vineet ER 03/08/2023 CMP: AST/ALT 59/51 CBC: WBC 11.3, PLT 384 [email or web address] Not available 03/16/2023 15:39:40 Plan of Treatment Reminders Order Date Submit Date Provider Last Modified By Organization Details Last Modified Time Details Appointments None recorded. Lab erythrocyte sedimentati on rate, QN, blood 2022 023 [email or web address] [employer] [facility], [address], [address], 4 11:51:27 ccp (cyclic citrullinat ed peptide) igg, serum 2022 023 [email or web address] 6 [employer] [facility], [address], [address], 4 11:51:49 INGRID + rf (antinuclea r antibodies + rheumatoid factor), quantitativ e, serum 2022 023 [email or web address] 6 [facility], [address] [address], [place], [address], 4 11:52:28 C-reactive protein, quantitativ e, serum or plasma 2022 023 [email or web address] 6 [facility], [address] [address], [place], [address], 4 11:52:28 vitamin D, 25-hydroxy, total, serum 2022 023 [email or web address] 6 [facility], [address] [address], [place], [address], 4 11:50:30 CMP, serum or plasma 2022 023 [email or web address] 6 [facility], [address], [address], 4 11:48:48 CBC w/ auto diff 2022 023 [email or web address] 6 [facility], [address] [address], [place], [address], 4 11:49:08 lipid panel, serum 2022 023 [email or web address] 6 [facility], [address], [address], 4 11:49:45 TSH + free T4, serum 2022 023 [email or web address] 6 [facility], [address], [address], 4 09:11:05 vitamin B12 + folate, serum or blood 2022 023 [email or web address] 6 [facility], [address] [address], [place], [address], 4 11:52:29 hepatitis panel (A+B+C), acute, serum 2022 023 [email or web address] 6 [facility], [address] [address], [place], [address], 4 11:50:49 gamma-gluta myl transferase (ggt), serum 2022 023 [email or web address] [facility], [address], [address], 4 11:51:10 lipid panel, serum [address], [address] [place], [address], 3 07:54:11 TSH, serum, reflex free T4 [address], [address] [place], [address], 3 07:54:11 CMP, serum or plasma 2022 023 [facility], [address] [place], [address], 3 09:02:33 HbA1c (hemoglobin A1c), blood [address], [address] [place], [address], 3 07:54:11 CBC w/ auto diff 2022 023 [facility], [address] [place], [address], 3 09:02:33 Referral cardiologis t referral 2022 023 [email or web address] Davie Velásquez [place], [address] , [facility] [address], [place], [address], 4 11:15:28 Procedures upper endoscopy procedure (EGD) (PROC) 2022 023 Rm Wynn MD, [address], [address], [place], [address], 4 11:15:07 Surgeries None recorded. Imaging US, liver 2022 023 [facility], [address], [place], [address], 3 15:54:26 Medication Orders clobetasol 0.05 % scalp solution 2022 023 [id number], [id number] [facility] [address] [place] [address], [address], 3 15:17:06 lisinopril 10 mg tablet 2022 023 [email or web address] [id number], [id number] [facility] [address] [place] [address], [address], 3 20:55:06 Patient TargetsNo targets recorded. Patient Instructions Encounter Date Encounter Id Patient Instructions Last Modified By Organization Details Last Modified Time 12/01/2022 [id number] INFLUENZA VACCIN E TD/TDAP PNEUMONIA VACCINE SHINGLES [...] Not available 12/01/2022 09:22:19 Reason for Referral Honey Extractor Referral for He art murmur Referring Physician: Dhara Ackerman, Internal Medicine, Encounter Date: 03/16/2023 Results Created Date Observation Date Name Description Value Unit Range Abnormal Flag Note LastModifiedBy Organization Detail LastModifiedTime 12/17/19 22 12/17/2021 T4, FREE T4, free 1.0 NG/dL 0.8-1. 8 normal Not Available [address], [address], 12/17/2021 04:24:25 12/17/19 22 12/17/2021 TSH W/REF TRINIDAD TO FT4 TSH w/reflex to FT4 8.58 mIU/L high Refer ence Range > or = 20 Years 0.40- 4.50 Pregn lebron Range s First trime ster 0.26- 2.66 Secon d trime ster 0.55- 2.73 Third trime ster 0.43- 2.91 Not Available [address], [address], 12/17/2021 04:24:24 12/17/19 22 12/17/2021 CBC (INCL UDES DIFF/ PLT) white blood cell count 11.8 thous and/u L 3.8-10 .8 high Not Available [facility] [address], [address], 12/17/2021 04:24:24 12/17/19 22 12/17/2021 CBC (INCL UDES DIFF/ PLT) red blood cell count 4.64 joni on/uL 3.80-5 .10 normal Not Available [facility] [address], [address], 12/17/2021 04:24:24 12/17/19 22 12/17/2021 CBC (INCL UDES DIFF/ PLT) hemoglobin 13.2 g/dL 11.7-1 5.5 normal Not Available [address], [address], 12/17/2021 04:24:24 12/17/19 22 12/17/2021 CBC (INCL UDES DIFF/ PLT) hematocrit 39.9 % 35.0-4 5.0 normal Not Available [address], [address], 12/17/2021 04:24:24 12/17/19 22 12/17/2021 CBC (INCL UDES DIFF/ PLT) MCV 86.0 fL 80.0-1 00.0 normal Not Available [address], [address], 12/17/2021 04:24:24 12/17/19 22 12/17/2021 CBC (INCL UDES DIFF/ PLT) MCH 28.4 pg 27.0-3 3.0 normal Not Available [address], [address], 12/17/2021 04:24:24 12/17/19 22 12/17/2021 CBC (INCL UDES DIFF/ PLT) MCHC 33.1 g/dL 32.0-3 6.0 normal Not Available [address], [address], 12/17/2021 04:24:24 12/17/19 22 12/17/2021 CBC (INCL UDES DIFF/ PLT) RDW 13.8 % 11.0-1 5.0 normal Not Available [address], [address], 12/17/2021 04:24:24 12/17/19 22 12/17/2021 CBC (INCL UDES DIFF/ PLT) platelet count 394 thous and/u L 140-40 0 normal Not Available [address], [address], 12/17/2021 04:24:24 12/17/19 22 12/17/2021 CBC (INCL UDES DIFF/ PLT) MPV 10.6 fL 7.5-12 .5 normal Not Available [address], [address], 12/17/2021 04:24:24 12/17/19 22 12/17/2021 CBC (INCL UDES DIFF/ PLT) absolute neutrophils 6691 cells /uL 1500-7 800 normal Not Available [address], [address], 12/17/2021 04:24:24 12/17/19 22 12/17/2021 CBC (INCL UDES DIFF/ PLT) absolute lymphocytes 3859 cells /uL 850-39 00 normal Not Available [address], [address], 12/17/2021 04:24:24 12/17/19 22 12/17/2021 CBC (INCL UDES DIFF/ PLT) absolute monocytes 814 cells /uL 200-95 0 normal Not Available [address], [address], 12/17/2021 04:24:24 12/17/19 22 12/17/2021 CBC (INCL UDES DIFF/ PLT) absolute eosinophils 342 cells /uL 15-500 normal Not Available [address], [address], 12/17/2021 04:24:24 12/17/19 22 12/17/2021 CBC (INCL UDES DIFF/ PLT) absolute basophils 94 cells /uL 0-200 normal Not Available [address], [address], 12/17/2021 04:24:24 12/17/19 22 12/17/2021 CBC (INCL UDES DIFF/ PLT) neutrophils 56.7 % normal Not Available [address], [address], 12/17/2021 04:24:24 12/17/19 22 12/17/2021 CBC (INCL UDES DIFF/ PLT) lymphocytes 32.7 % normal Not Available [address], [address], 12/17/2021 04:24:24 12/17/19 22 12/17/2021 CBC (INCL UDES DIFF/ PLT) monocytes 6.9 % normal Not Available [address], [address], 12/17/2021 04:24:24 12/17/19 22 12/17/2021 CBC (INCL UDES DIFF/ PLT) eosinophils 2.9 % normal Not Available [address], [address], 12/17/2021 04:24:24 12/17/19 22 12/17/2021 CBC (INCL UDES DIFF/ PLT) basophils 0.8 % normal Not Available [address], [address], 12/17/2021 04:24:24 12/17/19 22 12/17/2021 COMPR EHENS MADINA METAB OLIC PANEL glucose 89 mg/dL 65-99 normal Fasti ng refer ence inter fior Not Available [address], [address], 12/17/2021 04:24:23 12/17/19 22 12/17/2021 COMPR EHENS MADINA METAB OLIC PANEL urea nitrogen (BUN) 8 mg/dL 7-25 normal Not Available [address], [address], 12/17/2021 04:24:23 12/17/19 22 12/17/2021 COMPR EHENS MADINA METAB OLIC PANEL creatinine 0.95 mg/dL 0.50-1 .10 normal Not Available [address], [address], 12/17/2021 04:24:23 12/17/19 22 12/17/2021 COMPR EHENS MADINA METAB OLIC PANEL eGFR non-afr. iranian 74 mL/mi n/1.7 3m2 > or = 60 normal Not Available [address], [address], 12/17/2021 04:24:23 12/17/19 22 12/17/2021 COMPR EHENS MADINA METAB OLIC PANEL eGFR 86 mL/mi n/1.7 3m2 > or = 60 normal Not Available [address], [address], 12/17/2021 04:24:23 12/17/19 22 12/17/2021 COMPR EHENS MADINA METAB OLIC PANEL BUN/creatini ne ratio not applic able (calc ) 6-22 Not Available [address], [address], 12/17/2021 04:24:23 12/17/19 22 12/17/2021 COMPR EHENS MADINA METAB OLIC PANEL sodium 141 mmol/ L 135-14 6 normal Not Available [address], [address], 12/17/2021 04:24:23 12/17/19 22 12/17/2021 COMPR EHENS MADINA METAB OLIC PANEL potassium 4.4 mmol/ L 3.5-5. 3 normal Not Available [address], [address], 12/17/2021 04:24:23 12/17/19 22 12/17/2021 COMPR EHENS MADINA METAB OLIC PANEL chloride 107 mmol/ L 98-110 normal Not Available [address], [address], 12/17/2021 04:24:23 12/17/19 22 12/17/2021 COMPR EHENS MADINA METAB OLIC PANEL carbon dioxide 25 mmol/ L 20-32 normal Not Available [address], [address], 12/17/2021 04:24:23 12/17/19 22 12/17/2021 COMPR EHENS MADINA METAB OLIC PANEL calcium 9.3 mg/dL 8.6-10 .2 normal Not Available [address], [address], 12/17/2021 04:24:23 12/17/19 22 12/17/2021 COMPR EHENS MADINA METAB OLIC PANEL protein, total 6.7 g/dL 6.1-8. 1 normal Not Available [address], [address], 12/17/2021 04:24:23 12/17/19 22 12/17/2021 COMPR EHENS MADINA METAB OLIC PANEL albumin 4.1 g/dL 3.6-5. 1 normal Not Available [address], [address], 12/17/2021 04:24:23 12/17/19 22 12/17/2021 COMPR EHENS MADINA METAB OLIC PANEL globulin 2.6 g/dL_ (calc ) 1.9-3. 7 normal Not Available [address], [address], 12/17/2021 04:24:23 12/17/19 22 12/17/2021 COMPR EHENS MADINA METAB OLIC PANEL albumin/glob ulin ratio 1.6 (calc ) 1.0-2. 5 normal Not Available [address] [place], [address], 12/17/2021 04:24:23 12/17/19 22 12/17/2021 COMPR EHENS MADINA METAB OLIC PANEL bilirubin, total 0.7 mg/dL 0.2-1. 2 normal Not Available [address] [address] [place], [address], 12/17/2021 04:24:23 12/17/19 22 12/17/2021 COMPR EHENS MADINA METAB OLIC PANEL alkaline phosphatase 43 U/L 31-125 normal Not Available [address] [address] [place], [address], 12/17/2021 04:24:23 12/17/19 22 12/17/2021 COMPR EHENS MADINA METAB OLIC PANEL AST 13 U/L 10-30 normal Not Available [address] [address] [place], [address], 12/17/2021 04:24:23 12/17/19 22 12/17/2021 COMPR EHENS MADINA METAB OLIC PANEL ALT 13 U/L 6-29 normal Not Available [address] [address] [place], [address], 12/17/2021 04:24:23 12/17/19 22 12/17/2021 LIPID PANEL , STAND HERMES non HDL cholesterol 151 mg/dL _(florentino c) <130 high For patie nts with diabe cecelia plus 1 major ASCVD risk facto r, treat ing to a non-H DL-C goal of <100 mg/dL (LDL- C of <70 mg/dL ) is consnaa mcmillano n. Not Available [address] [address] [place], [address], 12/17/2021 04:24:23 12/17/19 22 12/17/2021 LIPID PANEL , [place] HERMES cholesterol, total 185 mg/dL <200 normal Not Available [address] [address] [place], [address], 12/17/2021 04:24:23 12/17/19 22 12/17/2021 LIPID PANEL , STAND HERMES HDL cholesterol 34 mg/dL > or = 50 low Not Available [address] [address] [place], [address], 12/17/2021 04:24:23 12/17/19 22 12/17/2021 LIPID PANEL , STAND HERMES triglyceride s 243 mg/dL <150 high If a non-f astin g speci men was colle cted, consi raheel repea t trigl yceri de testi ng on a fasti ng speci men if clini kenia indic ated. Zheng parry et al. J. of Clin. Lipid ol. 2015; 9:129 -169. Not Available [facility] [address] [address] [facility] [place], [address], 12/17/2021 04:24:23 12/17/19 22 12/17/2021 LIPID PANEL [...] 2061- 2068 (http ://ed ucati on.Qu Theresa Benaissances. com/f aq/FA Q164) Not Available [facility] [address] [address] [place], [address], 12/17/2021 04:24:23 12/17/19 22 12/17/2021 LIPID PANEL , STAND HERMES chol/HDLC ratio 5.4 (calc ) <5.0 high Not Available [facility] [address] [address], [place], [address], 12/17/2021 04:24:23 01/11/20 21 01/10/2021 XR, chest , 1 view No observ ation record ed. MIGRATION. [facility] (Lab) [address] [place], [address], 11/24/2022 13:31:23 01/11/20 21 01/10/2021 CT, abdom en + pelvi s, w/ contr ast No observ ation record ed. MIGRATION. [facility] (Lab) [address] [place], [address], 11/24/2022 13:31:23 02/26/20 22 02/25/2022 US, pelvi s, trans abdom inal + trans vagin al No observ ation record ed. MIGRATION. [facility] [address] [facility], [place], [address], 11/24/2022 13:31:23 06/02/20 22 elect kell diogr am No observ ation record ed. MIGRATION. [facility] [address], [place], [address], 11/24/2022 13:31:23 06/03/20 22 06/03/2022 XR, chest , 2 view No observ ation record ed. MIGRATION. [address], [place], [address], 11/24/2022 13:31:23 06/15/20 22 06/15/2022 US, doppl er echoc ardio gram No observ ation record ed. MIGRATION. [facility] [address], [place], [address], 11/24/2022 13:31:23 06/15/20 22 06/15/2022 exerc ise stres s test No observ ation record ed. [id number] [facility] [address], [place], [address], 11/24/2022 13:31:23 06/21/20 22 06/21/2022 qing r monit or No observ ation record ed. [id number] [facility] [address], [place], [address], 11/24/2022 13:31:23 06/24/20 22 06/24/2022 XR, chest , 2 view No observ ation record ed. [id number], [place], [address], 11/24/2022 13:31:23 03/24/20 23 03/24/2023 US, liver No observ ation record ed. [email or web address] [address], [place], [address], 03/31/2023 13:00:50 Result Notes None recorded. Problems Name Problem SNOMED Code Status Onset Date Resolution Date Notes Provider Name and Address Organization Details Recorded Time Leukocytos is 964966232 Active 2021 Not Available [facility] 3 13:27:58 Prolonged QT interval 093002729 Active 2021 Not Available [facility] 3 13:27:58 C-reactive protein above reference range 2110076830280 04 Active 2021 Not Available [facility] 3 13:27:58 Plantar fasciitis of left foot 5640796694274 9101 Active 2017 Not Available [facility] 3 13:27:58 Injury of ankle 140396884 Active 2019 Not Available [facility] 3 13:27:58 Insomnia 806036749 Active 2018 Not Available [facility] 3 13:27:59 Tibialis posterior tendinitis 631875119 Active 2017 Not Available [facility] 3 13:27:59 Mixed anxiety and depressive disorder 209262412 Active 2018 Not Available [facility] 3 13:27:59 Gastroesop hageal reflux disease 202543733 Active 2021 Not Available [facility] 3 13:27:59 Ankle pain 114845710 Active 2019 Not Available [facility] 3 13:27:59 Genital warts 382335280 Active 2021 Not Available [facility] 3 13:27:59 Pain of left hip joint 4039054160844 00 Active 2018 Not Available [facility] 3 13:27:59 Vitamin D deficiency 97842616 Active 2021 Not Available [facility] 3 13:27:59 Hypothyroi dism 79940352 Active 2021 Not Available [facility] 3 13:27:59 Obese 105636132 Active 2019 Not Available [facility] 3 13:28:00 Genital herpes simplex type 2 353898054 Active 2018 Not Available [facility] 3 13:28:00 Pain of hip region 76016180 Active Not Available [facility] 3 13:28:00 Talipes planus 68121706 Active 2017 Not Available [facility] 3 13:28:00 Hyperlipid emia 53184189 Active 2021 Not Available [facility] 3 13:28:00 Verruca plantaris 65477721 Active 2017 Not Available [facility] 3 13:28:00 Psoriasis of scalp 581055525 Active 2022 Lulu Pedersen NP [address] [facility], [address] [address], [place], [address] , [facility] 3 09:10:04 Essential hypertensi on 14169189 Active 2022 Lulu Pedersen NP [address], [address], [place], [address] , [place] [facility] 3 09:10:52 Excessive cerumen in ear canal 495808046 Active 2022 Lulu Pedersen NP [address], [address], [place], [address] , [place] [facility] 3 09:14:38 Bipolar disorder 24804204 Active 2022 Lulu Pedersen NP [address], [address], [place], [address] , [place] [facility] 3 09:15:23 Low back strain 041849307 Active 2022 Flakito Carbajal MD [address], [address], [place], [address] , [place] [facility] 3 09:28:40 Gastroesop hageal reflux disease without esophagiti s 473590936 Active 2022 Dhara carmona MD [address], [address], [place], [address] , [place] [facility] 3 15:33:51 Neuropathy 577398211 Active 2022 Dhara carmona MD [address], [address], [place], [address] , [place] [facility] 3 15:34:21 Liver enzymes level above reference range 321325761 Active 2022 Dhara carmona MD [address], [address], [place], [address] , [place] [facility] 3 15:40:34 Viral gastroente ritis 828910906 Active 2022 Dhara carmona MD [address], [address], [place], [address] , [place] [facility] 3 15:41:12 Serum vitamin B12 below reference range 031283655 Active 2022 Dhara carmona MD [address], [address], [place], [address] , [facility] [employer] [facility] [employer] [facility] 3 16:07:50 Obesity 658983601 Active 2022 Dhara carmona MD [address], [address], [place], [address] , [employer] [facility] [employer] [facility] 3 16:13:57 Heart murmur 08189673 Active 2022 Dhara carmona MD [address], [address], [place], [address] , [employer] [facility] [employer] [facility] 3 16:14:55 Nausea 614701566 Active 2022 Stacey morales, [place] [employer] [facility] [employer] [facility] 3 14:22:33 Anti-nucle ar factor detected 367270682 Active 2022 Stacey morales, [employer] [facility] [employer] [facility] 3 12:51:00 Steatotic liver disease 718172846 Active 2022 Stacey morales, [place] [employer] [facility] [employer] [facility] 3 12:51:13 Acute urinary tract infection 347982833 Active 2022 Lulu Pedersen NP [address], [address], [place], [address] , [employer] [facility] [employer] [facility] 3 12:24:38 Dry eyes 068053854 Active 2022 Lulu Pedersen NP [address], [place], [address] , [facility] [employer] [facility] [employer] [facility] 3 12:26:01 Problem Notes None recorded. 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 [id number] [facility] (Lab) [address] [place], [address], 11/24/2022 13:31:23 01/10/2021 CT, abdomen + pelvis, w/ contrast completed [id number].[id number] [facility] (Lab) [address] [place], [address], 11/24/2022 13:31:23 06/15/2022 US, doppler echocardiogram completed [id number].[id number] [facility] [address] , [place], [address], 11/24/2022 13:31:23 06/21/2022 holter monitor completed [id number].[id number] [facility] [address], [place], [address], 11/24/2022 13:31:23 06/15/2022 exercise stress test completed MIGRATI ON.[id number] [facility] [address], [place], [address], 11/24/2022 13:31:23 06/02/2022 electrocardiogram completed MIGRATION. [id number] [facility] [address], [address], 11/24/2022 13:31:23 06/03/2022 XR, chest, 2 view completed MIGRATION. [id number], [place], [address], 11/24/2022 13:31:23 06/24/2022 XR, chest, 2 view completed MIGRATION. [id number], [place], [address], 11/24/2022 13:31:23 02/25/2022 US, pelvis, transabdominal + transvaginal completed [id number] [facility] On Lab Orders [address] [facility], [place], [address], 11/24/2022 13:31:23 03/24/2023 US, liver completed [email or web address] [address], [place], [address], 03/31/2023 13:00:50 Procedure Notes None recorded. Medical Equipment None Reported. Allergies Allergen ID Allergen Name Allergen Category Reaction Reaction Severity Criticality Documentation Date Start Date Code Code System Note Provider Name and Address Organization Details Recorded Time 12838 vancomyci n medicatio n anaphylax is severe Not available 11/24/2022 51127 RxNorm Not Available [facility] 3 13:31:20 43905 Pyridium medicatio n nausea moderate Not available 11/24/2022 8998 RxNorm Not Available [facility] 3 13:31:21 09259 Product containin g penicilli n (product) medicatio n Not available Not available Not available 11/24/2022 73620 8001 SNOMED Not Available [facility] 3 13:31:21 72914 Levaquin medicatio n rash moderate Not available 11/24/2022 77542 2 RxNorm Not Available [facility] 3 13:31:21 69021 codeine medicatio n rash mild Not available 11/24/2022 2670 RxNorm Not Available [facility] 3 13:31:21 Medications Name Sig Start Date [...] e 137 mcg (0.1 %) nasal spray Holland 2 sprays twice a day by intranas [...] Available Not Available Not Available Flucelvax Quad 6263-7270 (PF) 60 mcg (15 mcg x 4)/0.5 [...] % 88 /min 16 /min 97.5 [degF] 968014. 47 g 126 mm[Hg] 86 mm[Hg] Not Available [facility] 3 13:27:42 Date Recorded Body mass index (BMI) Body height Oxygen saturation Oxygen saturation in Arterial blood by Pulse oximetry Heart rate Body temperature Body weight Systolic blood pressure Diastolic blood pressure Provider Name and Address Organization Details Last Updated DateTime 2 37.2 kg/m2 160.02 cm 98 % 98 % 81 /min 98.2 [degF] 93591.4 g 142 mm[Hg] 86 mm[Hg] Not Available [facility] 3 13:27:42 Date Recorded Body mass index (BMI) Body height Oxygen saturation Oxygen saturation in Arterial blood by Pulse oximetry Heart rate Respiratory rate Body temperature Body weight Systolic blood pressure Diastolic blood pressure Provider Name and Address Organization Details Last Updated DateTime 2 36.5 kg/m2 160.02 cm 98 % 98 % 70 /min 16 /min 97.9 [degF] 12780.0 3 g 118 mm[Hg] 86 mm[Hg] Not Available [facility] 3 13:27:42 Date Recorded Body height Body mass index (BMI) Body weight Body temperature Heart rate Oxygen saturation Oxygen saturation in Arterial blood by Pulse oximetry Systolic blood pressure Diastolic blood pressure Provider Name and Address Organization Details Last Updated DateTime 3 160.02 cm 37.4 kg/m2 65561.9 9 g 97.4 [degF] 68 /min 99 % 99 % 152 mm[Hg] 100 mm[Hg] Yulissa velazco CMA [employer] 3 08:45:29 Date Recorded Body height Body mass index (BMI) Body weight Body temperature Heart rate Systolic blood pressure Diastolic blood pressure Provider Name and Address Organization Details Last Updated DateTime 3 160.02 cm 37.7 kg/m2 82844.1 7 g 97.7 [degF] 72 /min 108 mm[Hg] 76 mm[Hg] ZAK Guillory [employer] 3 15:26:34 Social History Question Answer Notes LastModified by Organizat ion Details LastModified Time Tobacco Smoking Status Never Smoker Yulissa Montero CMA [facility], [employer] 12/01/2022 08:46:52 Do You Have An Advance Directive? No Information n ot available 03/16/2023 What Is Your Level Of Caffeine Consumption? Heavy [email or web address] Information not available 12/01/2022 In The 14 [...] Or The Highest Degree You Have Received? [id number] Information not available 03/16/2023 What Is The Fluoride Status Of Your Home? Unknown Information not available 03/16/2023 Are There Any Guns Present In Your Home? No Information not available 03/16/2023 Where Do You Live? Apartment Inform ation not available 03/16/2023 Do You Have A Medical Power Of Shorer? No Information not available 03/16/2023 What Was [...] is your level of alcohol consumption? None [email or web address] Information not available 12/01/2022 Are you currently employed? 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 None stays active Information not available 03/16/2023 Mental Status Question Answer Note LastModified by Organization D etails LastModified Time Do you feel stressed (tense, restless, nervous, or anxious, or unable to sleep at night)? [id number] Information not available 03/16/2023 Family History Relationship [...] Tdap 03/16/2023 completed Dhara Ackerman MD [address], [address], [facility] [employer] [facility] 03/17/2023 13:55:51 Past Encounters Encounter ID Performer Location Encounter Start Date Encounter Closed Date Diagnosis/Indication Diagnosis SNOMED-CT Code Diagnosis ICD10 Code Diagnosis Note [id number] Flakito Carbajal MD [facility] [address] [address] 01/15/2021 00:00:00 01/15/2021 17:13:13 [id number] Flakito Carbajal MD [address] [address] 11/25/2021 00:00:00 11/25/2021 18:19:00 [id number] Lulu Pedersen NP [address] [address] 06/02/2022 00:00:00 06/02/2022 16:45:33 [id number] Lulu Pedersen NP [address] [address] 12/01/2022 08:36:21 12/01/2022 09:48:29 Adult health examination 880441465 Z00.00 Encouraged well balanced meals, active lifestyle, and routine vision and dental appts. Anemia screening 9521758 07 Z13.0 Diabetes m ellitus screening 000340705 Z13.1 Hypothyroidism 33610942 E03.9 Levothyrox ine 75 mcg po daily. Hyperlipid emia screening 907822216 Z13.220 Psoriasis of scalp 21299 8008 L40.9 clobetasol 0.05% scalp solution sent. Essential hypertension 96798802 I10 Lisinopril 10 mg po daily.Meto prolol 25 mg po bid. Insomnia 477625137 G47.0 0 zaleplon 5 mg po nightly. prn. Shift work. Excessive cerumen in ear canal 426280803 H61.21 ear wash 12/01/22 Bipolar disorder 1330304 [address] Kramer psych. Aquilla, paxil 50 mg, lorazepam prn, Topiramate [id number] Dhara carmona MD [facility] Internal Med Danisha dacosta [address] [facility] [place] [address] 03/16/2023 15:06:29 03/16/2023 16:16:06 Screening - NAD 226264521 Z13.9 Get yearly flu shotUTD tdap 03/16/23 PAP: Hx of LEEP, sees Dr Zarate, last 12/17/2022 , plan for hystrectom y RTC in 3 months, do labs, ER if worse, she did verbalize her understand ing of the above Hypothyroidism 32271187 E03.9 On levothyrox ine 75mcgs dailyGet labs Gastroesop hageal reflux disease without esophagitis 281190245 K21.9 On omeprazole 40mg daily, get EGD if not done Neuropathy 753323133 G62 .9 On gabapentin 300mg bid Essential hypertension 20419071 I10 On lisinopril 10mg dailyGet labs Mixed anxi ety and depressive disorder 573967927 F41.[address] Rasheed Kramer On paroxetine 40mg dailyOn lorazepam 0.5mg tidOn lithium 300mg 3 tabsOn trazodone 50mg daily Not suicidal or homicidal Vitamin D deficiency 347 75256 E55.9 Liver enzy mes level above reference range 108819105 R74.01 Get labs and liver Viral gastroenteritis 11 9993969 A08.4 Seen in ER 03/08/2023 , does well now Psoriasis of scalp 40434 8008 L40.9 Cannot do the clobetasol , wants to do labs first Serum tono min B12 below reference range 307089705 R79.89 Obesity 895304606 E66.9 More diet and exercise is needed Heart murmur 46004885 R0 1.1 Get a referral to [facility] Dr Velásquez Administra tion of diphtheria, pertussis, and tetanus vaccine 679339210 Z23 Health Concerns Section Related Observation LastModified by Organization Detai ls LastModified Time None Recorded Concern Status LastModified by Organization Details LastModified Time None Recorded Advance Directives Directive N: Payers Encounter Date Sequence Insurance Name Policy Number Policy Peña Covered Member ID Peña Member ID Guarantor Name 12/01/2022 1 [employer] [id number] Natalie Alamo [id number] Natalie Alamo 03/16/2023 1 [employer] Perfect Audience OF [place] (INDEMNITY ) Natalie Alamo [id number] Natalie Alamo Notes Date Note Type Note [...] 2022. Lulu Pedersen NP [address], [facility] [address], [place], [address], [employer] 12/01/2022 09:34:03 03/16/2023 text/html OV 03/16/2023:He re to establish care Past Hx:Anxiety/Depress ionGERDHypothyroid ismHTN Reviewed social family and surgical history Seen in the ER on 03/08/2023 for gastritis, now feels she has some fatigue, no labs since labs done in the ER Dhara Ackerman MD [address], [facility] [address], [place], [address], [employer] 03/17/2023 13:56:12 OBGyn Episode No OBEpisode recorded.
--- OUTSIDE RECORDS SUMMARY | 2025-02-13 16:19 | XMS_ITS ---
Author Organization [facility] Address [address] [facility] [address] [place] [address] Care Team Providers Care Gluing Machine Operator Electronic Name Role Phone Nuvia MILLAN, Lulu Primary Care Provider Unavail Abbie Liu Unavailable [phone] REASON FOR VISIT 1 month f/u Encounters Encounter Location Date Provider Diagnosis [facility] [address] [facility] [address] [place] [address] 09/27/2024 Abbie Gutierrez Plan Of Treatment No Information Progress Notes * Berenice NICKERSONhelDOB:1979 (44 yo F)Acc No.[id number]:09/27/2024 Progress Notes Patient: Natalie JOHNSON Provider: Bere GUTIERREZ MD :1980 A ge:44 Y S ex:Female Date:09/27/2024 Address:[address] [address] Pcp:Lulu Pedersen NP Subjective: * Chief Complaints: * 1 . 1 month f/u. * Medical History: Objective: * Vitals: Assessment: Plan: * Treatment: * Billing Information: * Visit Code: * Procedure Codes: * Electronic signature of Abbie Gutierrez MD on 02/13/2025 at 03:07 PM CDT Sign off status: Pending * Provider: Bere GUTIERREZ MD Date: 09/27/2024 Generated for Kentrelli ng/Farosaleeg/eTransmitting on: 0 02/13/2025 03:07 PM CDT
--- OUTSIDE RECORDS SUMMARY | 2025-02-13 16:19 | XMS_ITS ---
Author Organization [facility] ([address]) Address [address] [place] [address] Care Team Providers Care Athletic Monitor Name Role Phone Funmilayo Narvaez Unavailable [phone] REASON FOR VISIT SUPERVISOR MODERN LANGUAGES Allergies Encounters Encounter Location Date Provider Diagnosis [facility] [address] [place] [address] 03/21/2024 Funmilayo Narvaez Plan Of Treatment No Information Progress Notes * KRISHANBereniceCristhianOB:1979 (44 yo F)Acc No.[id number]:03/21/2024 Progress Notes Patient: Natalie JOHNSON Provider: JOSE Bai :1980 A ge:43 Y S ex:Female Date:03/21/2024 Address:[address] [place], [place] [address] Subjective: * Chief Complaints: * 1 . SUPERVISOR MODERN LANGUAGES Allergies. * Medical History: Objective: * Vitals: Assessment: Plan: * Treatment: * Billing Information: * Visit Code: * Procedure Codes: * Electronic signature of JOSE Harrell on 02/13/2025 at 03:07 PM CDT Sign off status: Pending * Provider: JOSE Bai Date: 03/21/2024 Generated for Printi ng/Faxing/eTransmitting on: 02/13/2025 03:07 PM CDT
--- OUTSIDE RECORDS SUMMARY | 2025-02-13 16:19 | XMS_ITS | Clinical Summary ---
Author Organization [facility] [employer] Address [address] [place] [address] Care Team Providers Care Timber Hand Name Role Phone Rm Beverly MD Primary Care Provider [phone] Donato Wei MD Unavailable [phone] Source Comments [facility] [employer],non-owned Affiliates and Associated Physician Practices is amultiple site organization consisting of ambulatory clinics and hospital sitesin [place], [place], [place] and [place]. This disclosure is being madepursuant to the Care Everywhere program and may not contain all information available regarding this patient. 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
--- OUTSIDE RECORDS SUMMARY | 2025-02-13 16:19 | XMS_ITS | Clinical Summary ---
Author Organization [facility] Address [address] [place] [address] Care Team Providers Care Slat Basket Top Maker Name Role Phone Colleen Pagan IT SYSTEMS ADMINISTRATOR Primary Care Provider [phone] Allergies Active Allergy Reactions Criticality Noted Date [...] 1 tablet (75 mcg total) by mouth sanitor before breakfast 09/26/18 70 Active LORazepam (ATIVAN) [...] mouth nightly as needed for sleep 09/21/20 Active Xiidra 5 % dropperette Administer 0.1 [...] times a day 80 tablet 1 01/11/20 Active Additional Information Patient not taking.Reported on 02/13/2025 HYDROmorphone (DILAUDID) 2 mg tabletIndication s:Pain Take 1-2 tablets (2-4 mg total) by mouth every 4 (four) hours as needed for pain 42 tablet 01/19/20 25 Active Additional Information Patient not taking.Reported on 02/13/2025 triamcinolone (KENALOG) 0.1 % creamIndications :Rash and other nonspecific skin eruption Apply topically 2 (two) times a day 30 g 01/22/20 Active Additional Information Patient not taking.Reported on [...] 09/23/2019 Assessment & Plan (09/23/2019 10:42 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): Patient has an established diagnosis of bipolar affective disorder, characterized by periods of low mood, anhedonia, difficulty concentrating, low energy, poor sleep and suicidal ideation, as well as at least one manic episode with impulsivity, increased spending, decreased need for sleep, racing thoughts. She has an outpatient psychiatrist in [place], [place] Dr. Kramer and has been tried [...] wake up. She has never been on [place] because she was scared of the side effects, but is now amenable to it. Plan is to start [place] ER 600mg at bedtime. D/c latuda. Continue [...] Date Type Department Care Team Description 02/13/2025 3:30 PM CDT Office Visit [facility] [address] [place] [address] Janna Johnson NP Lipid screening (Primary Dx); POTS (postural orthostatic tachycardia syndrome); Palpitations; Fatigue, unspecified type; Syncope and collapse 02/13/2025 2:45 PM CDT Ancillary Procedure [facility] [address] [place] [address] Palpitations 01/17/2025 Orders Only [facility] Surgery [address] [place] [address] 4 [address] [place] [address] Gunnar Moss MD Left hip pain (Primary Dx) 01/15/2025 Documentation [facility] Orthopaedic Surgery [address] [place] [address] 4 [address] [place] [address] Gloria Kowalski CMA 01/10/2025 7:15 AM CDT - 01/10/2025 9:10 AM CDT Surgery [facility] Operating Room [address] [place] [address] Gunnar Moss MD ARTHROPLASTY TOTAL HIP - DEPUY 01/10/2025 7:05 AM CDT Anesthesia Event [facility] Operating Room [address] [place] [address] Kevyn Bearden MD Thomas, Karen D., IT SYSTEMS ADMINISTRATOR 01/10/2025 5:08 AM CDT - 01/10/2025 12:44 PM CDT Hospital Encounter [facility] Operating Room [address] [place] [address] Gunnar Moss MD Primary osteoarthritis of left hip (Primary Dx); Osteoarthritis of left hip, unspecified osteoarthritis type Discharge Disposition: Discharge to home or self care 12/26/2024 Orders Only [facility] Surgery [address] [place] [address] 4 [address] [place] [address] Gunnar Moss MD Bilateral hip pain (Primary Dx) 12/19/2024 Orders Only [facility] Surgery [address] [place] [address] 4 [address] [place] [address] Gunnar Moss MD 12/19/2024 Documentation [facility] Orthopaedic Surgery [address] [place] [address] 4 [address] [place] [address] Josie Thorpe RN 12/11/2024 11:30 AM CDT Pre-Admission Testing [facility] Pre-Anesthesia Testing [address] [address] [address] Preoperative testing (Primary Dx) 12/11/2024 11:05 AM CDT Lab [facility] [address] [address] [address] Preoperative testing; Primary osteoarthritis of left hip 12/11/2024 Orders Only [facility] Orthopaedic Surgery [address] [place] [address] 4 [address] [place] [address] uGnnar Moss MD 12/03/2024 Documentation [facility] Orthopaedic Surgery [address] [place] [address] 4 [address] [place] [address] Marizol Hand from Last 3 Months Surgical [...] Psoriatic arthritis (HCC) Hypothyroidism Small fiber neuropathy GERD (gastroesophageal reflux disease) Family History Medical History Relation Name Comments Arthritis Father Logan Diabetes Father Logan Heart disease Father Logan Hypertension Father Logan Diabetes Mother Christine Heart disease Mother Christine Hypertension Mother Christine Anesthesia problems Neg Hx Relation Name Status Comments Father Logan Mother Christine Social History Tobacco Use Types Packs/Day Years [...] and Family Twice a week 09/24/2019 Attends Muslim Services Never 09/24 Active Member of Clubs [...] on file Legal Sex Female 3:31 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 Gender Identity Not on file Sexual Orientation [...] 02/13/2025 3:22 PM CDT Plan of Treatment Health Maintenance Due [...] this topic Medical Devices Implanted Type Area Soft Work Cigar Machine Operator Device Identifier Shelf Expiration Date Model / Serial / Lot [employer] Bi Mentum 47mm Press Fit Femoral Proximal Cup Acetabular [id number] - [id number] Implanted:Qty: 1 on 01/10/2025 at [facility] Left: Hip [employer] 05/26/2028 [id number] / / [id number] [employer] Liner Acetabular Hip Bi Mentum Altrx 47mm Polyethylene Size 28 [id number] - [id number] Implanted:Qty: 1 on 01/10/2025 at [facility] Left: Hip [employer] 09/25/2029 [id number] / / [id number] [employer] Articul/Eric 28mm Cementless Hip +1.5mm 09/08 Taper Head Femoral Latex Free [id number] - [id number] Implanted:Qty: 1 on 01/10/2025 at [facility] Left: Hip [employer] 11/23/2029 [id number] / / [id number] [employer] Actis 105mm Collar Hip 5 High Offset Stem Femoral [id number] - [id number] Implanted:Qty: 1 on 01/10/2025 at [facility] Left: Hip [employer] 10/26/2034 [id number] / / [id number] Procedures Procedure Name Priority Date/Time Associated Diagnosis Comments POCT LIPID PANEL Routine 02/13/2025 3:30 PM CDT Lipid screening XR PELVIS ORTHO VIEW ED Urgent/IP Urgent 01/10/2025 8:37 AM CDT ARTHROPLASTY TOTAL HIP - DEPUY 01/10/2025 7:04 AM CDT Primary osteoarthritis of left hip OH AN PROCEDURE PLACEHOLDER Routine 01/10/2025 6:59 AM [...] IMG XR PROCEDURES Final R esult * OH AN PROCEDURE PLACEHOLDER (01/10/2025 6:59 AM CDT) [...] patient tolerated procedure well with no complications us Kevyn Bearden MD ANESTHESIA ORDERABLES Hanna l [...] LAB BLOOD ORDERABLES Hanna l Result [facility] [address] [facility] [place] [phone] * (ABNORMAL) Vitamin D 25 hydroxy (12/11/2024 11:53 AM CDT) Pathologist [facility] Vitamin D 25-OH 29(L) 30 - 80 ng/mL Blood 12/11/2024 11:5 3 AM CDT 12/11/2024 12:24 PM CDT us Gunnar Moss MD LAB BLOOD ORDERABLES Hanna l Result Performing Organization Address City/[facility] Co de Phone Number [facility] [address] [facility] [place] [address] * (ABNORMAL) CBC without differential (12/11/2024 11:53 AM CDT) [facility] WBC 7.0 3.8 - 9.9 K/cumm Hgb 15.2 11.9 - 15.5 g/dL [facility] Hct 45.7(H) 35.6 - 45.5 % [facility] Plt 294 150 - 400 K/cumm [facility] MPV 10.3 9.1 - 12.3 fL [facility] RBC 5.18 3.90 - 5.20 M/cumm [facility] MCV 88.2 81.3 - 96.4 fL [facility] MCH 29.3 27.1 - 33.3 pg [facility] MCHC 33.3 32.3 - 35.7 g/dL [facility] RDW CV 13.8 11.1 - 14.9 % [facility] RDW SD 44.7 35.7 - 48.1 fL [facility] NRBC abs 0.00 0.00 - 0.01 K/cumm [facility] Blood 12/11/2024 11:5 3 AM CDT 12/11/2024 12:24 PM CDT Jessica Bryant IT SYSTEMS ADMINISTRATOR LAB BLOOD ORDERABLES Final Result [facility] [address] [facility]. [place] [address] * (ABNORMAL) Comprehensive metabolic panel (12/11/2024 11:53 [...] [facility] Glucose 97 70 - 199 mg/dL [facility] Comment: Interpretive Data Fasting glucose >/= 126 [...] Gunnar Moss MD LAB BLOOD ORDERABLES Hanna zackary Result [facility] [address] [facility] [address] from Last 3 Months Insurance [facility] Advance Directives For more information, please contact: [phone] * Full Code (Latest Code Status on File) Date Activated Date Inactivated Comments 01/10/2025 8:22 AM 01/10/2025 4:44 PM * Full Code Date Activated Date Inactivated Comments 09/22/2019 5:13 PM 09/25/2019 12:46 PM Care Teams Slat Basket Top Maker Relationship Specialty Start Date End Date Colleen Pagan, IT SYSTEMS ADMINISTRATOR [address] [place] [address] PCP - General Family Medicine 06/21/24
--- OUTSIDE RECORDS SUMMARY | 2025-02-13 16:19 | XMS_ITS ---
Author Organization [facility] Address [address] [facility] [address], [place] [address] Care Team Providers Care University Teacher Name Role Phone Nuvia MILLAN, Lulu Primary Care Provider Unavail able Abbie Rubio [phone] REASON FOR VISIT pain Medications Medication SIG (Take, Route, Fr equency, Duration) Notes Start Date End Date Status Gabapentin 600 MG 1 tablet Orally 3 ti mes a day for 30 days 03/15/2024 Active Encounters Encounter Location Date Provider Diagnosis [facility] [address] [facility] [address] [place] [address] 03/15/2024 Abbie Rubio Plan Of Treatment Medication Medication Name Sig Start Date Stop Date Notes Gabapentin 600 MG 1 tablet Orally 3 ti mes a day for 30 days 03/15/2024 Progress Notes * TATEBerenice NaylorCristhianOB:1979 (43 yo F)Acc No.[id number]:03/15/2024 Patient: Natalie JOHNSON :1980 A ge:43 Y S ex:Female Address:[address] [place], [address] * Refills Start Gabapentin Tablet, 600 MG, Orally, 90 Tablet, 1 tablet, 3 times a day, 30 days, Refills=2 * true * Date: Generated for Kentrelli ng/Farosaleeg/eTransmitting on: 0 02/13/2025 03:07 PM CDT
--- OUTSIDE RECORDS SUMMARY | 2025-02-13 16:19 | XMS_ITS | Continuity of Care Document ---
Author Organization [facility] Address [address] [facility] [address] [place] [address] Phone Care Team Providers Care Chopper Operator Name Role Phone Christiano OD, Donna Unavailable Unavailable Procedures Procedure Date Charge For A No Show Advance Directives Directive Yes / No Effective Date File Name No Information Encounters Encounter Description Practice Location Reason(s) For Visit Diagnoses Date Provider Providers Copied on Encounter [facility], [id number] [address] [address], [place], [place], [address], tel:[phone] [place] Professional No Information 4 Christiano OD Donna. [address] [place] [address] [address], [address], [place], [place], [id number], [place]. tel:[phone] Family History Family Member Type Diagnosis Age [...]
--- OUTSIDE RECORDS SUMMARY | 2025-02-13 16:19 | XMS_ITS | Clinical Summary ---
Author Organization [facility] Address [address] [place] [address] Phone Care Team Providers Care V Belt Inspector Name Role Phone Lulu Pedersen Ginger [facility] Primary Care Provider [phone] Allergies Active Allergy Reactions Criticality Noted Date [...] Encounters Date Type Department Care Team Description 02/12/2025 External Device Data [facility] Provider, Abstract 01/04/[address] [place] [address] Hiren Spicer, Panic disorder without agoraphobia; Bipolar affective disorder, currently depressed, mild ([facility]) 12/12/2024 External Device Data [facility] ABSTRACTION Provider, Abstract 12/04/2024 External Device Data [facility] Provider, Abstract 12/04/2024 External Device Data [facility] Provider, Abstract 12/01/2024 External Device Data [facility] Provider, Abstract 11/30/2024 External Device Data [facility] Provider, Abstract 11/27/2024 External Device Data [facility] Provider, Abstract 11/21/2024 1:00 PM TABLE GAMES SHIFT MANAGER Confidential [address] [place] [address] Rasheed Kramer MD None 11/16/[address] [place] [address] Rasheed Kramer MD Panic disorder without agoraphobia [...] on file Legal Sex Female 11:21 AM TABLE GAMES SHIFT MANAGER Gender Identity Not on file Sexual Orientation Not on file Last Filed Vital Signs Vital Sign Reading Time Taken Comments Blood Pressure 138/84 11/21/2024 1:07 PM TABLE GAMES SHIFT MANAGER Pulse 60 11/21/2024 1:07 PM TABLE GAMES SHIFT MANAGER Temperature - - Respiratory Rate - - Oxygen Saturation 99% 11/21/2024 1:07 PM TABLE GAMES SHIFT MANAGER Inhaled Oxygen Concentration - - Weight 96.5 kg (212 lb 12.8 oz) 11/21/2024 1:07 PM TABLE GAMES SHIFT MANAGER Height 160 cm (5' 3 ) 11/21/2024 1:07 PM TABLE GAMES SHIFT MANAGER Body Mass Index 37.7 11/21/2024 1:07 PM TABLE GAMES SHIFT MANAGER Plan of Treatment Upcoming Encounters Date Type Department Care Team (Late st Contact Info) Description 05/20/2025 11:15 AM CDT Video Visit [facility] Psychiat[facility] [address] [facility] [place] [address] Rasheed Kramer MD [address] [facility] [place] [address] Health Maintenance Due Date [...] HEMOGLOBIN A1C 5.4 4.8 - 5.6 % [facility] Comment: Prediabetes: 5.7 - 6.4 Diabetes: >6.4 Glycemic control for adults with diabetes: <7.0 04/13/2021 8:10 AM CDT 04/13/2021 Narrative [facility] - 04/14/2021 6:08 AM CDT Performed at: - [address] [id number] [place]: Babar Glover PhD, Phone: [phone] us Rasheed Kramer MD CHEMISTRY ORDERABLES Final Res ult [facility] [phone] from Last 3 Months or Most Recently Relevant to Health Maintenance Insurance [place] [id number] Care Teams V Belt Inspector Relationship Specialty Start Date End Date Lulu Pedersen FNP [address] [address] PCP - General Nurse Practitioner Family 02/12/20
[2025-02-13 17:10] LABS: Basophils Absolute Auto 0.1 K/mm3 (0.0-0.1); Basophils Percent Auto 0.8 % (0.2-1.2); Eosinophils Absolute Auto 0.3 K/mm3 (0-0.3); Eosinophils Percent Auto 2.5 % (0-4.4); Hematocrit 41.4 % (37.0-47.0); Hemoglobin 13.3 g/dL (12.0-15.0); Immature Granulocyte Absolute 0.03 K/mm3 (0.00-0.031); Immature Granulocyte Percent A 0.3 % (0-0.5); Lymphocytes Absolute Auto 4.03 K/mm3 (0.9-3.2); Mean Corpuscular HGB Conc 32.1 g/dl (32-36); Mean Corpuscular Hemoglobin 29.4 pg (26-34); Mean Corpuscular Volume 91.6 fl (80-100); Mean Platelet Volume 9.4 fl (7.4-10.4); Monocytes Absolute Auto 0.8 K/mm3 (0.1-0.6); Neutrophils Percent Auto 53.4 % (45.5-73.1); Platelet Count Result 354 k/mm3 (150-375); Red Blood Count 4.52 M/mm3 (4.2-5.4); Red Cell Distribution Width 14.4 % (11.5-14.5); White Blood Count 11.2 K/mm3 (4.5-10.0)
[2025-02-13 17:25] LABS: Anion Gap 11 mmol/L (4-12); Blood Urea Nitrogen 17 mg/dL (7-17); Calcium 9.4 mg/dL (8.4-10.2); Carbon Dioxide 25 mmol/L (22-30); Chloride 104 mmol/L (98-107); Estimated Glomerular Filt Rate > 60; Glucose 108 mg/dL (65-110); Potassium 3.9 mmol/L (3.4-5.0); Sodium 140 mmol/L (137-145)
[2025-02-13 17:56] LABS: Thyroid Stimulating Hormone 0.557 uIU/mL (0.465-4.680)
== END 2025-02-13 16:15 | disposition home or self-care (01) ==
LOC: ANHLAB 16:16
PROVIDERS: PCP Nurse Practitioner Family; Visit Provider Nurse Practitioner
DX: R00.2 Palpitations (principal); R53.83 Other fatigue
CPT/HCPCS: 36415; 80048; 84443; 85025

== ENCOUNTER 2025-02-18 15:12 | Emergency (ER) | payer OTHER, SELFPAY ==
[2025-02-18 15:33] VITALS: BP 110/79; PULSE 79; RESP 16; TEMP 36.6; O2SAT 100
--- NOTE | 2025-02-18 16:24 | ED.BACK ---
HPI - Back Pain/Injury General Chief Complaint: Back Pain/Injury Stated Complaint: SCIATICA Time Seen by Provider: 02/18/25 16:20 Source: patient, RN notes reviewed and old records reviewed Mode of arrival: ambulatory Limitations: no limitations History of Present Illness MD elicited complaint: back pain and other (sciatica) Related Data Home Medications ?Medication ?Instructions ?Recorded ?Confirmed ?Last Taken ?Type paroxetine HCl 40 mg tablet (Paxil) 40 mg PO DAILY 12/28/21 02/18/25 05/20/24 07:30 History losartan 100 mg tablet 100 mg PO DAILY 11/27/24 02/18/25 Unknown History Allergies Allergy/AdvReac Type Severity Reaction Status Date / Time vancomycin Allergy Severe Anaphylaxis Verified 02/18/25 15:34 codeine Allergy Intermediate Rash Verified 02/18/25 15:34 hydrocodone (From [place]) Allergy Intermediate Rash Verified 02/18/25 15:34 morphine Allergy Intermediate Rash Verified 02/18/25 15:34 Penicillins Allergy Intermediate Rash Verified 02/18/25 15:34 phenazopyridine AdvReac Intermediate Nausea and Verified 02/18/25 15:34 Vomiting PMFSH Past Medical History Medical History Psoriatic arthritis Dry eye syndrome of both eyes Rheumatoid arthritis Anxiety Left hip pain Obesity Menometrorrhagia Hypothyroidism Pilonidal abscess 1998 excision, has recurred, painful at times Water retention Sleep disorder Hypertension Abnormal Pap smear of cervix 01-14-2020 Ascus hpv negative rpt pap in 1 year @ [facility] History of bipolar disorder Surgical History Surgical History History of robot-assisted laparoscopic hysterectomy (12/17/22) Robotic assisted total vaginal hysterectomy / done by Dr. Zarate H/O tubal ligation History of hysteroscopy (03/05/22) Hscope D&C / Endometrial Ablation/ bilateral Laparoscopic salpingectomy / excision of vulvar lesion H/O sinus surgery (~11/24/20) History of arthroscopy (~2014) left hip History of breast augmentation 2013 History of breast lift 2018 History of breast implant removal 2018 History of laparoscopy 2015 endometriosis/7 cm on rt side History of sinus surgery 2000 cysts H/O LEEP 2011 2017 x3 done in [place] Family History Family History Father Depression Hypertension Family history of diabetes mellitus in first degree relative Family history of heart disease in male family member before age 55 Acute myocardial infarction Cerebrovascular accident Mother Depression Hypertension Family history of diabetes mellitus in first degree relative Family history of heart disease in male family member before age 55 Acute myocardial infarction Social History Social History Smoking status: Never smoker Alcohol intake: never Substance use: never Substance use type: does not use Do You Feel Safe in your Home?: Yes Lack of Transportation: YES Lack of Food: Never True Current Housing: I Have Housing Concerned About Future Housing: No Difficulty Paying Gas/Electric Bills: No Difficulty Paying for Meds: No Currently Unemployed: No Education: Associate Degree Difficulty w/ Childcare or Family Care: No Living arrangements: alone Additional living arrangements comments: 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 [employer] Gender identity (if verbalized by the patient): Female Sexual Orientation (if Verbalized by the Patient): Straight or Heterosexual Spiritual care concerns: No Agree to blood products: Yes Course Course Level of Care: Express Care Visit Vital Signs Vital signs: Vital Signs Temperature 36.6 C 02/18/25 15:33 Pulse Rate 79 02/18/25 15:33 Respiratory Rate 16 02/18/25 15:33 Blood Pressure 110/79 02/18/25 15:33 Pulse Oximetry 100 02/18/25 15:33 Temperature 36.6 C 02/18/25 15:33 Pulse Rate 79 02/18/25 15:33 Respiratory Rate 16 02/18/25 15:33 Blood Pressure 110/79 02/18/25 15:33 Pulse Oximetry 100 02/18/25 15:33 Discharge Plan Discharge Patient Disposition: Left Without Being Seen Patient Language: Latvian Prescriptions: No Action paroxetine HCl [Paxil] 40 mg tablet 40 mg PO DAILY losartan 100 mg tablet 100 mg PO DAILY metoprolol succinate 50 mg Tablet Extended Release 24 Hr 50 mg PO QAM Qty: 30 0RF cyclobenzaprine 10 mg tablet 10 mg PO TID PRN (Reason: muscle spasm) Qty: 60 2RF Rinvoq 15 mg tablet extended release 24 hr 15 mg PO DAILY Qty: 30 5RF cholecalciferol (vitamin D3) 1,250 mcg (50,000 unit) capsule 1,250 mcg PO WEEKLY Qty: 14 0RF Follow-up/Referrals: Colleen Pagan FNP-C [Primary Care Provider] - Time of Disposition: 16:20
--- NOTE | 2025-02-18 16:52 | PC.NURSE ---
1620Provider went to room and patient is not in room nor in the lobby; assumed left without being seen.
== END 2025-02-18 16:25 | disposition left against medical advice (07) ==
PROVIDERS: Emergency Provider Registered Nurse; PCP Nurse Practitioner Family
DX: Z53.21 Procedure and treatment not carried out due to patient leaving prior to being seen by health care provider (principal)
CPT/HCPCS: 99199

== ENCOUNTER 2025-03-13 06:51 | Outpatient (CLI) | payer OTHER, SELFPAY ==
--- NOTE | ~2025-03-13 | CT_ITS ---
CT of the Abdomen and Pelvis: Indication: Primary hypertension Technique: 2.5 mm axial scans were obtained through the abdomen and pelvis following intravenous adm inistration of 100 cc of Omnipaque 350. Dose reduction technique was used on this scan by utilizing a utomated exposure control and iterative reconstruction technique. The dose-length product (DLP) was 8 61.06 mGy-cm. COMPARISON: 09/11/2024 Findings: Scans through the lung bases are unremarkable. The liver, spleen, pancreas, gallbladder, adrenals and kidneys are within normal limits. No evidence of aortic aneurysm or dissection. SMA and celiac axis are unremarkable. Bilateral renal arteries are widely patent. Inferior mesenteric artery is patent. Iliac vessels are patent. No lymphadenopathy. No bowel obstruction or bowel wall thickening. There is no evidence to suggest acute appendicitis. Images through the pelvis were performed. Suspected prior hysterectomy. There is a 4.1 cm cystic left ovarian mass with thin septation present, similar to prior exam. Impression: No vascular abnormality evident. 4.1 cm cystic left ovarian mass is similar to prior exam with a probable thin septation. Reviewed, dictated and finalized at location . Impression: No vascular abnormality evident. 4.1 cm cystic left ovarian mass is similar to prior exam with a probable thin s eptation.
--- OUTSIDE RECORDS SUMMARY | 2025-03-13 06:55 | XMS_ITS | Patient Health Record ---
Author Organization [facility] ([address]) Address [address] [place] [address] Care Team Providers Care Quality Measurement Specialist Name Role Phone Funmilayo Narvaez Unavailable [phone] Kiera Lucas Unavailable [phone] Reason For Referral No Information Problems Problem Type SNOMED Code ICD Code Onset Dates Problem Status W/U Status Risk Notes Problem Chronic allergic conjunctivitis (79648518) Other chronic allergic conjunctivitis (H10.45) Active confirmed Problem Allergic rhinitis caused by pollen (disorder) (09615655) Allergic rhinitis due to pollen (J30.1) Active confirmed Problem Allergic rhinitis (95726930) Other allergic rhinitis (J30.89) Active confirmed Problem Chronic rhinitis (06998898) Chronic rhinitis (J31.0) Active confirmed Problem Uncomplicated mild persistent asthma (483956270) Mild persistent asthma, uncomplicated (J45.30) Active confirmed Problem Uncomplicated moderate persistent asthma (213826982) Moderate persistent asthma, uncomplicated (J45.40) Active confirmed Problem Uncomplicated severe persistent asthma (587967368) Severe persistent asthma, uncomplicated (J45.50) Active confirmed Problem Allergic rhinitis caused by animal hair and dander (483619184741806) Allergic rhinitis due to animal (cat) (dog) hair and dander (J30.81) Active confirmed Encounters Encounter Location Date Provider Diagnosis [facility] [address] [place] [address] 04/16/2024 Kiera Lucas Plan Of Treatment No Information Insurance Providers Payer Name Payer Address Payer Phone Subscriber Number Group Number Insured Name Patient Relationship to Insured Coverage Start Date Coverage End Date R [address] [address] [place], [place] [id number] [phone] [id number] Natalie Edwards ch Self - patient is the insured 4
--- OUTSIDE RECORDS SUMMARY | 2025-03-13 06:55 | XMS_ITS | Clinical Summary ---
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] age to complete this topic Care Teams Blind Escort Relationship Specialty Start Date End Date Donato Wei MD PCP - General Internal Medicine 09/14/18
--- OUTSIDE RECORDS SUMMARY | 2025-03-13 06:56 | XMS_ITS ---
Author Organization [facility] Address [address] [facility] [address] [place] [address] Care Team Providers Care Swimming Pool Serviceperson Name Role Phone Nuvia MILLAN, Lulu Primary Care Provider Unavail Abbie Liu Unavailable [phone] REASON FOR VISIT 2 month follow up/flc Encounters Encounter Location Date Provider Diagnosis [facility] [address] [facility] [address] [place] [address] 01/18/2024 Abbie Gutierrez Plan Of Treatment No Information Progress Notes * Berenice NICKERSONhelDOB:1979 (44 yo F)Acc No.[id number]:01/18/2024 Progress Notes Patient: Natalie JOHNSNO Appointment Provider: Bere GUTIERREZ MD :1980 A ge:43 Y S ex:Female Date:01/18/2024 Address:[address] [address] Pcp:Lulu Pedersen NP Subjective: * Chief Complaints: * 1 . 2 month follow up/flc. * Medical History: Objective: * Vitals: Assessment: Plan: * Treatment: * Billing Information: * Visit Code: * Procedure Codes: * Electronic signature of Abbie Gutierrez MD on 03/13/2025 at 06:55 AM CDT Sign off status: Pending * Appointment Provider: Bere GUTIERREZ MD Date: 01/18/2024 Generated for Printi ng/Faxing/eTransmitting on: 03/13/2025 06:55 AM CDT
--- OUTSIDE RECORDS SUMMARY | 2025-03-13 06:56 | XMS_ITS | Patient Health Record ---
Author Organization [facility] Address [address] [facility] [address] [place] [address] Care Team Providers Care Lawn Mower Operator Name Role Phone Nuvia MILLAN, Lulu Primary Care Provider Unavail able RamiroAbbie Unavailable [phone] Allergies Allergen (clinical drug ingredient) Drug/Non Drug [...] Problem Status W/U Status Risk Notes Problem [id number] Osteoarthritis, unspecified osteoarthritis type, unspecified site (M19.90) Active confirmed Encounters Encounter Location Date Provider Diagnosis [facility] [address] [facility] [address] [place] [address] 03/15/2024 Abbie Rubio Plan Of Treatment Pending Test Test Name Order Date X ray : Hip, left 10/11/2023 X ray : Foot, left 10/11/2023 X ray : Foot, right 10/11/2023 X ray : Spines, cervical 2 views 024 Creatine Kinase,Total,Serum 10/11/2023 Complement C4, Serum 10/11/2023 CBC With Differential/Platelet 4 CBC With Differential/Platelet 4 CBC With Differential/Platelet 4 CBC With Differential/Platelet 4 Sedimentation Rate-Westergren 01/09/2024 [...] Insured Coverage Start Date Coverage End Date [facility] [employer] [address] [address] [place] [phone] [id number] Natalie Edwards ch Self - patient is the insured BCBS OF [facility] [address] [place] [address] [id number] Natalie Edwards ch Self - patient is the insured Medications Administered Medication Instructions Date of Administration Dosage Notes DEPO-Medrol 03/05/2024 80 mg Medical (General) History Medical History History ICD Code leukocytosis bipolar 1 small fiber neuropathy hypertension diabetes hypothyroidism psoriasis Surgical History Surgery Date(Month/Year) left hip surgery (labral taper) hysterectomy
--- OUTSIDE RECORDS SUMMARY | 2025-03-13 06:56 | XMS_ITS ---
Author Organization [facility] Address [address] [place] [address] Care Team Providers Care Golf Course Ranger Name Role Phone Nuvia MILLAN, Lulu Primary Care Provider Unavail Abbie Liu Unavailable [phone] REASON FOR VISIT 1 month f/u Encounters Encounter Location Date Provider Diagnosis [facility] [address] [facility] [address] [place] [address] 09/27/2024 Abbie Gutierrez Plan Of Treatment No Information Progress Notes * Berenice NICKERSONhelDOB:1979 (44 yo F)Acc No.[id number]:09/27/2024 Progress Notes Patient: Natalie JOHNSON Appointment Provider: Bere GUTIERREZ MD :1980 A ge:44 Y S ex:Female Date:09/27/2024 Address:[address] [address] Pcp:Lulu Pedersen NP Subjective: * Chief Complaints: * 1 . 1 month f/u. * Medical History: Objective: * Vitals: Assessment: Plan: * Treatment: * Billing Information: * Visit Code: * Procedure Codes: * Electronic signature of Abbie Gutierrez MD on 03/13/2025 at 06:55 AM CDT Sign off status: Pending * Appointment Provider: Bere GUTIERREZ MD Date: 09/27/2024 Generated for Printi ng/Faxing/eTransmitting on: 0 03/13/2025 06:55 AM CDT
--- OUTSIDE RECORDS SUMMARY | 2025-03-13 06:56 | XMS_ITS ---
Author Organization [facility] [place] ([address]) Address [address] [place] [address] Care Team Providers Care Oil Changer Name Role Phone Funmilayo Narvaez Unavailable [phone] REASON FOR VISIT BIOLOGY INTERN Allergies Encounters Encounter Location Date Provider Diagnosis [facility] [address] [place] [address] 03/21/2024 Funmilayo Narvaez Plan Of Treatment No Information Progress Notes * MARQUEZBerenice NaylorCristhianOB:1979 (44 yo F)Acc No.[id number]:03/21/2024 Progress Notes Patient: Natalie JOHNSON Provider: JOSE Bai :1980 A ge:43 Y S ex:Female Date:03/21/2024 Address:[address] [place], [place] [id number] Subjective: * Chief Complaints: * 1 . BIOLOGY INTERN Allergies. * Medical History: Objective: * Vitals: Assessment: Plan: * Treatment: * Billing Information: * Visit Code: * Procedure Codes: * Electronic signature of JOSE Harrell on 03/13/2025 at 06:55 AM CDT Sign off status: Pending * Provider: JOSE Bai Date: 03/21/2024 Generated for [place] ng/Faxing/eTransmitting on: 03/13/2025 06:55 AM CDT
== END 2025-03-13 06:52 | disposition home or self-care (01) ==
LOC: ANHIMG 06:53
PROVIDERS: PCP Nurse Practitioner Family; Visit Provider Internal Medicine Nephrology
DX: I10 Essential (primary) hypertension (principal)
CPT/HCPCS: 74174; Q9967

== ENCOUNTER 2025-03-28 08:52 | Outpatient (CLI) | payer OTHER, SELFPAY ==
--- NOTE | ~2025-03-28 | MMUS_ITS ---
EXAMINATION: MM diagnostic nazario BI w jacy, US breast LT limited HISTORY: Left breast mass TECHNIQUE: 3-D tomosynthesis images of the breasts were performed and synthetic 2-D images were gener ated. CAD analysis was submitted and interpreted. High resolution limited left breast ultrasound was performed. COMPARISON: None BREAST PARENCHYMAL COMPOSITION:Dense: The breasts are extremely dense, which lowers the sensitivity o f mammography. FINDINGS: MAMMOGRAPHIC FINDINGS: There is a 3.2 cm ovoid mass at the upper, outer left breast. No distinct right breast mass. No disto rtion of the breast. No suspicious microcalcifications. ULTRASOUND: At the 3:00 position left breast, 5 cm in the nipple, there is a 3.2 x 3.9 x 2.1 cm cyst with minimal internal debris. There is a 0.8 cm hypoechoic probable solid mass in this region as well. IMPRESSION: 0.8 cm probable benign mass at the 3:00 position left breast, 5 cm the nipple. Additional 3.9 cm min imally complex cyst in this region. Six-month follow-up ultrasound recommended to reassess. BI-RADS category 3, probably benign findings. Reviewed, dictated and finalized at location . IMPRESSION: 0.8 cm probable benign mass at the 3:00 position left breast, 5 cm the nipple. Additional 3.9 cm minimally complex cyst in this region. Six-month follow-up u ltrasound recommended to reassess. BI-RADS category 3, probably benign findings.
--- OUTSIDE RECORDS SUMMARY | 2025-03-28 08:59 | XMS_ITS ---
Author Organization [facility] Address [address] [facility] [address] [place] [address] Care Team Providers Care Business Controller Name Role Phone Nuvia MILLAN, Lulu Primary Care Provider Unavail Abbie Liu Unavailable [phone] REASON FOR VISIT 1 month f/u Encounters Encounter Location Date Provider Diagnosis [facility] [address] [facility] [address] [place] [address] 09/27/2024 Abbie Gutierrez Plan Of Treatment No Information Progress Notes * Berenice NICKERSONhelDOB:1979 (44 yo F)Acc No.[id number]:09/27/2024 Progress Notes Patient: Natalie JOHNSON Appointment Provider: Bere GUTIERREZ MD :1980 A ge:44 Y S ex:Female Date:09/27/2024 Address:[address] [address] Pcp:Lulu Pedersen NP Subjective: * Chief Complaints: * 1 . 1 month f/u. * Medical History: Objective: * Vitals: Assessment: Plan: * Treatment: * Billing Information: * Visit Code: * Procedure Codes: * Electronic signature of Abbie Gutierrez MD on 03/28/2025 at 08:59 AM CDT Sign off status: Pending * Appointment Provider: Bere GUTIERREZ MD Date: 09/27/2024 Generated for Printi ng/Faxing/eTransmitting on: 0 03/28/2025 08:59 AM CDT
--- OUTSIDE RECORDS SUMMARY | 2025-03-28 08:59 | XMS_ITS | Patient Health Record ---
Author Organization [facility] [place] ([address]) Address [address] [place] [address] Care Team Providers Care Automation And Controls Instructor Name Role Phone Funmilayo Narvaez Unavailable [phone] Kiera Lucas Unavailable [phone] Reason For Referral No Information Problems Problem Type SNOMED Code ICD Code Onset Dates Problem Status W/U Status Risk Notes Problem Chronic allergic conjunctivitis (94281726) Other chronic allergic conjunctivitis (H10.45) Active confirmed Problem Allergic rhinitis caused by pollen (disorder) (70026662) Allergic rhinitis due to pollen (J30.1) Active confirmed Problem Allergic rhinitis (39137239) Other allergic rhinitis (J30.89) Active confirmed Problem Chronic rhinitis (35612729) Chronic rhinitis (J31.0) Active confirmed Problem Uncomplicated mild persistent asthma (320114131) Mild persistent asthma, uncomplicated (J45.30) Active confirmed Problem Uncomplicated moderate persistent asthma (537671425) Moderate persistent asthma, uncomplicated (J45.40) Active confirmed Problem Uncomplicated severe persistent asthma (145614687) Severe persistent asthma, uncomplicated (J45.50) Active confirmed Problem Allergic rhinitis caused by animal hair and dander (437275828215150) Allergic rhinitis due to animal (cat) (dog) hair and dander (J30.81) Active confirmed Encounters Encounter Location Date Provider Diagnosis [facility] [place] [address] [place] [address] 04/16/2024 Kiera Lucas Plan Of Treatment No Information Insurance Providers Payer Name Payer Address Payer Phone Subscriber Number Group Number Insured Name Patient Relationship to Insured Coverage Start Date Coverage End Date R [address] [address] [place], [place] [id number] [phone] [id number] Natalie Edwards ch Self - patient is the insured 4
--- OUTSIDE RECORDS SUMMARY | 2025-03-28 08:59 | XMS_ITS | Encounter Summary ---
Author Organization [facility] Address [facility] [place] [address] Care Team Providers Care Automation Engineering Manager Name Role Phone Donato Wei MD Primary Care Provider U Lulu Ordonez [facility] Primary Care Provider + Encounter Details Date Type Department Care Team (Late st Contact Info) Description 02/07/2017 Abstract [facility] CONVERSION [address] [place] [address] , Generic Conversion, Social History Tobacco Use [...] on filedocumented in this encounter Care Teams Automation Engineering Manager Relationship Specialty Start Date End Date Donato Wei MD PCP - General 12/23/16 07/17/19 Lulu Pedersen, [facility] [address] [place] [address] PCP - General NURSE PRACTITIONER 07/18/19 documented as of this encounter
--- OUTSIDE RECORDS SUMMARY | 2025-03-28 08:59 | XMS_ITS | Encounter Summary ---
Author Organization [facility] Address [facility] [place] [address] Care Team Providers Care Coiler Name Role Phone Donato Wei MD Primary Care Provider U Lulu Ordonez [facility] Primary Care Provider + Encounter Details Date Type Department Care Team (Late st Contact Info) Description 01/31/2017 Abstract [facility] CONVERSION [address] [place] [address] , Generic Conversion, Social History Tobacco Use [...] on filedocumented in this encounter Care Teams Coiler Relationship Specialty Start Date End Date Donato Wei MD PCP - General 12/23/16 07/17/19 Lulu Pedersen, [facility] [address] [place] [address] PCP - General NURSE PRACTITIONER 07/18/19 documented as of this encounter
--- OUTSIDE RECORDS SUMMARY | 2025-03-28 08:59 | XMS_ITS | Clinical Summary ---
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
--- OUTSIDE RECORDS SUMMARY | 2025-03-28 09:00 | XMS_ITS | Patient Health Record ---
Author Organization [facility] Address [address] [facility] [address] [place] [address] Care Team Providers Care Skiver Heel Tap Name Role Phone Nuvia MILLAN, Lulu Primary Care Provider Unavail able RamiroAbbie Unavailable [phone] Allergies Allergen (clinical drug ingredient) Drug/Non Drug [...] on an empty stomach Orally Once a day; Duration: 30 day(s) Active Gabapentin 600 MG 1 tablet Orally 3 ti mes a day; Duration: 30 days 03/15/2024 Active Gabapentin 600 MG 1 tablet Orally Once a day 10/11/2023 Active Cetirizine HCl 10 MG 1 tablet Orally Onc e a day; Duration: 30 days 03/05/2024 Active Paxil 40 MG 1 tablet in the morn ing Orally Once a day; Duration: 30 day(s) Active Amitriptyline HCl 25 MG 1 tablet at bedt bre Orally Once a day; Duration: 30 days 03/12/2024 Active Losartan Potassium 50 MG 1 tablet Orally Once a day; Duration: 30 day(s) Active Famotidine 20 MG 1 Orally Once a day; Duration: 90 days 03/05/2024 Active Gabapentin 300 MG 3 Orally 2 times a d ay; Duration: 30 days 03/08/2024 Active Ativan 1 MG 1 tablet at bedtime as needed Orally three times a day Active Methotrexate Sodium 2.5 MG 8 Orally week ly; Duration: 90 days Active Social History Tobacco Use: Social History Observation Description Date Details (start date - stop date) Never Smoker NA - NA Household Question Answer Notes Marital status: single Tobacco Control (Standard) Question Answer Notes Tobacco use: Nonsmoker Problems Problem Type SNOMED Code ICD Code Onset Dates Problem Status W/U Status Risk Notes Problem Osteoarthritis, unspecified osteoarthritis type, unspecified site (M19.90) Active confirmed Plan Of Treatment Pending Test Test Name [...] Insured Coverage Start Date Coverage End Date [facility] [employer] [address] [address] [place] [address] [id number] Natalie Edwards ch Self - patient is the insured BCBS OF [facility] [address] [place] [address] [id number] Natalie Edwards ch Self - patient is the insured Medications Administered Medication Instructions Date of Administration Dosage Notes DEPO-Medrol 03/05/2024 80 mg Medical (General) History Medical History History ICD Code leukocytosis bipolar 1 small fiber neuropathy hypertension diabetes hypothyroidism psoriasis Surgical History Surgery Date(Month/Year) left hip surgery (labral taper) hysterectomy
--- OUTSIDE RECORDS SUMMARY | 2025-03-28 09:00 | XMS_ITS | Clinical Summary ---
Author Organization [facility] Address [address] [place] [address] Care Team Providers Care Retail Leasing Agent Name Role Phone Lulu Pedersen [facility] Primary Care Provider + Allergies Active [...] 9:01 AM CDT Height 160 cm (5' 3) 04/24/2021 9:01 AM CDT Body Mass Index [...] Vaccine (2023-2 5 season) 2024 10/06/2020, 09/15/2020 Hepatitis C Completed 06/05/2018, 06/05/2018 HPV Vaccines [...] 5 Years) and At-Risk Patients (6 to 49 Years) Aged Out No longer eligible b ased on patient's age to complete this topic RSV Immunizations Under 20 Months Aged Out No longer eligible b ased on patient's age to complete this topic Procedures Procedure Name Priority Date/Time Associated Diagnosis Comments HEPATITIS A,B,& C Routine 06/05/2018 4:0 0 PM CDT COLONOSCOPY Routine 09/26/2007 12:00 AM STOGY ROLLER from Last 3 Months or Most Recently Relevant to Health Maintenance Results * HEPATITIS A,B,& C (06/05/2018 4:00 PM CDT) HEPATITIS B SURFACE AG NON-REACTIVE NON-REACT [place] 06/06/2018 8:53 PM CDT [facility] HEP B CORE TOTAL AB NON-REACTIVE NON-REACT [place] 06/06/2018 8:59 PM CDT [facility] HEP B SURFACE AB REACTIVE 06/06/2018 9:00 PM CDT [facility] HAV IGM NON-REACTIVE NON-REACT [place] 06/06/2018 8:59 PM CDT [facility] HEPATITIS C AB NON-REACTIVE NON-REACT [place] 06/06/2018 8:58 PM CDT [facility] 06/05/2018 4:00 PM CDT 06/05/2018 6:19 PM CDT us Generic Conversion [facility] Final R esult [facility] [address] [id number], [place] [phone] * Colonoscopy (09/26/2007 12:00 AM STOGY ROLLER) 09/26/2007 09/26/2007 Narrative [facility] CONVERSION - 09/26/2007 12:00 AM STOGY ROLLER Documented hx of procedure Procedure Note Brad Pearce MD - 07/30/2018 Documented hx of procedure us Generic Conversion Md [facility] PROCEDURE ORDERABLES Final Result Performing Organization Address City/[facility]/ZIP Co de Phone Number [facility] CONVERSION from Last 3 Months or Most Recently Relevant to Health Maintenance Insurance [employer] Care Teams Retail Leasing Agent Relationship Specialty Start Date End Date Lulu Pedersen, RECEIVING ASSOCIATE-BC [address] [place] [id number] PCP - General NURSE PRACTITIONER 07/18/19
--- OUTSIDE RECORDS SUMMARY | 2025-03-28 09:00 | XMS_ITS ---
Author Organization [facility] Address [address] [facility] [address] [place] [address] Care Team Providers Care Cement Block Maker Name Role Phone Nuvia MILLAN, Lulu Primary Care Provider Unavail Abbie Liu Unavailable [phone] REASON FOR VISIT 2 month follow up/flc Encounters Encounter Location Date Provider Diagnosis [facility] [address] [facility] [address] [place] [address] 01/18/2024 Abbie Gutierrez Plan Of Treatment No Information Progress Notes * Berenice NICKERSONhelDOB:1979 (44 yo F)Acc No.[id number]:01/18/2024 Progress Notes Patient: Natalie JOHNSON Appointment Provider: Bere GUTIERREZ MD :1980 A ge:43 Y S ex:Female Date:01/18/2024 Address:[address] [place] [address] Pcp:Lulu Pedersen NP Subjective: * Chief Complaints: * 1 . 2 month follow up/flc. * Medical History: Objective: * Vitals: Assessment: Plan: * Treatment: * Billing Information: * Visit Code: * Procedure Codes: * Electronic signature of Abbie Gutierrez MD on 03/28/2025 at 09:00 AM CDT Sign off status: Pending * Appointment Provider: Bere GUTIERREZ MD Date: 01/18/2024 Generated for Printi ng/Faxing/eTransmitting on: 03/28/2025 09:00 AM CDT
--- OUTSIDE RECORDS SUMMARY | 2025-03-28 09:00 | XMS_ITS | Clinical Summary ---
Author Organization [facility] Address [address] [place] [address] Phone Care Team Providers Care Payroll Specialist Name Role Phone Lulu Pedersen [facility] Primary Care Provider [phone]- [phone] Allergies Active Allergy Reactions Criticality Noted Date [...] tongue 2 times daily. 45 Tablet 5 Active gabapentin (NEURONTIN) 300 mg capsuleIndicatio ns:Panic disorder without agoraphobia Take 1 Capsule (300 mg) by mouth 2 times daily. 180 Capsule 1 Active losartan (COZAAR) 100 mg tablet Take 100 mg by mouth daily. Active Active Problems No known active problems Encounters Date Type Department Care Team Description 03/12/2025 External Device Data [facility] ABSTRACTION Provider, Abstract 02/26/2025 External Device Data [facility] Provider, Abstract 02/14/2025 External Device Data [facility] Provider, Abstract 02/12/2025 External Device Data [facility] Provider, Abstract 01/04/[address] [place] [address] Hiren Spicer, Panic disorder without agoraphobia; Bipolar [...] on file Legal Sex Female 11:21 AM CISCO NETWORK ENGINEER Gender Identity Not on file Sexual Orientation Not on file Last Filed Vital Signs Vital Sign Reading Time Taken Comments Blood Pressure 138/84 11/21/2024 1:07 PM CISCO NETWORK ENGINEER Pulse 60 11/21/2024 1:07 PM CISCO NETWORK ENGINEER Temperature - - Respiratory Rate - - Oxygen Saturation 99% 11/21/2024 1:07 PM CISCO NETWORK ENGINEER Inhaled Oxygen Concentration - - Weight 96.5 kg (212 lb 12.8 oz) 11/21/2024 1:07 PM CISCO NETWORK ENGINEER Height 160 cm (5' 3) 11/21/2024 1:07 PM CISCO NETWORK ENGINEER Body Mass Index 37.7 11/21/2024 1:07 PM CISCO NETWORK ENGINEER Plan of Treatment Upcoming Encounters Date Type Department Care Team (Late st Contact Info) Description 05/20/2025 11:15 AM CDT Video Visit [address] [facility] [place] [address] Rasheed Kramer MD [address] [facility] [place] [address] Health Maintenance Due Date Last Done Comments HEPATITIS B VACCINES (1 of 3 - 19+ 3-dose series) 1998 HPV/Cotest (21-29) 2000 CERVICAL CANCER SCREENING 2009 HPV/Cotest (30-65) 2009 PAP SMEAR 2009 BREAST CANCER SCREENING 2019 Pre-Diabetes and Diabetes Screening 04/13/2024 04/13/2021 COLORECTAL SCREENING 2024 09/26/2007 Colorectal Cancer Screening 2024 FIT-DNA Q 3 years 2024 FIT/FOBT Q 1 year 2024 Flex Sig/CT Colonography Q 5 years 2024 COVID-19 Vaccine (3 - 2023-2 5 season) 2024 10/06/2020, 09/15/2020 INFLUENZA VACCINE (#1) 2025 DTAP/TDAP/TD VACCINES (2 - T d or [...] - 04/14/2021 6:08 AM CDT Performed at: [address] [place], [place] [address] [address] [id number] Flash Ranging Crewmember: Babar Glover PhD, Phone: [phone] Rasheed Kramer MD CHEMISTRY ORDERABLES Final Res ult [facility] [phone] from Last 3 Months or Most Recently Relevant to Health Maintenance Insurance Care Teams Payroll Specialist Relationship Specialty Start Date End Date Lulu Pedersen FNP [address] [address] PCP - General Nurse Practitioner Family 02/12/20
--- OUTSIDE RECORDS SUMMARY | 2025-03-28 09:00 | XMS_ITS ---
Author Organization [facility] [place] ([address]) Address [address] [place] [address] Care Team Providers Care Paster Supervisor Name Role Phone Funmilayo Narvaez Unavailable [phone] REASON FOR VISIT BOAT HOP Allergies Encounters Encounter Location Date Provider Diagnosis [facility] [address] [place] [address] 03/21/2024 Funmilayo Narvaez Plan Of Treatment No Information Progress Notes * MARQUEZBerenice NaylorCristhianOB:1979 (44 yo F)Acc No.[id number]:03/21/2024 Progress Notes Patient: Natalie JOHNSON Provider: JOSE Bai :1980 A ge:43 Y S ex:Female Date:03/21/2024 Address:[address] [place], [place] [address] Subjective: * Chief Complaints: * 1 . BOAT HOP Allergies. * Medical History: Objective: * Vitals: Assessment: Plan: * Treatment: * Billing Information: * Visit Code: * Procedure Codes: * Electronic signature of JOSE Harrell on 03/28/2025 at 08:59 AM CDT Sign off status: Pending * Provider: JOSE Bai Date: 03/21/2024 Generated for Printi ng/Faxing/eTransmitting on: 03/28/2025 08:59 AM CDT
== END 2025-03-28 08:53 | disposition home or self-care (01) ==
LOC: CHSIMG 08:55
PROVIDERS: PCP Nurse Practitioner Family; Visit Provider Obstetrics & Gynecology
DX: N63.20 Unspecified lump in the left breast, unspecified quadrant (principal); R92.8 Other abnormal and inconclusive findings on diagnostic imaging of breast
CPT/HCPCS: 76642; 77062; 77066; G0279

== ENCOUNTER 2025-03-28 13:15 | Outpatient (RCR) | payer OTHER, SELFPAY ==
--- NOTE | 2025-01-23 18:58 | PTOPEVAL1 ---
Assessment and note entered by Jasmyn Robin, PT Evaluation Information Assessment Status Evaluation Diagnosis Left total hip replacement posterior approach ICD-10 Condition Codes (PT) Pain in left hip M25.552,Difficulty Walking R26.2, Abnormalities of gait and mobility R26.9,Weakness R53.1 Onset 01/10/2025 Subjective Information Had surgery and was sent home same day. Was provided handout with exercises and precautions. 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 Is only taking one [place] a day for bed. Has Tramadol, flexeril, meloxicam. Antibiotics Cephadroxil. Has been communicating with MD through portal relating to pain, tightness, redness of incision, and irritation of skin. first week was in a lot of pain, but the last 3 days has greatly improved. Reported Pain Level Pain Score 2: Self Report Assessment PT Clinical Summary Pt presents 12 days post-operative left total hip replacement. She ambulates with a cane with antalgic pattern, decreased hip extension LLE, decreased stance time LLE. She also shows decreased strength LLE compared to right, mild bruising and swelling overall. Reports addressing redness and skin irritation with provider via patient portal and this is improved. No current signs or symptoms of infection though patient is currently on prescribed anti-biotics as well. She does have difficulty reciting her ROM precautions, and her AD and shoe dixon is unsafe. She was provided a safer cane to borrow and information regarding acquisition of her onw appropriate AD as well as how to fit it appropriately. ROM precautions were reinforced, progression healing and expectations reviewed. She appears to be an ideal candidate, motivated to participate and adhere to therapist advice. She will benefit from continued therapy to address ROM, gait, strength, pain, and functional activities to prepare her for return to her PLOF. Plan of Care Interventions Electrical Stimulation,Gait Training,Hot Pack/Cold Pack,Manual Therapy,Neuro Re-education,Patient/ Caregiver Education,Therapeutic Activities, Therapeutic Exercise,Self-Care/Home Management, Other Other Interventions Taping PT Services Indicated Yes Treatment Frequency and 2x weekly x 20 visits Duration These treatments will address the objective and functional deficits as defined above. The patient will be advanced safely and appropriately in order for the patient to progress towards his/her prior level of function. Additional exercises will be introduced and as well as a comprehensive home exercise program upon discharge, if needed, ?to ensure carryover of functional gains achieved in the clinic. This treatment plan has been reviewed and agreement upon by the patient.
--- NOTE | 2025-01-23 18:58 | OPREHPOC ---
Outpatient Therapy Plan of Care This is a Multidisciplinary Plan of Care that may contain components documented by all disciplines (PT, OT, and ST.) PT Problem 1 PT Problem #1 Knowledge Deficit PT Goal 1 Goal / Goal Update Pt will be independent in HEP Pt will verbalize understanding of diagnosis and prognosis Target Visit 10 PT Problem 2 PT Problem #2 Pain PT Goal 1 Goal / Goal Update Pt will report lowest pain rating at 0/10 to show improvement in overall discomfort Target Visit 10 PT Goal 2 Goal / Goal Update Pt will report greatest pain level at 3/10 or less to improve ADLs and activities Target Visit 20 PT Problem 3 PT Problem #3 Impaired Range of Motion PT Goal 1 Goal / Goal Update Pt will demonstrate passive hip extension of 10 degrees for appropriate gait pattern Target Visit 10 PT Goal 2 Goal / Goal Update Pt will demonstrate active hip extension of 10 degrees for appropriate gait pattern and stability Target Visit 20 PT Problem 4 PT Problem #4 Impaired Strength PT Goal 1 Goal / Goal Update Pt will demonstrates 3/5 strength in hip abd and extension for improved function and stability Target Visit 10 PT Goal 2 Goal / Goal Update Pt will demonstrates 4/5 strength in hip abd and extension for improved function and stability Target Visit 20 PT Problem 5 PT Problem #5 Impaired Gait PT Goal 1 Goal / Goal Update Pt will demonstrate appropriate gait pattern without AD to return to PLOF Target Visit 20
--- NOTE | 2025-02-01 08:13 | PCPTNOTE ---
Pt called and cancelled stating too sore from therapy yesterday
--- NOTE | 2025-02-26 09:38 | PCPTNOTE ---
Patient called & cancelled scheduled appointment this date due to illness
--- NOTE | 2025-03-06 16:51 | PTOPPROG ---
Assessment and note entered by Jasmyn Robin, PT Evaluation Information Assessment Status Progress Diagnosis Left total hip replacement posterior approach ICD-10 Condition Codes (PT) Pain in left hip M25.552,Difficulty Walking R26.2, Abnormalities of gait and mobility R26.9,Weakness R53.1 Onset 01/10/2025 Subjective Information Is only taking over the counter medication here and there , hasn't been icing, and walking has been great. Can put shoes and socks on without AD Goes back to work April 01. Is going to try to go into day shift. Is a little swollen sometimes and has a numb patch on the incision Is doing good wiht incision manipulation, does exercises everyday. Has been doing stretches more as well. Is still having left sacroiliac joint discomfort and that her glutes are still a little tight Assessment PT Clinical Summary Pt has progressed exceptionally well since initiation of therapy. She is increasing her activities at home and still has some muscle soreness. Currently she also is having some sacroiliac joint discomfort likely related to pelvis adjusting to her new hip. She does still show some weakness and tone of hip and pelvic musculature and has yet to perform high level activities such as lifting, pushing/pulling, etc she would need for her job. Also she does report feeling unstable as compared to her norms with her LLE in lunges, and single leg activities. 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 Plan of Care Interventions Electrical Stimulation,Gait Training,Hot Pack/Cold Pack,Manual Therapy,Neuro Re-education,Patient/ Caregiver Education,Therapeutic Activities, Therapeutic Exercise,Self-Care/Home Management, Other Other Interventions Taping PT Services Indicated Yes Treatment Frequency and Cont 1-2x weekly x 10 visits Duration These treatments will address the objective and functional deficits as defined above. The patient will be advanced safely and appropriately in order for the patient to progress towards his/her prior level of function. Additional exercises will be introduced and as well as a comprehensive home exercise program upon discharge, if needed, ?to ensure carryover of functional gains achieved in the clinic. This treatment plan has been reviewed and agreement upon by the patient.
--- NOTE | 2025-03-06 16:53 | OPREHPOC ---
Outpatient Therapy Plan of Care This is a Multidisciplinary Plan of Care that may contain components documented by all disciplines (PT, OT, and ST.) PT Problem 1 PT Problem #1 Knowledge Deficit PT Goal 1 Goal / Goal Update Pt will be independent in HEP Pt will verbalize understanding of diagnosis and prognosis Target Visit 10 Progress Met PT Problem 2 PT Problem #2 Pain PT Goal 1 Goal / Goal Update Pt will report lowest pain rating at 0/10 to show improvement in overall discomfort Target Visit 10 Progress Met PT Goal 2 Goal / Goal Update Pt will report greatest pain level at 3/10 or less to improve ADLs and activities Target Visit 20 Progress Met PT Problem 3 PT Problem #3 Impaired Range of Motion PT Goal 1 Goal / Goal Update Pt will demonstrate passive hip extension of 10 degrees for appropriate gait pattern Target Visit 10 Progress Met PT Goal 2 Goal / Goal Update Pt will demonstrate active hip extension of 10 degrees for appropriate gait pattern and stability Pt will demonstrate appropriate gait pattern without AD to return to PLOF Target Visit 20 Progress Met PT Problem 4 PT Problem #4 Impaired Strength PT Goal 1 Goal / Goal Update Pt will demonstrates 3/5 strength in hip abd and extension for improved function and stability Target Visit 10 Progress Met PT Goal 2 Goal / Goal Update Pt will demonstrates 4/5 strength in hip abd and extension for improved function and stability Target Visit 20 Progress Met PT Problem 5 PT Problem #5 Impaired Functional Mobility PT Goal 1 Goal / Goal Update updated new goal: 03/06/25 Pt will demonstrate appropriate lunge R/L without instability or pain Pt will demonstrate appropriate lift techniques from knee height to waist Pt will demonstrate ability to push loaded cart ( 200 lbs) 80 ft navigating obstacles without pain to return to work related function Target Visit 20 Progress Met
--- NOTE | 2025-03-08 10:12 | PCPTNOTE ---
Patient called & cancelled scheduled appointment this date due, no reason given.
--- NOTE | 2025-03-22 13:20 | PCPTNOTE ---
Patient called & cancelled scheduled appointment this date due to weather.
--- NOTE | 2025-04-02 15:06 | PCPTNOTE ---
Patient called & cancelled scheduled appointment this date due to family emergency
--- NOTE | 2025-04-24 08:16 | PCPTNOTE ---
Admitting Provider: Attending Provider: Gunnar Moss Patient:Natalie Alamo Date of :1980 Patient has not returned for any further treatments since 03/28/2025. 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 Overall she did very well with therapy and was in the final phases of functional movement training for job related tasks such as lifting and push/pulling. The goals have been partially met. Thank you for this referral and I look forwrad to assisting your patients in the future.
== END 2025-04-22 23:59 | disposition home or self-care (01) ==
LOC: ANHHIPT 13:15
PROVIDERS: PCP Nurse Practitioner Family
DX: Z47.1 Aftercare following joint replacement surgery (principal); M25.552 Pain in left hip; Z96.642 Presence of left artificial hip joint
CPT/HCPCS: 97014; 97110; 97140; 97161; 97530; 97750; G0283

== ENCOUNTER 2025-04-22 07:03 | Outpatient (CLI) | payer OTHER, SELFPAY ==
--- OUTSIDE RECORDS SUMMARY | 2025-04-22 07:06 | XMS_ITS ---
Author Organization [facility] Address [address] [facility] [address] [place] [address] Care Team Providers Care Bakery And Deli Sales Manager Name Role Phone Nuvia MILLAN, Lulu Primary Care Provider Unavail Abbie Liu Unavailable [phone] REASON FOR VISIT 1 month f/u Encounters Encounter Location Date Provider Diagnosis [facility] [address] [facility] [address] [place] [address] 09/27/2024 Abbie Gutierrez Plan Of Treatment No Information Progress Notes * Berenice NICKERSONhelDOB:1979 (44 yo F)Acc No.[id number]:09/27/2024 Progress Notes Patient: Natalie JOHNSON Appointment Provider: Bere GUTIERREZ MD :1980 A ge:44 Y S ex:Female Date:09/27/2024 Address:[address] [address] Pcp:Lulu Pedersen NP Subjective: * Chief Complaints: * 1 . 1 month f/u. * Medical History: Objective: * Vitals: Assessment: Plan: * Treatment: * Billing Information: * Visit Code: * Procedure Codes: * Electronic signature of Abbie Gutierrez MD on 04/22/2025 at 07:06 AM CDT Sign off status: Pending * Appointment Provider: Bere GUTIERREZ MD Date: 09/27/2024 Generated for Printi ng/Faxing/eTransmitting on: 0 04/22/2025 07:06 AM CDT
--- OUTSIDE RECORDS SUMMARY | 2025-04-22 07:06 | XMS_ITS | Patient Health Record ---
Author Organization [facility] [place] ([address]) Address [address] [place] [address] Care Team Providers Care Medical Staff Assistant Name Role Phone JonasvelvetMillerFunmilayo Unavailable [phone] Reason For Referral No Information Problems Problem Type SNOMED Code ICD Code Onset Dates Problem Status W/U Status Risk Notes Problem Chronic allergic conjunctivitis (77712954) Other chronic allergic conjunctivitis (H10.45) Active confirmed Problem Allergic rhinitis caused by pollen (disorder) (97708165) Allergic rhinitis due to pollen (J30.1) Active confirmed Problem Allergic rhinitis (99654085) Other allergic rhinitis (J30.89) Active confirmed Problem Chronic rhinitis (49711480) Chronic rhinitis (J31.0) Active confirmed Problem Uncomplicated mild persistent asthma (639884221) Mild persistent asthma, uncomplicated (J45.30) Active confirmed Problem Uncomplicated moderate persistent asthma (087665671) Moderate persistent asthma, uncomplicated (J45.40) Active confirmed Problem Uncomplicated severe persistent asthma (415996682) Severe persistent asthma, uncomplicated (J45.50) Active confirmed Problem Allergic rhinitis caused by animal hair and dander (153883580492408) Allergic rhinitis due to animal (cat) (dog) hair and dander (J30.81) Active confirmed Plan Of Treatment No Information Insurance Providers Payer Name Payer Address Payer Phone Subscriber Number Group Number Insured Name Patient Relationship to Insured Coverage Start Date Coverage End Date [address] [address] [place], [place] [id number] [phone] [id number] Natalie Edwards ch Self - patient is the insured 4
--- OUTSIDE RECORDS SUMMARY | 2025-04-22 07:06 | XMS_ITS | Clinical Summary ---
Author Organization [facility] Address [address] [place] [address] Phone Care Team Providers Care Director Of Restaurants Name Role Phone Donato Wei MD Primary Care Provider U navailable Immunizations Immunization Administration Dates Next Due Covid-19, Mrna, Lnp-s, Pf, 30 Mcg/0.3 Ml Dose (P fizer) 10/06/2020,09/15/2020 Social History Tobacco Use Types Packs/Day Years Used Date Smoking Tobacco: Never Assessed Comments Unknown Sex and Gender Information Value Date Recorded Sex Assigned at Not on file Legal Sex Female 9:54 AM RUBBER CURER Gender Identity Not on file Sexual Orientation Not on file Plan of Treatment Health Maintenance Due Date Last Done Comments Hepatitis C Virus (HCV) Screening 1980 Human Papillomavirus (HPV) Immunization (1 - 3-dose series) 1994 Hepatitis B Immunization (1 of 3 - 19+ 3-dose series) 1998 Pap Smear 2000 Cervical Cancer Screening (CCS) 2009 HPV/Cotest 2009 Cologuard 2024 Colonoscopy 2024 Colorectal Cancer Screening 2024 Immunochemical Fecal Occult Blood 2024 SARS-COV-2 Immunization ( season) 2024 10/06/2020, 09/15/2020 Influenza Immunization (#1) 05/27/202509/26, 05/31/2017, 06/19/2016 Respiratory Syncytial Virus (RSV) Immunization [...] age to complete this topic Care Teams Director Of Restaurants Relationship Specialty Start Date End Date Donato Wei MD PCP - General Internal Medicine 09/14/18
--- OUTSIDE RECORDS SUMMARY | 2025-04-22 07:06 | XMS_ITS | Encounter Summary ---
Author Organization [facility] Address [facility] [place] [address] Care Team Providers Care Trim Operator Name Role Phone Donato Wei MD Primary Care Provider U Lulu Ordonez [facility] Primary Care Provider + Encounter Details Date Type Department Care Team (Late st Contact Info) Description 01/31/2017 Abstract [facility] CONVERSION [address] [place] [address] , Generic Conversion, Social History Tobacco Use [...] on filedocumented in this encounter Care Teams Trim Operator Relationship Specialty Start Date End Date Donato Wei MD PCP - General 12/23/16 07/17/19 Lulu Pedersen, [facility] [address] [place] [address] PCP - General NURSE PRACTITIONER 07/18/19 documented as of this encounter
--- OUTSIDE RECORDS SUMMARY | 2025-04-22 07:06 | XMS_ITS | Encounter Summary ---
Author Organization [facility] Address [facility] [place] [address] Care Team Providers Care Transport Driver Name Role Phone Donato Wei MD Primary Care Provider U Lulu Ordonez [facility] Primary Care Provider + Encounter Details Date Type Department Care Team (Late st Contact Info) Description 02/07/2017 Abstract [facility] CONVERSION [address] [place] [address] , Generic Conversion, Social History Tobacco Use [...] on filedocumented in this encounter Care Teams Transport Driver Relationship Specialty Start Date End Date Donato Wei MD PCP - General 12/23/16 07/17/19 Lulu Pedersen, [facility] [address] [place] [address] PCP - General NURSE PRACTITIONER 07/18/19 documented as of this encounter
--- OUTSIDE RECORDS SUMMARY | 2025-04-22 07:07 | XMS_ITS | Patient Health Record ---
Author Organization [facility] Address [address] [facility] [address] [place] [address] Care Team Providers Care Corporate Accountant Name Role Phone Nuvia MILLAN, Lulu Primary Care Provider Unavail able RamiroAbbie Unavailable [phone] Allergies Allergen (clinical drug ingredient) Drug/Non Drug [...] Insured Coverage Start Date Coverage End Date [facility] Choice Plus [address] [address] [place] [address] [phone] [id number] Natalie Edwards ch Self - patient is the insured BCBS OF [facility] [address] [place] [address] [id number] Natalie Edwards ch Self - patient is the insured Medications Administered Medication Instructions Date of Administration Dosage Notes DEPO-Medrol 03/05/2024 80 mg Medical (General) History Medical History History ICD Code leukocytosis bipolar 1 small fiber neuropathy hypertension diabetes hypothyroidism psoriasis Surgical History Surgery Date(Month/Year) left hip surgery (labral taper) hysterectomy
--- OUTSIDE RECORDS SUMMARY | 2025-04-22 07:07 | XMS_ITS ---
Author Organization [facility] Address [address] [facility] [address] [place] [address] Care Team Providers Care Missileman Name Role Phone Nuvia MILLAN, Lulu Primary Care Provider Unavail Abbie Liu Unavailable [phone] REASON FOR VISIT 2 month follow up/flc Encounters Encounter Location Date Provider Diagnosis [facility] [address] [facility] [address] [place] [address] 01/18/2024 Abbie Gutierrez Plan Of Treatment No Information Progress Notes * Berenice NICKERSONhelDOB:1979 (44 yo F)Acc No.[id number]:01/18/2024 Progress Notes Patient: Natalie JOHNSON Appointment Provider: Bere GUTIERREZ MD :1980 A ge:43 Y S ex:Female Date:01/18/2024 Address:[address] [address] Pcp:Lulu Pedersen NP Subjective: * Chief Complaints: * 1 . 2 month follow up/flc. * Medical History: Objective: * Vitals: Assessment: Plan: * Treatment: * Billing Information: * Visit Code: * Procedure Codes: * Electronic signature of Abbie Gutierrez MD on 04/22/2025 at 07:07 AM CDT Sign off status: Pending * Appointment Provider: Bere GUTIERREZ MD Date: 01/18/2024 Generated for Printi ng/Faxing/eTransmitting on: 04/22/2025 07:07 AM CDT
--- OUTSIDE RECORDS SUMMARY | 2025-04-22 07:07 | XMS_ITS | Clinical Summary ---
Author Organization [facility] Address [address] [place] [address] Care Team Providers Care Recenterer Name Role Phone Lulu Pedersen [facility] Primary Care Provider + Allergies Active Allergy [...] of 3 - 19+ 3-dose series) 1998 HPV Vaccines (1 - 3-dose SCD M series) 2006 Cervical Cancer Screening Pa p with HPV Testing (Age 30 to 64) Every 5 Years 2009 Cervical Cancer Screening wi th HPV 2009 Colorectal Cancer Screening Colonoscopy (10 Years) 09/26/2017 09/26/2007 Mammogram Screening 2019 COVID-19 Vaccine (2023-2 5 season) 2024 10/06/2020, 09/15/2020 Hepatitis C Completed 06/05/2018, 06/05/2018 Meningococcal B Vaccine Aged Out No l [...] PM CDT COLONOSCOPY Routine 09/26/2007 12:00 AM SENIOR GRANTS OFFICER from Last 3 Months or Most Recently Relevant to Health Maintenance Results * HEPATITIS A,B,& C (06/05/2018 4:00 PM CDT) HEPATITIS B SURFACE AG NON-REACTIVE NON-REACT [place] 06/06/2018 8:53 PM CDT [facility] HEP B CORE TOTAL AB NON-REACTIVE NON-REACT [place] 06/06/2018 8:59 PM CDT [facility] HEP B SURFACE AB REACTIVE 06/06/2018 9:00 PM CDT [facility] HAV IGM NON-REACTIVE NON-REACT [place] 06/06/2018 8:59 PM CDT [facility] HEPATITIS C AB NON-REACTIVE NON-REACT [place] 06/06/2018 8:58 PM CDT [facility] 06/05/2018 4:00 PM CDT 06/05/2018 6:19 PM CDT us Generic Conversion [facility] Final R esult [facility] [id number], [place] [phone] * Colonoscopy (09/26/2007 12:00 AM SENIOR GRANTS OFFICER) 09/26/2007 09/26/2007 Narrative [facility] CONVERSION - 09/26/2007 12:00 AM SENIOR GRANTS OFFICER Documented hx of procedure Procedure Note Brad Pearce MD - 07/30/2018 Documented hx of procedure us Generic Conversion Md [facility] PROCEDURE ORDERABLES Final Result [facility] CONVERSION from Last 3 Months or Most Recently Relevant to Health Maintenance Insurance [employer] Care Teams Recenterer Relationship Specialty Start Date End Date Lulu Pedersen, MEDICAL BILLING REPRESENTATIVE-BC [address] [place] [phone] PCP - General NURSE PRACTITIONER 07/18/19
--- OUTSIDE RECORDS SUMMARY | 2025-04-22 07:07 | XMS_ITS | Clinical Summary ---
Author Organization [facility] Address [address] [place] [address] Phone Care Team Providers Care Ski Edge Painter Name Role Phone Lulu Pedersen Ginger [facility] Primary Care Provider +1- [phone] Allergies Active Allergy Reactions Criticality Noted Date [...] Encounters Date Type Department Care Team Description 04/10/2025 External Device Data [facility] Provider, Abstract 04/09/2025 External Device Data [facility]STRACTION Provider, Abstract 03/12/2025 External Device Data [facility] Provider, Abstract 02/26/2025 External Device Data [facility] Provider, Abstract 02/14/2025 External Device Data [facility] Provider, Abstract 02/12/2025 External Device Data [facility] Provider, Abstract from Last 3 Months Family History Medical [...] on file Legal Sex Female 11:21 AM INDUSTRIAL MILLWRIGHT Gender Identity Not on file Sexual Orientation Not on file Last Filed Vital Signs Vital Sign Reading Time Taken Comments Blood Pressure 138/84 11/21/2024 1:07 PM INDUSTRIAL MILLWRIGHT Pulse 60 11/21/2024 1:07 PM INDUSTRIAL MILLWRIGHT Temperature - - Respiratory Rate - - Oxygen Saturation 99% 11/21/2024 1:07 PM INDUSTRIAL MILLWRIGHT Inhaled Oxygen Concentration - - Weight 96.5 kg (212 lb 12.8 oz) 11/21/2024 1:07 PM INDUSTRIAL MILLWRIGHT Height 160 cm (5' 3) 11/21/2024 1:07 PM INDUSTRIAL MILLWRIGHT Body Mass Index 37.7 11/21/2024 1:07 PM INDUSTRIAL MILLWRIGHT Plan of Treatment Upcoming Encounters Date Type Department Care Team (Late st Contact Info) Description 04/24/2025 12:15 PM CDT Video Visit [facility] [address] [facility] [address] [place], [place] [phone] Rasheed Kramer MD [address] [place] [address] [place] [phone] 05/20/2025 11:15 AM CDT Video Visit [facility] and [address] [place] [address] Rasheed Kramer MD [address] [place] [address] [place] [address] Health Maintenance Due Date Last Done Comments HPV VACCINES (1 - 3-dose series) 1994 HEPATITIS B VACCINES (1 of 3 - 19+ 3-dose series) 1998 HPV/Cotest (21-29) 2000 CERVICAL CANCER SCREENING 2009 HPV/Cotest (30-65) 2009 PAP SMEAR 2009 BREAST CANCER SCREENING 2019 Pre-Diabetes and Diabetes Screening 04/13/202404/13 COLORECTAL SCREENING 2024 09/26/2007 Colorectal Cancer Screening 2024 FIT-DNA Q 3 years 2024 FIT/FOBT Q 1 year 2024 Flex Sig/CT Colonography Q 5 years 2024 COVID-19 Vaccine (3 - 2023- season) 05/27/202407/2021, 09/15/2020 INFLUENZA VACCINE (#1) 2025 DTAP/TDAP/TD VACCINES (2 - Td or Tdap) 03/16/2033 Procedures Procedure Name Priority Date/Time Associated Diagnosis Comments HEMOGLOBIN A1C Routine 04/13/2021 8:10 AM CDT from Last 3 Months or Most Recently Relevant to Health Maintenance Results * HEMOGLOBIN A1C (04/13/2021 8:10 AM CDT) HEMOGLOBIN A1C 5.4 4.8 - 5.6 % [facility] Comment: Prediabetes: 5.7 - 6.4 Diabetes: >6.4 Glycemic control for adults with diabetes: <7.0 04/13/2021 8:10 AM CDT 04/13/2021 Narrative [facility] - 04/14/2021 6:08 AM CDT Performed at: [address] [id number] Gum Remover: Babar Glover PhD, Phone: [phone] Rasheed Kramer MD CHEMISTRY ORDERABLES Final Res ult [facility] [phone] from Last 3 Months or Most Recently Relevant to Health Maintenance Insurance CHOICE [id number] Care Teams Ski Edge Painter Relationship Specialty Start Date End Date Lulu Pedersen FNP [address] [phone] PCP - General Nurse Practitioner Family 02/12/20
--- OUTSIDE RECORDS SUMMARY | 2025-04-22 07:07 | XMS_ITS ---
Author Organization [facility] ([address]) Address [address] [place] [address] Care Team Providers Care Cable Ferryboat Operator Name Role Phone Funmilayo Narvaez Unavailable [phone] REASON FOR VISIT BIOLOGY MANAGER Allergies Encounters Encounter Location Date Provider Diagnosis [facility] [address] [place] [address] 03/21/2024 Funmilayo Narvaez Plan Of Treatment No Information Progress Notes * MARQUEZBerenice NaylorCristhianOB:1979 (44 yo F)Acc No.[id number]:03/21/2024 Progress Notes Patient: Natalie JOHNSON Provider: JOSE Bai :1980 A ge:43 Y S ex:Female Date:03/21/2024 Address:[address] [place], [place] [id number] Subjective: * Chief Complaints: * 1 . BIOLOGY MANAGER Allergies. * Medical History: Objective: * Vitals: Assessment: Plan: * Treatment: * Billing Information: * Visit Code: * Procedure Codes: * Electronic signature of JOSE Harrell on 04/22/2025 at 07:06 AM CDT Sign off status: Pending * Provider: JOSE Bai Date: 03/21/2024 Generated for Printi ng/Faxing/eTransmitting on: 04/22/2025 07:06 AM CDT
[2025-04-22 08:33] LABS: Hematocrit 42.1 % (37.0-47.0); Hemoglobin 14.1 g/dL (12.0-15.0); Mean Corpuscular HGB Conc 33.5 g/dl (32-36); Mean Corpuscular Hemoglobin 28.6 pg (26-34); Mean Corpuscular Volume 85.4 fl (80-100); Platelet Count Result 334 k/mm3 (150-375); Red Blood Count 4.93 M/mm3 (4.2-5.4); White Blood Count 10.6 K/mm3 (4.5-10.0)
[2025-04-22 08:56] LABS: Albumin Level 4.4 g/dL (3.5-5.1); Anion Gap 12 mmol/L (4-12); Blood Urea Nitrogen 20 mg/dL (7-17); Calcium 9.7 mg/dL (8.4-10.2); Carbon Dioxide 26 mmol/L (22-30); Chloride 102 mmol/L (98-107); Estimated Glomerular Filt Rate 48; Glucose 98 mg/dL (65-110); Potassium 3.2 mmol/L (3.4-5.0); Sodium 140 mmol/L (137-145)
[2025-04-22 10:01] LABS: Total Protein Urine Random 20 mg/dL; Ur Ttl Prot Creatinine Ratio 0.06 mg/mg (0-0.20)
== END 2025-04-22 07:04 | disposition home or self-care (01) ==
LOC: ANHLAB 07:05
PROVIDERS: PCP Nurse Practitioner Family; Visit Provider Internal Medicine Nephrology
DX: I10 Essential (primary) hypertension (principal)
CPT/HCPCS: 36415; 80069; 82570; 84156; 85027

== ENCOUNTER 2025-05-04 08:24 | Emergency (ER) | payer OTHER, SELFPAY ==
--- OUTSIDE RECORDS SUMMARY | 2025-05-04 08:27 | XMS_ITS | Encounter Summary ---
Author Organization [facility] Address [facility] [place] [address] Care Team Providers Care Senior Front End Engineer Name Role Phone Donato Wei MD Primary Care Provider U Lulu Ordonez [facility] Primary Care Provider + Encounter Details Date Type Department Care Team (Late st Contact Info) Description 02/07/2017 Abstract [facility] CONVERSION [address] [place] [address] , Generic Conversion, Social History Tobacco Use [...] on filedocumented in this encounter Care Teams Senior Front End Engineer Relationship Specialty Start Date End Date Donato Wei MD PCP - General 12/23/16 07/17/19 Lulu Pedersen, [facility] [address] [place] [address] PCP - General NURSE PRACTITIONER 07/18/19 documented as of this encounter
--- OUTSIDE RECORDS SUMMARY | 2025-05-04 08:27 | XMS_ITS | Patient Health Record ---
Author Organization [facility] [place] ([address]) Address [address] [place] [address] Care Team Providers Care Cabin Worker Name Role Phone JonasvelvetMillerFunmilayo Unavailable [phone] Reason For Referral No Information Problems Problem Type SNOMED Code ICD Code Onset Dates Problem Status W/U Status Risk Notes Problem Chronic allergic conjunctivitis (57687782) Other chronic allergic conjunctivitis (H10.45) Active confirmed Problem Allergic rhinitis caused by pollen (disorder) (37551329) Allergic rhinitis due to pollen (J30.1) Active confirmed Problem Allergic rhinitis (23399182) Other allergic rhinitis (J30.89) Active confirmed Problem Chronic rhinitis (24114613) Chronic rhinitis (J31.0) Active confirmed Problem Uncomplicated mild persistent asthma (216440624) Mild persistent asthma, uncomplicated (J45.30) Active confirmed Problem Uncomplicated moderate persistent asthma (837813182) Moderate persistent asthma, uncomplicated (J45.40) Active confirmed Problem Uncomplicated severe persistent asthma (259266730) Severe persistent asthma, uncomplicated (J45.50) Active confirmed Problem Allergic rhinitis caused by animal hair and dander (355634607960955) Allergic rhinitis due to animal (cat) (dog) hair and dander (J30.81) Active confirmed Plan Of Treatment No Information Insurance Providers Payer Name Payer Address Payer Phone Subscriber Number Group Number Insured Name Patient Relationship to Insured Coverage Start Date Coverage End Date [address] [address] [place], [place] [id number] Natalie Edwards ch Self - patient is the insured 4
--- OUTSIDE RECORDS SUMMARY | 2025-05-04 08:27 | XMS_ITS | Clinical Summary ---
Author Organization [facility] Address [address] [place] [address] Phone Care Team Providers Care Legislative Director Name Role Phone Lulu Pedersen Ginger [facility] Primary Care Provider +1- [phone] Allergies Active Allergy Reactions Criticality Noted Date [...] Release 24HR Take by mouth daily. Active losartan (COZAAR) 100 mg tablet Take 100 mg by mouth daily. Active zolpidem (AMBIEN CR) 6.25 mg Controlled Release tablet Take 6.25 mg by mouth nightly as needed for Insomnia. Active PARoxetine HCl (PAXIL) 40 mg tabletIndicati ons:Panic disorder without agoraphobia Take 1 Tablet (40 mg) by mouth daily. 90 Tablet 1 04/24/20 25 Active gabapentin (NEURONTIN) 300 mg capsuleIndicat ions:Panic disorder without agoraphobia Take 2 Capsules (600 mg) by mouth nightly as needed for Pain. 04/24/20 25 Active LORazepam (ATIVAN) 0.5 mg tabletIndicati ons:Panic disorder without agoraphobia,Bi polar affective disorder, currently depressed, mild (CMS/HCC) Take 1.5 Tablets (0.75 mg) by mouth 2 times daily. 45 Tablet 5 04/24/20 25 Active PARoxetine HCl (PAXIL) 40 mg tabletIndicati ons:Panic disorder without agoraphobia Take 1 Tablet (40 mg) by mouth daily. 90 Tablet 1 11/21/19 025 Discontinued(Re order) traZODone (DESYREL) 100 mg tablet TAKE 1 TABLET(100 MG) BY MOUTH EVERY NIGHT NEEDED FOR INSOMNIA 90 Tablet 1 11/21/19 025 Discontinued LORazepam (ATIVAN) 0.5 mg tabletIndicati ons:Panic disorder without agoraphobia,Bi polar affective disorder, currently depressed, mild (CMS/HCC) Place 1.5 Tablets (0.75 mg) under tongue 2 times daily. 45 Tablet 5 11/21/19 025 Discontinued(Re order) gabapentin (NEURONTIN) 300 mg capsuleIndicat ions:Panic disorder without agoraphobia Take 1 Capsule (300 mg) by mouth 2 times daily. 180 Capsule 1 11/21/19 025 Discontinued Active Problems No known active problems Encounters Date Type Department Care Team Description 05/01/2025 External Device Data [facility] ABSTRACTION Provider, Abstract 04/30/2025 External Device Data [facility] ABSTRACTION Provider, Abstract 04/30/2025 External Device Data [facility] ABSTRACTION Provider, Abstract 04/24/2025 12:15 PM CDT Video Visit [facility] [address] [facility] [place] [phone] Rasheed Kramer MD Panic disorder without agoraphobia; Bipolar affective disorder, currently depressed, mild (CMS/HCC) 04/10/2025 External Device Data [facility] ABSTRACTION Provider, [...] on file Legal Sex Female 11:21 AM LAP WINDER Gender Identity Not on file Sexual Orientation Not on file Last Filed Vital Signs Vital Sign Reading Time Taken Comments Blood Pressure 138/84 11/21/2024 1:07 PM LAP WINDER Pulse 60 11/21/2024 1:07 PM LAP WINDER Temperature - - Respiratory Rate - - Oxygen Saturation 99% 11/21/2024 1:07 PM LAP WINDER Inhaled Oxygen Concentration - - Weight 90.3 kg (199 lb) 04/24/2025 12:31 PM CDT Height 160 cm (5' 3) 04/24/2025 12:31 PM CDT Body Mass Index 35.25 04/24/2025 12:31 PM CDT Plan of Treatment Upcoming Encounters Date Type Department Care Team (Late st Contact Info) Description 10/02/2025 2:30 PM LAP WINDER Video Visit [facility] [address] [facility] [place] [address] Rasheed Kramer MD [address] [facility] [place] [address] Health Maintenance Due [...] Q 5 years 2024 COVID-19 Vaccine ( season) 05/27/202407/2021, 09/15/2020 INFLUENZA VACCINE (#1) 2025 DTAP/TDAP/TD VACCINES (2 - Td or Tdap) 03/16/2033 Procedures Procedure Name Priority Date/Time Associated Diagnosis Comments HEMOGLOBIN A1C Routine 04/13/2021 8:10 AM CDT from Last 3 Months or Most Recently Relevant to Health Maintenance Results * HEMOGLOBIN A1C (04/13/2021 8:10 AM CDT) HEMOGLOBIN A1C 5.4 4.8 - 5.6 % [facility] Comment: Prediabetes: 5.7 - 6.4 Diabetes: >6.4 Glycemic control for adults with diabetes: <7.0 04/13/2021 8:10 AM CDT 04/13/2021 Narrative [facility] - 04/14/2021 6:08 AM CDT Performed at: [address] [place] [id number] Parts Driver: Babar Glover PhD, Phone: [phone] us Rasheed Kramer MD CHEMISTRY ORDERABLES Final Res ult [facility] [phone] from Last 3 Months or Most Recently Relevant to Health Maintenance Insurance Care Teams Legislative Director Relationship Specialty Start Date End Date Lulu Pedersen FNP [address] [phone] PCP - General Nurse Practitioner Family 02/12/20
--- OUTSIDE RECORDS SUMMARY | 2025-05-04 08:27 | XMS_ITS ---
Author Organization [facility] Address [address] [facility] [address] [place] [address] Care Team Providers Care Lacing Operator Name Role Phone Nuvia MILLAN, Lulu Primary Care Provider Unavail Abbie Liu Unavailable [phone] REASON FOR VISIT 1 month f/u Encounters Encounter Location Date Provider Diagnosis [facility] [address] [facility] [address] [place] [address] 09/27/2024 Abbie Gutierrez Plan Of Treatment No Information Progress Notes * Berenice NICKERSONhelDOB:1979 (44 yo F)Acc No.[id number]:09/27/2024 Progress Notes Patient: Natalie JOHNSON Appointment Provider: Bere GUTIERREZ MD :1980 A ge:44 Y S ex:Female Date:09/27/2024 Address:[address] [address] Pcp:Lulu Pedersen NP Subjective: * Chief Complaints: * 1 . 1 month f/u. * Medical History: Objective: * Vitals: Assessment: Plan: * Treatment: * Billing Information: * Visit Code: * Procedure Codes: * Electronic signature of Abbie Gutierrez MD on 05/04/2025 at 08:27 AM CDT Sign off status: Pending * Appointment Provider: Bere GUTIERREZ MD Date: 09/27/2024 Generated for Printi ng/Faxing/eTransmitting on: 0 05/04/2025 08:27 AM CDT
--- OUTSIDE RECORDS SUMMARY | 2025-05-04 08:27 | XMS_ITS | Clinical Summary ---
Author Organization [facility] Address [address] [place] [address] Phone Care Team Providers Care Supervisor Public Message Service Name Role Phone Donato Wei MD Primary Care Provider U navailable Immunizations Immunization Administration Dates Next Due Covid-19, Mrna, Lnp-s, Pf, 30 Mcg/0.3 Ml Dose (P fizer) 10/06/2020,09/15/2020 Social History Tobacco Use Types Packs/Day Years Used Date Smoking Tobacco: Never Assessed Comments Unknown Sex and Gender Information Value Date Recorded Sex Assigned at Not on file Legal Sex Female 9:54 AM ORACLE ADF CONSULTANT Gender Identity Not on file Sexual Orientation Not on file Plan of Treatment Health Maintenance Due Date Last Done Comments Hepatitis C Virus (HCV) Screening 1980 Hepatitis B Immunization (1 of 3 - 19+ 3-dose series) 1998 Pap Smear 2000 Human Papillomavirus (HPV) Immunization (1 - 3-dose SCDM series) 2006 Cervical Cancer Screening (CCS) 2009 HPV/Cotest 2009 [...] age to complete this topic Care Teams Supervisor Public Message Service Relationship Specialty Start Date End Date Donato Wei MD PCP - General Internal Medicine 09/14/18
--- OUTSIDE RECORDS SUMMARY | 2025-05-04 08:27 | XMS_ITS | Encounter Summary ---
Author Organization [facility] Address [facility] [place] [address] Care Team Providers Care Reeler Operator Name Role Phone Donato Wei MD Primary Care Provider U Lulu Ordonez [facility] Primary Care Provider + Encounter Details Date Type Department Care Team (Late st Contact Info) Description 01/31/2017 Abstract [facility] CONVERSION [address] [place] [address] , Generic Conversion, Social History Tobacco Use [...] on filedocumented in this encounter Care Teams Reeler Operator Relationship Specialty Start Date End Date Donato Wei MD PCP - General 12/23/16 07/17/19 Lulu Pedersen, [facility] [address] [place] [address] PCP - General NURSE PRACTITIONER 07/18/19 documented as of this encounter
--- OUTSIDE RECORDS SUMMARY | 2025-05-04 08:27 | XMS_ITS ---
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 * Medical History: Objective: * Vitals: Assessment: Plan: * Treatment: * Billing Information: * Visit Code: * Procedure Codes: * Electronic signature of JOSE Harrell on 05/04/2025 at 08:27 AM CDT Sign off status: Pending * Provider: JOSE Bai Date: 03/21/2024 Generated for [place] ng/Faxing/eTransmitting on: 05/04/2025 08:27 AM CDT
--- OUTSIDE RECORDS SUMMARY | 2025-05-04 08:28 | XMS_ITS | Clinical Summary ---
Author Organization [facility] Address [address] [place] [address] Care Team Providers Care Enterostomal Therapy Nurse Name Role Phone Lulu Pedersen [facility] Primary Care Provider + Allergies Active Allergy [...] PM CDT COLONOSCOPY Routine 09/26/2007 12:00 AM REHABILITATION AIDE from Last 3 Months or Most Recently Relevant to Health Maintenance Results * HEPATITIS A,B,& C (06/05/2018 4:00 PM CDT) HEPATITIS B SURFACE AG NON-REACTIVE NON-REACT [place] 06/06/2018 8:53 PM CDT [facility] HEP B CORE TOTAL AB NON-REACTIVE NON-REACT [place] 06/06/2018 8:59 PM CDT [facility] HEP B SURFACE AB REACTIVE 06/06/2018 9:00 PM CDT [facility] HAV IGM NON-REACTIVE NON-REACT [place] 06/06/2018 8:59 PM CDT [facility] HEPATITIS C AB NON-REACTIVE NON-REACT [place] 06/06/2018 8:58 PM CDT [facility] 06/05/2018 4:00 PM CDT 06/05/2018 6:19 PM CDT us Generic Conversion [facility] Final R esult [facility] [address] [id number], [place] [phone] * Colonoscopy (09/26/2007 12:00 AM REHABILITATION AIDE) 09/26/2007 09/26/2007 Narrative [facility] TO EPIC CONVERSION - 09/26/2007 12:00 AM REHABILITATION AIDE Documented hx of procedure Procedure Note Brad Pearce MD - 07/30/2018 Documented hx of procedure us Generic Conversion [facility] PROCEDURE ORDERABLES Final Result [facility] TO [facility] CONVERSION from Last 3 Months or Most Recently Relevant to Health Maintenance Insurance [employer] [place] [address] [place] [id number] Care Teams Enterostomal Therapy Nurse Relationship Specialty Start Date End Date Lulu Pedersen, BIAS MACHINE OPERATOR-BC [address] [place] [phone] PCP - General NURSE PRACTITIONER 07/18/19
--- OUTSIDE RECORDS SUMMARY | 2025-05-04 08:28 | XMS_ITS | Patient Health Record ---
Author Organization [facility] Address [address] [facility] [address] [place] [address] Care Team Providers Care Band Tumbler Name Role Phone Nuvia MILLAN, Lulu Primary Care Provider Unavail able RamiroAbbie Unavailable [phone] Allergies Allergen (clinical drug ingredient) Drug/Non Drug [...] Insured Coverage Start Date Coverage End Date [facility] [employer] [address] [address] [place] [address] [id number] Natalie Edwards ch Self - patient is the insured BCBS OF [facility] [address] [place] [address] [id number] Natalie Edwards ch Self - patient is the insured Medications Administered Medication Instructions Date of Administration Dosage Notes DEPO-Medrol 03/05/2024 80 mg Medical (General) History Medical History History ICD Code leukocytosis bipolar 1 small fiber neuropathy hypertension diabetes hypothyroidism psoriasis Surgical History Surgery Date(Month/Year) left hip surgery (labral taper) hysterectomy
--- OUTSIDE RECORDS SUMMARY | 2025-05-04 08:28 | XMS_ITS ---
Author Organization [facility] Address [address] [place] [address] Care Team Providers Care Cook Helper Meat Name Role Phone Nuvia MILLAN, Lulu Primary Care Provider Unavail Abbie Liu Unavailable [phone] REASON FOR VISIT 2 month follow up/flc Encounters Encounter Location Date Provider Diagnosis [facility] [address] [place] [address] 01/18/2024 Abbie Gutierrez Plan Of Treatment No Information Progress Notes * Berenice NICKERSONhelDOB:1979 (44 yo F)Acc No.[id number]:01/18/2024 Progress Notes Patient: Natalie JOHNSON Appointment Provider: Bere GUTIERREZ MD :1980 A ge:43 Y S ex:Female Date:01/18/2024 Address:[address] [address] Pcp:Lulu Pedersen NP Subjective: * Chief Complaints: * 1 . 2 month follow up/flc. * Medical History: Objective: * Vitals: Assessment: Plan: * Treatment: * Billing Information: * Visit Code: * Procedure Codes: * Electronic signature of Abbie Gutierrez MD on 05/04/2025 at 08:27 AM CDT Sign off status: Pending * Appointment Provider: Bere GUTIERREZ MD Date: 01/18/2024 Generated for Printi ng/Faxing/eTransmitting on: 05/04/2025 08:27 AM CDT
[2025-05-04 08:36] VITALS: BP 98/72; PULSE 72; RESP 18; TEMP 35.9; O2SAT 100
--- NOTE | 2025-05-04 08:57 | ED.BACK ---
HPI - Back Pain/Injury General Chief Complaint: Back Pain/Injury Stated Complaint: C/O SCIATICA Time Seen by Provider: 05/04/25 08:57 Source: patient Mode of arrival: ambulatory Limitations: no limitations History of Present Illness HPI Narrative: 44 y/o female with hx chronic sciatica pain presented for c/o pain flare of pain from left low back radiating into left hip x3 days. States she had a left hip replacement 4 months ago, and has had little relief in the sciatic pain. Pt states she sees a chiropractor at times, takes ibuprofen as well. Says she ?usually gets Toradol and a steroid injection.? Denies pain radiating into the legs, numbness, tingling, weakness of the lower extremities, or change in gait, saddle paresthesia or loss of bowel or bladder. Rates pain 02/02. Related Data Home Medications ?Medication ?Instructions ?Recorded ?Confirmed ?Last Taken ?Type paroxetine HCl 40 mg tablet (Paxil) 40 mg PO DAILY 12/28/21 05/04/25 05/20/24 07:30 History levothyroxine 75 mcg tablet mcg 05/04/25 Unknown History lorazepam 0.5 mg tablet mg 05/04/25 Unknown History trazodone 100 mg tablet mg 05/04/25 Unknown History Allergies Allergy/AdvReac Type Severity Reaction Status Date / Time vancomycin Allergy Severe Anaphylaxis Verified 05/04/25 08:28 codeine Allergy Intermediate Rash Verified 05/04/25 08:28 hydrocodone (From [place]) Allergy Intermediate Rash Verified 05/04/25 08:28 morphine Allergy Intermediate Rash Verified 05/04/25 08:28 Penicillins Allergy Intermediate Rash Verified 05/04/25 08:28 phenazopyridine AdvReac Intermediate Nausea and Verified 05/04/25 08:28 Vomiting Review of Systems Review of Systems: CONSTITUTIONAL: Denies body aches, fever, chills EYES: Denies visual changes CARDIOVASCULAR: Denies chest pain, palpitations, or edema. RESPIRATORY: Denies cough or dyspnea. GASTROINTESTINAL: Denies abdominal pain, nausea, vomiting, or diarrhea. SKIN: Denies rash, itching, or wounds. MUSCULOSKELETAL: reports back pain NEUROLOGIC: Denies headache, numbness, tingling, or weakness. All systems reviewed & are unremarkable except as noted in HPI and below PMFSH Past Medical History Medical History Psoriatic arthritis Dry eye syndrome of both eyes Rheumatoid arthritis Anxiety Left hip pain Obesity Menometrorrhagia Hypothyroidism Pilonidal abscess 1998 excision, has recurred, painful at times Water retention Sleep disorder Hypertension Abnormal Pap smear of cervix 01-14-2020 Ascus hpv negative rpt pap in 1 year @ [facility] History of bipolar disorder Surgical History Surgical History History of robot-assisted laparoscopic hysterectomy (12/17/22) Robotic assisted total vaginal hysterectomy / done by Dr. Zarate H/O tubal ligation History of hysteroscopy (03/05/22) Hscope D&C / Endometrial Ablation/ bilateral Laparoscopic salpingectomy / excision of vulvar lesion H/O sinus surgery (~11/24/20) History of arthroscopy (~2014) left hip History of breast augmentation 2013 History of breast lift 2018 History of breast implant removal 2018 History of laparoscopy 2014 endometriosis/7 cm on rt side History of sinus surgery 1999 cysts H/O LEEP 2011 2017 x3 done in [place] Family History Family History Father Depression Hypertension Family history of diabetes mellitus in first degree relative Family history of heart disease in male family member before age 55 Acute myocardial infarction Cerebrovascular accident Mother Depression Hypertension Family history of diabetes mellitus in first degree relative Family history of heart disease in male family member before age 55 Acute myocardial infarction Social History Social History (Updated 04/29/25 @ 14:40 by Sherlyn Solano [facility]) Smoking status: Never smoker Alcohol intake: never Substance use: never Substance use type: does not use Do You Feel Safe in your Home?: Yes Lack of Transportation: No Lack of Food: Never True Current Housing: I Have Housing Concerned About Future Housing: No Difficulty Paying Gas/Electric Bills: No Difficulty Paying for Meds: No Currently Unemployed: No Education: Bachelor's Degree Difficulty w/ Childcare or Family Care: No Living arrangements: alone Additional living arrangements comments: 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 Please see nursing chart for further information. There is no relevant family history pertinent to the presenting complaint Exam Narrative: GENERAL: Well-appearing, well-nourished, and in no acute distress. HEAD: Normocephalic, atraumatic. EYES: conjunctivae clear NECK: Supple. full ROM CHEST: Speaks in full sentences. No respiratory distress. HEART: Regular rate and rhythm. Normal and equal peripheral pulses. MUSC: No Vertebral point tenderness. BLEs with normal strength and sensation, normal range of motion endorses pain with movement. edema or ecchymosis, No open wounds, skin tenting, or obvious deformity; alignment normal, pulse palpable and equal bilaterally, skin warm, dry, pink. Capillary refill less than 3 seconds. Gait steady. SKIN: Warm, dry, no rash. NEURO: Alert and oriented x3. Course Course Emergency Course: Patient is aware of diagnosis, understands and agrees to treatment plan. Anticipatory guidance given. Patient agrees to follow-up as directed and is aware of reasons to seek care at the emergency department. Portions of this record may have been created with voice recognition software Level of Care: Express Care Visit Vital Signs Vital signs: Vital Signs Temperature 96.6 F L 05/04/25 08:36 Pulse Rate 72 05/04/25 08:36 Respiratory Rate 18 05/04/25 08:36 Blood Pressure 98/72 L 05/04/25 08:36 Pulse Oximetry 100 05/04/25 08:36 Oxygen Delivery Room Air 05/04/25 08:36 Temperature 96.6 F L 05/04/25 08:36 Pulse Rate 72 05/04/25 08:36 Respiratory Rate 18 05/04/25 08:36 Blood Pressure 98/72 L 05/04/25 08:36 Pulse Oximetry 100 05/04/25 08:36 Oxygen Delivery Room Air 05/04/25 08:36 Reviewed MDM - Back Pain/Injury MDM Narrative Medical decision making narrative: Discussed physical exam findings. Patient states she ?usually gets Toradol and a steroid injection. ? patient is advised the steroid will last longer than NSAIDs, and as she has been taking ibuprofen and has mildly elevated CR, advised steroid only at this time; IM Methylprednisolone. she declines oral taper. Pt has rx cyclobenzaprine at home. Recommend close f/u with pcp for PT as indicated. Pt appears irritable regarding this plan. Advised supportive measures and s/s to go to the ER. Pt is stable and appropriate for outpt treatment and follow up with pcp. Differential Diagnosis Differential diagnosis: Likely lumbar radiculopathy, sciatica, strain of lumbar region, renal colic, pyelonephritis and discitis Discharge Plan Discharge Clinical Impression: Lumbar radiculopathy Patient Disposition: Home Condition: Stable Instructions: Antibiotic Form, Lumbar Radiculopathy (ED) Additional Instructions: Please follow up with your Primary Care Doctor within 72 hours - call for an appointment. Recommend establishing with Physical therapy Steroid injection today. This may provide longer lasting relief than NSAIDs Take muscle relaxers as previously prescribed Over the counter pain cream like icy/hot or biofreeze, or Salon pas/lidocaine 4% patch. You may apply heat or cold to the area as needed Go to the ER If you experience any worsening pain, swelling, numbness, weakness, problems with bladder or bowel function, weakness or loss of feeling in one or both of your legs, or any other serious concerns. Patient Language: Finnish Prescriptions: No Action levothyroxine 75 mcg tablet lorazepam 0.5 mg tablet trazodone 100 mg tablet paroxetine HCl [Paxil] 40 mg tablet 40 mg PO DAILY irbesartan 150 mg tablet 150 mg PO DAILY Qty: 90 3RF potassium chloride [Klor-Con M10] 10 mEq tablet,ER particles/crystals 10 meq PO DAILY Qty: 90 3RF metoprolol succinate 50 mg Tablet Extended Release 24 Hr 50 mg PO QAM Qty: 30 0RF Rinvoq 15 mg tablet extended release 24 hr 15 mg PO DAILY Qty: 30 5RF chlorthalidone 25 mg tablet 25 mg PO DAILY Qty: 30 8RF zolpidem [Ambien CR] 6.25 mg tablet,ext release multiphase 6.25 mg PO QHS PRN (Reason: insomnia) Qty: 30 0RF cholecalciferol (vitamin D3) 1,250 mcg (50,000 unit) capsule See Rx Instructions .ROUTE .COMPLEX Qty: 12 1RF Dose Instruction: TAKE 1 CAPSULE BY MOUTH WEEKLY Rx Instructions: TAKE 1 CAPSULE BY MOUTH WEEKLY Follow-up/Referrals: Colleen Pagan LEGISLATIVE DIRECTOR-C [Primary Care Provider] - Time of Disposition: 09:05
== END 2025-05-04 09:13 | disposition home or self-care (01) ==
PROVIDERS: Emergency Provider Nurse Practitioner Family; PCP Nurse Practitioner Family
DX: M54.16 Radiculopathy, lumbar region (principal); L40.50 Arthropathic psoriasis, unspecified; I10 Essential (primary) hypertension; E03.9 Hypothyroidism, unspecified; M06.9 Rheumatoid arthritis, unspecified; E66.9 Obesity, unspecified; Z68.35 Body mass index [BMI] 35.0-35.9, adult; F41.9 Anxiety disorder, unspecified
CPT/HCPCS: 96372; 99213; G0463; J2919

== ENCOUNTER 2025-05-17 06:37 | Emergency (ER) | payer OTHER, SELFPAY ==
--- OUTSIDE RECORDS SUMMARY | 2024-01-18 08:15 | XMS_ITS ---
Author Organization [facility] Address [address] [facility] [address] [place] [address] Care Team Providers Care Audiology Doctor Name Role Phone Nuvia MILLAN, Lulu Primary Care Provider Unavail Abbie Liu Unavailable [phone] REASON FOR VISIT 2 month follow up/flc Encounters Encounter Location Date Provider Diagnosis [facility] [address] [facility] [address] [place] [address] 01/18/2024 Abbie Gutierrez Plan Of Treatment No Information Progress Notes * Berenice NICKERSONhelDOB:1979 (45 yo F)Acc No.[id number]:01/18/2024 Progress Notes Patient: Natalie JOHNSON Appointment Provider: Bere GUTIERREZ MD :1980 A ge:43 Y S ex:Female Date:01/18/2024 Address:[address] [address] Pcp:Lulu Pedersen NP Subjective: * Chief Complaints: * 1 . 2 month follow up/flc. * Medical History: Objective: * Vitals: Assessment: Plan: * Treatment: * Billing Information: * Visit Code: * Procedure Codes: * Electronic signature of Abbie Gutierrez MD on 05/17/2025 at 06:39 AM CDT Sign off status: Pending * Appointment Provider: Bere GUTIERREZ MD Date: 01/18/2024 Generated for Printi ng/Faxing/eTransmitting on: 05/17/2025 06:39 AM CDT
--- OUTSIDE RECORDS SUMMARY | 2024-03-06 09:30 | XMS_ITS | Continuity of Care Document ---
Author Organization [facility] Address [address] [place] [address] Phone Care Team Providers Care Restaurant Assistant Name Role Phone Christiano OD, Donna Unavailable Unavailable Procedures Procedure Date Charge For A No Show Advance Directives Directive Yes / No Effective Date File Name No Information Encounters Encounter Description Practice Location Reason(s) For Visit Diagnoses Date Provider Providers Copied on Encounter [facility], [id number] [place] [address] [address], [place], [place], [id number], tel:[phone] SEC Juan F [place] Professional No Information 4 Christiano OD Donna. [address] [place] [address] [address], [address], [place], [place], [address], [place]. tel:[phone] Family History Family Member Type Diagnosis Age At Onset No Information Payers Payer name Insurance type Covered constitution party ID Authoriza tion(s) No Information Social History [...]
--- OUTSIDE RECORDS SUMMARY | 2024-03-06 09:30 | XMS_ITS | Continuity of Care Document ---
Author Organization [facility] Address [address] [place] [address] Phone Care Team Providers Care Flight Test Supervisor Name Role Phone Christiano OD, Donna Unavailable Unavailable Procedures Procedure Date Charge For A No Show Advance Directives Directive Yes / No Effective Date File Name No Information Encounters Encounter Description Practice Location Reason(s) For Visit Diagnoses Date Provider Providers Copied on Encounter [facility], [id number] [place] [address] [address], [place], [place], [id number], tel:[phone] SEC Juan F PA Professional No Information 4 Christiano OD Donna. [address] [place] [address] [address], [address], [place], [place], [id number], [place]. tel:[phone] Family History Family Member Type Diagnosis Age At Onset No Information Payers Payer name Insurance type Covered libertarian ID Authoriza tion(s) No Information Social History [...]
--- OUTSIDE RECORDS SUMMARY | 2024-03-21 12:30 | XMS_ITS ---
Author Organization [facility] ([address]) Address [address] [place] [address] Care Team Providers Care Mammal Control Agent Name Role Phone Funmilayo Narvaez Unavailable [phone] REASON FOR VISIT BIBLE READER Allergies Encounters Encounter Location Date Provider Diagnosis [facility] [address] [place] [address] 03/21/2024 Funmilayo Narvaez Plan Of Treatment No Information Progress Notes * KRISHANBereniceCristhianOB:1979 (45 yo F)Acc No.[id number]:03/21/2024 Progress Notes Patient: Natalie JOHNSON Provider: JOSE Bai :1980 A ge:43 Y S ex:Female Date:03/21/2024 Address:[address] [place], [place] [id number] Subjective: * Chief Complaints: * 1 . BIBLE READER Allergies. * Medical History: Objective: * Vitals: Assessment: Plan: * Treatment: * Billing Information: * Visit Code: * Procedure Codes: * Electronic signature of JOSE Harrell on 05/17/2025 at 06:39 AM CDT Sign off status: Pending * Provider: JOSE Bai Date: 03/21/2024 Generated for Printi ng/Faxing/eTransmitting on: 0 05/17/2025 06:39 AM CDT
--- OUTSIDE RECORDS SUMMARY | 2024-09-27 08:00 | XMS_ITS ---
Author Organization [facility] celena Address [address] [facility] [address] [place] [address] Care Team Providers Care Ring Sorter Name Role Phone Nuvia MILLAN, Lulu Primary Care Provider Unavail Abbie Liu Unavailable [phone] REASON FOR VISIT 1 month f/u Encounters Encounter Location Date Provider Diagnosis [facility] [address] [facility] [address] [place] [address] 09/27/2024 Abbie Gutierrez Plan Of Treatment No Information Progress Notes * Berenice NICKERSONhelDOB:1979 (45 yo F)Acc No.[id number]:09/27/2024 Progress Notes Patient: Natalie JOHNSON Appointment Provider: Bere GUTIERREZ MD :1980 A ge:44 Y S ex:Female Date:09/27/2024 Address:[address] [address] Pcp:Lulu Pedersen NP Subjective: * Chief Complaints: * 1 . 1 month f/u. * Medical History: Objective: * Vitals: Assessment: Plan: * Treatment: * Billing Information: * Visit Code: * Procedure Codes: * Electronic signature of Abbie Gutierrez MD on 05/17/2025 at 06:39 AM CDT Sign off status: Pending * Appointment Provider: Bere GUTIERREZ MD Date: 09/27/2024 Generated for Printi ng/Faxing/eTransmitting on: 0 05/17/2025 06:39 AM CDT
--- OUTSIDE RECORDS SUMMARY | 2025-05-17 06:39 | XMS_ITS | Encounter Summary ---
Author Organization [facility] Address [address] [place] [address] Care Team Providers Care Automobile Bumper Straightener Name Role Phone Lulu Pedersen MANUFACTURING ASSEMBLER Primary Care Provider + Colleen Pagan MANUFACTURING ASSEMBLER Primary Care Provider [phone] Encounter Details Date Type Department Care Team ([facility] Contact Info) Description 05/20/[address] [facility] Health Information Management [address] [place] [address] Scanning, Provider Social History Tobacco Use Types Packs/Day Years Used Date Smoking Tobacco: Never Humiliation, Afraid, Rape, and Kick questionnair e Answer Date Recorded Fear of Current or Ex-Partner No Emotionally Abused No 09/24/2019 Physically Abused No 09/24/2019 Sexually Abused No 09/24/2019 Social Connection and Isolation Panel Answer Date Recorded Frequency of Communication w ith Friends and Family More than three times a week 09/24/2019 Frequency of Social Gatherin gs with Friends and Family Twice a week 09/24/2019 Attends Rastafari Services Never 09/24 Active Member of Clubs [...] on file 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 Gender Identity Not on file Sexual Orientation Not on file documented as of this encounter Plan of Treatment Not on file documented as of this encounter Procedures Procedure Name Priority Date/Time Associated Diagnosis Comments SCAN - RADIOLOGY/IMAGING 05/20/2024 documented in this encounter Results * SCAN - RADIOLOGY/IMAGING (05/20/2024) Anatomical Region Laterality Modality Other us Provider Scanning Edited Result - Final documented in this encounter Visit Diagnoses Not on filedocumented in this encounter Care Teams Automobile Bumper Straightener Relationship Specialty Start Date End Date Lulu Pedersen NP PCP - General Nurse Practitioner 11/04/23 06/20/24 Colleen Pagan NP [address] [place] [address] PCP - General Family Medicine 06/21/24 documented as of this encounter
--- OUTSIDE RECORDS SUMMARY | 2025-05-17 06:39 | XMS_ITS | Clinical Summary ---
Author Organization [facility] Address [address] [place] [address] Care Team Providers Care Dietary Aide Name Role Phone Colleen Pagan JAVASCRIPT ENGINEER Primary Care Provider [phone] Allergies Active Allergy Reactions Criticality Noted Date Comments Codeine Itching,Rash Reaction: Itching, Rash, Levofloxacin Rash Medium 04/09/2024 Lisinopril Cough Low 06/21/2024 Morphine Hives Medium 12/11/2024 Penicillins Itching,Rash Reaction: Itching, Rash, Phenazopyridine Nausea only Medium 04/09/2024 Vancomycin Hives,Itching,Rash High Reaction: Hives, Itching, Rash, Medications PARoxetine (PAXIL) 40 mg tabletIndication s:Anxiety with Depression Take 1 tablet (40 mg total) by mouth every morning 3 Active levothyroxine (SYNTHROID) 75 mcg tabletIndication s:hypothyroidism Take 1 tablet (75 mcg total) 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 0 Active LORazepam (ATIVAN) 0.5 mg tablet Take 1 tablet (0.5 mg total) by mouth 3 (three) times a day as needed for anxiety 3 Active gabapentin (NEURONTIN) 300 mg capsuleIndicatio ns:Neuropathic Pain Take 3 capsules (900 mg total) by mouth nightly 3 Active traZODone (DESYREL) 100 mg tablet Take 1 tablet (100 mg total) by mouth nightly as needed for sleep 3 Active Xiidra 5 % dropperette Administer 0.1 each (1 drop total) into both eyes as needed (dry eye) 4 Active Rinvoq 15 mg tablet extended release 24 hrIndications:Rh eumatoid Arthritis Take 1 tablet (15 mg total) by mouth every morning 4 Active metoprolol XL (TOPROL-XL) 50 mg extended release tabletIndication s:Paroxysmal atrial fibrillation (HCC) Take 1 tablet (50 mg total) by mouth every morning 30 tablet 11 4 Active losartan (COZAAR) 100 mg tabletIndication s:Essential hypertension Take 1 tablet (100 mg total) by mouth daily 30 tablet 11 4 09/17/20 25 Active cyanocobalamin (Vitamin B-12) 1,000 mcg tablet Take 1 tablet (1,000 mcg total) by mouth every morning 2 Active psyllium 0.52 gram capsule Take 1 capsule (0.52 g total) by mouth every morning Active ergocalciferol (VITAMIN D) 50,000 unit capsule TAKE 1 CAP 2 X A WEEK FOR 8 WEEKS THEN FOLLOW UP WITH YOUR PCP. 16 capsule 5 Active traMADoL (ULTRAM) 50 mg tablet Take 1 tablet (50 mg total) by mouth every 8 (eight) hours as needed for pain 42 tablet 5 Active Additional Information Patient not taking.Reported on 02/13/2025 acetaminophen (TYLENOL) 500 mg tablet Take 2 tablets (1,000 mg total) by mouth every 8 (eight) hours 90 tablet 1 5 Active aspirin 81 mg enteric coated tabletIndication s:prevention of thrombosis Take 1 tablet (81 mg total) by mouth 2 (two) times a day 60 tablet 5 Active meloxicam (MOBIC) 15 mg tablet Take 1 tablet (15 mg total) by mouth daily 30 tablet 5 01/11/20 26 Active Additional Information Patient not taking.Reported on 02/13/[address] (PROTONIX) 20 mg EC tablet Take 1 tablet (20 mg total) by mouth daily 30 tablet 5 Active Additional Information Patient not taking.Reported on 02/13/2025 senna-docusate (Senna-S) 8.6-50 mg Take 2 tablets by mouth 2 (two) times a day 80 tablet 1 5 Active Additional Information Patient not taking.Reported on 02/13/2025 HYDROmorphone (DILAUDID) 2 mg tabletIndication s:Pain Take 1-2 tablets (2-4 mg total) by mouth every 4 (four) hours as needed for pain 42 tablet 5 Active Additional Information Patient not taking.Reported on 02/13/2025 triamcinolone (KENALOG) 0.1 % creamIndications :Rash and other nonspecific skin eruption Apply topically 2 (two) times a day 30 g 5 Active Additional Information Patient not taking.Reported on 02/13/2025 cyclobenzaprine (FLEXERIL) 10 mg tablet Take 1 tablet (10 mg total) by mouth 3 (three) times a day as needed for muscle spasms 30 tablet 5 Active HYDROcodone-acet aminophen (NORCO) 5-325 mg per tabletIndication s:Pain Take 1 tablet by mouth every 6 (six) hours as needed for pain 40 tablet 5 Active chlorthalidone (HYGROTON) 25 mg tablet Take 1 tablet (25 mg total) by mouth daily 5 Active Active Problems Problem Noted Date Diagnosed [...] 09/23/2019 Assessment & Plan (09/23/2019 10:42 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 She has an outpatient psychiatrist in [place], [place] Dr. Kramer and has been tried [...] wake up. She has never been on Hamer because she was scared of the side effects, but is now amenable to it. Plan is to start Hamer ER 600mg at bedtime. D/c latuda. Continue [...] Encounters Date Type Department Care Team Description 02/22/2025 Results Follow-Up [facility] [address] [place] [address] [place] [phone] Yulissa To RN [facility] Mobile Cardiac Telemetry Event Monitor 02/22/2025 Telephone [facility] [address] [place] [address] [address] [place] [phone] Nirmala Callahan NP 02/20/2025 12:20 PM CDT Office Visit [facility] Medicine Orthopaedic Surgery [address] [place] [address] Medical Office Building [address] [place] [address] Gunnar Moss MD S/P total left hip arthroplasty (Primary Dx); Surgical follow-up care 02/20/2025 11:53 AM CDT - 02/20/2025 11:59 PM CDT Hospital Encounter [facility] [address] [place] [address] [address] [place] [phone] S/P total left hip arthroplasty Discharge Disposition: Discharge to home or self care 02/20/2025 Telephone [facility] [address] [facility] 8th [place] [address] [place] [address] NiianhVi Dorita 02/19/2025 Orders Only [facility] Card[facility] [address] [facility] [address] [place] [phone] Janna Johnson NP from Last 3 Months Surgical History Surgery Date Site/Laterality Comments HYSTERECTOMY 09/26/2022 - 09/25/2023 HIP ARTHROSCOPY 09/26/2013 - 09/25/2014 Left BREAST IMPLANT REMOVAL 09/26/2017 - 09/25/2018 Bilateral BREAST SURGERY Bilateral 2014 breast augmentation FLUORO GUIDED ASPIRATION OR INJECTION LARGE JOINT LEFT 04/20/2024 Left SINUS SURGERY 09/26/1997 - 09/25/1998 Medical History Medical History Date Comments Depression Hypertension Anxiety Bipolar disorder Rheumatoid arthritis (HCC) Psoriatic arthritis (HCC) Hypothyroidism [...] on file 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 Gender Identity Not on file Sexual Orientation [...] 3:22 PM CDT Height 160 cm (5' 3) 02/13/2025 3:22 PM CDT Body Mass Index [...] season) 2024 10/06/2020, 09/15/2020 Influenza Vaccine (#1) 2025 8, 05/31/2017, 06/19/2016 DTaP/Tdap/Td Vaccine (3 - Td or Tdap) 03/16/2033 03/16/2023, 06/15/2016 HPV Vaccines Aged Out No longer eligi ble based on patient's age to complete this topic Medical Devices Implanted Type Area Enterprise Integration Developer Device Identifier Shelf Expiration Date Model / Serial / Lot [employer] Bi Mentum 47mm Press Fit Femoral Proximal Cup Acetabular [id number] - [id number] Implanted:Qty: 1 on 01/10/2025 at [facility] Left: Hip [employer] 05/26/2028 [id number] / / [id number] [employer] Liner Acetabular Hip Bi Mentum Altrx 47mm Polyethylene Size 28 [id number] - [id number] Implanted:Qty: 1 on 01/10/2025 at [facility] Left: Hip [employer] 09/25/2029 [id number] / / [id number] [employer] Articul/Eric 28mm Cementless Hip +1.5mm 09/08 Taper Head Femoral Latex Free [id number] - [id number] Implanted:Qty: 1 on 01/10/2025 at [facility] Left: Hip [employer] 11/23/2029 [id number] / / [id number] [employer] Actis 105mm Collar Hip 5 High Offset Stem Femoral [id number] - [id number] Implanted:Qty: 1 on 01/10/2025 at [facility] Left: Hip [employer] 10/26/2034 [id number] / / [id number] Procedures Procedure Name Priority Date/Time Associated Diagnosis Comments XR HIP LEFT W PELVIS 2 OR 3 VIEWS Schedule Routine, Read Routine (OP Routine) 02/20/2025 12:04 PM CDT S/P total left hip arthroplasty from Last 3 Months Results * XR Hip Left 2 or 3 Views W Pelvis (02/20/2025 12:04 PM CDT) Anatomical Region Laterality Modality Lower Extremities, Hip, Pelvis Left C omputed Radiography 02/20/2025 12:4 7 PM CDT Impressions 02/20/2025 12:47 PM CDT 1. Unchanged left total hip arthroplasty in near-anatomic alignment. Electronically signed by: Tim Fuller D.O. Narrative 02/20/2025 12:47 PM CDT EXAMINATION: XR HIP LEFT 2 OR 3 VIEWS W PELVIS HISTORY: Arthroplasty follow-up COMPARISON: 01/10/2025 FINDINGS: Unchanged left total hip arthroplasty in near-anatomic alignment. No periprosthetic fracture or lucency. Mild right hip osteoarthritis. Resolution of postoperative gas. Procedure Note Tim Fuller, - 02/20/2025 EXAMINATION: XR HIP LEFT 2 OR 3 VIEWS W PELVIS HISTORY: Arthroplasty follow-up COMPARISON: 01/10/2025 FINDINGS: Unchanged left total hip arthroplasty in near-anatomic alignment. No periprosthetic fracture or lucency. Mild right hip osteoarthritis. Resolution of postoperative gas. IMPRESSION: 1. Unchanged left total hip arthroplasty in near-anatomic alignment. Electronically signed by: Tim Fuller D.O. Gunnar Moss MD IMG XR PROCEDURES Final R esult from Last 3 Months Insurance [facility] Advance Directives For more information, please contact: [phone] * Full Code (Latest Code Status on File) Date Activated Date Inactivated Comments 01/10/2025 8:22 AM 01/10/2025 4:44 PM * Full Code Date Activated Date Inactivated Comments 09/22/2019 5:13 PM 09/25/2019 12:46 PM Care Teams Dietary Aide Relationship Specialty Start Date End Date Colleen Pagan, JAVASCRIPT ENGINEER [address] [place] [address] PCP - General Family Medicine 06/21/24
--- OUTSIDE RECORDS SUMMARY | 2025-05-17 06:39 | XMS_ITS | Clinical Summary ---
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 Gender Identity Not on file Sexual [...] Immunization Discontinued 06/15/2016 TdaP Immunization Completed 06/15/2016 Human Papillomavirus (HPV) Immunization Aged Out No longer eligible based on patient's age to complete this topic Meningococcal Immunization (ACWY) Aged Out No longer eligible based on patient's age to complete this topic Pneumococcal Immunization Combined Aged Out No longer eligible based on patient's age to complete this topic Rotavirus Immunization Aged Out No lo nger eligible based on patient's age to complete this topic Care Teams Condenser Winder Relationship Specialty Start Date End Date Donato Wei MD PCP - General Internal Medicine 09/14/18
--- OUTSIDE RECORDS SUMMARY | 2025-05-17 06:39 | XMS_ITS | Encounter Summary ---
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 Gender Identity Not on file Sexual Orientation Not on file documented as of this encounter Plan of Treatment Not on file documented as of this encounter Procedures Procedure Name Priority Date/Time Associated Diagnosis Comments SCAN - LABS 09/03/2024 documented in this encounter Results * SCAN - LABS (09/03/2024) us Provider Scanning Final Result documented in this encounter Visit Diagnoses Not on filedocumented in this encounter Care Teams Recordak Operator Relationship Specialty Start Date End Date Colleen Pagan, YANA [address] [place] [address] PCP - General Family Medicine 06/21/24 documented as of this encounter
[2025-05-17 06:40] VITALS: BP 153/79; PULSE 64; RESP 20; TEMP 36.5; O2SAT 99
--- OUTSIDE RECORDS SUMMARY | 2025-05-17 06:40 | XMS_ITS | Clinical Summary ---
Author Organization [email or web address] Address [address] [place] [address] Care Team Providers Care Ppap Coordinator Name Role Phone Rm Beveryl MD Primary Care Provider [phone] Donato Wei MD Unavailable [phone] Source Comments [email or web address],non-owned Affiliates and Associated Physician Practices is amultiple site organization consisting of ambulatory clinics and hospital sitesin [place], [place], [place] and [place]. This disclosure is being madepursuant to the Care Everywhere program and may not contain all information available regarding this patient. Last updated 18.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 Gender Identity Not on file Sexual Orientation [...] 11:20 AM CDT Height 162.6 cm (5' 4) 07/14/2017 11:20 AM CDT Body Mass Index [...] FLEX SIG - COLON CA SCREENING 1979 MAMMOGRAM 1979 HIV SCREENING 1994 HEPATITIS C SCREENING 05/04/1997 DTAP/TDAP/TD VACCINES (1 - Tdap) 1998 HEPATITIS B VACCINE (1 of 3 - 19+ 3-dose series) 1998 PAP SMEAR 2000 HPV VACCINE (1 - 3-dose SCDM series) 2006 COVID-19 VACCINE (3 - 2023-2 5 season) 2024 10/06/2020, 09/15/2020 DEPRESSION SCREENING 09/26/2024 INFLUENZA VACCINE (#1) 2025 ZOSTER VACCINE (1 of 2) 2029 LIPID TESTING 02/13/2030 02/13/2025 HIB VACCINE Aged Out No longer eligi [...] complete this topic Insurance [employer] Care Teams Ppap Coordinator Relationship Specialty Start Date End Date Rm Beverly MD [address] [place] [phone] PCP - General 11/11/20 Donato Wei MD [address] [place] [phone] Internal Medicine 11/11/20
--- OUTSIDE RECORDS SUMMARY | 2025-05-17 06:40 | XMS_ITS | Clinical Summary ---
Author Organization [facility] Address [address] [place] [address] Phone Care Team Providers Care Team Physician Name Role Phone Lulu Pedersen Ginger [facility] Primary Care Provider [phone] Allergies Active Allergy Reactions Criticality Noted Date [...] Abstract 04/24/2025 12:15 PM CDT Video Visit [facility] Psychiatry [facility] [address] [facility] 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 Gender Identity Not on file Sexual Orientation Not on file Last Filed Vital Signs Vital Sign Reading Time Taken Comments Blood Pressure 138/84 11/21/2024 1:07 PM DISTRICT SALES MANAGER Pulse 60 11/21/2024 1:07 PM DISTRICT SALES MANAGER Temperature - - Respiratory Rate - - Oxygen Saturation 99% 11/21/2024 1:07 PM DISTRICT SALES MANAGER Inhaled Oxygen Concentration - - Weight 90.3 kg (199 lb) 04/24/2025 12:31 PM CDT Height 160 cm (5' 3) 04/24/2025 12:31 PM CDT Body Mass Index 35.25 04/24/2025 12:31 PM CDT Plan of Treatment Upcoming Encounters Date Type Department Care Team (Late st Contact Info) Description 10/02/2025 2:30 PM DISTRICT SALES MANAGER Video Visit [facility] Psychiatry [facility] [address] [facility] [place] [phone] Rasheed Kramer MD [address] [facility] [place] [address] Health Maintenance [...] HEMOGLOBIN A1C 5.4 4.8 - 5.6 % [facility] Comment: Prediabetes: 5.7 - 6.4 Diabetes: >6.4 Glycemic control for adults with diabetes: <7.0 04/13/2021 8:10 AM CDT 04/13/2021 Narrative [facility] - 04/14/2021 6:08 AM CDT Performed at: [address] [place] [id number] Race Steward: Babar Glover PhD, Phone: [phone] us Rasheed Kramer MD CHEMISTRY ORDERABLES Final Res ult [facility] [phone] from Last 3 Months or Most Recently Relevant to Health Maintenance Insurance [place] [id number] [facility] [id number] Care Teams Team Physician Relationship Specialty Start Date End Date Lulu Pedersen FNP [address] [phone] PCP - General Nurse Practitioner Family 02/12/20
--- OUTSIDE RECORDS SUMMARY | 2025-05-17 06:40 | XMS_ITS | Patient Health Record ---
Author Organization [facility] Address [address] [facility] [address] [place] [address] Care Team Providers Care Limerock Tower Loader Name Role Phone Nuvia MILLAN, Lulu Primary Care Provider Unavail able RamiroAbbie Unavailable [phone] Allergies Allergen (clinical drug ingredient) Drug/Non Drug [...] Insured Coverage Start Date Coverage End Date [facility] Choice Plus [address] [address] [place] [phone] [id number] Natalie Edwards ch Self - patient is the insured [employer] OF [facility] [address] [place] [address] [id number] Natalie Edwards ch Self - patient is the insured Medications Administered Medication Instructions Date of Administration Dosage Notes DEPO-Medrol 03/05/2024 80 mg Medical (General) History Medical History History ICD Code leukocytosis bipolar 1 small fiber neuropathy hypertension diabetes hypothyroidism psoriasis Surgical History Surgery Date(Month/Year) left hip surgery (labral taper) hysterectomy
[2025-05-17 06:45] VITALS: BP 153/79; PULSE 64; RESP 20; TEMP 36.5; O2SAT 99
--- NOTE | 2025-05-17 07:19 | ED_ITS ---
HPI - Back Pain/Injury General Chief Complaint: Back Pain/Injury Stated Complaint: back pain Time Seen by Provider: 05/17/25 07:04 History of Present Illness HPI Narrative: Patient is a 45-year-old female who presents ER with left-sided low back pain. History of sciatica chronically on this side. Received a methylprednisolone injection on 05/04/2025 his same discomfort. It worked for approximately 4 days. Radiates down the back left leg. No trauma. No saddle anesthesia. No difficulty with urination or defecation. Denies fevers or chills or sweats. Thinks this has been exacerbated by recent hip surgery. She has followed up with her surgeon and done PT but not specifically for the back. Related Data Home Medications ?Medication ?Instructions ?Recorded ?Confirmed ?Last Taken ?Type paroxetine HCl 40 mg tablet (Paxil) 40 mg PO DAILY 01/1505/04/25 05/20/24 07:30 History levothyroxine 75 mcg tablet mcg 05/04/25 Unknown Hist ory lorazepam 0.5 mg tablet mg 05/04/25 Unknown History trazodone 100 mg tablet mg 05/04/25 Unknown History Allergies Allergy/AdvReac Type Severity Reaction Status Date / Time vancomycin Allergy Severe Anaphylaxis Verified 05/04/25 08:28 codeine Allergy Intermediate Rash Verified 05/04/25 08:28 hydrocodone (From [place]) Allergy Intermediate Rash Verified 05/04/25 08:28 morphine Allergy Intermediate Rash Verified 05/04/25 08:28 Penicillins Allergy Intermediate Rash Verified 05/04/25 08:28 phenazopyridine AdvReac Intermediate Nausea and Verified 05/04/25 08:28 Vomiting Review of Systems Constitutional: Constitutional: Reports no additional constitutional complaints Musculoskeletal: Musculoskeletal: Reports no additional musculoskeletal complaints Neurologic: Reports system reviewed and no additional complaints, except as documented PMFSH Past Medical History Medical History Psoriatic arthritis Dry eye syndrome of both eyes Rheumatoid arthritis Anxiety Left hip pain Obesity Menometrorrhagia Hypothyroidism Pilonidal abscess 1998 excision, has recurred, painful at times Water retention Sleep disorder Hypertension Abnormal Pap smear of cervix 01-14-2020 Ascus hpv negative rpt pap in 1 year @ [facility] History of bipolar disorder Surgical History Surgical History History of robot-assisted laparoscopic hysterectomy (12/17/22) Robotic assisted total vaginal hysterectomy / done by Dr. Zarate H/O tubal ligation History of hysteroscopy (03/05/22) Hscope D&C / Endometrial Ablation/ bilateral Laparoscopic salpingectomy / excision of vulvar lesion H/O sinus surgery (~11/24/20) History of arthroscopy (~2014) left hip History of breast augmentation 2013 History of breast lift 2018 History of breast implant removal 2018 History of laparoscopy 2014 endometriosis/7 cm on rt side History of sinus surgery 2000 cysts H/O LEEP 2011 2017 x3 done in [place] Family History Family History Father Depression Hypertension Family history of diabetes mellitus in first degree relative Family history of heart disease in male family member before age 55 Acute myocardial infarction Cerebrovascular accident Mother Depression Hypertension Family history of diabetes mellitus in first degree relative Family history of heart disease in male family member before age 55 Acute myocardial infarction Social History Social History (Updated 04/29/25 @ 14:40 by Sherlyn Solano 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 HEAD: Normocephalic, atraumatic. NECK: Supple. CHEST: Clear to auscultation. No respiratory distress. HEART: Regular rate and rhythm. Normal peripheral pulses. EXTREMITIES: Normal range of motion. No edema. Back: No midline tenderness the T/L-spine. There is mild discomfort left SI region. NEURO: Alert and oriented x3. PSYCH: Normal mood and affect. Course Course Emergency Course: Toradol x1 here. Medrol Dosepak for home. Discussed importance of following up with PCP potentially spine surgery to better evaluate her chronic issues. May require outpatient MRI. Vital Signs Vital signs: Vital Signs Temperature 97.7 F 05/17/25 06:40 Pulse Rate 64 05/17/25 06:40 Respiratory Rate 20 05/17/25 06:40 Blood Pressure 153/79 H 05/17/25 06:40 Pulse Oximetry 99 05/17/25 06:40 Oxygen Delivery Room Air 05/17/25 06:40 Temperature 97.7 F 05/17/25 06:45 Pulse Rate 64 05/17/25 06:45 Respiratory Rate 20 05/17/25 06:45 Blood Pressure 153/79 H 05/17/25 06:45 Pulse Oximetry 99 05/17/25 06:45 Oxygen Delivery Room Air 05/17/25 06:40 Discharge Plan Discharge Clinical Impression: Sciatica Patient Disposition: Home Condition: Stable Instructions: Sciatica (ED) Additional Instructions: Please return to the emergency department if you develop severe pain that is not controlled by pain medications or if you are unable to walk because of pain or weakness. Return to the emergency department immediately if you develop fevers, loss of bowel or bladder control (dribbling of urine or having accidents you wouldn't normally have), inability to urinate, numbness of your genital or anal area, or weakness/numbness of your legs or arms as these could all be signs of a serious medical emergency. Patient Language: Micronesian Prescriptions: New methylprednisolone [Medrol (David)] 4 mg tablets,dose pack See Rx Instructions .ROUTE .COMPLEX Qty: 21 0RF Rx Instructions: for 6 days No Action levothyroxine 75 mcg tablet lorazepam 0.5 mg tablet trazodone 100 mg tablet paroxetine HCl [Paxil] 40 mg tablet 40 mg PO DAILY irbesartan 150 mg tablet 150 mg PO DAILY Qty: 90 3RF potassium chloride [Klor-Con M10] 10 mEq tablet,ER particles/crystals 10 meq PO DAILY Qty: 90 3RF metoprolol succinate 50 mg Tablet Extended Release 24 Hr 50 mg PO QAM Qty: 30 0RF chlorthalidone 25 mg tablet 25 mg PO DAILY Qty: 30 8RF zolpidem [Ambien CR] 6.25 mg tablet,ext release multiphase 6.25 mg PO QHS PRN (Reason: insomnia) Qty: 30 0RF cholecalciferol (vitamin D3) 1,250 mcg (50,000 unit) capsule See Rx Instructions .ROUTE .COMPLEX Qty: 12 1RF Dose Instruction: TAKE 1 CAPSULE BY MOUTH WEEKLY Rx Instructions: TAKE 1 CAPSULE BY MOUTH WEEKLY Rinvoq 15 mg tablet extended release 24 hr 15 mg PO DAILY Qty: 30 5RF Rx Instructions: DUE FOR APPOINTMENT IN Follow-up/Referrals: Colleen Pagan, IDENTIFICATION TECHNICIAN-C [Primary Care Provider, Family Practice] - 1 Week
[2025-05-17] MEDS: KETOROLAC (*BKC) 60 MG/2 ML VIAL IM (07:28)
--- OUTSIDE RECORDS SUMMARY | 2025-05-17 07:47 | XMS_ITS | Encounter Summary ---
Author Organization [facility] Healthcare Address [address] [place] [address] Care Team Providers Care General Clerk Name Role Phone Lulu Pedersen MANAGER OF SOFTWARE Primary Care Provider + Colleen Pagan MANAGER OF SOFTWARE Primary Care Provider [phone] Encounter Details Date Type Department Care Team ([facility] Contact Info) Description 05/20/2024 Orders Only [facility] Health Information Management [address] [place] [address] Scanning, Provider Social History Tobacco [...] and Family Twice a week 09/24/2019 Attends Yazidism Services Never 09/24 Active Member of Clubs [...] on file Legal Sex Female 3:31 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
--- OUTSIDE RECORDS SUMMARY | 2025-05-17 07:47 | XMS_ITS | Encounter Summary ---
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
--- OUTSIDE RECORDS SUMMARY | 2025-05-17 07:47 | XMS_ITS | Patient Health Record ---
Author Organization [facility] [place] ([address]) Address [address] [place] [address] Care Team Providers Care Rn Concurrent Review Name Role Phone reinavelvet Funmilayo Unavailable [phone] Reason For Referral No Information Problems Problem Type SNOMED Code ICD Code Onset Dates Problem Status W/U Status Risk Notes Problem Chronic allergic conjunctivitis (75248532) Other chronic allergic conjunctivitis (H10.45) Active confirmed Problem Allergic rhinitis caused by pollen (disorder) (82448425) Allergic rhinitis due to pollen (J30.1) Active confirmed Problem Allergic rhinitis (94678848) Other allergic rhinitis (J30.89) Active confirmed Problem Chronic rhinitis (95978584) Chronic rhinitis (J31.0) Active confirmed Problem Uncomplicated mild persistent asthma (623946071) Mild persistent asthma, uncomplicated (J45.30) Active confirmed Problem Moderate persistent asthma, uncomplicated (J45.40) Active confirmed Problem Uncomplicated severe persistent asthma (754421105) Severe persistent asthma, uncomplicated (J45.50) Active confirmed Problem Allergic rhinitis caused by animal hair and dander (262940376899186) Allergic rhinitis due to animal (cat) (dog) hair and dander (J30.81) Active confirmed Plan Of Treatment No Information Insurance Providers Payer Name Payer Address Payer Phone Subscriber Number Group Number Insured Name Patient Relationship to Insured Coverage Start Date Coverage End Date [facility] [address] [address] [place], [place] [id number] Natalie Edwards ch Self - patient is the insured 4
--- OUTSIDE RECORDS SUMMARY | 2025-05-17 07:48 | XMS_ITS | Clinical Summary ---
Author Organization [facility] [employer] Address [address] [facility] [place] [address] Care Team Providers Care Inside Sales Coordinator Name Role Phone Rm Beverly MD Primary Care Provider [phone] Donato Wei MD Unavailable [phone] Source Comments [facility] [employer]non-owned Affiliates and Associated Physician Practices is amultiple site organization consisting of ambulatory clinics and hospital sitesin [place], [place], [place] and [place]. This disclosure is being madepursuant to the Care Everywhere program and may not contain all information available regarding this patient. Last updated 18.[facility] [employer] 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
--- OUTSIDE RECORDS SUMMARY | 2025-05-17 07:48 | XMS_ITS | Encounter Summary ---
Author Organization [facility] Address [facility] [place] [address] Care Team Providers Care Hydraulic Technician Name Role Phone Donato Wei MD Primary Care Provider U Lulu Ordonez [facility] Primary Care Provider + Encounter Details Date Type Department Care Team (Late st Contact Info) Description 02/07/2017 Abstract [facility] CONVERSION [address] [place] [address] , Generic Conversion, Social History Tobacco Use [...] on filedocumented in this encounter Care Teams Hydraulic Technician Relationship Specialty Start Date End Date Donato Wei MD PCP - General 12/23/16 07/17/19 Lulu Pedersen, [facility] [address] [place] [address] PCP - General NURSE PRACTITIONER 07/18/19 documented as of this encounter
--- OUTSIDE RECORDS SUMMARY | 2025-05-17 07:48 | XMS_ITS | Clinical Summary ---
Author Organization [facility] Address [address] [place] [address] Phone Care Team Providers Care Hospice Educator Name Role Phone Lulu Pedersen [facility] Primary Care Provider [phone] Allergies Active Allergy Reactions Criticality Noted Date [...] Abstract 04/24/2025 12:15 PM CDT Video Visit [facility] Psychiatry [facility] and [facility] [address] [facility] [address] [facility] [phone] Rasheed Kramer MD Panic disorder without agoraphobia; [...] on file Legal Sex Female 11:21 AM MEDICAL SERVICES COORDINATOR Gender Identity Not on file Sexual Orientation Not on file Last Filed Vital Signs Vital Sign Reading Time Taken Comments Blood Pressure 138/84 11/21/2024 1:07 PM MEDICAL SERVICES COORDINATOR Pulse 60 11/21/2024 1:07 PM MEDICAL SERVICES COORDINATOR Temperature - - Respiratory Rate - - Oxygen Saturation 99% 11/21/2024 1:07 PM MEDICAL SERVICES COORDINATOR Inhaled Oxygen Concentration - - Weight 90.3 kg (199 lb) 04/24/2025 12:31 PM CDT Height 160 cm (5' 3) 04/24/2025 12:31 PM CDT Body Mass Index 35.25 04/24/2025 12:31 PM CDT Plan of Treatment Upcoming Encounters Date Type Department Care Team (Late st Contact Info) Description 10/02/2025 2:30 PM MEDICAL SERVICES COORDINATOR Video Visit [facility] Psychiatry [facility] and [place] [address] [facility] [address] [facility] [place] [phone] Rasheed Kramer MD [address] [facility] and [facility] [place] [phone] Health Maintenance [...] HEMOGLOBIN A1C 5.4 4.8 - 5.6 % [facility] Comment: Prediabetes: 5.7 - 6.4 Diabetes: >6.4 Glycemic control for adults with diabetes: <7.0 04/13/2021 8:10 AM CDT 04/13/2021 Narrative [facility] - 04/14/2021 6:08 AM CDT Performed at: [address] [place] [id number] Medical Technologist Microbiology: Babar Glovre PhD, Phone: [phone] us Rasheed Kramer MD CHEMISTRY ORDERABLES Final Res ult [facility] [phone] from Last 3 Months or Most Recently Relevant to Health Maintenance Insurance [place] [id number] [facility] CHOICE [id number] Care Teams Hospice Educator Relationship Specialty Start Date End Date Lulu Pedersen FNP [address] [phone] PCP - General Nurse Practitioner Family 02/12/20
--- OUTSIDE RECORDS SUMMARY | 2025-05-17 07:48 | XMS_ITS | Encounter Summary ---
Author Organization [facility] Address [facility] [place] [address] Care Team Providers Care Arts And Sciences Dean Name Role Phone Donato Wei MD Primary Care Provider U Lulu Ordonez [facility] Primary Care Provider + Encounter Details Date Type Department Care Team (Late st Contact Info) Description 01/31/2017 Abstract [facility] CONVERSION [address] [place] [address] , Generic Conversion, Social History Tobacco Use [...] on filedocumented in this encounter Care Teams Arts And Sciences Dean Relationship Specialty Start Date End Date Donato Wei MD PCP - General 12/23/16 07/17/19 Lulu Pedersen, [facility] [address] [place] [address] PCP - General NURSE PRACTITIONER 07/18/19 documented as of this encounter
--- OUTSIDE RECORDS SUMMARY | 2025-05-17 07:48 | XMS_ITS | Clinical Summary ---
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
--- OUTSIDE RECORDS SUMMARY | 2025-05-17 07:48 | XMS_ITS | Clinical Summary ---
Author Organization [facility] Address [address] [place] [address] Care Team Providers Care Educational Administrator Name Role Phone Lulu Pedersen [facility] Primary Care Provider + Allergies Active Allergy [...] PM CDT COLONOSCOPY Routine 09/26/2007 12:00 AM HEAD REFRIGERATION ENGINEER from Last 3 Months or Most Recently Relevant to Health Maintenance Results * HEPATITIS A,B,& C (06/05/2018 4:00 PM CDT) HEPATITIS B SURFACE AG NON-REACTIVE NON-REACT [place] 06/06/2018 8:53 PM CDT [facility] HEP B CORE TOTAL AB NON-REACTIVE NON-REACT [place] 06/06/2018 8:59 PM CDT [facility] HEP B SURFACE AB REACTIVE 06/06/2018 9:00 PM CDT [facility] HAV IGM NON-REACTIVE NON-REACT MADINA 06/06/2018 8:59 PM CDT [facility] HEPATITIS C AB NON-REACTIVE NON-REACT MADINA 06/06/2018 8:58 PM CDT [facility] 06/05/2018 4:00 PM CDT 06/05/2018 6:19 PM CDT us Generic Conversion Md [facility] Final R esult [facility] [address] [address], [place] [phone] * Colonoscopy (09/26/2007 12:00 AM HEAD REFRIGERATION ENGINEER) 09/26/2007 09/26/2007 Narrative [facility] CONVERSION - 09/26/2007 12:00 AM HEAD REFRIGERATION ENGINEER Documented hx of procedure Procedure Note Brad Pearce MD - 07/30/2018 Documented hx of procedure us Generic Conversion Md [facility] PROCEDURE ORDERABLES Final Result Performing Organization Address City/[facility]/ZIP Co de Phone Number [facility] CONVERSION from Last 3 Months or Most Recently Relevant to Health Maintenance Insurance [employer] Care Teams Educational Administrator Relationship Specialty Start Date End Date Lulu Pedersen, NURSERYPERSON-BC [address] [place] [phone] PCP - General NURSE PRACTITIONER 07/18/19
--- OUTSIDE RECORDS SUMMARY | 2025-05-17 07:48 | XMS_ITS | Clinical Summary ---
Author Organization [facility] Address [address] [place] [address] Care Team Providers Care Physical Education Department Chair Name Role Phone Colleen Pagan POURED PIPE MAKER Primary Care Provider [phone] Allergies Active Allergy Reactions Criticality Noted Date [...] 1 tablet (75 mcg total) by mouth speech language pathologist prn before breakfast 0 Active LORazepam (ATIVAN) 0.5 [...] 09/23/2019 Assessment & Plan (09/23/2019 10:42 PM TEST FACILITY ENGINEER): Patient has an established diagnosis of bipolar affective disorder, characterized by periods of low mood, anhedonia, difficulty concentrating, low energy, poor sleep and suicidal ideation, as well as at least one manic episode with impulsivity, increased spending, decreased need for sleep, racing thoughts. She has an outpatient psychiatrist in [place], [place] Dr. Kramer and has been tried [...] wake up. She has never been on [place] because she was scared of the side effects, but is now amenable to it. Plan is to start [place] ER 600mg at bedtime. D/c latuda. Continue [...] Department Care Team Description 02/22/2025 Results Follow-Up [facility] Cardiology [address] [place] [address] [place] [phone] Yulissa To RN [facility] Mobile Cardiac Telemetry Event Monitor 02/22/2025 Telephone [facility] Cardiology [address] [place] [address] [address] [place] [phone] Nirmala Callahan NP 02/20/2025 12:20 PM CDT Office Visit [facility] Medicine Orthopaedic Surgery [address] [place] [address] Medical Office Building [address] [place] [address] Gunnar Moss MD S/P total left hip arthroplasty (Primary Dx); Surgical follow-up care 02/20/2025 11:53 AM CDT - 02/20/2025 11:59 PM CDT Hospital Encounter [facility] [address] [place] [address] [address] [place] [phone] S/P total left hip arthroplasty Discharge Disposition: Discharge to home or self care 02/20/2025 Telephone [facility] Cardiology [address] [facility] [address] [place] [address] [place] [address] NiianhVi Dorita 02/19/2025 Orders Only [facility] Cardiology [address] [facility] [address] [place] [phone] Janna Johnson NP from Last 3 Months [...] on file Legal Sex Female 3:31 PM TEST FACILITY ENGINEER Gender Identity Not on file Sexual [...] this topic Medical Devices Implanted Type Area Spanner Operator Device Identifier Shelf Expiration Date Model / Serial / Lot [employer] Bi Mentum 47mm Press Fit Femoral Proximal Cup Acetabular [id number] - [id number] Implanted:Qty: 1 on 01/10/2025 at [facility] Left: Hip [employer] 05/26/2028 [id number] / / [id number] [employer] Liner Acetabular Hip Bi Mentum Altrx 47mm Polyethylene Size 28 [id number] - [id number] Implanted:Qty: 1 on 01/10/2025 at [facility] Left: Hip [employer] 09/25/2029 [id number] / / [id number] [employer] Articul/Eric 28mm Cementless Hip +1.5mm 09/08 [place] Head Femoral Latex Free [id number] - [id number] Implanted:Qty: 1 on 01/10/2025 at [facility] Left: Hip [employer] 11/23/2029 [id number] / / [id number] [employer] Actis 105mm Collar Hip 5 High Offset Stem Femoral [id number] - [id number] Implanted:Qty: 1 on 01/10/2025 at [facility] Left: Hip [employer] 10/26/2034 [id number] / / [id number] Procedures Procedure Name Priority Date/Time Associated Diagnosis [...] alignment. Electronically signed by: Tim Fuller D.O. Gnunar Moss MD IMG XR PROCEDURES Final R esult from Last 3 Months Insurance [facility] Advance Directives For more information, please contact: [phone] * Full Code (Latest Code Status on File) Date Activated Date Inactivated Comments 01/10/2025 8:22 AM 01/10/2025 4:44 PM * Full Code Date Activated Date Inactivated Comments 09/22/2019 5:13 PM 09/25/2019 12:46 PM Care Teams Physical Education Department Chair Relationship Specialty Start Date End Date Colleen Pagan, POURED PIPE MAKER [address] [place] [address] PCP - General Family Medicine 06/21/24
[2025-05-17 07:57] VITALS: BP 135/88; PULSE 56; RESP 16; O2SAT 100
== END 2025-05-17 08:02 | disposition home or self-care (01) ==
LOC: ANHED 07:45
PROVIDERS: Emergency Provider Emergency Medicine; PCP Nurse Practitioner Family
DX: M54.42 Lumbago with sciatica, left side (principal); I10 Essential (primary) hypertension; E03.9 Hypothyroidism, unspecified; L40.50 Arthropathic psoriasis, unspecified; M06.9 Rheumatoid arthritis, unspecified; H04.123 Dry eye syndrome of bilateral lacrimal glands; G47.9 Sleep disorder, unspecified; F31.9 Bipolar disorder, unspecified; Z90.710 Acquired absence of both cervix and uterus
CPT/HCPCS: 96372; 99283; J1885

== ENCOUNTER 2025-05-24 13:50 | Outpatient (CLI) | payer OTHER, SELFPAY ==
--- OUTSIDE RECORDS SUMMARY | 2023-12-28 08:45 | XMS_ITS ---
Author Organization [facility] Address [address] [place] [address] Care Team Providers Care Checkroom Attendant Name Role Phone Nuvia MILLAN, Lulu Primary Care Provider Unavail Abbie Liu Unavailable [phone] REASON FOR VISIT yd,f/u from portal message,cc Encounters Encounter Location Date Provider Diagnosis [facility] [address] [facility] [address] [place] [address] 12/28/2023 Abbie Gutierrez Plan Of Treatment No Information Progress Notes * Berenice NICKERSONhelDOB:1979 (45 yo F)Acc No.[id number]:12/28/2023 Progress Notes Patient: Natalie JOHNSON Appointment Provider: Bere GUTIERREZ MD :1980 A ge:43 Y S ex:Female Date:12/28/2023 Address:[address] [place] [address] Pcp:Lulu Pedersen NP Subjective: * Chief Complaints: * 1 . Yd,f/u from portal message,cc. * Medical History: Objective: * Vitals: Assessment: Plan: * Treatment: * Billing Information: * Visit Code: * Procedure Codes: * Electronic signature of Abbie Gutierrez MD on 05/24/2025 at 01:53 PM CDT Sign off status: Pending * Appointment Provider: Bere GUTIERREZ MD Date: 12/28/2023 Generated for Printi ng/Faxing/eTransmitting on: 05/24/2025 01:53 PM CDT
--- OUTSIDE RECORDS SUMMARY | 2024-01-18 08:15 | XMS_ITS ---
Author Organization [facility] Address [address] [facility] [address] [place] [address] Care Team Providers Care Blacksmith Supervisor Name Role Phone Nuvia MILLAN, Lulu Primary Care Provider Unavail Abbie Liu Unavailable [phone] REASON FOR VISIT 2 month follow up/flc Encounters Encounter Location Date Provider Diagnosis [facility] [address] [facility] [address] [place] [address] 01/18/2024 Abbie Gutierrez Plan Of Treatment No Information Progress Notes * Berenice NICKERSONhelDOB:1979 (45 yo F)Acc No.[id number]:01/18/2024 Progress Notes Patient: Natalie JOHNSON Appointment Provider: Bere GUTIERREZ MD :1980 A ge:43 Y S ex:Female Date:01/18/2024 Address:[address] [address] Pcp:Lulu Pedersen NP Subjective: * Chief Complaints: * 1 . 2 month follow up/flc. * Medical History: Objective: * Vitals: Assessment: Plan: * Treatment: * Billing Information: * Visit Code: * Procedure Codes: * Electronic signature of Abbie Gutierrez MD on 05/24/2025 at 01:53 PM CDT Sign off status: Pending * Appointment Provider: Bere GUTIERREZ MD Date: 01/18/2024 Generated for Printi ng/Faxing/eTransmitting on: 05/24/2025 01:53 PM CDT
--- OUTSIDE RECORDS SUMMARY | 2024-03-06 09:30 | XMS_ITS | Continuity of Care Document ---
Author Organization [facility] Address [address] [place] [address] Phone Care Team Providers Care Security Patrol Driver Name Role Phone Christiano OD, Donna Unavailable Unavailable Procedures Procedure Date Charge For A No Show Advance Directives Directive Yes / No Effective Date File Name No Information Encounters Encounter Description Practice Location Reason(s) For Visit Diagnoses Date Provider Providers Copied on Encounter [facility], [address] [place] [address] [address], [place], [place], [id number], tel:[phone] SEC Juan F [place] Professional No Information 4 Christiano OD Donna. [address] [place] [address] [address], [address], [place], [place], [address], [place]. tel:[phone] Family History Family Member Type Diagnosis Age [...]
--- OUTSIDE RECORDS SUMMARY | 2024-03-21 12:30 | XMS_ITS ---
Author Organization [facility] [place] ([address]) Address [address] [place] [address] Care Team Providers Care E D Tech Name Role Phone Funmilayo Narvaez Unavailable [phone] REASON FOR VISIT CONTINUOUS IMPROVEMENT SPECIALIST Allergies Encounters Encounter Location Date Provider Diagnosis [facility] [address] [place] [address] 03/21/2024 Funmilayo Narvaez Plan Of Treatment No Information Progress Notes * MARQUEZBerenice NaylorCristhianOB:1979 (45 yo F)Acc No.[id number]:03/21/2024 Progress Notes Patient: Natalie JOHNSON Provider: JOSE Bai :1980 A ge:43 Y S ex:Female Date:03/21/2024 Address:[address] [place], [place] [id number] Subjective: * Chief Complaints: * 1 . CONTINUOUS IMPROVEMENT SPECIALIST Allergies. * Medical History: Objective: * Vitals: Assessment: Plan: * Treatment: * Billing Information: * Visit Code: * Procedure Codes: * Electronic signature of JOSE Harrell on 05/24/2025 at 01:53 PM CDT Sign off status: Pending * Provider: JOSE Bai Date: 03/21/2024 Generated for Printi ng/Faxing/eTransmitting on: 05/24/2025 01:53 PM CDT
--- OUTSIDE RECORDS SUMMARY | 2024-09-27 08:00 | XMS_ITS ---
Author Organization [facility] Address [address] [facility] [address] [place] [address] Care Team Providers Care Linux Unix System Administrator Name Role Phone Nuvia MILLAN, Lulu Primary Care Provider Unavail Abbie Liu Unavailable [phone] REASON FOR VISIT 1 month f/u Encounters Encounter Location Date Provider Diagnosis [facility] [address] [facility] [address] [place] [address] 09/27/2024 Abbie Gutierrez Plan Of Treatment No Information Progress Notes * Berenice NICKERSONhelDOB:1979 (45 yo F)Acc No.[id number]:09/27/2024 Progress Notes Patient: Natalie JOHNSON Appointment Provider: Bere GUTIERREZ MD :1980 A ge:44 Y S ex:Female Date:09/27/2024 Address:[address] [address] Pcp:Lulu Pedersen NP Subjective: * Chief Complaints: * 1 . 1 month f/u. * Medical History: Objective: * Vitals: Assessment: Plan: * Treatment: * Billing Information: * Visit Code: * Procedure Codes: * Electronic signature of Abbie Gutierrez MD on 05/24/2025 at 01:53 PM CDT Sign off status: Pending * Appointment Provider: Bere GUTIERREZ MD Date: 09/27/2024 Generated for Printi ng/Faxing/eTransmitting on: 0 05/24/2025 01:53 PM CDT
--- OUTSIDE RECORDS SUMMARY | 2025-05-24 13:53 | XMS_ITS | Patient Health Record ---
Author Organization [facility] [place] ([address]) Address [address] [place] [address] Care Team Providers Care Airport Guide Name Role Phone JonasvelvetMillerFunmilayo Unavailable [phone] Reason For Referral No Information Problems Problem Type SNOMED Code ICD Code Onset Dates Problem Status W/U Status Risk Notes Problem Chronic allergic conjunctivitis (69941816) Other chronic allergic conjunctivitis (H10.45) Active confirmed Problem Allergic rhinitis caused by pollen (disorder) (80286359) Allergic rhinitis due to pollen (J30.1) Active confirmed Problem Allergic rhinitis (40286893) Other allergic rhinitis (J30.89) Active confirmed Problem Chronic rhinitis (29468860) Chronic rhinitis (J31.0) Active confirmed Problem Uncomplicated mild persistent asthma (361417640) Mild persistent asthma, uncomplicated (J45.30) Active confirmed Problem Uncomplicated moderate persistent asthma (505583435) Moderate persistent asthma, uncomplicated (J45.40) Active confirmed Problem Uncomplicated severe persistent asthma (884727412) Severe persistent asthma, uncomplicated (J45.50) Active confirmed Problem Allergic rhinitis caused by animal hair and dander (787814808389301) Allergic rhinitis due to animal (cat) (dog) hair and dander (J30.81) Active confirmed Plan Of Treatment No Information Insurance Providers Payer Name Payer Address Payer Phone Subscriber Number Group Number Insured Name Patient Relationship to Insured Coverage Start Date Coverage End Date [address] [address] [place], [place] [id number] Natalie Edwards ch Self - patient is the insured 4
--- OUTSIDE RECORDS SUMMARY | 2025-05-24 13:53 | XMS_ITS | Clinical Summary ---
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
--- OUTSIDE RECORDS SUMMARY | 2025-05-24 13:53 | XMS_ITS | Clinical Summary ---
Author Organization [facility] Address [address] [place] [address] Care Team Providers Care Antique Repairer Name Role Phone Lulu Pedersen [facility] Primary Care Provider + Allergies Active [...] PM CDT COLONOSCOPY Routine 09/26/2007 12:00 AM CONSUMER ELECTRONIC RETAIL SPECIALIST from Last 3 Months or Most Recently Relevant to Health Maintenance Results * HEPATITIS A,B,& C (06/05/2018 4:00 PM CDT) HEPATITIS B SURFACE AG NON-REACTIVE NON-REACT MADINA 06/06/2018 8:53 PM CDT [facility] HEP B CORE TOTAL AB NON-REACTIVE NON-REACT MADINA 06/06/2018 8:59 PM CDT [facility] HEP B SURFACE AB REACTIVE 06/06/2018 9:00 PM CDT [facility] HAV IGM NON-REACTIVE NON-REACT MADINA 06/06/2018 8:59 PM CDT [facility] HEPATITIS C AB NON-REACTIVE NON-REACT MADINA 06/06/2018 8:58 PM CDT [facility] 06/05/2018 4:00 PM CDT 06/05/2018 6:19 PM CDT us Generic Conversion [facility] Final R esult [facility] [address] [id number], [place] [phone] * Colonoscopy (09/26/2007 12:00 AM CONSUMER ELECTRONIC RETAIL SPECIALIST) 09/26/2007 09/26/2007 Narrative [facility] CONVERSION - 09/26/2007 12:00 AM CONSUMER ELECTRONIC RETAIL SPECIALIST Documented hx of procedure Procedure Note Brad Pearce MD - 07/30/2018 Documented hx of procedure us Generic Conversion Md [facility] PROCEDURE ORDERABLES Final Result Performing Organization Address City/[facility]/ZIP Co de Phone Number [facility] CONVERSION from Last 3 Months or Most Recently Relevant to Health Maintenance Insurance [employer] Care Teams Antique Repairer Relationship Specialty Start Date End Date Lulu Pedersen, PLASTICS REPAIRER-BC [address] [place] [phone] PCP - General NURSE PRACTITIONER 07/18/19
--- OUTSIDE RECORDS SUMMARY | 2025-05-24 13:53 | XMS_ITS | Clinical Summary ---
Author Organization [facility] Address [address] [place] [address] Care Team Providers Care Job Printer Apprentice Name Role Phone Colleen Pagan BACK UP MACHINE OPERATOR Primary Care Provider [phone] Allergies Active Allergy Reactions Criticality Noted Date [...] 1 tablet (75 mcg total) by mouth linecasting machine keyboard operator before breakfast 0 Active LORazepam (ATIVAN) 0.5 [...] 09/23/2019 Assessment & Plan (09/23/2019 10:42 PM ELEMENTARY VOCAL MUSIC TEACHER): Patient has an established diagnosis of bipolar affective disorder, characterized by periods of low mood, anhedonia, difficulty concentrating, low energy, poor sleep and suicidal ideation, as well as at least one manic episode with impulsivity, increased spending, decreased need for sleep, racing thoughts. She has an outpatient psychiatrist in [place], [place] Dr. Kramer and has been tried [...] wake up. She has never been on Tatitlek because she was scared of the side effects, but is now amenable to it. Plan is to start Tatitlek ER 600mg at bedtime. D/c latuda. Continue [...] Department Care Team Description 02/22/2025 Results Follow-Up [facility] [address] [place] [phone] Yulissa To RN MCT Mobile Cardiac Telemetry Event Monitor 02/22/2025 Telephone [facility] [address] [place] [phone] Nirmala Callahan NP from Last 3 Months [...] and Family Twice a week 09/24/2019 Attends [employer] Services Never 09/24 Active Member of Clubs [...] on file Legal Sex Female 3:31 PM ELEMENTARY VOCAL MUSIC TEACHER Gender Identity Not on file Sexual Orientation [...] of 2 - PCV) 1998 Covid-19 Vaccine (2023-2 5 season) 2024 10/06/2020, 09/15/2020 Influenza Vaccine (#1) 2025 8, 05/31/2017, 06/19/2016 DTaP/Tdap/Td Vaccine (3 - Td or Tdap) 03/16/2033 03/16/2023, 06/15/2016 HPV Vaccines Aged Out No longer eligi ble based on patient's age to complete this topic Medical Devices Implanted Type Area Morals Squad Police Officer Device Identifier Shelf Expiration Date Model / Serial / Lot Depuy [employer] Bi Mentum 47mm Press Fit Femoral Proximal Cup Acetabular [id number] - [id number] Implanted:Qty: 1 on 01/10/[address] [facility] Left: Hip [employer] 05/26/2028 [id number] / / [id number] [employer] Liner Acetabular Hip Bi Mentum Altrx 47mm Polyethylene Size 28 [id number] - [id number] Implanted:Qty: 1 on 01/10/[address] [facility] Left: Hip [employer] 09/25/2029 [id number] / / [id number] [employer] Articul/Eric 28mm Cementless Hip +1.5mm 09/08 Taper Head Femoral Latex Free [id number] - [id number] Implanted:Qty: 1 on 01/10/[address] [facility] Left: Hip [employer] 11/23/2029 [id number] / / [id number] Dep[employer] Actis 105mm Collar Hip 5 High Offset Stem Femoral [id number] - [id number] Implanted:Qty: 1 on 01/10/[address] [facility] Left: Hip [employer] 10/26/2034 [id number] / / [id number] Insurance [facility] HMO/PPO Address: [facility] [id number] [place] [id number] [facility] HMO/PPO Address: [address] [address] [place] [address] [facility] Advance Directives For more information, please contact: [phone] * Full Code (Latest Code Status on File) Date Activated Date Inactivated Comments 01/10/2025 8:22 AM 01/10/2025 4:44 PM * Full Code Date Activated Date Inactivated Comments 09/22/2019 5:13 PM 09/25/2019 12:46 PM Care Teams Job Printer Apprentice Relationship Specialty Start Date End Date Colleen Pagan NP [address] [place] [address] PCP - General Family Medicine 06/21/24
--- OUTSIDE RECORDS SUMMARY | 2025-05-24 13:53 | XMS_ITS | Encounter Summary ---
Author Organization [facility] Healthcare Address [address] [place] [address] Care Team Providers Care Electrochemist Name Role Phone Colleen Pagan NP Primary Care Provider [phone] Encounter Details Date Type Department Care Team ([facility] Contact Info) Description 09/03/[address] 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
--- OUTSIDE RECORDS SUMMARY | 2025-05-24 13:53 | XMS_ITS | Clinical Summary ---
Author Organization [facility] Address [address] [place] [address] Care Team Providers Care Associate Partner Name Role Phone Rm Beverly MD Primary Care Provider [phone] Donato Wei MD Unavailable [phone] Source Comments [facility],non-owned Affiliates and Associated Physician Practices is amultiple site organization consisting of ambulatory clinics and hospital sitesin [place], [place], [place] and [place]. This disclosure is being madepursuant to the Care Everywhere program and may not contain all information available regarding this patient. Last updated 18.[facility] Allergies Active Allergy Reactions Criticality Noted Date [...] on file Legal Sex Female 12:09 PM DOCTOR OF OSTEOPATHY Gender Identity Not on file Sexual Orientation [...] 19+ 3-dose series) 1998 PAP SMEAR 2000 COVID-19 VACCINE (3 - 2023-2 5 season) [...] patient's age to complete this topic Insurance Care Teams Associate Partner Relationship Specialty Start Date End Date Rm Beverly MD [address] [place] [phone] PCP - General 11/11/20 Donato Wei MD [address] [place] [phone] Internal Medicine 11/11/20
--- OUTSIDE RECORDS SUMMARY | 2025-05-24 13:53 | XMS_ITS | Encounter Summary ---
Author Organization [facility] Address [facility] [place] [address] Care Team Providers Care Vendette Name Role Phone Donato Wei MD Primary Care Provider U Lulu Ordonez [facility] Primary Care Provider + Encounter Details Date Type Department Care Team (Late st Contact Info) Description 02/07/2017 Abstract [facility] CONVERSION [address] [place] [address] , Generic Conversion, Social History Tobacco Use [...] on filedocumented in this encounter Care Teams Vendette Relationship Specialty Start Date End Date Donato Wei MD PCP - General 12/23/16 07/17/19 Lulu Pedersen, [facility] [address] [place] [address] PCP - General NURSE PRACTITIONER 07/18/19 documented as of this encounter
--- OUTSIDE RECORDS SUMMARY | 2025-05-24 13:53 | XMS_ITS | Clinical Summary ---
Author Organization [facility] Address [address] [place] [address] Phone Care Team Providers Care Food Service Team Member Name Role Phone [place], Lulu Ginger [facility] Primary Care Provider [phone] Allergies Active Allergy Reactions Criticality Noted Date [...] Insomnia. Active PARoxetine HCl (PAXIL) 40 mg tabletIndication s:Panic disorder without agoraphobia Take 1 Tablet (40 mg) by mouth daily. 90 Tablet 1 5 Active gabapentin (NEURONTIN) 300 mg capsuleIndicatio ns:Panic disorder without agoraphobia Take 2 Capsules (600 mg) by mouth nightly as needed for Pain. Active LORazepam (ATIVAN) 0.5 mg tabletIndication s:Panic disorder without agoraphobia,Bipo lar affective disorder, currently depressed, mild (CMS/HCC) Take 1.5 Tablets (0.75 mg) by mouth 2 times daily. 45 Tablet 5 Active Active Problems No known active problems Encounters Date Type Department Care Team Description 05/01/2025 External Device Data [facility]CTION Provider, Abstract 04/30/2025 External Device Data [facility] Provider, Abstract 04/30/2025 External Device Data [facility] Provider, Abstract 04/24/2025 12:15 PM CDT Video Visit [facility] [id number] [facility] [place] [address] Rasheed Kramer MD Panic disorder without [...] on file Legal Sex Female 11:21 AM BED AND BREAKFAST COOK Gender Identity Not on file Sexual Orientation Not on file Last Filed Vital Signs Vital Sign Reading Time Taken Comments Blood Pressure 138/84 11/21/2024 1:07 PM BED AND BREAKFAST COOK Pulse 60 11/21/2024 1:07 PM BED AND BREAKFAST COOK Temperature - - Respiratory Rate - - Oxygen Saturation 99% 11/21/2024 1:07 PM BED AND BREAKFAST COOK Inhaled Oxygen Concentration - - Weight 90.3 kg (199 lb) 04/24/2025 12:31 PM CDT Height 160 cm (5' 3) 04/24/2025 12:31 PM CDT Body Mass Index 35.25 04/24/2025 12:31 PM CDT Plan of Treatment Upcoming Encounters Date Type Department Care Team (Late st Contact Info) Description 10/02/2025 2:30 PM BED AND BREAKFAST COOK Video Visit [facility] [place] [address] [facility] [place] [address] Rasheed Kramer MD [address] [facility] [place] [address] Health Maintenance Due [...] Colonography Q 5 years 2024 COVID-19 Vaccine (2023-2 5 season) 2024 10/06/2020, 09/15/2020 INFLUENZA VACCINE [...] - 04/14/2021 6:08 AM CDT Performed at: [address] [id number] Apple Peeler Operator: Babar Glover PhD, Phone: [phone] Rasheed Kramer MD CHEMISTRY ORDERABLES Final Res ult [facility] [phone] from Last 3 Months or Most Recently Relevant to Health Maintenance Insurance Care Teams Food Service Team Member Relationship Specialty Start Date End Date Lulu Pedersen FNP [address] [phone] PCP - General Nurse Practitioner Family 02/12/20
--- OUTSIDE RECORDS SUMMARY | 2025-05-24 13:53 | XMS_ITS | Encounter Summary ---
Author Organization [facility] Address [facility] [place] [address] Care Team Providers Care Top Distribution Executive Name Role Phone Donato Wei MD Primary Care Provider U Lulu Ordonez [facility] Primary Care Provider + Encounter Details Date Type Department Care Team (Late st Contact Info) Description 01/31/2017 Abstract [facility] CONVERSION [address] [place] [address] , Generic Conversion, Social History Tobacco Use [...] on filedocumented in this encounter Care Teams Top Distribution Executive Relationship Specialty Start Date End Date Donato Wei MD PCP - General 12/23/16 07/17/19 Lulu Pedersen, [facility] [address] [place] [address] PCP - General NURSE PRACTITIONER 07/18/19 documented as of this encounter
--- OUTSIDE RECORDS SUMMARY | 2025-05-24 13:53 | XMS_ITS | Encounter Summary ---
Author Organization [facility] Healthcare Address [address] [place] [address] Care Team Providers Care Maintenance Instructor Name Role Phone Lulu Pedersen CONVICT GUARD Primary Care Provider + Colleen Pagan CONVICT GUARD Primary Care Provider [phone] Encounter Details Date Type Department Care Team ([facility] Contact Info) Description 05/20/2024 Orders Only [facility] Health Information Management [address] [place] [address] Scanning, Provider Social History Tobacco [...] and Family Twice a week 09/24/2019 Attends Scientology Services Never 09/24 Active Member of Clubs [...] on file Legal Sex Female 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
--- OUTSIDE RECORDS SUMMARY | 2025-05-24 13:54 | XMS_ITS | Patient Health Record ---
Author Organization [facility] Address [address] [facility] [address] [place] [address] Care Team Providers Care Retail Planner Name Role Phone Nuvia MILLAN, Lulu Primary Care Provider Unavail able RamiroAbbie Unavailable [phone] Allergies Allergen (clinical drug ingredient) Drug/Non Drug [...] Insured Coverage Start Date Coverage End Date [facility] Choice Plus [address] [address] [place] [address] [id number] Natalie Edwards ch Self - patient is the insured BCBS OF [facility] [address] [place] [address] [id number] Natalie Edwards ch Self - patient is the insured Medications Administered Medication Instructions Date of Administration Dosage Notes DEPO-Medrol 03/05/2024 80 mg Medical (General) History Medical History History ICD Code leukocytosis bipolar 1 small fiber neuropathy hypertension diabetes hypothyroidism psoriasis Surgical History Surgery Date(Month/Year) left hip surgery (labral taper) hysterectomy
[2025-05-24 19:11] LABS: Anion Gap 8 mmol/L (4-12); Blood Urea Nitrogen 23 mg/dL (7-17); Calcium 9.2 mg/dL (8.4-10.2); Carbon Dioxide 23 mmol/L (22-30); Chloride 104 mmol/L (98-107); Estimated Glomerular Filt Rate 54; Glucose 101 mg/dL (65-110); Potassium 4.3 mmol/L (3.4-5.0); Sodium 135 mmol/L (137-145)
[2025-05-24 21:06] LABS: Add Urine Microscopic? YES; Appearance Urine Cloudy (Clear); Glucose Urine UA Negative (Negative); Leukocyte Esterase Ur Negative LEU/UL (Negative); Nitrate Urine Negative (Negative); Non Pathogenic Casts 0-2; Specific Grav Ur 1.022 (1.001-1.035)
== END 2025-05-24 13:51 | disposition home or self-care (01) ==
LOC: ANHGOSHLAB 13:51
PROVIDERS: PCP Nurse Practitioner Family; Visit Provider Internal Medicine Nephrology
DX: I10 Essential (primary) hypertension (principal)
CPT/HCPCS: 36415; 80048; 81001

== ENCOUNTER 2025-07-16 00:44 | Day surgery (SDC) | payer OTHER, SELFPAY ==
--- OUTSIDE RECORDS SUMMARY | 2024-01-18 08:15 | XMS_ITS ---
Author Organization [facility] Address [address] [facility] [address] [place] [address] Care Team Providers Care Radiological Technician Name Role Phone Nuvia MILLAN, Lulu Primary Care Provider Unavail Abbie Liu Unavailable [phone] REASON FOR VISIT 2 month follow up/flc Encounters Encounter Location Date Provider Diagnosis [facility] [address] [facility] [address] [place] [address] 01/18/2024 Abbie Gutierrez Plan Of Treatment No Information Progress Notes * Berenice NICKERSONhelDOB:1979 (45 yo F)Acc No.[id number]:01/18/2024 Progress Notes Patient: Natalie JOHNSON Appointment Provider: Bere GUTIERREZ MD :1980 A ge:43 Y S ex:Female Date:01/18/2024 Address:[address] [address] Pcp:Lulu Pedersen NP Subjective: * Chief Complaints: * 1 . 2 month follow up/flc. * Medical History: Objective: * Vitals: Assessment: Plan: * Treatment: * Billing Information: * Visit Code: * Procedure Codes: * Electronic signature of Abbie Gutierrez MD on 07/16/2025 at 12:48 AM CDT Sign off status: Pending * Appointment Provider: Bere GUTIERREZ MD Date: 0 01/18/2024 Generated for Printi ng/Faxing/eTransmitting on: 1 12:48 AM CDT
--- OUTSIDE RECORDS SUMMARY | 2024-03-06 09:30 | XMS_ITS | Continuity of Care Document ---
Author Organization [facility] Address [address] [facility] [address] [place] [address] Phone Care Team Providers Care Bench Molder Name Role Phone Christiano OD, Donna Unavailable Unavailable Procedures Procedure Date Charge For A No Show Advance Directives Directive Yes / No Effective Date File Name No Information Encounters Encounter Description Practice Location Reason(s) For Visit Diagnoses Date Provider Providers Copied on Encounter [facility], [address] [place] [address] [address], [place], [place], [id number], tel:[phone] [address] [place] Professional No Information 4 Christiano OD Donna. [address] [place] [address] [address], [address], [place], [place], [id number], [place]. tel:[phone] Family History Family Member Type Diagnosis Age At Onset No Information Payers Payer name Insurance type Covered democrat ID Authoriza tion(s) No Information Social History Type Description Quantity Date Captured Comments Sex Female Smoking Status No Information Chief Complaint And Reason For Visit No Information Reason For Referral Reason For Referral No Information History Of Present Illness Encounter Date Complaint History Of Prese nt Illness No Information Functional Status Date Functional Assessmen t No Information Instructions Date Instruction Additional Infor mation No Information Assessments Type Assessment Date No Information Patient Care Teams Name Effective Dates (start - stop) Status Members No Information
--- OUTSIDE RECORDS SUMMARY | 2024-03-21 12:30 | XMS_ITS ---
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 * Medical History: Objective: * Vitals: Assessment: Plan: * Treatment: * Billing Information: * Visit Code: * Procedure Codes: * Electronic signature of JOSE Harrell on 07/16/2025 at 12:47 AM CDT Sign off status: Pending * Provider: JOSE Bai Date: 0 03/21/2024 Generated for Printi ng/Faxing/eTransmitting on: 1 12:47 AM CDT
--- OUTSIDE RECORDS SUMMARY | 2024-09-27 08:00 | XMS_ITS ---
Author Organization [facility] celena Address [address] [facility] [address] [place] [address] Care Team Providers Care Universal Banker Name Role Phone Nuvia MILLAN, Lulu Primary Care Provider Unavail Abbie Liu Unavailable [phone] REASON FOR VISIT 1 month f/u Encounters Encounter Location Date Provider Diagnosis [facility] [address] [facility] [address] [place] [address] 09/27/2024 Abbie Gutierrez Plan Of Treatment No Information Progress Notes * Berenice NICKERSONhelDOB:1979 (45 yo F)Acc No.[id number]:09/27/2024 Progress Notes Patient: Natalie JOHNSON Appointment Provider: Bere GUTIERREZ MD :1980 A ge:44 Y S ex:Female Date:09/27/2024 Address:[address] [address] Pcp:Lulu Pedersen NP Subjective: * Chief Complaints: * 1 . 1 month f/u. * Medical History: Objective: * Vitals: Assessment: Plan: * Treatment: * Billing Information: * Visit Code: * Procedure Codes: * Electronic signature of Abbie Gutierrez MD on 07/16/2025 at 12:47 AM CDT Sign off status: Pending * Appointment Provider: Bere GUTIERREZ MD Date: 09/27/2024 Generated for Printi ng/Faxing/eTransmitting on: 1 12:47 AM CDT
[2025-07-12 08:27] VITALS: BMI 35.4
--- NOTE | 2025-07-12 08:36 | PC.NURSE ---
[facility] has started construction of its new state of the art ER which will open Spring 2026. With this, we anticipate parking may be a challenge for some our surgical patients and families. Parking spaces are limited but are available for all Surgical, obstetrics, and ER patients sharing this lot. If you arrive and find you are having a hard time finding a parking space, please note that we understand the challenges, please drive around the hospital and park near Hospital Entrance 1. When you enter this entrance, you can ask a volunteer to direct or take you back to the surgical waiting area to check in. We appreciate everyone?s understanding of these expected challenges while we build for your future. Report to the Outpatient Waiting Room, entrance under the green pavilion located off [address], at time _230pm_ on date _[phone]_. Planned Procedure Time: _330pm_.? Time changes happen often and if your time is changed the preop area will call you the afternoon before. - You and your visitor will be asked to self-screen and do not enter if you have any COVID symptoms. Please call surgeon if you need to reschedule. - A mask is optional within the hospital at this time. Eat breakfast and a light lunch. Nothing to eat or drink after 130pm No smoking, or chewing tobacco (or any form of nicotine). No chewing gum, candy or mints. Take only the following medications with a SIP of water on the morning of surgery: __All medications OK to take. DO NOT STOP ANY OF YOUR OTHER PRESCRIPTION MEDICATIONS PRIOR TO SURGERY EXCEPT THE FOLLOWING Medications to discontinue per physician Date to take last dose Please no make-up, nail latvian, hairspray, perfume, deodorant, or body powder the day of surgery.? No jewelry (including any body piercings) or valuables the day of surgery, leave them at home.? Please take a shower or bath the night before, or the morning of, surgery with an antibacterial soap.? Wear comfortable, loose fitting clothing.? - Jewelry must be removed prior to entering the operating room.? Rings and piercings that are not removed may be cut off. - The hospital will not accept responsibility for valuables.? - Please leave all valuables, including medications, at home the day of surgery. If you are going home after surgery, a licensed ice delivery driver must drive you home.? - NO public transportation without another adult if you receive anesthesia. - We recommend that an adult stay with you for 24 hours following discharge. - We also recommend that you do not drive, make important decision, drink alcoholic beverages, or take any drugs that were not prescribed by your health care provider for at least 24 hours after your discharge time. Follow any additional instructions given to you from your surgeon. Telephone instructions given to __Natalie__and asked if any additional questions and then verbalized understanding. Patient advised to call surgeon office or pre surgery nurse liaison [phone] if any additional questions.
--- NOTE | ~2025-07-16 | XR_ITS ---
XR fluoroscopy no charge Indication:left L4-5 and L5-S1 transforaminal epidural steroid injection TECHNIQUE: Fluoroscopy used during left L4-5 and L5-S1 transforaminal epidural steroid injection performed by [Paulo Hinds MD] on 07/16/2025. 57 seconds of fluoroscopy with 56 fluoroscopic images captured. FINDINGS: Correlate with procedure note. IMPRESSION: Fluoroscopy used during left L4-5 and L5-S1 transforaminal epidural steroid injection. Reviewed, dictated and finalized at location O.
--- OUTSIDE RECORDS SUMMARY | 2025-07-16 00:47 | XMS_ITS | Patient Health Record ---
Author Organization [facility] ([address]) Address [address] [place] [address] Care Team Providers Care Polisher Aluminum Name Role Phone JonasvelvetMillerFunmilayo Unavailable [phone] Reason For Referral No Information Problems Problem Type SNOMED Code ICD Code Onset Dates Problem Status W/U Status Risk Notes Problem Chronic allergic conjunctivitis (34638219) Other chronic allergic conjunctivitis (H10.45) Active confirmed Problem Allergic rhinitis caused by pollen (disorder) (79894493) Allergic rhinitis due to pollen (J30.1) Active confirmed Problem Allergic rhinitis (42625117) Other allergic rhinitis (J30.89) Active confirmed Problem Chronic rhinitis (47122794) Chronic rhinitis (J31.0) Active confirmed Problem Uncomplicated mild persistent asthma (147151971) Mild persistent asthma, uncomplicated (J45.30) Active confirmed Problem Uncomplicated moderate persistent asthma (575141220) Moderate persistent asthma, uncomplicated (J45.40) Active confirmed Problem Uncomplicated severe persistent asthma (678963944) Severe persistent asthma, uncomplicated (J45.50) Active confirmed Problem Allergic rhinitis caused by animal hair and dander (148554014773356) Allergic rhinitis due to animal (cat) (dog) hair and dander (J30.81) Active confirmed Plan Of Treatment No Information Insurance Providers Payer Name Payer Address Payer Phone Subscriber Number Group Number Insured Name Patient Relationship to Insured Coverage Start Date Coverage End Date R [address] [address] [place], [place] [id number] Natalie Ewdards ch Self - patient is the insured 4
--- OUTSIDE RECORDS SUMMARY | 2025-07-16 00:47 | XMS_ITS | Encounter Summary ---
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
--- OUTSIDE RECORDS SUMMARY | 2025-07-16 00:48 | XMS_ITS | Encounter Summary ---
Author Organization [facility] Address [facility] [place] [address] Care Team Providers Care Vba Programmer Name Role Phone Donato Wei MD Primary Care Provider U Lulu Ordonez [facility] Primary Care Provider + Encounter Details Date Type Department Care Team (Late st Contact Info) Description 01/31/2017 Abstract [facility] CONVERSION [address] [place] [address] , Generic Conversion, Social History Tobacco Use [...] on filedocumented in this encounter Care Teams Vba Programmer Relationship Specialty Start Date End Date Donato Wei MD PCP - General 12/23/16 07/17/19 Lulu Pedersen, [facility] [address] [place] [address] PCP - General NURSE PRACTITIONER 07/18/19 documented as of this encounter
--- OUTSIDE RECORDS SUMMARY | 2025-07-16 00:48 | XMS_ITS | Clinical Summary ---
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 Gender Identity Not on file Sexual Orientation Not on file Plan of Treatment Health Maintenance Due Date Last Done Comments Hepatitis C Virus (HCV) Screening 1979 Hepatitis B Immunization (1 of 3 - 19+ 3-dose series) 1998 Pap Smear 2000 Cervical Cancer Screening (CCS) 2009 HPV/Cotest 2009 Cologuard 2024 Colonoscopy 2024 Colorectal Cancer Screening 2024 Immunochemical Fecal Occult Blood 2024 Influenza Immunization (#1) 05/27/202509/26, 05/31/2017, 06/19/2016 SARS-COV-2 Immunization ( season) 2025 10/06/2020, 09/15/2020 Respiratory Syncytial Virus (RSV) Immunization [...] age to complete this topic Care Teams Surplus Property Disposal Agent Relationship Specialty Start Date End Date Donato Wei MD PCP - General Internal Medicine 09/14/18
--- OUTSIDE RECORDS SUMMARY | 2025-07-16 00:48 | XMS_ITS | Clinical Summary ---
Author Organization [facility] Address [address] [place] [address] Phone Care Team Providers Care Diversity Intern Name Role Phone [place], Lulu Ginger [facility] Primary Care Provider [phone] Allergies Active Allergy Reactions Criticality Noted Date [...] Encounters Date Type Department Care Team Description 06/29/[address] [place] [address] Rasheed Kramer MD 06/11/2025 External Device Data [facility] Provider, Abstract 05/01/2025 External Device Data [facility] Provider, Abstract 04/30/2025 External Device Data [facility] Provider, Abstract 04/30/2025 External Device Data [facility] Provider, Abstract 04/24/2025 12:15 PM CDT Video Visit [address] [place] [address] Rasheed Kramer MD Panic disorder without agoraphobia; [...] on file 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 Gender Identity Not on file Sexual Orientation Not on file Last Filed Vital Signs Vital Sign Reading Time Taken Comments Blood Pressure 138/84 11/21/2024 1:07 PM FITNESS STUDIES TEACHER Pulse 60 11/21/2024 1:07 PM FITNESS STUDIES TEACHER Temperature - - Respiratory Rate - - Oxygen Saturation 99% 11/21/2024 1:07 PM FITNESS STUDIES TEACHER Inhaled Oxygen Concentration - - Weight 90.3 kg (199 lb) 04/24/2025 12:31 PM CDT Height 160 cm (5' 3) 04/24/2025 12:31 PM CDT Body Mass Index 35.25 04/24/2025 12:31 PM CDT Plan of Treatment Upcoming Encounters Date Type Department Care Team (Late st Contact Info) Description 10/02/2025 2:30 PM FITNESS STUDIES TEACHER Video Visit [facility] [address] [facility] [place] [address] Rasheed Kramer MD [address] [facility] [place] [address] Health Maintenance Due [...] Flex Sig/CT Colonography Q 5 years 2024 INFLUENZA VACCINE (#1) 2025 COVID-19 Vaccine (2024-2 6 season) 2025 10/06/2020, 09/15/2020 DTAP/TDAP/TD VACCINES (2 - T [...] - 04/14/2021 6:08 AM CDT Performed at: [address] [id number] [employer] Operator Helper: Babar Glover PhD, Phone: [phone] Rasheed Kramer MD CHEMISTRY ORDERABLES Final Res ult [facility] [phone] from Last 3 Months or Most Recently Relevant to Health Maintenance Insurance CHOICE [id number] Care Teams Diversity Intern Relationship Specialty Start Date End Date Lulu Pedersen FNP [address] [phone] PCP - General Nurse Practitioner Family 02/12/20
--- OUTSIDE RECORDS SUMMARY | 2025-07-16 00:48 | XMS_ITS | Clinical Summary ---
Author Organization [facility] Address [address] [facility] [address] Care Team Providers Care Vp Biology Name Role Phone Rm Beverly MD Primary Care Provider [phone] Donato Wei MD Unavailable Source Comments [facility],non-owned Affiliates and Associated Physician Practices is amultiple site organization consisting of ambulatory clinics and hospital sitesin [place], [place], [place] and [place]. This disclosure is being madepursuant to the Care Everywhere program and may not contain all information available regarding this patient. 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
--- OUTSIDE RECORDS SUMMARY | 2025-07-16 00:48 | XMS_ITS | Encounter Summary ---
Author Organization [facility] Address [facility] [place] [address] Care Team Providers Care Circuits Engineer Name Role Phone Donato Wei MD Primary Care Provider U Lulu Ordonez [facility] Primary Care Provider + Encounter Details Date Type Department Care Team (Late st Contact Info) Description 02/07/2017 Abstract [facility] CONVERSION [address] [place] [address] , Generic Conversion, Social History Tobacco Use [...] on filedocumented in this encounter Care Teams Circuits Engineer Relationship Specialty Start Date End Date Donato Wei MD PCP - General 12/23/16 07/17/19 Lulu Pedersen, [facility] [address] [place] [address] PCP - General NURSE PRACTITIONER 07/18/19 documented as of this encounter
--- OUTSIDE RECORDS SUMMARY | 2025-07-16 00:48 | XMS_ITS | Encounter Summary ---
Author Organization [facility] Address [address] [place] [address] Care Team Providers Care Animal Impersonator Name Role Phone Liu Riley DO Primary Care Provider + Encounter Details Date Type Department Care Team (Latest Contact Info) Description 07/10/2025 Results Follow-Up [facility] Medical Group Primary Care at [address] [address] Liu Riley DO [facility] [address] [facility] [address] [place] [address] CBC with auto differential, Comprehensive metabolic panel, Lipid panel, Additional followed-up results: 11 Social History Tobacco Use Types Packs/Day Years Used Date Smoking Tobacco: Never Smokeless Tobacco: Never Alcohol Use Standard Drinks/Week Comments Never 0 (1 standard drink = 0.6 oz pur e alcohol) Humiliation, Afraid, Rape, and Kick questionnair e [...] and Family Twice a week 09/24/2019 Attends [employer] Services Never 09/24 Active Member of Clubs or Organizations No 09/24/2019 Attends Club or Organization Meetings Never 09/24/2019 Marital Status 09/24/2019 Overall Financial Resource Strain (CARDIA) Answe r Date Recorded Difficulty of Paying Living Expenses Somewhat chance rd 09/24/2019 PHQ-2 Answer Date Recorded PHQ-2 Total Score (If total score is 3 or more points, staff should administer the PHQ-9) 0 07/03/2025 Hunger Vital Sign Answer Date Recorded Worried About Running Out of Food in the Last Ye ar Sometimes true 09/24/2019 Ran Out of Food in the Last Year Sometimes true 09/24/2019 PRAPARE - Transportation Answer Date Re corded Lack of Transportation (Medical) No 09/24/2019 Lack of Transportation (Non-Medical) No 09/24/2019 AUDIT-C Answer Date Recorded Q1: How often do you have a drink containing alcohol? Never 07/03/2025 Q2: How many drinks containi ng alcohol do you have on a typical day when you are drinking? Patient does not drink Q3: How often do you have si x or more drinks on one occasion? 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 Triglycerides 297, we want below 150. LDL 131, we want below 100. No indication to change medication at this time. ASCVD 10 year risk of stroke or heart attack BELOW 5% (low risk). Improve triglycerides by limiting starches like white breads, excessive alcohol, fatty meats, and excessive sugar. Include unsalted nuts, seeds, or avocados. Improve LDL by reducing saturated fats found in red meat, fried foods, cookies, and cakes. Increasefoods that have Pateros 3 like salmon, ren, walnuts, and flaxseed. Increase soluble fiber with oatmeal, apples, or pears. Abstain from smoking exposure and exercise regularly. documented in this encounter Plan of Treatment Not on file documented as of this encounter Visit Diagnoses Not on filedocumented in this encounter Care Teams Animal Impersonator Relationship Specialty Start Date End Date Liu Riley DO [address] [place] [address] PCP - General Family Medicine 07/03/25 documented as of this encounter
--- OUTSIDE RECORDS SUMMARY | 2025-07-16 00:48 | XMS_ITS | Encounter Summary ---
Author Organization [facility] Healthcare Address [address] [place] [address] Care Team Providers Care Social Work Coordinator Name Role Phone Liu Riley DO Primary Care Provider + Reason for Visit * Reason Onset Date Comments Symptom Based Call 07/05/2025 Encounter Details Date Type Department Care Team ([facility] st Contact Info) Description 07/05/2025 Telephone [facility] Medical Group Primary Care at [facility] [address] [place] [address] [address] [address] Liu Riley DO [address] [facility] [address] [place] [address] Symptom Based Call Social History Tobacco Use Types Packs/Day Years [...] and Family Twice a week 09/24/2019 Attends [employer] Services Never 09/24 Active Member of Clubs [...] on file 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 Non-Emergent. Is this a new or reoccurring symptom(s)? reoccurring What have you tried to help your symptom(s)? Motrin Ice and heat Why was appointment not scheduled? Patient seeking care without an appointment; appointment was offered by [facility]. Additional Comments: patient stated that she does not see her pain doctor for some weeks Patient wanted to know if Dr Riley could send in a script for muscle relaxer's Patient stated that flexeril and robaxin dose not work Does message need to be routed? Yes-Action Needed documented in this encounter Plan of Treatment Not on file documented as of this encounter Visit Diagnoses Not on filedocumented in this encounter Care Teams Social Work Coordinator Relationship Specialty Start Date End Date Liu Riley DO [address] [facility] [address] [place] [address] PCP - General Family Medicine 07/03/25 documented as of this encounter
--- OUTSIDE RECORDS SUMMARY | 2025-07-16 00:48 | XMS_ITS | Clinical Summary ---
Author Organization [facility] Address [address] [place] [address] Care Team Providers Care Architectural Associate Name Role Phone Lulu Pedersen [facility] Primary Care Provider + Allergies Active [...] 09/26/2017 09/26/2007 Mammogram Screening 2019 COVID-19 Vaccine (3 - 2024-2 6 season) 2025 10/06/2020, 09/15/2020 Influenza Adult (#1) 2025 10/12/2017, 05/31/2017, 06/18/2016 Hepatitis C Completed 06/05/2018, 06/05/2018 Hepatitis A Vaccines Aged Out No long er eligible based [...] PM CDT COLONOSCOPY Routine 09/26/2007 12:00 AM ART CONSULTANT from Last 3 Months or Most Recently Relevant to Health Maintenance Results * HEPATITIS A,B,& C (06/05/2018 4:00 PM CDT) HEPATITIS B SURFACE AG NON-REACTIVE NON-REACT [place] 06/06/2018 8:53 PM CDT [facility] HEP B CORE TOTAL AB NON-REACTIVE NON-REACT [place] 06/06/2018 8:59 PM CDT [facility] HEP B SURFACE AB REACTIVE 06/06/2018 9:00 PM CDT [facility] HAV IGM NON-REACTIVE NON-REACT [place] 06/06/2018 8:59 PM CDT [facility] HEPATITIS C AB NON-REACTIVE NON-REACT [place] 06/06/2018 8:58 PM CDT [facility] 06/05/2018 4:00 PM CDT 06/05/2018 6:19 PM CDT us Generic Conversion Md [facility] Final R esult Performing Organization Address [facility]/ZIP Co de Phone Number [facility] [address] [place] [address], [place] [phone] * Colonoscopy (09/26/2007 12:00 AM ART CONSULTANT) 09/26/2007 09/26/2007 Narrative [facility] EPIC CONVERSION - 09/26/2007 12:00 AM ART CONSULTANT Documented hx of procedure Procedure Note Brad Pearce MD - 07/30/2018 Documented hx of procedure us Generic Conversion Md [facility] PROCEDURE ORDERABLES Final Result Performing Organization Address City/[facility]/ZIP Co de Phone Number [facility] EPIC CONVERSION from Last 3 Months or Most Recently Relevant to Health Maintenance Insurance [employer] Care Teams Architectural Associate Relationship Specialty Start Date End Date Lulu Pedersen, BED MACHINE OPERATOR- [address] [place] [address] PCP - General NURSE PRACTITIONER 07/18/19
--- OUTSIDE RECORDS SUMMARY | 2025-07-16 00:48 | XMS_ITS | Clinical Summary ---
Author Organization [facility] Address [address] [place] [address] Care Team Providers Care Health Record Technician Name Role Phone Isaiahsam Liu Buchanan DO Primary Care Provider + Allergies Active Allergy Reactions Criticality Noted Date Comments Codeine Itching,Rash Reaction: Itching, Rash, Levofloxacin Rash Medium 04/09/2024 Lisinopril Cough Low 06/21/2024 Morphine Hives Medium 12/11/2024 Penicillins Itching,Rash Reaction: Itching, Rash, Phenazopyridine Nausea only Medium 04/09/2024 Vancomycin Hives,Itching,Rash High Reaction: Hives, Itching, Rash, Medications PARoxetine (PAXIL) 40 mg tabletIndicatio ns:Anxiety with Depression Take 1 tablet (40 mg total) by mouth every morning 03/06/20 23 Active levothyroxine (SYNTHROID) 75 mcg tabletIndicatio ns:hypothyroidi sm Take 1 tablet (75 mcg total) by mouth insurance producer before breakfast 09/26/18 70 Active LORazepam (ATIVAN) 0.5 mg tablet Take 1 tablet (0.5 mg total) by mouth 3 (three) times a day as needed for anxiety 02/23/20 23 Active gabapentin (NEURONTIN) 300 mg capsuleIndicati ons:Neuropathic Pain Take 3 capsules (900 mg total) by mouth nightly 09/21/20 23 Active traZODone (DESYREL) 100 mg tablet Take 1 tablet (100 mg total) by mouth nightly as needed for sleep 09/21/20 23 Active Rinvoq 15 mg tablet extended release 24 hrIndications:R heumatoid Arthritis Take 1 tablet (15 mg total) by mouth every morning 06/12/20 24 Active cyanocobalamin (Vitamin B-12) 1,000 mcg tablet Take 1 tablet (1,000 mcg total) by mouth every morning 06/28/20 22 Active ergocalciferol (VITAMIN D) 50,000 unit capsule TAKE 1 CAP 2 X A WEEK FOR 8 WEEKS THEN FOLLOW UP WITH YOUR PCP. 16 capsule 12/13/19 25 Active acetaminophen (TYLENOL) 500 mg tablet Take 2 tablets (1,000 mg total) by mouth every 8 (eight) hours 90 tablet 1 01/11/20 25 Active aspirin 81 mg enteric coated tabletIndicatio ns:prevention of thrombosis Take 1 tablet (81 mg total) by mouth 2 (two) times a day 60 tablet 01/11/20 25 Active cyclobenzaprine (FLEXERIL) 10 mg tablet Take 1 tablet (10 mg total) by mouth 3 (three) times a day as needed for muscle spasms 30 tablet 01/25/20 25 Active chlorthalidone (HYGROTON) 25 mg tablet Take 1 tablet (25 mg total) by mouth daily 02/05/20 25 Active metoprolol XL (TOPROL-XL) 50 mg extended release tabletIndicatio ns:Paroxysmal atrial fibrillation (HCC) TAKE 1 TABLET BY MOUTH IN THE MORNING 30 tablet 3 06/03/20 25 Active irbesartan (AVAPRO) 150 mg tablet Take 1 tablet (150 mg total) by mouth 2 (two) times a day Active Xiidra 5 % dropperette Administer 0.1 each (1 drop total) into both eyes as needed (dry eye) 06/12/20 24 025 Discontinued(T herapy completed) losartan (COZAAR) 100 mg tabletIndicatio ns:Essential hypertension Take 1 tablet (100 mg total) by mouth daily 30 tablet 11 09/17/20 24 025 Discontinued psyllium 0.52 gram capsule Take 1 capsule (0.52 g total) by mouth every morning 025 Discontinued(T herapy completed) traMADoL (ULTRAM) 50 mg tablet Take 1 tablet (50 mg total) by mouth every 8 (eight) hours as needed for pain 42 tablet 01/11/20 25 025 Discontinued(T herapy completed) meloxicam (MOBIC) 15 mg tablet Take 1 tablet (15 mg total) by mouth daily 30 tablet 01/11/20 25 025 Discontinued(T herapy completed) pantoprazole DR (PROTONIX) 20 mg EC tablet Take 1 tablet (20 mg total) by mouth daily 30 tablet 01/11/20 25 025 Discontinued(T herapy completed) senna-docusate (Senna-S) 8.6-50 mg Take 2 tablets by mouth 2 (two) times a day 80 tablet 1 01/11/20 025 Discontinued(T herapy completed) HYDROmorphone (DILAUDID) 2 mg tabletIndicatio ns:Pain Take 1-2 tablets (2-4 mg total) by mouth every 4 (four) hours as needed for pain 42 tablet 01/19/20 25 025 Discontinued triamcinolone (KENALOG) 0.1 % creamIndication s:Rash and other nonspecific skin eruption Apply topically 2 (two) times a day 30 g 01/22/20 025 Discontinued(T herapy completed) HYDROcodone-karlee taminophen (NORCO) 5-325 mg per tabletIndicatio ns:Pain Take 1 tablet by mouth every 6 (six) hours as needed for pain 40 tablet 02/05/20 25 025 Discontinued Hospital, Clinic, or Other Facility Administered Medication Ordered Dose Route Frequency Start Date End Date Status dexAMETHasone (DECADRON) injection solution 4 mgIndications:Chron ic left-sided low back pain with left-sided sciatica 4 mg IM Every 6 hours scheduled 07/03/2025 Active ketorolac (TORADOL) 60 mg/2 mL intramuscular injection 30 mgIndications:Chron ic left-sided low back pain with left-sided sciatica 30 mg IM Once 07/03/2025 07/03/20 2 5 Ended dexAMETHasone (DECADRON) 4 mg/mL injection 4 mgIndications:Chron ic left-sided low back pain with left-sided sciatica 4 mg IV Once 07/03/2025 07/03/20 2 5 Discontinued dexAMETHasone (DECADRON) 4 mg/mL injection 4 mgIndications:Chron ic left-sided low back pain with left-sided sciatica 4 mg IM Once 07/03/2025 07/03/20 2 5 Discontinued dexAMETHasone (DECADRON) injection solution 4 mgIndications:Chron ic left-sided low back pain with left-sided sciatica 4 mg IV Every 6 hours scheduled 07/03/2025 5 Discontinued Active Problems Problem Noted Date Diagnosed Date Arthropathic psoriasis, unspecified 07/03/2025 Assessment & Plan (07/03/2025 2:00 PM CDT): Stable chronic condition. Improved after starting Rinvoq. No acute concerns at this time. This condition is managed by a specialist. Relevant labs not indicated at this time. No imaging indicated at this time. - CONTINUE current prescribed therapy of Rinvoq. - Monitor clinically. Primary insomnia 07/03/2025 Assessment & Plan (07/03/2025 2:00 PM CDT): Chronic intermittent condition. 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 No acute concerns at this time. This condition is managed by a specialist. - CONTINUE current prescribed therapy of PRN trazodone. - Monitor clinically. B12 deficiency 07/03/2025 Assessment & Plan (07/03/2025 2:00 PM CDT): Chronic condition. No acute concerns. We will follow up labs and advise accordingly. - Continue current regimen of B12 supplementation. - Monitor clinically. Vitamin D deficiency 07/03/2025 Assessment & Plan (07/03/2025 2:00 PM CDT): Chronic condition. No acute concerns. We will follow up labs and advise accordingly. - Continue current regimen of Vitamin D supplementation. - Monitor clinically. Rheumatoid arthritis of [facility] sites with negative rheumatoid factor 07/03/2025 Assessment & Plan (07/03/2025 2:00 PM CDT): Stable chronic condition. Last bloodwork showed Rheumatoid factor just under threshold No acute concerns at this time. This condition is managed by Rheum. Relevant labs not indicated at this time. No imaging indicated at this time. - CONTINUE current prescribed therapy of Rinvoq. - Monitor clinically. - Follow up with specialist on this issue. Encounter to establish care with new doctor 04/2025 Assessment & Plan (07/03/2025 2:00 PM CDT): New patient encounter. Relevant available labs, studies, and charts reviewed. No critical concerns identified on initial review. Hyperglycemia - 202307/03/2025 Assessment & Plan (07/03/2025 4:42 PM CDT): Elevated bgl on previous lab. Will obtain A1c and follow up. - Monitor clinically. Orders: Hemoglobin A1c; Future Comprehensive metabolic panel; Future Chronic left-sided low back pain with left-sided sciatica 07/03/2025 Assessment & Plan (07/03/2025 4:42 PM CDT): Chronic left-sided low back pain with sciatica, exacerbated over two weeks. Hx of left hip replacement. MRI shows mild bulging disc at L4-L5, L5-S1. Pain affects sleep and daily activities. - Administer Toradol and dexamethasone injections for pain relief. 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 Orders: ketorolac (TORADOL) 60 mg/2 mL intramuscular injection 30 mg dexAMETHasone (DECADRON) injection solution 4 mg Annual visit for general lupe lt medical examination with abnormal findings 07/03/2025 Assessment & Plan (07/03/2025 4:42 PM CDT): Routine adult wellness visit for a 45-year-old female. Discussed general health maintenance and screenings. - Order Cologuard for colorectal cancer screening. - Confirm last mammogram was in February 2025 at [facility]. - No Pap smear needed due to hysterectomy in 2022. - Administer flu shot when available at work. S/P total left hip arthroplasty 08/21/2024 Assessment & Plan (07/03/2025 4:42 PM CDT): See above. Severe obesity 06/21/2024 Assessment & Plan (07/03/2025 4:42 PM CDT): Obesity with recent weight loss of 23 pounds since the beginning of the year. Following a calorie deficit and Mediterranean diet. BMI Follow-up includes: nutrition counseling, exercise counseling, and education provided. Sacroiliitis 11/04/2023 Neuropathy 03/16/2023 Essential hypertension 11/30/2022 Assessment & Plan (07/03/2025 2:00 PM CDT): BP Readings from Last 3 Encounters: 07/03/25 117/77 02/13/25 118/76 01/10/25 (!) 176/81 Chronic condition. This condition is managed by Cardiology. BP at goal. No acute concerns at this time. We will follow up labs and advise accordingly. - CONTINUE current prescribed therapy of Irbesartan, metoprolol and chlorthalidone. - Monitor clinically. - Follow up with specialist on this issue. Hyperlipidemia 12/17/2021 Assessment & Plan (07/03/2025 2:00 PM CDT): Last Lipid Labs: Lab Results Component Value Date CHOL 183 09/22/2019 TRIG 205 (H) 09/22/2019 HDL 45 09/22/2019 LDLCALC 97 09/22/2019 CHOLHDL 4 09/22/2019 Stable chronic condition. Managed with diet currently. No acute concerns at this time. We will follow up labs and advise accordingly. - No indication to start medication at today's visit. - Monitor clinically. - Advise healthy diet and exercise as tolerated. Hypothyroidism 12/17/2021 Assessment & Plan (07/03/2025 2:00 PM CDT): Lab Results Component Value Date TSH 1.15 09/22/2019 Chronic condition. This condition is managed by PCP. No acute concerns at this time. Has palpitations if she does not take metoprolol. We will follow up labs and advise accordingly. - - CONTINUE current prescribed therapy of Synthroid. - Monitor clinically. History of genital warts 11/24/2021 Assessment & Plan (07/03/2025 2:00 PM CDT): Historical information noted for context/medical decision making. No interventions indicated. No acute concerns. Bipolar I disorder 09/23/2019 Assessment & Plan (07/03/2025 2:00 PM CDT): Stable chronic condition. Managed by outside provider. Patient does NOT currently see counselor. Well controlled on current therapy. No acute concerns. Last episode was manic in 2017. - CONTINUE current prescribed therapy of Paxil and PRN Ativan. - Monitor clinically. - Follow up with specialist on this issue. 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 She has an outpatient psychiatrist in [place], [place] Dr. Kramer and has been tried [...] wake up. She has never been on Olivette because she was scared of the side effects, but is now amenable to it. Plan is to start Olivette ER 600mg at bedtime. D/c latuda. Continue [...] care. Plantar fasciitis of left foot 09/13/2018 Assessment & Plan (07/03/2025 2:00 PM CDT): Improved chronic condition with better shoes. No acute concerns at this time. This condition is managed by Podiatry. No imaging indicated at this time. - No indication to start medication at today's visit. - Monitor clinically. - Follow up with specialist on this issue. Small fiber neuropathy 02/05/2016 Assessment & Plan (07/03/2025 2:00 PM CDT): Chronic intermittent condition. Gets zaps in skin but well managed with gabapentin Rx by Psychiatry. No acute concerns at this time. This condition is managed by a specialist. Relevant labs not indicated at this time. - CONTINUE current prescribed therapy of PRN gabapentin. - Monitor clinically. Resolved Problems Problem Noted Date Diagnosed Date Resolved Date Leukocytosis 11/03/2022 07/03/2025 Gastroesophageal reflux dise ase without esophagitis 03/01/2022 07/03/2025 Obesity 03/04/2020 07/03/2025 Encounters Date Type Department Care Team Description 07/10/2025 Results Follow-Up [facility] at [address] [place] [id number] Liu Riley DO CBC with auto differential, Comprehensive metabolic panel, Lipid panel, Additional followed-up results: 11 07/05/2025 Telephone [facility] at [address] [place] [id number] Liu Riley DO Symptom Based Call 07/03/2025 4:12 PM CDT - 07/03/2025 11:59 PM CDT Hospital Encounter [facility] [address] [address] [place] [address] Discharge Disposition: Discharge to home or self care 07/03/2025 1:30 PM CDT Office Visit [facility] at [address] [place] [id number] Liu Riley DO Encounter to establish care with new doctor (Primary Dx); Annual visit for general adult medical examination with abnormal findings; Severe obesity (HCC); Bipolar I disorder (HCC); Rheumatoid arthritis of multiple sites with negative rheumatoid factor (HCC); Arthropathic psoriasis, unspecified ([facility]); Small fiber neuropathy; Essential hypertension; Mixed hyperlipidemia; Acquired hypothyroidism; History of genital warts; Chronic left-sided low back pain with left-sided sciatica; S/P total left hip arthroplasty; Plantar fasciitis of left foot; Primary insomnia; Vitamin D deficiency; B12 deficiency; Hyperglycemia - 2023; Screening for colon cancer; Screening for viral disease 06/28/2025 3:31 PM CDT - 06/28/2025 11:59 PM CDT Hospital Encounter [facility] [address] [place] [address] Spinal stenosis, lumbar region, without neurogenic claudication; Spondylosis without myelopathy or radiculopathy, lumbar region; Radiculopathy, lumbar region; Myalgia, other site; Dorsalgia Discharge Disposition: Discharge to home or self care 06/03/2025 Telephone [facility] Card[facility] [address] [place] [address] Nirmala Callahan NP Med Refill 05/24/2025 3:15 PM CDT - 05/24/2025 11:59 PM CDT Hospital Encounter [facility] Diagnostic Imaging [address] [place] [id number] Low back pain, unspecified back pain laterality, unspecified chronicity, unspecified whether sciatica present; Arthralgia, unspecified joint; Other malaise; Myalgia, unspecified site Discharge Disposition: Discharge to home or self care from Last 3 Months Surgical History Surgery [...] Small fiber neuropathy GERD (gastroesophageal reflux disease) Gastroesophageal reflux disease without esophagi tis 03/01/2022 Family History Medical History Relation Name Comments [...] Not Answered Alcohol Use Standard Drinks/Week Comments Never 0 [...] and Family Twice a week 09/24/2019 Attends [employer] Never 09/24 Active Member of Clubs [...] on file Legal Sex 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 Gender Identity Not on file Sexual Orientation Not on file Obstetrics History Last Filed Vital Signs Vital Sign Reading Time Taken Comments Blood Pressure 117/77 07/03/2025 1:22 PM CDT Pulse 68 07/03/2025 1:22 PM CDT Temperature 36.7 C (98 F) 07/03/2025 1:22 PM CDT Respiratory Rate 18 07/03/2025 1:22 PM CDT Oxygen Saturation 99% 07/03/2025 1:22 PM CDT Inhaled Oxygen Concentration - - Weight 93 kg (205 lb) 07/03/2025 1:22 PM CDT Height 160 cm (5' 2.99) 07/03/2025 1:22 PM CDT Body Mass Index 36.32 07/03/2025 1:22 PM CDT Plan of Treatment Health Maintenance Due Date Last Done Comments Breast Cancer Screening-Mammogram 1979 Colon Cancer Screening-Colonoscopy 1979 Hepatitis B Screening 1997 Pneumococcal vaccine <65 (1 of 2 - PCV) 1998 Covid-19 Vaccine (3 - 2024-2 6 season) 2025 10/06/2020, 09/15/2020 Influenza Vaccine (#1) 2025 8, 05/31/2017, 06/19/2016 Depression Screening 07/03/2026 07/03/2025 Regular Well Visit/Exam 18-64 07/03/2026 07/03/2025 DTaP/Tdap/Td Vaccine (3 - Td or Tdap) 03/16/2033 03/16/2023, 06/15/2016 Hepatitis C Screening Completed 07/03/2025 HPV Vaccines Aged Out No longer eligi ble based on patient's age to complete this topic Medical Devices Implanted Type 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 Device Identifier Shelf Expiration Date Model / Serial / Lot [employer] Bi Mentum 47mm Press Fit Femoral Proximal Cup Acetabular [id number] - [id number] Implanted:Qty: 1 on 01/10/2025 at [facility] Left: Hip [employer] 05/26/2028 [id number] / / [id number] [employer] Liner Acetabular Hip Bi Mentum Altrx 47mm Polyethylene Size 28 [id number] - [id number] Implanted:Qty: 1 on 01/10/2025 at [facility] Left: Hip [employer] 09/25/2029 [id number] / / [id number] [employer] Articul/Eric 28mm Cementless Hip +1.5mm 12/14 Taper Head Femoral Latex Free [id number] - [id number] Implanted:Qty: 1 on 01/10/2025 at [facility] Left: Hip [employer] 11/23/2029 [id number] / / [id number] [employer] Actis 105mm Collar Hip 5 High Offset Stem Femoral [id number] - [id number] Implanted:Qty: 1 on 01/10/2025 at [facility] Left: Hip [employer] 10/26/2034 [id number] / / [id number] Procedures Procedure Name Priority Date/Time Associated Diagnosis Comments EGFR Routine 07/03/2025 2:08 PM CDT Essential hypertension Hyperglycemia - 2023 DIFFERENTIAL AUTO Routine 07/03/2025 2:0 8 PM CDT Essential hypertension VITAMIN B12 Routine 07/03/2025 2:08 PM CDT B12 deficiency FOLATE Routine 07/03/2025 2:08 PM CDT B12 deficiency T3, FREE Routine 07/03/2025 2:08 PM CDT Essential hypertension T4, FREE Routine 07/03/2025 2:08 PM CDT Essential hypertension TSH Routine 07/03/2025 2:08 PM CDT Essential hypertension VITAMIN D 25 HYDROXY Routine 07/03/2025 2:08 PM CDT Vitamin D deficiency HEMOGLOBIN A1C Routine 07/03/2025 2:08 PM CDT Hyperglycemia - 2023 LIPID PANEL Routine 07/03/2025 2:08 PM CDT Mixed hyperlipidemia COMPREHENSIVE METABOLIC PANEL Routine 07/03/2025 2:08 PM CDT Essential hypertension - 2023 CBC WITH AUTO DIFFERENTIAL Routine 07/03/2025 2:08 PM CDT Essential hypertension HEPATITIS C ANTIBODY Routine 07/03/2025 2:08 PM CDT Screening for viral disease HEPATITIS B SURFACE ANTIBODY (IMMUNE STATUS) Routine 07/03/2025 2:08 PM CDT Screening for viral disease MRI LUMBAR SPINE WO CONTRAST Schedule Routine, Read Routine (OP Routine) 06/28/2025 4:18 PM CDT Spinal stenosis, lumbar region, without neurogenic claudication Spondylosis without myelopathy or radiculopathy, lumbar region Radiculopathy, lumbar region Myalgia, other site Dorsalgia XR SACROILIAC JOINTS 3 OR MORE VIEWS Schedule Routine, Read Routine (OP Routine) 05/24/2025 3:29 PM CDT Low back pain, unspecified back pain laterality, unspecified chronicity, unspecified whether sciatica present Arthralgia, unspecified joint Other malaise Myalgia, unspecified site from Last 3 Months Results * eGFR (07/03/2025 2:08 PM CDT) eGFR 74 >=60 mL/min/1. 73 m2 Comment: Interpretive Data [...] of Race in Diagnosing Kidney Disease, JASN 202). The CKD-EPI equation should not be used for patients with unstable renal function and has not been validated in children and those over 70. Current interpretive data was last reviewed 2021. Blood 07/03/2025 2:08 PM CDT 07/03/2025 3:33 PM CDT us Liu Riley DO LAB BLOOD ORDERABLES Fin al Result [facility] [address] [address] [address] * (ABNORMAL) Differential, auto (07/03/2025 2:08 PM CDT) Neutrophil abs 5.30 1.50 - 6.50 K/cumm Imm gran abs 0.03 0.00 - 0.10 K/cumm [facility] Lymphocyte abs 3.59(H) 0.80 - 3.30 K/cumm [facility] Monocyte abs 0.59 0.20 - 0.80 K/cumm [facility] Eosinophil abs 0.11 0.00 - 0.50 K/cumm [facility] Basophil abs 0.07 0.00 - 0.10 K/cumm [facility] Neutrophil pct 54.8 % [facility] Comment: Interpretive Data Percent cell count reference ranges are not reported, since discordance with absolute values may lead to misinterpretation of CBC data. Current Interpretive Data was last revised on 2018. Imm gran pct 0.3 % [facility] Comment: Interpretive Data Percent cell count reference ranges are not reported, since discordance with absolute values may lead to misinterpretation of CBC data. Current Interpretive Data was last revised on 2018. Lymphocyte pct 37.0 % [facility] Comment: Interpretive Data Percent cell count reference ranges are not reported, since discordance with absolute values may lead to misinterpretation of CBC data. Current Interpretive Data was last revised on 2018. Monocyte pct 6.1 % [facility] Comment: Interpretive Data Percent cell count reference ranges are not reported, since discordance with absolute values may lead to misinterpretation of CBC data. Current Interpretive Data was last revised on 2018. Eosinophil pct 1.1 % [facility] Comment: Interpretive Data Percent cell count reference ranges are not reported, since discordance with absolute values may lead to misinterpretation of CBC data. Current Interpretive Data was last revised on 2018. Basophil pct 0.7 % [facility] Comment: Interpretive Data Percent cell count reference ranges are not reported, since discordance with absolute values may lead to misinterpretation of CBC data. Current Interpretive Data was last revised on 2018. Blood 07/03/2025 2:08 PM CDT 07/03/2025 3:33 PM CDT us Liu Riley DO LAB BLOOD ORDERABLES Fin al Result [facility] [address] [address] [address] * CBC with auto differential (07/03/2025 2:08 PM CDT) WBC 9.69 3.80 - 9.90 K/cumm Hgb 14.0 11.9 - 15.5 g/dL [facility] Hct 42.2 35.6 - 45.5 % [facility] Plt 332 150 - 400 K/cumm [facility] MPV 10.0 9.1 - 12.3 fL [facility] RBC 4.61 3.90 - 5.20 M/cumm [facility] MCV 91.5 81.3 - 96.4 fL [facility] MCH 30.4 27.1 - 33.3 pg [facility] MCHC 33.2 32.3 - 35.7 g/dL [facility] RDW CV 13.9 11.1 - 14.9 % [facility] RDW SD 46.5 35.7 - 48.1 fL [facility] NRBC abs 0.00 0.00 - 0.01 K/cumm [facility] Blood 07/03/2025 2:08 PM CDT 07/03/2025 3:33 PM CDT Liu Riley DO LAB BLOOD ORDERABLES Fin al Result Performing Organization Address [facility] de Phone Number [facility] [address] [facility] [place] [address] * Hepatitis C antibody Blood (07/03/2025 2:08 PM CDT) Hep C Ab Nonreactive Nonreactive Comment: Interpretive Data Nonreactive: Antibodies to HCV not detected. Does NOT exclude the possibility of recent exposure to HCV. Equivocal: Equivocal for HCV antibodies. Supplemental molecular testing will be automatically performed to determine infection status in accordance with current CDC screening recommendations. Reactive: Positive for HCV antibodies. This may represent current or past HCV infection. Supplemental molecular testing will be automatically performed to determine current infection status in accordance with current CDC screening recommendations. Interpretive data was last revised on 2019. Testing performed by: [facility], [facility] [facility], [place]., [address] Blood 07/03/2025 2:08 PM CDT 07/03/2025 7:29 PM CDT Liu Riley DO LAB MICROBIOLOGY - GENER AL ORDERABLES Final Result Performing Organization Address [facility] de Phone Number [facility] [address] [facility] [place] [address] * Vitamin D 25 hydroxy (07/03/2025 2:08 PM CDT) Pathologist [facility] Vitamin D 25-OH 75 30 - 80 ng/mL Blood 07/03/2025 2:08 PM CDT 07/03/2025 3:33 PM CDT Liu Riley DO LAB BLOOD ORDERABLES Fin al Result Performing Organization Address [facility] [facility] [[email or web address]] Co de Phone Number EMMA MOCTEZUMACH [phone] [employer] [place] [address] * Hepatitis B surface antibody (immune status) Blood (07/03/2025 2:08 PM CDT) HBsAb (immune status) Nonreactive Comment: This result is consistent with a lack of immunity to Hepatitis B Virus when used in the setting of routine screening. Current interpretative data was last revised on 22 Testing performed by: [facility], [address] [place]., [address] Blood 07/03/2025 2:08 PM CDT 07/03/2025 6:53 PM CDT Liu Riley DO LAB MICROBIOLOGY - GENER AL ORDERABLES Final Result Performing Organization Address [facility] [[email or web address]] Co de Phone Number [facility] [address] [employer] [place] [address] * T3, free (07/03/2025 2:08 PM CDT) Free T3 2.6 2.0 - 4.4 pg/mL Comment:Testing performed by : [facility], [facility] [facility], [place]., [address] Blood 07/03/2025 2:08 PM CDT 07/03/2025 7:29 PM CDT Liu Riley DO LAB BLOOD ORDERABLES Fin al Result Performing Organization Address City/[facility] [[email or web address]] Co de Phone Number EMMA BJWCH [phone] [employer] [place] [address] * TSH (07/03/2025 2:08 PM CDT) Thyroid Stimulating Hormone 1.25 0.30 - 4.20 mcIUnit/mL Blood 07/03/2025 2:08 PM CDT 07/03/2025 3:33 PM CDT Liu Riley LAB BLOOD ORDERABLES Fin al Result Performing Organization Address [facility] de Phone Number [facility] [address] [address] [employer] [facility] [place] [address] * T4, free (07/03/2025 2:08 PM CDT) [facility] Free T4 0.91 0.90 - 1.70 ng/dL Blood 07/03/2025 2:08 PM CDT 07/03/2025 3:33 PM CDT [facility] LAB BLOOD ORDERABLES Fin al Result Performing Organization Address [facility] Phone Number [facility] [phone] [address] [facility] [place] [address] * Hemoglobin A1c (07/03/2025 2:08 PM CDT) [facility] Hgb A1C 5.0 4.0 - 5.6 % Estimated Average Glucose 97 mg/dL EMMA GREEN Comment: The ADA recommends reporting an estimated Average Glucose (eAG) with all Hemoglobin A1c results using the equation derived from a study of 507 normal and diabetic adults. Minority populations were underrepresented and children were not included. (Diabetes Care 31:5829-6992, 2008). The eAG is not equivalent to a fasting glucose. Blood 07/03/2025 2:08 PM CDT 07/03/2025 3:33 PM CDT Liu Riley LAB BLOOD ORDERABLES Fin al Result Performing Organization Address [facility] de Phone Number EMMA MOCTEZUMACH [phone] [address] [facility] [place] [address] * Folate (07/03/2025 2:08 PM CDT) Folic acid 22.1 >=5.0 ng/mL Comment:Testing performed by : [facility], [address] [place] [address]., [address] Blood 07/03/2025 2:08 PM CDT 07/03/2025 7:29 PM CDT Liu Colonjohn [facility] DO LAB BLOOD ORDERABLES Fin al Result Performing Organization Address [facility] de Phone Number [facility] [phone] [facility] [place] [address] * Vitamin B12 (07/03/2025 2:08 PM CDT) Pathologist [facility] Vitamin B12 671 230 - 1,250 pg/mL Comment:Testing performed by : [facility], [address] [place] [address]., [id number] Blood 07/03/2025 2:08 PM CDT 07/03/2025 7:29 PM CDT Liu Morrisonbrittany Coloncornell[facility] LAB BLOOD ORDERABLES Fin al Result Performing Organization Address [facility] de Phone Number [facility] [address] [facility] [place] [address] * (ABNORMAL) Lipid panel (07/03/2025 2:08 PM CDT) Pathologist [facility] Cholesterol 227(H) 30 - 199 mg/dL Comment: Interpretive Data Ages < or = 19 years Acceptable: <170 mg/dL Borderline high: 170-199 mg/dL High: >or= 200 mg/dL Ages > or = 20 years Desirable: <200 mg/dL Borderline high: 200-239 mg/dL High: >or= 240 mg/dL Literature References: 1. Expert Panel on Integrated Guidelines for Cardiovascular Health and Risk Reduction in Children and Adolescents. Pediatrics 2011;128:S213 2. NCEP Expert Panel. Circulation 2004;110:227 Current Interpretive Data was last revised on 2018. Triglycerides 297(H) <=149 mg/dL EMMA GREEN Comment: Interpretive Data Ages < or = 9 years Acceptable: <75 mg/dL Borderline high: 75-99 mg/dL High: >or= 100 mg/dL Ages 10 to 20 years Acceptable: <90 mg/dL Borderline high: 90-129 mg/dL High: >or= 130 mg/dL Ages > or = 20 years Desirable: <150 mg/dL Borderline high: 150-199 mg/dL High: 200-499 mg/dL Very high: >or= 499 mg/dL Literature References: 1. Expert Panel on Integrated Guidelines for Cardiovascular Health and Risk Reduction in Children and Adolescents. Pediatrics 2011;128:S213 2. NCEP Expert Panel. Circulation 2004;110:227 Current Interpretive Data was last revised on 2018. HDL 43 >=40 mg/dL EMMA GREEN Comment: Interpretive Data Ages < or = 19 years Acceptable: >45 mg/dL Borderline low: 40-45 mg/dL Low: <40 mg/dL Ages > or = 20 years Desirable: >or= 60 mg/dL Low: <40 mg/dL Literature References: 1. Expert Panel on Integrated Guidelines for Cardiovascular Health and Risk Reduction in Children and Adolescents. Pediatrics 2011;128:S213 2. NCEP Expert Panel. Circulation 2004;110:227 Current Interpretive Data was last revised on 2018. LDL, calculated 131(H) <=129 mg/dL EMMA GREEN Comment: Interpretive Data Ages < or = 19 years Acceptable: <110 mg/dL Borderline high: 110-129 mg/dL High: >or= 130 mg/dL Ages > or = 20 years Optimal: <100 mg/dL Near optimal: 100-129 mg/dL Borderline high: 130-159 mg/dL High: >160 mg/dL Calculated using the Carlo LDL-C estimating equation. This equation was implemented on 2024. Prior to this date LDL-C was estimated using the Friedewald equation. Literature References: 1. Expert Panel on Integrated Guidelines for Cardiovascular Health and Risk Reduction in Children and Adolescents. Pediatrics 2011;128:S213 2. NCEP Expert Panel. Circulation 2004;110:227 3. Carlo Salter et al. SETH Cardiol. 2020 January 24;5(5):540-548. doi: 10.1001/jamacardio.2020.0013 Current Interpretive Data was last revised on 2024. Non-HDL Cholesterol 184 mg/dL [facility] Comment: Interpretive Data Ages < or = 19 years Acceptable: <120 mg/dL Borderline high: 120-144 mg/dL High: >145 mg/dL Ages > or = 20 years When triglycerides are >200 mg/dL, Non-HDL cholesterol is a secondary target of therapy with treatment goals that are 30 mg/dL greater than the LDL cholesterol target. Literature References: 1. Expert Panel on Integrated Guidelines for Cardiovascular Health and Risk Reduction in Children and Adolescents. Pediatrics 2011;128:S213 2. NCEP Expert Panel. Circulation 2004;110:227 Current Interpretive Data was last revised on 2018. Chol/HDL ratio 5 [facility] Blood 07/03/2025 2:08 PM CDT 07/03/2025 3:33 PM CDT Liu Riley DO LAB BLOOD ORDERABLES Fin al Result [facility] [address] [address] [address] * (ABNORMAL) Comprehensive metabolic panel (07/03/2025 2:08 PM CDT) Sodium 141 135 - 145 mmol/L Potassium, pl 4.5 3.3 - 4.9 mmol/L [facility] Chloride 106 97 - 110 mmol/L [facility] CO2 24 22 - 32 mmol/L [facility] Anion gap 12 2 - 15 mmol/L [facility] BUN 15 6 - 25 mg/dL [facility] Creatinine 0.96 0.60 - 1.10 mg/dL [facility] Glucose 94 70 - 199 mg/dL [facility] Comment: Interpretive Data Fasting glucose >/= [...] - 10.3 mg/dL [facility] Bilirubin, total 0.8 0.1 - 1.2 mg/dL [facility] Protein, pl 7.0 6.5 - 8.5 g/dL [facility] Albumin 4.4 3.5 - 5.0 g/dL [facility] Alk phos 39(L) 40 - 130 Units/L [facility] ALT 20 7 - 45 Units/L [facility] AST 15 10 - 45 Units/L [facility] Blood 07/03/2025 2:08 PM CDT 07/03/2025 3:33 PM CDT Liu Riley DO LAB BLOOD ORDERABLES Fin al Result EMMA MOYACH [address] [address] [address] * MRI Lumbar Spine WO Contrast (06/28/2025 4:18 PM CDT) Anatomical Region Laterality Modality Spine N/A Magnetic Resonan ce 06/30/2025 9:09 AM CDT Narrative 06/30/2025 9:59 AM CDT EXAM DESCRIPTION: MRI LUMBAR SPINE WO CONTRAST REASON FOR STUDY: m48.061, m47.816, m54.16, m79.18, m54.9 Chronic LBP x 10 years, no injury or sx, let glute and hip pain, no leg pain TECHNIQUE: Sagittal and Axial imaging includes T1, T2, STIR sequences. COMPARISON: None available. FINDINGS: SEGMENTATION: For the purpose of the dictation assumption is made for [place] [address], image 3 to be labeled L5-S1. ALIGNMENT: Anterior-posterior alignment is maintained. VERTEBRAE: No acute compression fracture in the lumbar spine. Mild endplate degenerative changes. The L3-L4 through L5-S1 facet joint variable extent STIR hyperintense signal can be seen with synovitis in the proper clinical scenario. Rounded T1 and T2 hyperintense foci including in the L1 and L3 vertebral bodies in keeping with intraosseous hemangiomas and/or focal fatty marrow. DISC HEIGHT: Mild disc desiccation and height loss. HARDWARE: None in the spine. CORD/CAUDA: Conus medullaris terminates at L2. LOWER THORACIC: Incompletely imaged. No high-grade spinal canal stenosis. INDIVIDUAL DISC LEVELS: L1-L2: No significant disc bulge, spinal canal or neural foraminal narrowing. L2-L3: No significant disc bulge, spinal canal or neural foraminal narrowing. L3-L4: No significant disc bulge, spinal canal or neural foraminal narrowing. L4-L5: Mild disc bulge with thickened ligamentum flavum and facet arthropathy. Flattening of the ventral thecal sac. No significant neural foraminal narrowing. L5-S1: Disc bulge and a superimposed tiny central/left subarticular disc protrusion with annular fissure approaching the descending left S1 nerve root. Bilateral facet arthropathy. No significant spinal canal stenosis. Mild proximal left and no significant right neural foraminal narrowing. IMPRESSION: 1. Lower lumbar predominant mild disc degeneration with thickened ligamentum flavum and facet arthropathy as described. The lumbar spinal canal is patent. 2. Neural foraminal narrowing and other findings as above. 3. Previous lumbar spine imaging is not available for comparison. THIS IS AN ELECTRONICALLY VERIFIED FINAL REPORT 06/30/2025 9:59 AM - Electronically signed by Elier CLIFTON T: Report ID: [id number] Reading Location: [id number] Procedure Note Elier Carbajal, DO - 06/30/2025 EXAM DESCRIPTION: MRI LUMBAR SPINE WO CONTRAST REASON FOR STUDY: m48.061, m47.816, m54.16, m79.18, m54.9 Chronic LBP x 10 years, no injury or sx, let glute and hip pain, no legpain TECHNIQUE: Sagittal and Axial imaging includes T1, T2, STIR sequences. COMPARISON: None available. FINDINGS: SEGMENTATION: For the purpose of the dictation assumption ismade for [place] [address], image 3 to be labeled L5-S1. ALIGNMENT: Anterior-posterior alignment is maintained. VERTEBRAE: No acute compression fracture in the lumbar spine. Mildendplate degenerative changes. The L3-L4 through L5-S1 facet joint variable extent STIR hyperintense signal can be seen with synovitis in the proper clinical scenario. Rounded T1 and T2 hyperintense foci including in the L1 and L3 vertebral bodies in keeping with intraosseous hemangiomas and/or focalfatty marrow. DISC HEIGHT: Mild disc desiccation and height loss. HARDWARE: None in the spine. CORD/CAUDA: Conus medullaris terminates at L2. LOWER THORACIC: Incompletely imaged. No high-grade spinal canalstenosis. INDIVIDUAL DISC LEVELS: L1-L2: No significant disc bulge, spinal canal or neural foraminalnarrowing. L2-L3: No significant disc bulge, spinal canal or neural foraminalnarrowing. L3-L4: No significant disc bulge, spinal canal or neural foraminalnarrowing. L4-L5: Mild disc bulge with thickened ligamentum flavum and facetarthropathy. Flattening of the ventral thecal sac. No significant neural foraminal narrowing. L5-S1: Disc bulge and a superimposed tiny central/left subarticular disc protrusion with annular fissure approaching the descending left S1 nerveroot. Bilateral facet arthropathy. No significant spinal canal stenosis. Mild proximal left and no significant right neural foraminal narrowing. IMPRESSION: 1. Lower lumbar predominant mild disc degeneration with thickenedligamentum flavum and facet arthropathy as described. The lumbar spinal canal ispatent. 2. Neural foraminal narrowing and other findings as above. 3. Previous lumbar spine imaging is not available for comparison. THIS IS AN ELECTRONICALLY VERIFIED FINAL REPORT 06/30/2025 9:59 AM - Electronically signed by Elier CLIFTON T: Report ID: [id number] Reading Location: [id number] Karley Sarabia NP IMG MRI PROCEDURES Final Result * XR Sacroiliac Joints 3 or More Views (05/24/2025 3:29 PM CDT) Anatomical Region Laterality Modality Pelvis, Body N/A Computed Radiogr aphy 05/29/2025 8:37 AM CDT Narrative 05/29/2025 8:37 AM CDT EXAM DESCRIPTION: XR SACROILIAC JOINTS 3 OR MORE VIEWS REASON FOR STUDY: M25.50 Left lower back pain x 10 years. Hx of left hip replacement in December. Pain greater ever since TECHNIQUE: 3 radiographic view(s) of the bilateral sacroiliac joints . COMPARISON: None FINDINGS: There is no definite evidence of acute displaced fracture or dislocation involving the bilateral sacroiliac joints. There are mild degenerative changes bilateral sacroiliac joints with joint space narrowing and mild sclerosis. There are mild degenerative changes of the visualized spine. The visualized soft tissues are acutely grossly unremarkable. IMPRESSION: 1. Mild degenerative changes of the bilateral sacroiliac joints without definite evidence of acute displaced fracture or dislocation. THIS IS AN ELECTRONICALLY VERIFIED FINAL REPORT 05/29/2025 8:37 AM - Electronically signed by Radha Jean D.O. PS: PS Report ID: [id number] Reading Location: [id number] Procedure Note Radha Jean, DO - 05/29/2025 EXAM DESCRIPTION: XR SACROILIAC JOINTS 3 OR MORE VIEWS REASON FOR STUDY: M25.50 Left lower back pain x 10 years. Hx of left hip replacement in December. Pain greater ever since TECHNIQUE: 3 radiographic view(s) of the bilateral sacroiliac joints . COMPARISON: None FINDINGS: There is no definite evidence of acute displaced fracture or dislocation involving the bilateral sacroiliac joints. There are mild degenerative changes bilateral sacroiliac joints with joint spacenarrowing and mild sclerosis. There are mild degenerative changes of the visualized spine. The visualized soft tissues are acutely grossly unremarkable. IMPRESSION: 1. Mild degenerative changes of the bilateral sacroiliac joints without definite evidence of acute displaced fracture or dislocation. THIS IS AN ELECTRONICALLY VERIFIED FINAL REPORT 05/29/2025 8:37 AM - Electronically signed by Radha Jean D.O. PS: PS Report ID: [id number] Reading Location: [place] [address] Galileo Mendoza MD IMG XR PROCEDURES Final Res ult from Last 3 Months Insurance Advance Directives For more information, please contact: [phone] * Full Code (Latest Code Status on File) Date Activated Date Inactivated Comments 01/10/2025 8:22 AM 01/10/2025 4:44 PM * Full Code Date Activated Date Inactivated Comments 09/22/2019 5:13 PM 09/25/2019 12:46 PM Care Teams Health Record Technician Relationship Specialty Start Date End Date Liu Riley DO [address] [facility] [address] [place] [address] PCP - General Family Medicine 07/03/25
--- OUTSIDE RECORDS SUMMARY | 2025-07-16 00:49 | XMS_ITS | Patient Health Record ---
Author Organization [facility] Address [address] [facility] [address] [place] [address] Care Team Providers Care Mammalogist Name Role Phone Nuvia MILLAN, Lulu Primary Care Provider Unavail able RamiroAbbie Unavailable [phone] Allergies Allergen (clinical drug ingredient) Drug/Non Drug [...] Problem Status W/U Status Risk Notes Problem Osteoarthritis ([id number]) Osteoarthritis, unspecified osteoarthritis type, unspecified site (M19.90) [...] Insured Coverage Start Date Coverage End Date [facility] [employer] [address] [address] [place] [address] [id number] Natalie Edwards ch Self - patient is the insured BCBS OF [facility] [address] [place] [address] [id number] Natalie Edwards ch Self - patient is the insured Medications Administered Medication Instructions Date of Administration Dosage Notes DEPO-Medrol 03/05/2024 80 mg Medical (General) History Medical History History ICD Code leukocytosis bipolar 1 small fiber neuropathy hypertension diabetes hypothyroidism psoriasis Surgical History Surgery Date(Month/Year) left hip surgery (labral taper) hysterectomy
[2025-07-16 14:53] VITALS: BP 130/76; PULSE 68; TEMP 36.4; O2SAT 100; BMI 35.9
--- NOTE | 2025-07-16 15:30 | WPDHPUPDATE1 ---
History and Physical Update Update Date/Time: 07/16/25 15:30 History and Physical has been reviewed, including an updated exam of the patient. There are NO changes in the patient's condition. Risks, benefits, and alternatives have been discussed and questions answered. Patient agrees to proceed with procedure.
--- NOTE | 2025-07-16 15:31 | W.PM.PROC2 ---
Procedure Note - Detailed Date of Procedure 07/16/25 Pre-op Diagnosis lumbar radiculopathy Post-op Diagnosis Same Procedure Performed Left Lumbar Transforaminal Epidural Steroid Injection under Fluoroscopic Guidance and with Contrast Control at L4-5, L5-S1. Surgeon Paulo Hinds MD Anesthesia Local Description of Procedure INFORMED CONSENT: Risks, benefits and alternatives to the procedure were discussed in detail with the patient who expressed explicit understanding and consent to proceed. Patient was informed verbally and in written form regarding the risks associated with the procedure including the low risk of serious infection, bleeding/bruising, allergic reaction, nerve or organ injury, paralysis, procedural site pain or discomfort, worsening pain and/or mobility, failure to treat and/or disfigurement. The patient expressed explicit understanding and consent to proceed. All materials required for the procedure were available prior to procedure start. Site and side was marked prior to procedure and confirmed in the presence of the patient. PROCEDURE IN DETAIL: The patient was brought to the procedural suite and placed in the prone position. Patient was made comfortable with use of pillows under the head/chest, hips and ankles. Skin overlying the injection site was prepared broadly with ChloraPrep applicator and draped in a sterile manner. Aseptic technique was employed throughout. The endplates of the vertebral body at the site of interest were aligned in the AP view. Ipsilateral oblique angulation was utilized to better visualize the neuroforamen of interest. Local anesthesia was established by infiltration with approximately 5 mL of 0.5% PF lidocaine via a 1-1/2 inch 27-gauge needle. A 22-gauge 3.5 inch Bernardino (pencil point) spinal needle was advanced until the needle approached the 6 o'clock position on the pedicle just superior to the exiting nerve root. on the left at L4-5. Lateral view was utilized to confirm appropriate position of the needle tip within the superior and posterior portion of the respective foramen. In an AP view, 1 mL of Omnipaque 300 contrast medium was injected after negative aspiration for CSF, blood or other bodily fluid, showing appropriate neurogram without evidence of intravascular or intrathecal spread of contrast. Digital subtraction imaging was used with an additional 1ml of the same contrast medium to confirm absence of intravascular contrast spread. A 1mL solution containing 5 mg of dexamethasone was injected after negative repeat aspiration. Appropriate spread of the injectate was confirmed with washout of previously injected contrast. No paraesthesias were elicited. Needle was removed completely intact without difficulty. [The same exact procedure was repeated for all remaining levels on the ipsilateral side, left L5-S1 neuroforamen, modified as necessary to accommodate for the new target location with identical findings and results and no evidence of complication.] Images were saved and documented in the patient chart. Patient's skin was cleaned and sterile bandage applied. The patient tolerated the procedure well. The patient was transported to the recovery area in stable condition where they were observed for an appropriate amount of time prior to discharge, without evidence of complication. The patient was instructed to avoid excessive activity for the next 48 hours, including climbing and frequent use of stairs. Showers only for 48 hours. They were instructed not to drive or operate heavy machinery for 24 hours. They are to monitor for severe headaches, fevers, chills, night sweats, erythema/swelling at the site or any other signs of infection, bleeding/bruising, bowel or bladder changes as well as new pain, weakness or numbness in the upper or lower extremity. Should they notice these changes, they are instructed to call our office immediately or report directly to the nearest Emergency Department if no answer or if after posted office hours. COMPLICATIONS: None COMMENTS: None CONTRAST WASTED: 26 mL Omnipaque 300. Complications No immediate complications Condition Stable Disposition Same day [facility] Billing Surgery - Charge Forward: Surgery Billing
[2025-07-16 17:30] VITALS: BP 139/85; PULSE 64; RESP 16; O2SAT 100
[2025-07-16] MEDS: LIDOCAINE 2% PF LOCAL INJ 5 ML VIAL 4 ML INFILTRATE (17:36)
[2025-07-16] MEDS: DEXAMETHASONE SODIUM PHOSP/PF 10 MG/ML 1 ML VIAL INFILTRATE (17:37)
[2025-07-16 17:40] VITALS: BP 148/85; PULSE 66; RESP 16; O2SAT 100
[2025-07-16] MEDS: LIDOCAINE 1% LOCAL INJ 20 ML VIAL 10 ML INFILTRATE (17:49)
[2025-07-16 17:50] VITALS: BP 162/77; PULSE 73; RESP 16; O2SAT 100
[2025-07-16 17:58] VITALS: BP 145/81; PULSE 69; RESP 18; O2SAT 100
== END 2025-07-16 18:19 | disposition home or self-care (01) ==
PROVIDERS: Visit Provider Anesthesiology Pain Medicine
PROC: (CPT 64483; principal; 2025-07-16 15:30)
DX: M47.26 Other spondylosis with radiculopathy, lumbar region (principal); M48.061 Spinal stenosis, lumbar region without neurogenic claudication
CPT/HCPCS: 64483; 64484; 99199; J2003; Q9965